=== PATIENT | female | born 1955 | race Caucasian/White ===

== ENCOUNTER 2023-03-06 14:55 | Outpatient (OUT) | payer MEDICARE, SELFPAY ==
--- NOTE | 2023-03-06 15:08 | MR_ITS ---
[place] [id number] Patient Name: JACOBO SALAZAR MRN: [id number] date: 1955 Sex: F Assigned Patient Location: MRI Current Patient Location: MRI Accession/Order Number: [id number] Exam Date: 03/06/2023 15:50 Report Date: 03/07/2023 06:26 At the request of: NAKUL QUIGLEY Procedure: MR shoulder RT wo con EXAMINATION: MR shoulder RT wo con HISTORY: Right shoulder tendinitis M77.8 COMPARISON: No relevant comparison available. TECHNIQUE: A variety of imaging planes and parameters were utilized for visualization of suspected pathology. Imaging was performed without contrast. FINDINGS: ROTATOR CUFF REGION CUFF TENDONS: Mild increased signal intensity in the supraspinatus tendon indicates tendon degeneration and/or tendinitis. No santo tear is seen. CUFF MUSCLES: No significant atrophy or tear. LONG BICEPS TENDON: No abnormal signal, attrition, or tear. LABRUM/BICEPS ANCHOR SUPERIOR: Small, with suspected small tear. ANTERIOR/INFERIOR: Small, but no visible tear. POSTERIOR: Small, but no visible tear. CAPSULE No visible capsular laxity or thickening. AC JOINT REGION AC JOINT: Moderate osteoarthropathy with mild-moderate narrowing of the underlying coracoacromial arch. AC LIGAMENTS: No appreciable tear. CC LIGAMENTS: No appreciable tear. ACROMION: Small undersurface osteophyte at its lateral margin. No significant downsloping. SUBACROMIAL BURSA: No significant effusion. HYALINE CARTILAGE: Marked thinning throughout with multiple areas of suspected complete loss of cartilage. OTHER BONES: Innumerable areas of cortical irregularity and subchondral cysts opening to the cortical surface. Mild bone remodeling of the humeral head and glenoid. Degenerative osteophytes anterior inferior articular margin of humeral head and glenoid. OTHER OBSERVATIONS: No joint effusion. IMPRESSION: 1. Advanced degenerative changes of the glenohumeral joint. 2. Moderate degenerative changes of the acromioclavicular joint. 3. Mild strain or chronic degeneration of the supraspinatus tendon. 4. Small labrum with suspected small superior labral tear. Electronically authenticated by: CHANNING COOK Date: 03/07/2023 06:26
--- NOTE | 2023-03-06 15:11 | XR_ITS ---
The [address] [address] Patient Name: JACOBO SALAZAR MRN: [id number] date: 1955 Sex: F Assigned Patient Location: MRI Current Patient Location: MRI Accession/Order Number: [id number] Exam Date: 03/06/2023 15:15 Report Date: 03/06/2023 16:05 At the request of: NAKUL QUIGLEY Procedure: XR shoulder RT min 2V PROCEDURE: XR shoulder RT min 2V HISTORY: Right shoulder tendinitis M77.8 ; fracture of right shoulder 18 months ago COMPARISON: None. FINDINGS: BONES:Narrowing of the glenohumeral joint with marked irregularity of the articular surfaces, numerous subchondral cysts, and moderate subchondral sclerosis. Large degenerative osteophyte projecting from inferior articular margin of humeral head. Narrowing of the acromial clavicular joint with undersurface osteophytes. SOFT TISSUES:Calcification cephalad to the glenohumeral joints may be within the rotator cuff and represent calcific tendinitis, or less could represent heterotopic bone formation from patient's prior injury. EFFUSION:None visible. OTHER: Negative. IMPRESSION: 1. Marked degenerative changes of the shoulder. 2. No appreciable acute abnormality. Electronically authenticated by: CHANNING COOK Date: 03/06/2023 16:05
== END 2023-03-06 14:56 ==
LOC: MRI 14:58
PROVIDERS: PCP Nurse Practitioner Primary Care; Visit Provider Nurse Practitioner Primary Care
DX: M77.8 Other enthesopathies, not elsewhere classified (principal); S46.811A Strain of other muscles, fascia and tendons at shoulder and upper arm level, right arm, initial encounter
CPT/HCPCS: 73030; 73221

== ENCOUNTER 2023-03-17 12:34 | Outpatient (RCR) | payer MEDICARE, SELFPAY | END 2023-04-25 13:14 | disposition home or self-care (01) | LOC: PT 12:34 | PROVIDERS: PCP Nurse Practitioner Primary Care; Visit Provider Nurse Practitioner Primary Care | DX: M77.8 Other enthesopathies, not elsewhere classified (principal) | CPT/HCPCS: 97110; 97140; 97161 ==

== ENCOUNTER 2023-04-11 09:49 | Outpatient (OUT) | payer MEDICARE, SELFPAY ==
--- NOTE | 2023-04-11 09:52 | MM_ITS ---
Patient: JACOBO SALAZAR Exam Date: 04/11/2023 : 1955 Gender:F Ordering : NAKUL QUIGLEY Admission #: [id number] Family : Order #: [id number] CLICK HERE TO VIEW EXAM RADIOLOGY REPORT PROCEDURE: MM TOMOSYNTHESIS SCREENING BI COMPARISON: MG MAMM SCREEN CHELSY W CAD, 03/10/2021. MG MAMM RT DIAG W CAD, 11/27/2017. MG MAMM SCREEN CHELSY W CAD, 11/01/2017. INDICATIONS: Screening Calculator Name NCI Breast Cancer Risk Assessment Tool 5 Year Breast Cancer Risk 1.60% Lifetime Breast Cancer Risk 6.20% Personal Breast Cancer No Personal Ovarian Cancer No Treatments None Family Cancers Aunt-maternal with breast cancer at age 50. LOCATION: [facility] BREAST COMPOSITION: Scattered areas fibroglandular density. FINDINGS: DIAGNOSTIC CATEGORY 2--BENIGN FINDING: RIGHT BREAST: No significant suspicious finding. Stable, chronic nodular asymmetry within the lower inner quadrant, mid breast. No significant change has occurred. LEFT BREAST: No significant suspicious finding. Stable surgical/biopsy changes and calcified granuloma. No significant change has occurred. RECOMMENDATIONS: ROUTINE MAMMOGRAM AND CLINICAL EVALUATION IN 12 MONTHS. PLEASE NOTE: A NORMAL MAMMOGRAM DOES NOT EXCLUDE THE POSSIBILITY OF BREAST CANCER. A CLINICALLY SUSPICIOUS PALPABLE LUMP SHOULD BE BIOPSIED. Dictated by: Lefty See M.D. on 04/11/2023 at 14:07 Approved by: Lefty See M.D. on 04/11/2023 at 14:11
== END 2023-04-11 09:50 | disposition home or self-care (01) ==
LOC: MAMMO 09:49
PROVIDERS: PCP Nurse Practitioner Primary Care; Visit Provider Nurse Practitioner Primary Care
DX: Z12.31 Encounter for screening mammogram for malignant neoplasm of breast (principal); Z80.3 Family history of malignant neoplasm of breast
CPT/HCPCS: 77063; 77067

== ENCOUNTER 2023-05-23 09:56 | Outpatient (OUT) | payer MEDICARE, SELFPAY ==
[2023-05-23 10:36] LABS: Estimated Average Glucose 137 mg/dL; Glycohemoglobin A1C 6.4 % (4.5-6.2)
[2023-05-23 10:38] LABS: Anion Gap 12.9; Carbon Dioxide 29.1 mmol/L (21.0-32.0); Chloride 100 mmol/L (98-107); Glucose 121 mg/dL (74-106); Sodium 138 mmol/L (136-145)
[2023-05-23 10:39] LABS: Alanine Aminotransferase 16 U/L (14-59); Albumin Globulin Ratio 0.9; Albumin Level 3.8 g/dL (3.4-5.0); Alkaline Phosphatase 85 U/L (46-116); Aspartate Amino Transferase 13 U/L (15-37); BUN Creatinine Ratio 17.3; Bilirubin Total 0.4 mg/dL (0.2-1.0); Calcium 9.8 mg/dL (8.5-10.1); Chol HDL Ratio 5.2; Cholesterol 268 mg/dL (<=200); Estimated GFR (African America >60 (>=60); Estimated GFR (Non-African Ame >60 (>=60); HDL Cholesterol 52 mg/dL (40-60); Total Protein 7.8 g/dL (6.4-8.2); Triglycerides 163 mg/dL (<=150); VLDL CHOLESTEROL 32.6 mg/dL
[2023-05-24 08:12] LABS: HCV Ab Non Reactive (Non Reactive)
== END 2023-05-23 09:57 | disposition home or self-care (01) ==
LOC: LAB 10:01
PROVIDERS: PCP Nurse Practitioner Primary Care; Visit Provider Nurse Practitioner Primary Care
DX: E11.9 Type 2 diabetes mellitus without complications (principal); E78.2 Mixed hyperlipidemia; R76.8 Other specified abnormal immunological findings in serum
CPT/HCPCS: 36415; 80053; 80061; 83036; 86803

== ENCOUNTER 2023-06-26 13:25 | Outpatient (OUT) | payer MEDICARE, SELFPAY ==
--- NOTE | 2023-06-26 14:12 | PM.CN ---
Consult Note: HPI Data of Consult Patient: new to practice Consult date: 06/26/23 Requesting Physician: Noble Reese MD Primary Care Provider: NAKUL QUIGLEY APRN-PRUDENCIO Consult Narrative Reason for consult: right shoulder, low back pain Narrative: Davian 68yof who presents for evaluation. Has had right shoulder and low back pain for years, but continues to worsen. Right shoulder MRI was reviewed, which is significant for advanced osteoarthritis. No recent imaging of low back available. Utilizes mobic, which provides some relief. Engaged in physical therapy that completed last month, with limited benefit. Denies adverse medication side effects or loss of bowel or bladder control. cc:: CC: Noble Reese MD Review of Systems ROS Status of ROS 10 or more systems reviewed and unremarkable except as noted in history and below Exam Narrative Exam Narrative: Psych-alert and oriented x 3. Attentive and appropriate, constitutionally normal, displays normal mood and affect per situation.? There are no obvious deficits in memory, reasoning, or intellect.? Skin-no obvious rashes, bruising, erythema noted to the patient's area of pain. Extremities- extremities are warm with minimal edema and palpable pulses. Shoulder- tenderness to palpation in right shoulder. Pain elicited with abduction, external rotation. Lumbar-no significant tenderness to palpation noted in the lumbar spine and paraspinal musculature.? Pain is elicited with extension, and lateral rotation of the lumbar spine. Range of motion is slightly diminished with these motions due to pain. Facet loading maneuvers are positive bilaterally and do appear to be concordant with the patient's normal complaints of pain.? Coordination remains intact.? Gait remains non-antalgic. Assessment and Plan Assessment and Plan (1) Primary osteoarthritis, right shoulder: (2) Lumbar spondylosis: Plan Davian 68yof who presents for evaluation. Failed conservative measures, as noted. Given worsening right shoulder pain and imaging, will have her scheduled for right shoulder injection in office. She is in agreement. In terms of low back pain, I will have her undergo physical therapy twice weekly for 4-6 weeks. Also will have her undergo xr of lumbar spine and sacrum. She is in agreement. Medications reviewed. Will have her discontinue mobic and trial lodine 400mg bid prn. Follow up after imaging complete.
== END 2023-06-26 13:26 | disposition home or self-care (01) ==
LOC: PM 13:28
PROVIDERS: PCP Nurse Practitioner Primary Care; Visit Provider Anesthesiology
DX: M47.816 Spondylosis without myelopathy or radiculopathy, lumbar region (principal); M19.011 Primary osteoarthritis, right shoulder
CPT/HCPCS: G0463

== ENCOUNTER 2023-07-07 12:40 | Outpatient (OUT) | payer MEDICARE, SELFPAY ==
--- NOTE | 2023-07-07 13:20 | XR_ITS ---
The [place] [id number] Patient Name: JACOBO SALAZAR MRN: [id number] date: 1955 Sex: F Assigned Patient Location: [facility] Current Patient Location: Accession/Order Number: [id number] Exam Date: 07/07/2023 13:00 Report Date: 07/08/2023 15:48 At the request of: ANDRIUS GIEDRAITIS Procedure: XR lumbar spine 6V w bending EXAM: XR sacrum coccyx min 2V, XR lumbar spine 6V w bending HISTORY: Lumbago COMPARISON: None. TECHNIQUE: 3 views of the sacrum and coccyx and 6 views of the lumbar spine. FINDINGS: Maintenance of the normal lumbar lordosis. Approximately 8 mm anterolisthesis of L4 and L5. Multilevel intervertebral disc space narrowing, endplate and severe facet arthropathy. Vertebral body heights are unremarkable. No discrete change of the listhesis with flexion and extension. No fracture, dislocation, subluxation or osseous lesion. Patient is status post right total hip replacement arthroplasty. The the visualized prosthesis exhibits no gross abnormality. Mild joint space narrowing and osteophytes of the left hip joint. The pubic symphysis and sacroiliac joints are unremarkable for patient's age. XR/XR lumbar spine 6V w bending IMPRESSION: Approximately 8 mm anterolisthesis of the L4 vertebral body on L5. This may be secondary to severe facet arthrosis. Electronically authenticated by: CRISTIANE NEWMAN Date: 07/08/2023 15:48
--- NOTE | 2023-07-07 13:20 | XR_ITS ---
The [place] [id number] Patient Name: JACOBO SALAZAR MRN: [id number] date: 1955 Sex: F Assigned Patient Location: [facility] Current Patient Location: Accession/Order Number: [id number] Exam Date: 07/07/2023 13:00 Report Date: 07/08/2023 15:48 At the request of: ANDRIUS GIEDRAITIS Procedure: XR sacrum coccyx min 2V EXAM: XR sacrum coccyx min 2V, XR lumbar spine 6V w bending HISTORY: Lumbago COMPARISON: None. TECHNIQUE: 3 views of the sacrum and coccyx and 6 views of the lumbar spine. FINDINGS: Maintenance of the normal lumbar lordosis. Approximately 8 mm anterolisthesis of L4 and L5. Multilevel intervertebral disc space narrowing, endplate and severe facet arthropathy. Vertebral body heights are unremarkable. No discrete change of the listhesis with flexion and extension. No fracture, dislocation, subluxation or osseous lesion. Patient is status post right total hip replacement arthroplasty. The the visualized prosthesis exhibits no gross abnormality. Mild joint space narrowing and osteophytes of the left hip joint. The pubic symphysis and sacroiliac joints are unremarkable for patient's age. XR/XR sacrum coccyx min 2V IMPRESSION: Approximately 8 mm anterolisthesis of the L4 vertebral body on L5. This may be secondary to severe facet arthrosis. Electronically authenticated by: CRISTIANE NEWMAN Date: 07/08/2023 15:48
== END 2023-07-07 12:41 | disposition home or self-care (01) ==
LOC: RAD 12:42
PROVIDERS: PCP Nurse Practitioner Primary Care; Visit Provider Anesthesiology
DX: M54.50 Low back pain, unspecified (principal)
CPT/HCPCS: 72114; 72220

== ENCOUNTER 2023-07-10 14:42 | Outpatient (OUT) | payer MEDICARE, SELFPAY ==
--- NOTE | 2023-07-10 15:24 | P.CN_ITS ---
Consult Note: HPI Data of Consult Patient: known to practice within the last 3 years Consult date: 07/10/23 Requesting Physician: Noble Reese MD Primary Care Provider: NAKUL QUIGLEY APRN-PRUDENCIO Consult Narrative Reason for consult: right shoulder pain, low back pain Narrative: 68yof who presents for assessment. persistence right shoulder and low back pain. recently underwent lumbar XR, significant for severe facet arthrosis and 8mm of L4 on L5 listhesis. continues in course of provider directed home exercise program, with limited benefit. utilizes lodine prn. denies adverse med side effects. cc:: CC: Noble Reese MD Review of Systems ROS Status of ROS 10 or more systems reviewed and unremarkable except as noted in history and below Meds Home Medications and Allergies Home Medications Medication Instructions Recorded Confirmed Type aspirin 81 mg tablet,delayed 81 mg PO DAILY 06/26/23 06/26/23 History release atorvastatin 40 mg tablet 80 mg PO DAILY 06/26/23 06/26/23 History dulaglutide 1.5 mg/0.5 mL 1.5 mg subcut QWEEK 06/26/23 06/26/23 History subcutaneous pen injector (Trulicity) etodolac 400 mg tablet (Lodine) 400 mg PO BID 06/26/23 06/26/23 History losartan 100 mg tablet 100 mg PO DAILY 06/26/23 06/26/23 History omega 2-zko-bti-fish oil 1,000 mg 1 cap PO DAILY 06/26/23 06/26/23 History (120 mg-180 mg) capsule (Fish Oil) oxybutynin chloride 15 mg 15 mg PO DAILY 06/26/23 06/26/23 History tablet,extended release 24 hr pantoprazole 40 mg tablet,delayed 40 mg PO DAILY 06/26/23 06/26/23 History release Allergies Allergy/AdvReac Type Severity Reaction Status Date / Time No Known Drug Allergies Allergy Verified 06/26/23 14:27 Exam Narrative Exam Narrative: Psych-alert and oriented x 3. Attentive and appropriate, constitutionally normal, displays normal mood and affect per situation.? There are no obvious deficits in memory, reasoning, or intellect.? Skin-no obvious rashes, bruising, erythema noted to the patient's area of pain. Extremities- extremities are warm with minimal edema and palpable pulses. Lumbar-no significant tenderness to palpation noted in the lumbar spine and paraspinal musculature.? Pain is elicited with extension, and lateral rotation of the lumbar spine. Range of motion is slightly diminished with these motions due to pain. Facet loading maneuvers are positive bilaterally and do appear to be concordant with the patient's normal complaints of pain.? Shoulder- right shoulder tender to palpation. Pain elicited with abduction, exte rnal rotation of right shoulder. Coordination remains intact.? Gait remains non-antalgic. Assessment and Plan Assessment and Plan (1) Lumbar spondylosis: (2) Primary osteoarthritis, right shoulder: (3) Anterolisthesis of lumbar spine: Plan 68yof who presents for assessment. failed conservative measures, as noted. given right shoulder pain, will proceed with right shoulder injection today. she is in agreement. in terms of her low back pain, given her significant imaging findings and degree of anterolisthesis, would like her to have lumbar MRI without contrast completed, as well as neurosurgical evaluation. she is in agreement. medications reviewed, no changes. follow up after imaging and evaluation. Procedure: Right shoulder injection Medications: Bupivacaine 0.25% 4cc, kenalog 40mg Diagnosis: Right shoulder osteoarthritis I explained the details of the procedure to the patient including the risks, benefits, and alternatives.? We had an informed discussion.? The patient verbalized understanding and signed the consent form.? All questions were answered appropriately.? A time-out was performed.? After obtaining a comfortable seated position, the skin overlying the right shoulder was prepped with alcohol 3 times.? The sulcus between the head of the humerus and the acromion was identified.? The needle was inserted in a sterile manner 2 cm inferior and medial to the posterolateral corner of the acromion and was directed anteriorly toward the coracoid process. The contents of the syringe were gently injected without any resistance into the joint space after negative aspiration for blood or other bodily fluids.? The needle was removed and pressure was applied at the injection site to decrease the incidence of ecchymosis and hematoma formation.? A sterile bandage was applied.
== END 2023-07-10 14:43 | disposition home or self-care (01) ==
LOC: PM 14:42
PROVIDERS: PCP Nurse Practitioner Primary Care; Visit Provider Anesthesiology
DX: M47.816 Spondylosis without myelopathy or radiculopathy, lumbar region (principal); M19.011 Primary osteoarthritis, right shoulder; M43.16 Spondylolisthesis, lumbar region
CPT/HCPCS: 20610

== ENCOUNTER 2023-08-14 13:20 | Outpatient (OUT) | payer MEDICARE, SELFPAY ==
--- NOTE | 2023-08-14 | MR_ITS ---
The [place] [id number] Patient Name: JACOBO SALAZAR MRN: [id number] date: 1955 Sex: F Assigned Patient Location: MRI Current Patient Location: MRI Accession/Order Number: [id number] Exam Date: 08/14/2023 13:32 Report Date: 08/14/2023 16:13 At the request of: BERNADINE GIEDRASTEWART Procedure: MR lumbar spine wo con MR lumbar spine wo con, 08/14/2023 1:32 PM EST INDICATION: lumbar listhesis COMPARISON: Prior x-ray of lumbar spine dated 07/07/2023 TECHNIQUE: Multiplanar, multisequential MRI images of lumbar spine were obtained without contrast. FINDINGS: For dictation purposes, the lowest complete disc space in the lumbar spine considered as L5-S1. Grade 1 anterolisthesis of L4 on L5. There is normal physiologic lumbar lordosis. The vertebral height is preserved. The conus medullaris is at the level of L1. No signal abnormality within the visualized spinal cord is noted. Level of T12-L1 is unremarkable. At the level of L1-L2, there are disc bulge with mild bilateral neuroforaminal narrowing and no canal stenosis. At the level of L2-L3, there are disc bulge with mild to moderate bilateral neuroforaminal narrowing and moderate canal stenosis. At the level of L3-4, there are disc bulge with superimposed left lateral annular fissure with mild bilateral neuroforaminal narrowing and mild canal stenosis. At the level of L4-5, there are grade 1 anterolisthesis uncovering disc with moderate right and mild left neuroforaminal narrowing and mild canal stenosis. At the level of L5-S1, there are disc bulge with superimposed left lateral disc protrusion with mild right and moderate left neuroforaminal narrowing and no canal stenosis. The left S1 nerve root is in close contact with the disc bulge in the lateral recess. The paraspinal muscles are unremarkable. MR/MR lumbar spine wo con IMPRESSION: Mild degenerative changes of lumbar spine in particular at L4-L5 and L5-S1. Electronically authenticated by: IRVING MINER Date: 08/14/2023 16:13
== END 2023-08-14 13:21 | disposition home or self-care (01) ==
LOC: MRI 13:20
PROVIDERS: PCP Nurse Practitioner Primary Care; Visit Provider Anesthesiology
DX: M43.16 Spondylolisthesis, lumbar region (principal); M51.36 Other intervertebral disc degeneration, lumbar region
CPT/HCPCS: 72148

== ENCOUNTER 2023-10-19 13:24 | Outpatient (OUT) | payer MEDICARE, SELFPAY ==
--- OUTSIDE RECORDS SUMMARY | 2023-10-19 13:28 | XMS_ITS | CCD ---
Author Name Unknown Address [address] [place] [address] Organization [facility] Care Team Providers Care Program Management Specialist Name Role Phone SHANIQUE WINTER Attending Unavailable SARA HODGES Primary Care Unavailable SHAMMO, GUILLAUME Primary Care Unavailable SHAMMO, GUILLAUME Admitting Unavailable SHAMMO, GUILLAUME Attending Unavailable SHAMMO, GUILLAUME Primary Care Unavailable SHAMMO, GUILLAUME Admitting Unavailable SHAMMO, GUILLAUME Attending Unavailable SHAMMO, GUILLAUME Primary Care Unavailable SHAMMO, GUILLAUME Admitting Unavailable SHAMMO, GUILLAUME Attending Unavailable SHAMMO, GUILLAUME Primary Care Unavailable SHAMMO, GUILLAUME Admitting Unavailable DO NOT USE SHAMMO, GUILLAUME Consulting Unavail able SHAMMO, GUILLAUME Attending Unavailable SHAMMO, GUILLAUME Primary Care Unavailable SHAMMO, GUILLAUME Admitting Unavailable SHAMMO, GUILLAUME Attending Unavailable SHAMMO, GUILLAUME Consulting Unavailable SHAMMO, GUILLAUME Primary Care Unavailable SHAMMO, GUILLAUME Admitting Unavailable SHAMMO, GUILLAUME Attending Unavailable Giedraitis , Andrius Marina Attending Unavailable Giedraitis , Andrius Vytfannie Attending Unavailable SHAMMO, GUILLAUME Primary Care Unavailable DAGOBERTO, NEHA E Attending Unavailable DAGOBERTO, NEHA E Admitting Unavailable SHAMMO, GUILLAUME Primary Care Unavailable SHAMMO, GUILLAUME Referring Unavailable SHAMMO, GUILLAUME Primary Care Unavailable Armin MCGHEE Attending Unavailable SHAMMO, GUILLAUME Primary Care Unavailable DAGOBERTO, NEHA E Attending Unavailable SHAMMO, GUILLAUME Primary Care Unavailable SHAMMO, GUILLAUME Referring Unavailable SHAMMO, GUILLAUME Primary Care Unavailable DAGOBERTO, NEHA E Attending Unavailable Allergies Allergy Classification Reported Allergen(s) Allergy Type Date of Onset Reaction(s) Facility (1 source) No Known Medication Allergies; Translations: [No Known Medication Allergies] Propensity to adverse reactions (disorder) [facility] Repository Problems Problem Classification Problem Date Documented Da te Episodic/Chronic Diabetes mellitus without complication (1 source) Type 2 diabetes mellitus without complications; Translations: [TYPE 2 DM WITHOUT COMPLICATIONS] Onset: 02-08-2023 Chronic Disorders of lipid metabolism (1 source) Pure hyperglyceridemia ; Translations: [PURE HYPERGLYCERIDEMIA ] Onset: 02-08-2023 Chronic Immunizations and screening for infectious disease (1 source) Encounter for screening for other viral diseases; Translations: [ENC SCREENING FOR OTH VIRAL DZ] Onset: 02-08-2023 Episodic Other nutritional; endocrine; and metabolic disorders (1 source) Body mass index (BMI) 35.0-35.9, adult; Translations: [BODY MASS INDEX BMI 35.0-35.9 ADULT] Onset: 02-08-2023 Chronic Other screening for suspected conditions (not mental disorders or infectious disease) (1 source) Encounter for screening for other suspected endocrine disorder; Translations: [ENC SCR OTH SUSPECT ENDOCRN DISORDR] Onset: 02-08-2023 Episodic Results Test Name Value Interpretation Reference Range Facility C Urineon 07-13-2023 Bacteria identified Cx Nom (U) Microbiology PROCEDURE: Urine Culture [R1] SOURCE: U CleanCatch BODY SITE: COLLECTED DATE/TIME: 07/11/2023 10:50 EDT RECEIVED DATE/TIME: 07/11/2023 19:40 EDT START DATE/TIME: 07/11/2023 19:40 EDT FREE TEXT SOURCE: NEHA ARENAS PA-C, PA-C, NEHA Hickman FINAL REPORTS Final Report [] Verified Date/Time: 07/13/2023 11:21 EDT >100,000 cfu/ml Klebsiella pneumoniae <10,000 cfu/ml Mixed skin contaminants SUSCEPTIBILITY RESULTS __ LEGEND: S=Susceptible, N/R=Not Reported, Blank=Data not available, or drug not advisable or tested, I=Intermediate, ESBL=Extended spectrum beta-lactamase, R=Resistant, TFG=Thymidine-dependen t strain, RYNE=Beta-lactamase positive, JAEL=mcg/m;(mg/L), S*=Predicted susceptible interp, R*=Predicted resistant interp Klepne Antibiotic JAEL Dilutn JAEL Interp Amikacin <=16 S Ampicillin 16 R* Ampicillin/ <=8/4 S Sulbactam Aztreonam <=4 S Cefazolin <=2 S Cefepime <=2 S Cefoxitin <=8 S Ceftazidime <=1 S Ceftazidime/ <=8 S Avibactam Ceftriaxone <=1 S Ciprofloxacin <=1 S Ertapenem <=0.5 S Gentamicin <=4 S Levofloxacin <=2 S Meropenem <=1 S Nitrofurantoin 64 I Piperacillin/ <=16 S Tazobactam Tetracycline <=4 S Tigecycline <=2 S Tobramycin <=4 S Trimethoprim/ <=2/38 S Sulfa Performing Locations R1: This test was performed at: [facility], [address] [place] [address], [id number] , , [facility] Comment on above: Performed By: #### [id number] #### [facility] Laboratory [address] [place] [address] Lab Reportson 07-12-2023 Lab Reports [id number]. 00TIFF [facility] Physician Referralon 023 Physician Referral [id number] 00 [id number] 0TIFF Normal [facility] Screenson 07-12-2023 Screens [id number]. 00TIFF Normal [facility] Patient Educationon 07-11-20 23 Patient Education Obstetrics and Gynecology Kegel Exercises Kegel exercises can help strengthen your pelvic floor muscles. The pelvic floor is a group of muscles that support your rectum, small intestine, and bladder. In females, pelvic floor muscles also help support the uterus. These muscles help you control the flow of urine and stool (feces). Kegel exercises are painless and simple. They do not require any equipment. Your provider may suggest Kegel exercises to: ? Improve bladder and bowel control. ? Improve sexual response. ? Improve weak pelvic floor muscles after surgery to remove the uterus (hysterectomy) or after , in females. ? Improve weak pelvic floor muscles after prostate gland removal or surgery, in males. Kegel exercises involve squeezing your pelvic floor muscles. These are the same muscles you squeeze when you try to stop the flow of urine or keep from passing gas. The exercises can be done while sitting, standing, or lying down, but it is best to vary your position. Ask your health care provider which exercises are safe for you. Do exercises exactly as told by your health care provider and adjust them as directed. Do not begin these exercises until told by your health care provider. Exercises How to do Kegel exercises: 1. Squeeze your pelvic floor muscles tight. You should feel a tight lift in your rectal area. If you are a female, you should also feel a tightness in your vaginal area. Keep your stomach, buttocks, and legs relaxed. 2. Hold the muscles tight for up to 10 seconds. 3. Breathe normally. 4. Relax your muscles for up to 10 seconds. 5. Repeat as told by your health care provider. Repeat this exercise daily as told by your health care provider. Continue to do this exercise for at least 4?6 weeks, or for as long as told by your health care provider. You may be referred to a physical therapist who can help you learn more about how to do Kegel exercises. Depending on your condition, your health care provider may recommend: ? Varying how long you squeeze your muscles. ? Doing several sets of exercises every day. ? Doing exercises for several weeks. ? Making Kegel exercises a part of your regular exercise routine. This information is not intended to replace advice given to you by your health care provider. Make sure you discuss any questions you have with your health care provider. Document Revised: 01/27/2022 Document Reviewed: 01/27/2022 [employer] Patient Education ? 2022 [employer] Normal [facility] HEPATITIS C AB CASCADE TO QU ANT PCR GENOon 02-06-2023 HCV AB Reactive Abnormal Non Reactive [facility] Comment on above: Performed By: #### H EPCASC #### [facility] [address] [address] [address] Jorge Carrasco HCV Genotype RTNI Normal [facility] Comment on above: Result Comment: Not indicated Performed By: #### H EPCASC #### [facility] [address] [address] [address] Jorge Carrasco HCV log10 Normal [facility] Comment on above: Performed By: #### H EPCASC #### [facility] [address] [address] [address] Jorge Carrasco Hep C Quantitation Not detected [facility] Comment on above: Performed By: #### H EPCASC #### [facility] [address] [address] [address] Jorge Carrasco Interpretation Comment Normal [facility] Comment on above: Result Comment: Posi tive HCV antibody screen without the presence of HCV RNA is consistent with a resolved past infection or a false positive HCV antibody. Consider repeat testing after one month. Performed By: #### H EPCASC #### [facility] [address] [address] [address] Jorge Carrasco Test Information: Comment Normal [facility] Comment on above: Result Comment: The quantitative range of this assay is 15 IU/mL to 100 million IU/mL. Performed By: #### H EPCASC #### [facility] [address] [place] [address] Dr. Jorge Carrasco CBC AUTO DIFFon 02-02-2023 BASO # 0.0 103/ul Normal 0.0-0.1 [facility] Comment on above: Performed By: #### C BC #### [facility] [address] [address] [address] Jorge Carrasco Basophils/100 WBC (Bld) 0.5 % Normal 0.2-2.0 [facility] Comment on above: Performed By: #### C BC #### [facility] [address] [place] [address] Dr. Jorge Carrasco EO # 0.1 103/ul Normal 0.0-0.7 [facility] Comment on above: Performed By: #### C BC #### [facility] [address] [place] [address] Dr. Jorge Carrasco Eosinophils/100 WBC (Bld) 3.2 % Normal 0.9-7.0 [facility] Comment on above: Performed By: #### C BC #### [facility] [address] [place] [address] Dr. Jorge Carrasco Erythrocyte distribution width (RBC) [Ratio] 14.0 % Normal 11.0-15.0 [facility] Comment on above: Performed By: #### C BC #### [facility] [address] [place] [address] Dr. Jorge Carrasco Hematocrit (Bld) [Volume fraction] 40.2 % Normal 36.0-48.0 [facility] Comment on above: Performed By: #### C BC #### [facility] [address] [place] [address] Dr. Jorge Carrasco Hemoglobin (Bld) [Mass/Vol] 13.3 g/dL Normal 12.0-16.0 [facility] Comment on above: Performed By: #### C BC #### [facility] [address] [place] [address] Dr. Jorge Carrasco IG # 0.01 10e3/ul Normal 0.00-0.03 [facility] Comment on above: Performed By: #### C BC #### [facility] [address] [place] [address] Dr. Jorge Carrasco IG % 0.3 % Normal 0.0-0.5 [facility] Comment on above: Performed By: #### C BC #### [facility] [address] [address] [address] Jorge Carrasco LYMPH # 1.0 103/ul Critically low 1.2-3.8 [facility] Comment on above: Performed By: #### C BC #### [facility] [address] [address] [address] Jorge Carrasco Lymphocytes/100 WBC (Bld) 27.4 % Normal 20.5-60.0 [facility] Comment on above: Performed By: #### C BC #### [facility] [address] [place] [address] Dr. Jorge Carrasco MANUAL DIFF REQ NO Normal [facility] Comment on above: Performed By: #### C BC #### [facility] [address] [place] [address] Dr. Jorge Carrasco MCH (RBC) [Entitic mass] 28.0 pg Normal 26.7-34.0 [facility] Comment on above: Performed By: #### C BC #### [facility] [address] [place] [address] Dr. Jorge Carrasco MCHC (RBC) [Mass/Vol] 33.1 g/dL Normal 29.9-35.2 [facility] Comment on above: Performed By: #### C BC #### [facility] [address] [place] [address] Dr. Jorge Carrasco MCV (RBC) [Entitic vol] 84.6 fL Normal 81.0-99.0 [facility] Comment on above: Performed By: #### C BC #### [facility] [address] [place] [address] Dr. Jorge Carrasco MONO # 0.2 103/ul Critically low 0.3-0.8 [facility] Comment on above: Performed By: #### C BC #### [facility] [address] [place] [address] Dr. Jorge Carrasco Monocytes/100 WBC (Bld) 5.1 % Normal 1.7-12.0 [facility] Comment on above: Performed By: #### C BC #### [facility] [address] [address] [address] Jorge Carrasco NEUT # 2.4 103/ul Normal 1.4-6.5 [facility] Comment on above: Performed By: #### C BC #### [facility] [address] [address] [address] Jorge Carrasco Neutrophils/100 WBC (Bld) 63.5 % Normal 43.0-75.0 [facility] Comment on above: Performed By: #### C BC #### [facility] [address] [address] [address] Jorge Carrasco Platelet mean volume (Bld) [Entitic vol] 10.8 fL Normal 9.5-13.5 [facility] Comment on above: Performed By: #### C BC #### [facility] [address] [place] [address] Dr. Jogre Carrasco PLT 263 103/ul Normal 150-450 [facility] Comment on above: Performed By: #### C BC #### [facility] [address] [place] [address] Dr. Jorge Carrasco RBC 4.75 106/ul Normal 4.20-5.40 [facility] Comment on above: Performed By: #### C BC #### [facility] [address] [address] [address] Jorge Carrasco WBC 3.7 103/ul Critically low 4.0-11.0 [facility] Comment on above: Performed By: #### C BC #### [facility] [address] [place] [address] Dr. Jorge Carrasco FREE T3on 02-02-2023 FREE T3 3.11 pg/mlL Normal 2.18-3.98 [facility] Comment on above: Performed By: #### L IPID, TSH, FT3, CMP #### [facility] [address] [address] [address] Jorge Carrasco GLYCOHEMOGLOBIN A1Con 2022 ADA RECOMMENDATION SEE BELOW Normal [facility] Comment on above: Result Comment: ADA RECOMMENDED LIMIT 4.0 - 6.0 ADA THERAPEUTIC TARGET < 7.0 ACTION SUGGESTED > 7.0 Performed By: #### A 1C #### [facility] [address] [address] [address] Jorge Carrasco Glucose [Mass/Vol] 189 mg/dL Normal [facility] Comment on above: Performed By: #### A 1C #### [facility] [address] [address] [address] Jorge Carrasco HbA1c (Bld) [Mass fraction] 8.2 % Critically high 4.5-6.2 [facility] Comment on above: Performed By: #### A 1C #### [facility] [address] [place] [address] Dr. Jorge Carrasco LIPID PROFILEon 02-02-2023 CHOL-HDL RATIO NORM SEE BELOW Normal [facility] Comment on above: Result Comment: 3.3 - 4.4 LOW RISK 4.4 - 7.1 AVERAGE RISK 7.1 - 11.0 MODERATE RISK >11.0 HIGH RISK Performed By: #### L IPID, TSH, FT3, CMP #### [facility] [address] [address] [address] Jorge Carrasco Cholesterol [Mass/Vol] 245 mg/dL Critically high <=200 [facility] Comment on above: Performed By: #### L IPID, TSH, FT3, CMP #### [facility] [address] [address] [address] Jorge Carrasco Cholesterol in HDL [Mass/Vol] 61 mg/dL Critically high 40-60 [facility] Comment on above: Performed By: #### L IPID, TSH, FT3, CMP #### [facility] [address] [address] [address] Jorge Carrasco Cholesterol in LDL [Mass/Vol] 156.2 mg/dL Normal [facility] Comment on above: Performed By: #### L IPID, TSH, FT3, CMP #### [facility] [address] [address] [address] Jorge Carrasco Cholesterol.total/Ch olesterol in HDL [Mass ratio] 4.0 {ratio} Normal [facility] Comment on above: Performed By: #### L IPID, TSH, FT3, CMP #### [facility] [address] [place] [address] Dr. Jorge Carrasco HDL NORMAL > or = 60 mg/dl - LO W CARDIOVASCULAR RISK <40 mg/dl - HIGH CARDIOVASCULAR RISK Normal [facility] Comment on above: Performed By: #### L IPID, TSH, FT3, CMP #### [facility] [address] [address] [address] Jorge Carrasco LDL CALC NORMAL SEE BELOW Normal [facility] Comment on above: Result Comment: <100 mg/dl OPTIMAL 100 - 129 mg/dl NEAR OR ABOVE OPTIMAL 130 - 159 mg/dl BORDERLINE HIGH 160 - 189 mg/dl HIGH >190 mg/dl VERY HIGH Performed By: #### L IPID, TSH, FT3, CMP #### [facility] [address] [place] [address] Dr. Jorge Carrasco Triglyceride [Mass/Vol] 139 mg/dL Normal <=150 [facility] Comment on above: Performed By: #### L IPID, TSH, FT3, CMP #### [facility] [address] [place] [address] Dr. Jorge Carrasco VLDL CALC 27.8 mg/dL Normal [facility] Comment on above: Performed By: #### L IPID, TSH, FT3, CMP #### [facility] [address] [place] [address] Dr. Jorge Carrasco MICROALBUMIN, RAND URon 05-0 mALB 1.5 mg/L Normal <=30.0 [facility] Comment on above: Performed By: #### M ALBR #### [facility] [address] [place] [address] Dr. Jorge Carrasco PROF 14(COMP METB)on 023 Albumin [Mass/Vol] 3.5 g/dL Normal 3.4-5.0 [facility] Comment on above: Performed By: #### L IPID, TSH, FT3, CMP #### [facility] [address] [place] [address] Dr. Jorge Carrasco Albumin/Globulin [Mass ratio] 0.7 {ratio} Normal [facility] Comment on above: Performed By: #### L IPID, TSH, FT3, CMP #### [facility] [address] [place] [address] Dr. Jorge Carrasco ALP [Catalytic activity/Vol] 127 U/L Critically high 46-116 [facility] Comment on above: Performed By: #### L IPID, TSH, FT3, CMP #### [facility] [address] [place] [address] Dr. Jorge Carrasco ALT [Catalytic activity/Vol] 24 U/L Normal 14-59 [facility] Comment on above: Performed By: #### L IPID, TSH, FT3, CMP #### [facility] [address] [place] [address] Dr. Jorge Carrasco Anion gap [Moles/Vol] 11.5 mmol/L Normal [facility] Comment on above: Performed By: #### L IPID, TSH, FT3, CMP #### [facility] [address] [place] [address] Dr. Jorge Carrasco AST [Catalytic activity/Vol] 16 U/L Normal 15-37 [facility] Comment on above: Performed By: #### L IPID, TSH, FT3, CMP #### [facility] [address] [place] [address] Dr. Jorge Carrasco Bilirubin [Mass/Vol] 0.3 mg/dL Normal 0.2-1.0 [facility] Comment on above: Performed By: #### L IPID, TSH, FT3, CMP #### [facility] [address] [place] [address] Dr. Jorge Carrasco Calcium [Mass/Vol] 9.8 mg/dL Normal 8.5-10.1 [facility] Comment on above: Performed By: #### L IPID, TSH, FT3, CMP #### [facility] [address] [place] [address] Dr. Jorge Carrasco Chloride [Moles/Vol] 99 mmol/L Normal 98-107 [facility] Comment on above: Performed By: #### L IPID, TSH, FT3, CMP #### [facility] [address] [place] [address] Dr. Jorge Carrasco CO2 [Moles/Vol] 29.4 mmol/L Normal 21.0-32.0 [facility] Comment on above: Performed By: #### L IPID, TSH, FT3, CMP #### [facility] [address] [place] [address] Dr. Jorge Carrasco Creatinine [Mass/Vol] 0.72 mg/dL Normal 0.55-1.02 [facility] Comment on above: Performed By: #### L IPID, TSH, FT3, CMP #### [facility] [address] [place] [address] Dr. Jorge Carrasco EGFR-AF HONDURAN >60 Normal >=60 [facility] Comment on above: Performed By: #### L IPID, TSH, FT3, CMP #### [facility] [address] [place] [address] Dr. Jorge Carrasco EGFR-NON AF HONDURAN >60 Normal >=60 [facility] Comment on above: Performed By: #### L IPID, TSH, FT3, CMP #### [facility] [address] [place] [address] Dr. Jorge Carrasco Globulin (S) [Mass/Vol] 4.9 g/dL Normal [facility] Comment on above: Performed By: #### L IPID, TSH, FT3, CMP #### [facility] [address] [place] [address] Dr. Jorge Carrasco Glucose [Mass/Vol] 185 mg/dL Critically high 74-106 [facility] Comment on above: Performed By: #### L IPID, TSH, FT3, CMP #### [facility] [address] [place] [address] Dr. Jorge Carrasco Potassium [Moles/Vol] 3.9 mmol/L Normal 3.5-5.1 [facility] Comment on above: Performed By: #### L IPID, TSH, FT3, CMP #### [facility] [address] [place] [address] Dr. Jorge Carrasco Protein [Mass/Vol] 8.4 g/dL Critically high 6.4-8.2 [facility] Comment on above: Performed By: #### L IPID, TSH, FT3, CMP #### [facility] [address] [place] [address] Dr. Jorge Carrasco Sodium [Moles/Vol] 136 mmol/L Normal 136-145 [facility] Comment on above: Performed By: #### L IPID, TSH, FT3, CMP #### [facility] [address] [place] [address] Dr. Jorge Carrasco Urea nitrogen [Mass/Vol] 17.0 mg/dL Normal 7.0-18.0 [facility] Comment on above: Performed By: #### L IPID, TSH, FT3, CMP #### [facility] [address] [place] [address] Dr. Jorge Carrasco Urea nitrogen/Creatinine [Mass ratio] 23.6 mg/mg Normal [facility] Comment on above: Performed By: #### L IPID, TSH, FT3, CMP #### [facility] [address] [place] [address] Dr. Jorge Carrasco TSHon 02-02-2023 TSH 3.092 uIU/mL Normal 0.358-3.740 [facility] Comment on above: Performed By: #### L IPID, TSH, FT3, CMP #### [facility] [address] [place] [address] Dr. Jorge Carrasco APTTon 03-31-2019 aPTT Coag (Bld) [Time] 23.1 s Low 23.2-34.4 [facility] Comment on above: Performed By: #### P T, BMPX, BNP, DIME, CDP, PTT, TROPI #### [facility] [address] [place] [address] [employer] Driver: Crispin Perez MD Basic Metab w/rfx MGon 03-31 (cont.) [facility] Comment on above: Result Comment: Aver age GFR for 60-69 years old: 85 mL/min/1.73sq m Chronic Kidney Disease: <60 mL/min/1.73sq m Kidney failure: <15 mL/min/1.73sq m eGFR calculated using average adult body mass. Additional eGFR calculator available at: http://www.[employer]/multiple_crcl_2012.htm Performed By: #### P T, BMPX, BNP, DIME, CDP, PTT, TROPI #### [facility] [address] [place] [address] [employer]: Crispin Perez MD Anion gap [Moles/Vol] 11 mmol/L Normal 9-17 [facility] Comment on above: Performed By: #### P T, BMPX, BNP, DIME, CDP, PTT, TROPI #### [facility] [address] [place] [address] [employer] Driver: Crispin Perez MD BUN/CRE Ratio 21 High 9-20 [facility] Comment on above: Performed By: #### P T, BMPX, BNP, DIME, CDP, PTT, TROPI #### [facility] [address] [place] [address] [employer] Driver: Crispin Perez MD Calcium [Mass/Vol] 9.1 mg/dL Normal 8.6-10.4 [facility] Comment on above: Performed By: #### P T, BMPX, BNP, DIME, CDP, PTT, TROPI #### [facility] [address] [place] [address] [employer] Driver: Crispin Perez MD Chloride [Moles/Vol] 103 mmol/L Normal 98-107 [facility] Comment on above: Performed By: #### P T, BMPX, BNP, DIME, CDP, PTT, TROPI #### [facility] [address] [place] [address] [employer]: Crispin Perez MD CO2 [Moles/Vol] 26 mmol/L Normal 20-31 [facility] Comment on above: Performed By: #### P T, BMPX, BNP, DIME, CDP, PTT, TROPI #### [facility] [address] [place] [address] [employer] Driver: Crispin Perez MD Creatinine [Mass/Vol] 0.67 mg/dL Normal 0.50-0.90 [facility] Comment on above: Performed By: #### P T, BMPX, BNP, DIME, CDP, PTT, TROPI #### [facility] [address] [place] [address] [employer] Driver: Crispin Perez MD GFR, Amer >60 Normal >60 [facility] Comment on above: Performed By: #### P T, BMPX, BNP, DIME, CDP, PTT, TROPI #### [facility] [address] [place] [address] [employer] Driver: Crispin Perez MD GFR,non Amer >60 Normal >60 [facility] Comment on above: Performed By: #### P T, BMPX, BNP, DIME, CDP, PTT, TROPI #### [facility] [address] [place] [address] [employer] Driver: Crispin Perez MD Glucose [Mass/Vol] 171 mg/dL High 70-99 [facility] Comment on above: Performed By: #### P T, BMPX, BNP, DIME, CDP, PTT, TROPI #### [facility] [address] [place] [address] [employer] Driver: Crispin Perez MD Potassium [Moles/Vol] 4.2 mmol/L Normal 3.7-5.3 [facility] Comment on above: Performed By: #### P T, BMPX, BNP, DIME, CDP, PTT, TROPI #### [facility] [address] [place] [id number] [employer] Driver: Crispin Perez MD Sodium [Moles/Vol] 140 mmol/L Normal 135-144 [facility] Comment on above: Performed By: #### P T, BMPX, BNP, DIME, CDP, PTT, TROPI #### [facility] [address] [place] [address] [employer] Driver: Crispin Perez MD Staging: Normal [facility] Comment on above: Result Comment: Stag e 1: Some kidney damage normal GFR Stage 2: Mild kidney damage GFR 60-89 Stage 3: Moderate kidney damage GFR 30-59 Stage 4: Severe kidney damage GFR 15-29 Stage 5: Severe kidney damage GFR <15 ESRD - chronic treatment by dialysis or transplant Performed By: #### P T, BMPX, BNP, DIME, CDP, PTT, TROPI #### [facility] [address] [place] [address] [employer] Driver: Crispin Perez MD Urea nitrogen [Mass/Vol] 14 mg/dL Normal 8-23 [facility] Comment on above: Performed By: #### P T, BMPX, BNP, DIME, CDP, PTT, TROPI #### [facility] [address] [place] [address] [employer] Driver: Crispin Perez MD Brain Natri. Peptideon 03-31 Natriuretic peptide B (Bld) [Mass/Vol] Pro-BNP Reference Range: Normal [facility] Comment on above: Result Comment: Rule Out: <300 Jansen Zone: Age <50 300-450 Age 50-75 300-900 Age >75 300-1800 Usually represents mild to moderate HF but other cardiopulmonary causes cannot be ruled out. Rule In: Age <50 >450 Age 50-75 >900 Age >75 >1800 Performed By: #### P T, BMPX, BNP, DIME, CDP, PTT, TROPI #### [facility] [address] [place] [address] [employer] Driver: Crispin Perez MD Natriuretic peptide B (Bld) [Mass/Vol] 158 pg/mL Normal <300 [facility] Comment on above: Result Comment: Pro- BNP results cannot be compared to BNP results. Performed By: #### P T, BMPX, BNP, DIME, CDP, PTT, TROPI #### [facility] [address] [place], [facility]83 [employer] Driver: Crispin Perez MD CBC with Diffon 03-31-2019 Abs. Basophil 0.03 k/uL Normal 0.00-0.20 [facility] Comment on above: Performed By: #### P T, BMPX, BNP, DIME, CDP, PTT, TROPI #### [address] [place], [place] [address] [employer] Driver: Crispin Perez MD Abs.Imm.Granulocyte <0.03 Normal 0.00-0.30 [facility] Comment on above: Performed By: #### P T, BMPX, BNP, DIME, CDP, PTT, TROPI #### [address] [place], [place] [address] [employer] Driver: Crispin Perez MD Abs.Neutrophil (Seg) 3.28 k/uL Normal 1.50-8.10 [facility] Comment on above: Performed By: #### P T, BMPX, BNP, DIME, CDP, PTT, TROPI #### [address] [place], [place] [address] [employer] Driver: Crispin Perez MD Basophils/100 WBC (Bld) 1 % Normal 0-2 [facility] Comment on above: Performed By: #### P T, BMPX, BNP, DIME, CDP, PTT, TROPI #### [address] [place], [facility]83 [employer] Driver: Crispin Perez MD Eosinophils (Bld) [#/Vol] 0.22 10*3/uL Normal 0.00-0.44 [facility] Comment on above: Performed By: #### P T, BMPX, BNP, DIME, CDP, PTT, TROPI #### [facility] [address] [place] [address] [employer] Driver: Crispin Perez MD Eosinophils/100 WBC (Bld) 4 % Normal 1-4 [facility] Comment on above: Performed By: #### P T, BMPX, BNP, DIME, CDP, PTT, TROPI #### [facility] [address] [place] [id number] [employer] Driver: Crispin Perez MD Erythrocyte distribution width (RBC) [Ratio] 14.4 % Normal 11.8-14.4 [facility] Comment on above: Performed By: #### P T, BMPX, BNP, DIME, CDP, PTT, TROPI #### [address] [place] [id number] [employer] Driver: Crispin Perez MD Hematocrit (Bld) [Volume fraction] 25.9 % Low 36.3-47.1 [facility] Comment on above: Performed By: #### P T, BMPX, BNP, DIME, CDP, PTT, TROPI #### [address] [place] [id number] [employer] Driver: Crispin Perez MD Hemoglobin (Bld) [Mass/Vol] 8.3 g/dL Low 11.9-15.1 [facility] Comment on above: Performed By: #### P T, BMPX, BNP, DIME, CDP, PTT, TROPI #### [address] [place], [facility] [employer] Driver: Crispin Perez MD Immature granulocytes (Bld) [#/Vol] 0 % Normal 0 [facility] Comment on above: Performed By: #### P T, BMPX, BNP, DIME, CDP, PTT, TROPI #### [address] [place] [address] [employer] Driver: Crispin Perez MD Lymphocytes (Bld) [#/Vol] 1.08 10*3/uL Low 1.10-3.70 [facility] Comment on above: Performed By: #### P T, BMPX, BNP, DIME, CDP, PTT, TROPI #### [facility] [address] [place] [address] [employer] Driver: Crispin Perez MD Lymphocytes/100 WBC (Bld) 22 % Low 24-43 [facility] Comment on above: Performed By: #### P T, BMPX, BNP, DIME, CDP, PTT, TROPI #### [facility] [address] [place] [address] [employer] Driver: Crispin Perez MD MCH (RBC) [Entitic mass] 28.7 pg Normal 25.2-33.5 [facility] Comment on above: Performed By: #### P T, BMPX, BNP, DIME, CDP, PTT, TROPI #### [facility] [address] [place] [address] [employer] Driver: Crispin Perez MD MCHC (RBC) [Mass/Vol] 32.0 g/dL Normal 28.4-34.8 [facility] Comment on above: Performed By: #### P T, BMPX, BNP, DIME, CDP, PTT, TROPI #### [facility] [address] [place], [facility]83 [employer] Driver: Crispin Perez MD MCV (RBC) [Entitic vol] 89.6 fL Normal 82.6-102.9 [facility] Comment on above: Performed By: #### P T, BMPX, BNP, DIME, CDP, PTT, TROPI #### [facility] [address] [place] [address] [employer] Driver: Crispin Perez MD Monocytes (Bld) [#/Vol] 0.39 10*3/uL Normal 0.10-1.20 [facility] Comment on above: Performed By: #### P T, BMPX, BNP, DIME, CDP, PTT, TROPI #### [facility] [address] [place], [facility]83 [employer] Driver: Crispin Perez MD Monocytes/100 WBC (Bld) 8 % Normal 3-12 [facility] Comment on above: Performed By: #### P T, BMPX, BNP, DIME, CDP, PTT, TROPI #### [facility] [address] [place], [facility] [employer] Driver: Crispin Perez MD Neutrophil (Seg) 65 % Normal 36-65 [facility] Comment on above: Performed By: #### P T, BMPX, BNP, DIME, CDP, PTT, TROPI #### [facility] [address] [place], [facility]83 [employer] Driver: Crispin Perez MD NRBC Automated 0.0 per 100 WBC Normal 0.0 [facility] Comment on above: Performed By: #### P T, BMPX, BNP, DIME, CDP, PTT, TROPI #### [facility] [address] [place], [facility]83 [employer] Driver: Crispin Perez MD Platelet mean volume (Bld) [Entitic vol] 11.1 fL Normal 8.1-13.5 [facility] Comment on above: Performed By: #### P T, BMPX, BNP, DIME, CDP, PTT, TROPI #### [facility] [address] [place], [facility] [employer] Driver: Crispin Perez MD Platelets (Bld) [#/Vol] 226 10*3/uL Normal 138-453 [facility] Comment on above: Performed By: #### P T, BMPX, BNP, DIME, CDP, PTT, TROPI #### [facility] [address] [place] [address] [employer] Driver: Crispin Perez MD RBC (Bld) [#/Vol] 2.89 10*6/uL Low 3.95-5.11 [facility] Comment on above: Performed By: #### P T, BMPX, BNP, DIME, CDP, PTT, TROPI #### [facility] [address] [place] [address] [employer] Driver: Crispin Perez MD WBC (Bld) [#/Vol] 5.0 10*3/uL Normal 3.5-11.3 [facility] Comment on above: Performed By: #### P T, BMPX, BNP, DIME, CDP, PTT, TROPI #### [address] [place], [place] [address] [employer] Driver: Crispin Perez MD Auto Diff Performed NOT REPORTED Normal [facility] Comment on above: Performed By: #### P T, BMPX, BNP, DIME, CDP, PTT, TROPI #### [address] [place], [place] [address] [employer] Driver: Crispin Perez MD Platelets (Bld) [#/Vol] NOT REPORTED Normal [facility] Comment on above: Performed By: #### P T, BMPX, BNP, DIME, CDP, PTT, TROPI #### [address] [place], [facility]83 [employer] Driver: Crispin Perez MD RBC morphology finding Nom (d) NOT REPORTED Normal [facility] Comment on above: Performed By: #### P T, BMPX, BNP, DIME, CDP, PTT, TROPI #### [address] [place], [facility]83 [employer] Driver: Crispin Perez MD WBC Morphology NOT REPORTED Normal [facility] Comment on above: Performed By: #### P T, BMPX, BNP, DIME, CDP, PTT, TROPI #### [address] [place] [address] [employer] Driver: Crispin Perez MD CT CHEST PULMONARY EMBOLISM W CONTRASTon 03-31-2019 CT CHEST PULMONARY EMBOLISM W CONTRAST EXAMINATION: CTA OF THE CHEST 03/31/2019 2:12 am TECHNIQUE: CTA of the chest was performed after the administration of intravenous contrast. Multiplanar reformatted images are provided for review. MIP images are provided for review. Dose modulation, iterative reconstruction, and/or weight based adjustment of the mA/kV was utilized to reduce the radiation dose to as low as reasonably achievable. COMPARISON: None. HISTORY: ORDERING SYSTEM PROVIDED HISTORY: pulmonary embolism Shortness of breath, leg swelling, elevated D-dimer. FINDINGS: Pulmonary Arteries: Pulmonary arteries are adequately opacified for evaluation. No evidence of intraluminal filling defect to suggest pulmonary embolism. Main pulmonary artery is normal in caliber. Mediastinum: No evidence of mediastinal lymphadenopathy. The heart and pericardium demonstrate no acute abnormality. There is no acute abnormality of the thoracic aorta. Lungs/pleura: The lungs are without acute process. No focal consolidation or pulmonary edema. No evidence of pleural effusion or pneumothorax. Upper Abdomen: Limited images of the upper abdomen are unremarkable. Soft Tissues/Bones: No acute bone or soft tissue abnormality. IMPRESSION: No evidence of pulmonary embolism or acute pulmonary abnormality. Incidental 3.6 cm left lobe thyroid nodule with coarse calcifications, follow-up nonemergent ultrasound recommended. Interpreted by: Armin Cruz MD Signed by: Armin Cruz MD 03/31/19 Final result Normal [facility] D-Dimer Teston 03-31-2019 D-Dimer Test 5.40 mg/L FEU High 0.19-0.50 [facility] Comment on above: Result Comment: Elevated levels of D dimer can be seen in any state of coagulation activation including DVT, PE, arterial thrombosis, DIC, inflamatory disease, trauma, malignancy, sepsis, infection, hematoma, liver disease, post surgical state, , atherosclerosis, old age. When combined with a low clinical probability, a D dimer value of <0.50 mg/L is considered negative for DVT and PE (negative predictive value of 98%). Performed By: #### P T, BMPX, BNP, DIME, CDP, PTT, TROPI #### [facility] [address] [place] [address] [employer] Driver: Crispin Perez MD PTon 03-31-2019 INR Coag (PPP) [Relative time] 1.0 {INR} Normal 0.9-1.2 [facility] Comment on above: Performed By: #### P T, BMPX, BNP, DIME, CDP, PTT, TROPI #### [facility] [address] [place], [facility]83 [employer] Driver: Crispin Perez MD PT Coag (PPP) [Time] 10.2 s Normal 9.7-12.2 [facility] Comment on above: Performed By: #### P T, BMPX, BNP, DIME, CDP, PTT, TROPI #### [facility] [address] [place], [facility]83 [employer] Driver: Crispin Perez MD Troponinon 03-31-2019 Troponin I.cardiac [Mass/Vol] Normal [facility] Comment on above: Result Comment: Refe rence Range: <0.03 Within reference range. 0.03-0.09 Possible myocardial damage. Repeat at appropriate intervals to rule out chronic elevation. >= 0.10 Indicative of myocardial damage. Patients with high levels of Biotin oral intake (i.e >5mg/day) may have falsely decreased Troponin T levels. Samples collected within 8 hours of biotin intake may require additional information for diagnosis. Performed By: #### T ROPI #### [facility] [address] [place], [place] [address] [employer] Driver: Cirspin Perez MD Troponin I.cardiac [Mass/Vol] ng/mL Normal <0.03 [facility] Comment on above: Result Comment: Trop onin T results cannot be compared to Troponin-I results. Performed By: #### T ROPI #### [facility] [address] [place] [id number] [employer] Driver: Crispin Perez MD Troponin I.cardiac [Mass/Vol] NOT REPORTED Normal 0-14 [facility] Comment on above: Performed By: #### T ROPI #### [facility] [address] [place], [place] [id number] [employer] Driver: Crispin Perez MD Troponin I.cardiac [Mass/Vol] Normal [facility] Comment on above: Result Comment: Refe rence Range: <0.03 Within reference range. 0.03-0.09 Possible myocardial damage. Repeat at appropriate intervals to rule out chronic elevation. >= 0.10 Indicative of myocardial damage. Patients with high levels of Biotin oral intake (i.e >5mg/day) may have falsely decreased Troponin T levels. Samples collected within 8 hours of biotin intake may require additional information for diagnosis. Performed By: #### P T, BMPX, BNP, DIME, CDP, PTT, TROPI #### [facility] [address] [place], [place] [id number] [employer] Driver: Crispin Perez MD Troponin I.cardiac [Mass/Vol] ng/mL Normal <0.03 [facility] Comment on above: Result Comment: Trop onin T results cannot be compared to Troponin-I results. Performed By: #### P T, BMPX, BNP, DIME, CDP, PTT, TROPI #### [facility] [address] [place] [address] [employer] Driver: Crispin Perez MD Troponin I.cardiac [Mass/Vol] NOT REPORTED Normal 0-14 [facility] Comment on above: Performed By: #### P T, BMPX, BNP, DIME, CDP, PTT, TROPI #### [facility] [address] [place] [address] [employer] Driver: Crispin Perez MD XR CHEST PORTABLEon 03-31-20 XR CHEST PORTABLE EXAMINATION: ONE XRAY VIEW OF THE CHEST 03/31/2019 1:22 am COMPARISON: None. HISTORY: ORDERING SYSTEM PROVIDED HISTORY: chest pain TECHNOLOGIST PROVIDED HISTORY: chest pain FINDINGS: The cardiomediastinal silhouette is mildly prominent in size and contour. Minor vascular congestion the lungs are clear. No pleural effusion or pneumothorax is present. IMPRESSION: No acute cardiopulmonary process Interpreted by: Monty Orozco MD Signed by: Monty Orozco MD 03/31/19 Final result Normal [facility] KNEE RIGHT 3 [facility] 9 KNEE RIGHT 3 [facility] Department of Radiology [address] [place] [id number] ======== Patient Name: JACOBO SALAZAR : 1955 Sex: F Age: Race: White Pt. Location: Patient Status: O Ordered Date: 02/07/2019 10:30:00 AM Completed Date: 02/07/2019 10:33 AM Requesting Provider: STEPHANIE GORDON Attending Provider: STEPHANIE GORDON Report Copy To: SHIN RODRIGUEZ Signs & Symptoms: M17.9 Osteoarthritis of knee, unspecified I10 History: [place] Comments: , , , Ordering Provider - STEPHANIE GORDON MD , Exam: KNEE RIGHT 3 [facility] ======== KNEE RIGHT 3 [facility] 02/07/2019 10:33 AM EDT SIGNS AND SYMPTOMS: M17.9 Osteoarthritis of knee, unspecified I10 TECHNOLOGIST COMMENTS: right knee pain s/p fall 4 months ago surgery TKA - 4 years ago QUESTION FOR THE RADIOLOGIST: , , , Ordering Provider - STEPHANIE GORDON MD , PROTOCOL: AP,Lateral and Tangential views were obtained. COMPARISON: June 09, 2016 FINDINGS: Soft tissues: Swelling especially along the infrapatellar fat pad Bones: Moderate osteoporosis Joints: Small effusion accompanying total knee arthroplasty with some minor periarticular ossifications in possibly some loose bodies IMPRESSION: Right total knee as above similar to prior Electronically signed by:Kamar Sanchez. Transcribed by: [email or web address], User Resident: Electronically Signed by: KAMAR SANCHEZ @ 02/07/2019 02:21 PM [facility] Comment on above: Order Comment: , , = ========= , Ordering Provider - STEPHANIE GORDON MD , Encounters Encounter Date Encounter Type Care Provider Facility Start: 10-24-2023 ambulatory NEHA Oates ty:[facility] Start: 07-11-2023 End: 07-12-2023 ambulatory GUILLAUME SHAMMO [place]: 07-10-2023 End: 07-11-2023 ambulatory Noble Reese MD Facility:[facility] Start: 06-26-2023 End: 06-27-2023 ambulatory Noble Reese MD Facility:[facility] Start: 03-01-2023 ambulatory GUILLAUME SHAMMO Facility:[facility] [place] Start: 02-15-2023 ambulatory GUILLAUME SHAMMO Facility:[facility] Start: 02-08-2023 Encounter for genera l adult medical examination without abnormal [facility]: 02-02-2023 End: 02-03-2023 ambulatory GUILLAUME SHAMMO Facility: Start: 02-02-2023 End: 02-03-2023 Encounter for general adult medical examination without abnormal findings GUILLAUME SHAMMO Facility:[facility] Start: 01-06-2023 ambulatory GUILLAUME SHAMMO Facility:[facility] Start: 12-29-2022 ambulatory GUILLAUME SHAMMO Facility:[facility] Start: 08-09-2022 ambulatory GUILLAUME SHAMMO Facility:[facility] [place] Start: 08-04-2022 ambulatory GUILLAUME SHAMMO Facility:[facility] [place] Start: 07-15-2022 ambulatory GUILLAUME SHAMMO Facility:[facility] Start: 07-01-2022 ambulatory GUILLAUME SHAMMO Facility:[facility] Start: 03-31-2019 Emergency department patient visit SHANIQUE [facility] Procedures Date Procedure Procedure Detail Performing Clinician Start: 03-31-2019 Ct thorax w/contrast material SHANIQUE WINTER Start: 03-31-2019 Radiologic exam ches t single view SHANIQUE WINTER Start: 03-31-2019 Assay of troponin quantitative SHANIQUE WINTER Start: 03-31-2019 Blood count complete auto&auto difrntl wbc SHANIQUE WINTER Start: 03-31-2019 BRAIN NATRIURETIC PEPTIDE SHANIQUE WINTER Start: 03-31-2019 Comprehensive metabolic panel SHANIQUE WINTER Start: 03-31-2019 Fibrin dgradj produc ts d-dimer quantitative SHANIQUE WINTER Start: 03-31-2019 Prothrombin time SHANIQUE WINTER Start: 03-31-2019 Thromboplastin time partial plasma/whole blood SHANIQUE WINTER Start: 03-31-2019 Ecg routine ecg w/le ast 12 lds w/i&r SHANIQUE WINTER Start: 03-31-2019 INSERT PERIPHERAL IV SC JUDD WINTER Start: 03-31-2019 NASAL CANNULA OXYGEN SC JUDD WINTER Start: 03-31-2019 TELEMETRY MONITORING SC JUDD OMY Payers Date Payer Category Payer Private Health Insurance 2018 Medicare [id number] 1957 Medicare [id number] 1957 Unknown [id number] 1955 Unknown [id number] 2.16.8 [id number] 1955 Unknown [id number] 2.16.84 [id number] 1955 Unknown [id number] 2.16.84 [id number] 1955 Unknown [id number] 2.16.84 [id number] 1955 Unknown [id number] 2.16.84 [id number] 1955 Unknown [id number] 2.16.84 [id number] 1955 Unknown [id number] 2.16.84 [id number] 1955 Unknown [id number] 2.16. [id number] 1955 Unknown [id number] 2.16. [id number] 1955 Unknown [id number] 2.16.8 [id number] 1955 Unknown [id number] 2.16.8 [id number] 1955 Unknown [id number] 2.16.8 [id number] Clinical Note 07-11-2023 Note Date & Type Note Facility 07-11-2023 Note HPI Staff Evaluation requested by Guillaume CHASE due to mixed incontinence. Pt is a new pt, never before seen in our office. Per referral papers pt has tried Oxybutynin ER 15mg QD in the past with no improvement. Dysuria: no Incomplete bladder emptying: no Hematuria: no Frequency: 1-2 hours Urgency: yes Nocturia: 3x's, Pt. states she can stop drinking fluid and early in the evening and still will get up. Stream: good stream Post void dripping: no Wearing pads/ Depends: Pt. will use 1-2 pads a day. Urge incontinence: yes Stress incontinence: yes Incontinence without Sensory Awareness: no Abdominal pain: lower abd pain occasionally Flank pain: lower back pain History of Present Illness staff HPI reviewed and agree. Review of Systems no fever, chills, malaise, myalgia. no rash/lesions. no chest pain, palpitations, or SOB. no abdominal pain, nausea, vomiting. no unilateral calf swelling, redness, pain Physical Exam General: nontoxic, NAD Mouth: moist mucosa Lungs: normal respiratory effort Cardio: regular rate, good distal perfusion Abdomen: nondistended, no suprapubic distention or tenderness, no CVA tenderness Neurologic: Grossly normal Skin: No rashes or suspicious lesions Assessment/Plan 1. Mixed incontinence (N39.46: Mixed incontinence) BBSQ 22 UUI >> ESTELLA Pt has tried Oxybutynin ER 15mg QD for several years. Worked initially but no longer. Pt states that she is experiencing frequency 1-2 hours, urgency, wakes up at night about 3x's, Pt. states she can stop drinking fluid and early in the evening and still will get up. Pt states that she uses 1-2 pads a day, medium pads, the pads end up soaked. Pt states that when she voids sometimes it's a lot, and sometimes it's a little bit. Pt states that she drinks about 12 oz of coffee in am, diet Pepsi 20oz throughout the day, and 12 oz coffee at dinner. Advised pt that all of the things she drinks throughout the day are bladder irritants. Advised pt to start switching to clear liquids without caffeine. Educated pt on bladder irritants. List given to pt today. 01/2023 - A1C 8.7 pt states repeat A1c in May was down in the 6's. Discussed relationship btwn DM control and urinary sx. No issues w constipation/diarrhea. Has spine issues/chronic back pain but denies numbness/tingling in legs or LE weakness. Is following w pain management currently. Discussed tx options for bothersome urinary sx including oral medications, Botox, SNM. Medication management includes anticholinergics and beta-3 agonists. Beta-3's (Myrbetriq/Gemtesa) are often preferable due to lower side effect profile, but most insurances won't cover without trying anticholinergics first. Therefore we will start with Vesicare/solifenacin. I explained the most common side effects are dry mouth, dry eyes, and constipation. We discussed OTC options to help with these side effects. Pt will stop medication and call office if side effects become intolerable. We did discuss that there is a documented potential side effect of mental status changes/confusion in the elderly, but that this risk is quite low. Pt and I agree that potential benefit outweigh risk at this time. If fails second anticholinergic, we can consider Mrybetriq. If fails Myrbetriq, we cannot get it covered, or we get it covered but it's a cost-prohibitive co-pay then we will consider next steps which could include cysto, urodynamics, Botox, SNM. Brief discussion today regarding Botox/SNM but did not go into elaborate detail, would address full risks/benefits/details of procedure prior to scheduling. -Dietary modifications -Start Vesicare 10mg daily 2. UTI symptoms (R39.9: Unspecified symptoms and signs involving the genitourinary system) Pt states that she sometimes had lower abdominal pressure, has cloudy urine on and off. has been a long time since her last UTI. denies frequent UTIs. UA today shows positive nitrates and small leuks. Pt denies any visible blood in her urine. -Will send UA for micro and culture. Will send abx if the cx comes back abnormal and will call pt with results. Follow up in 3 mos. All questions/concerns were discussed. Pt to call the office if she encounters any issues prior. Pt acknowledges understanding. Follow-up With When Contact Information NEHA ARENAS PA-C, URL In 3 months [address] [place] [address] Additional Instructions: Patient Education Thomas Penn I, Stephanie Cleary, personally scribed for Neha Arenas PA-C on 07/11/2023 11:02:55. . Documentation recorded by the scribklever Cleary accurately reflects the services(s) I performed and decisions made by me. Authenticated by Neha Arenas PA-C on 07/11/2023 11:32:30. Problem List/Past Medical History Ongoing Anxiety Diabetes GERD (gastroesophageal reflux disease) HTN (hypertension) Hypercholesterolemia Mixed i (more content not included)... [facility] [place] Comment on above: Result Comment: Elec tronically Signed By: NEHA ARENAS PA-C\.br\Date and Time Signed: 07/11/23 11:32 EDT\.br\Electronically Co-Signed By: Stephanie Cleary.br\Date and Time Co-Signed: 07/11/23 11:03 EDT Summary Purpose Family History No Family History Records FoundNo Family History Records FoundNo Family History Records FoundNo Family History Records FoundNo Family History Records Found Advance Directives No Advanced Directives Records FoundNo Advanced Directives Records FoundNo Advanced Directives Records FoundNo Advanced Directives Records FoundNo Advanced Directives Records Found Additional Source Comments INFORMATION SOURCE (unrecogn ized section and content) DATE CREATED AUTHOR 02/21/2019 [facility] DATE CREATED AUTHOR AUTHOR'S ORGANIZ ATION 04/04/[address] [facility] DATE CREATED AUTHOR AUTHOR'S ORGANIZ ATION 02/15/2023 [facility] DATE CREATED AUTHOR AUTHOR'S ORGANIZ ATION 07/12/[address] [facility] DATE CREATED AUTHOR AUTHOR'S ORGANIZ ATION 07/17/2023 [facility] FOR RECORDS PERTAINING TO PATIENTS WHO ARE OR HAVE BEEN ENROLLED IN A CHEMICAL DEPENDENCY/SUBSTANCEABUSE PROGRAM, SOME INFORMATION MAY BE OMITTED. This clinical summary was aggregated from multiple sources. Caution should be exercised in using it in the provision of clinical care. This summary normalizes information from multiple sources, and as a consequence, information in this document may materially change the coding, format and clinical context of patient data. In addition, data may be omitted in some cases. CLINICAL DECISIONS SHOULD BE BASED ON THE PRIMARY CLINICAL RECORDS. [facility] [employer] [facility]. provides no warranty or guarantee of the accuracy or completeness of information in this document.
--- NOTE | 2023-10-19 13:43 | P.CN_ITS ---
Consult Note: HPI Data of Consult Patient: known to practice within the last 3 years Consult date: 07/10/23 Requesting Physician: Janey Escobar NP Primary Care Provider: ADIEL MCGOWAN Consult Narrative Reason for consult: right shoulder pain, low back pain Narrative: 68yof who presents for assessment. persistence right shoulder and low back pain. recently underwent lumbar XR, significant for severe facet arthrosis and 8mm of L4 on L5 listhesis. continues in course of provider directed home exercise progr am, with limited benefit. utilizes lodine prn. denies adverse med side effects. MRI of lumbar spine recently completed which is consistent with lumbar facet arthropathy, lumbar degenerative disc disease, disc bulge, mild to moderate stenosis. Pain today in lumbar spine and right shoulder 9/10 without numbness tingling or weakness. Pain in mid low back intensified with activity, walking, and improved with sitting. cc:: CC: Janey Escobar NP Review of Systems ROS Status of ROS 10 or more systems reviewed and unremark able except as noted in history and below Musculoskeletal Reports: back pain Meds Home Medications and Allergies Home Medications Medication Instructions Recorded Confirmed Type aspirin 81 mg tablet,delayed 81 mg PO DAILY 06/26/23 06/26/23 History release atorvastatin 40 mg tablet 80 mg PO DAILY 06/26/23 06/26/23 History dulaglutide 1.5 mg/0.5 mL 1.5 mg subcut QWEEK 06/26/23 06/26/23 History subcutaneous pen injector (Trulicity) etodolac 400 mg tablet (Lodine) 400 mg PO BID 06/26/23 06/26/23 History losartan 100 mg tablet 100 mg PO DAILY 06/26/23 06/26/23 History omega 5-wbe-awh-fish oil 1,000 mg 1 cap PO DAILY 06/26/23 06/26/23 History (120 mg-180 mg) capsule (Fish Oil) oxybutynin chloride 15 mg 15 mg PO DAILY 06/26/23 06/26/23 History tablet,extended release 24 hr pantoprazole 40 mg tablet,delayed 40 mg PO DAILY 06/26/23 06/26/23 History release Allergies Allergy/AdvReac Type Severity Reaction Status Date / Time No Known Drug Allergies Allergy Verified 06/26/23 14:27 Exam Narrative Exam Narrative: Psych-alert and oriented x 3. Attentive and appropriate, constitutionally normal, displays normal mood and affect per situation.? There are no obvious deficits in memory, reasoning, or intellect.? Skin-no obvious rashes, bruising, erythema noted to the patient's area of pain. Extremities- extremities are warm with minimal edema and palpable pulses. Lumbar-no significant tenderness to palpation noted in the lumbar spine and paraspinal musculature.? Pain is elicited with extension, and lateral rotation of the lumbar spine. Range of motion is slightly diminished with these motions due to pain. Facet loading maneuvers are positive bilaterally and do appear to be concordant with the patient's normal complaints of pain.? Shoulder- right shoulder tender to palpation. Pain elicited with abduction, external rotation of right shoulder. Coordination remains intact.? Gait remains non-antalgic. Assessment and Plan Assessment and Plan (1) Lumbar spondylosis: Assessment and Plan: We discussed the risks and benefits of the procedure with the patient, and we are NOT planning on using sedation as outlined in the guidelines from Medicare unless there is a documented reason that sedation would be strongly recommended.?? ?The procedure will be completed with fluoroscopic guidance.? (2) Anterolisthesis of lumbar spine: (3) Primary osteoarthritis, right shoulder: (4) Lumbar stenosis with neurogenic claudication: Plan bilateral L4-5 L4-S1 facet medial branch block x2 working towards thermal RFA for chronic low back pain and lumbar facet arthropathy f/u with NS, was unable to be seen at last visit, for MRI findings and instability f/u 1 week after MBB
== END 2023-10-19 13:25 | disposition home or self-care (01) ==
PROVIDERS: PCP Nurse Practitioner Primary Care; Visit Provider Nurse Practitioner
DX: M47.816 Spondylosis without myelopathy or radiculopathy, lumbar region (principal); M19.011 Primary osteoarthritis, right shoulder; M48.062 Spinal stenosis, lumbar region with neurogenic claudication
CPT/HCPCS: G0463

== ENCOUNTER 2024-01-15 12:50 | Outpatient (OUT) | payer OTHER, SELFPAY ==
--- NOTE | 2024-01-15 16:14 | P.CN_ITS ---
Consult Note: HPI Data of Consult Patient: known to practice within the last 3 years Consult date: 01/15/24 Requesting Physician: Noble Reese MD Primary Care Provider: Guillaume Tapia NP Consult Narrative Reason for consult: low back, right shoulder pain Narrative: 68yof who presents for assessment. worsening low back pain and right shoulder pain. had previously had lumbar mbbs ordered, but did not complete due to insurance loss. continues in provider directed home exercise program for >6 weeks, with no benefit. uses lodine, but not helpful. denies adverse med side effects. cc:: CC: Noble Reese MD Review of Systems ROS Status of ROS 10 or more systems reviewed and unremark able except as noted in history and below Meds Home Medications and Allergies Home Medications ?Medication ?Instructions ?Recorded ?Confirmed ?Type aspirin 81 mg tablet,delayed 81 mg PO DAILY 06/26/23 06/26/23 History release atorvastatin 40 mg tablet 80 mg PO DAILY 06/26/23 06/26/23 History dulaglutide 1.5 mg/0.5 mL 1.5 mg subcut QWEEK 06/26/23 06/26/23 History subcutaneous pen injector (Trulicity) etodolac 400 mg tablet (Lodine) 400 mg PO BID 06/26/23 06/26/23 History losartan 100 mg tablet 100 mg PO DAILY 06/26/23 06/26/23 History omega 2-aza-dhn-fish oil 1,000 mg 1 cap PO DAILY 06/26/23 06/26/23 History (120 mg-180 mg) capsule (Fish Oil) oxybutynin chloride 15 mg 15 mg PO DAILY 06/26/23 06/26/23 History tablet,extended release 24 hr pantoprazole 40 mg tablet,delayed 40 mg PO DAILY 06/26/23 06/26/23 History release Allergies Allergy/AdvReac Type Severity Reaction Status Date / Time No Known Drug Allergies Allergy Verified 06/26/23 14:27 Exam Narrative Exam Narrative: Psych-alert and oriented x 3. Attentive and appropriate, constitutionally normal, displays normal mood and affect per situation.? There are no obvious deficits in memory, reasoning, or intellect.? Skin-no obvious rashes, bruising, erythema noted to the patient's area of pain. Extremities- extremities are warm with minimal edema and palpable pulses. Lumbar-no significant tenderness to palpation noted in the lumbar spine and paraspinal musculature.? Pain is elicited with extension, and lateral rotation of the lumbar spine. Range of motion is slightly diminished with these motions due to pain. Facet loading maneuvers are positive bilaterally and do appear to be concordant with the patient's normal complaints of pain.? Coordination remains intact.? Gait remains non-antalgic. Assessment and Plan Assessment and Plan (1) Lumbar spondylosis: (2) Primary osteoarthritis, right shoulder: Plan 68yof who presents for assessment. failed conservative measures, as noted. discussed that would be prudent to proceed with diagnostic bilateral l4-5, l5-s1 medial branch blocks under fluoro with intention of proceeding to rfa, since now has insurance. she is in agreement. in terms of right shoulder pain, will refer to dr. jang, as requested. meds reviewed, no changes. follow up after procedure.
== END 2024-01-15 12:51 | disposition home or self-care (01) ==
LOC: PM 12:50
PROVIDERS: PCP Nurse Practitioner Primary Care; Visit Provider Anesthesiology
DX: M47.816 Spondylosis without myelopathy or radiculopathy, lumbar region (principal); M19.011 Primary osteoarthritis, right shoulder
CPT/HCPCS: G0463

== ENCOUNTER 2024-02-05 06:05 | Day surgery (SDC) | payer OTHER, SELFPAY ==
--- OUTSIDE RECORDS SUMMARY | 2024-02-05 06:08 | XMS_ITS | CCD ---
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 Name Role Phone SHANIQUE WINTER Attending Unavailable [...] Unavailable SHAMMO, GUILLAUME Attending Unavailable SHAMMO, GUILLAUME MING Primary Care Physician SHAMMO, GUILLAUME Primary Care Unavailable SHAMMO, GUILLAUME Referring Unavailable DAGOBERTO, NEHA E Attending Unavailable DAGOBERTO, NEHA E Admitting Unavailable DAGOBERTO, NEHA E Attending Unavailable SHAMMO, GUILLAUME Primary Care Unavailable SHAMMO, GUILLAUME Primary Care Unavailable DAGOBERTO, NEHA E Attending Unavailable SHAMMO, GUILLAUME Primary Care Unavailable Orzech, Karrie X Attending Unavailable SHAMMO, GUILLAUME Primary Care Unavailable DAGOBERTO, NEHA E Attending Unavailable SHAMMO, GUILLAUME Primary Care Unavailable AMANDA DAY Attending Unavailable AMANDA DAY Referring Unavailable Hugh ESPINO, Noble Marina Attending Unavailable Hugh ESPINO, Andrius Salas Attending Unavailable Hugh ESPINO, Andrius Salas Attending Unavailable Allergies Allergy Classification Reported Allergen(s) Allergy Type Date of Onset Reaction(s) Facility (1 source) No Known Medication Allergies; Translations: [No Known Medication Allergies] Propensity to adverse reactions (disorder) [facility] Repository Medications Current Medications Medication Drug Class(es) Dates Sig (Normalized) Sig (Original) atorvastatin 40 mg oral tablet (3 sources) HMG-CoA Reductase Inhibitor Start: 07-27-2022 take 1 tablet by mouth once daily atorvastatin 40 mg Tab 40 mg = 1 tab(s), Oral, Daily, Refills(s) 0 Start Date: 07/27/22 Status: Ordered carvedilol 6.25 mg oral tablet (3 sources) alpha-Adrenergic Parisa, beta-Adrenergic Parisa Start: 07-27-2022 take 1 tablet by mouth twice daily carvedilol 6.25 mg Tab 6.25 mg = 1 tab(s), Oral, BID, Refills(s) 0 Start Date: 07/27/22 Status: Ordered ciprofloxacin 500 mg oral tablet (1 source) Quinolone Antimicrobial Start: 11-29-2023 Cipro 500 mg Tab See Instructions, Take 1 tab day prior to procedure and 1 tab day of procdure - afterwards, # 2 tab(s), Refills(s) 0, Pharmacy: [id number], 165, cm, 11/14/23 13:05:00 EST, Height/Length Dosing, 91, kg, 11/14/23 13:05:00 EST, Weight Dosing Start Date: 11/29/23 Status: Ordered 0.5 ML dulaglutide 6 MG/ML Auto-Injector [Trulicity] (3 sources) GLP-1 Receptor Agonist Start: 07-27-2022 inject 3 mg by subcutaneous injection every week Trulicity Pen 3 mg/0.5 mL subcutaneous solution 3 mg, SubCutaneous, qWeek, Refills(s) 0 Start Date: 07/27/22 Status: Ordered etodolac 400 mg oral tablet (3 sources) Nonsteroidal Anti-inflammatory Drug Start: 07-11-2023 etodolac 400 mg Tab 400 mg = 1 tab(s) Start Date: 07/11/23 Status: Ordered gabapentin 300 mg oral capsule (3 sources) Anti-epileptic Agent Start: 07-27-2022 take 1 capsule by mouth once daily gabapentin 300 mg Cap 300 mg = 1 cap(s), Oral, Daily, Refills(s) 0 Start Date: 07/27/22 Status: Ordered losartan potassium 100 mg oral tablet (3 sources) Angiotensin 2 Receptor Parisa Start: 07-11-2023 losartan 100 mg Tab 100 mg = 1 tab(s) Start Date: 07/11/23 Status: Ordered meloxicam 15 mg oral tablet (3 sources) Nonsteroidal Anti-inflammatory Drug Start: 07-27-2022 take 1 tablet by mouth once daily meloxicam 15 mg oral tablet 15 mg = 1 tab(s), Oral, Daily, Refills(s) 0 Start Date: 07/27/22 Status: Ordered metFORMIN hydrochloride 500 mg oral tablet (3 sources) Biguanide Start: 07-27-2022 take 1 tablet by mouth once daily metformin 500 mg oral tablet 500 mg = 1 tab(s), Oral, Daily, Refills(s) 0 Start Date: 07/27/22 Status: Ordered 24 hr mirabegron 25 mg extended release oral tablet (2 sources) beta3-Adrenergic Agonist Start: 11-14-2023 End: 03-13-2024 take 1 tablet by mouth once daily Myrbetriq 25 mg oral tablet, extended release 25 mg = 1 tab(s), Oral, Daily, X 30 day(s), # 30 tab(s), Refills(s) 3, Pharmacy: [id number], 165, cm, 11/14/23 13:05:00 EST, Height/Length Dosing, 91, kg, 11/14/23 13:05:00 EST, Weight Dosing Start Date: 11/14/23 Stop Date: 03/13/24 Status: Ordered pantoprazole 40 mg extended release oral tablet (3 sources) Proton Pump Inhibitor Start: 07-27-2022 take 1 tablet by mouth once daily pantoprazole 40 mg Oral EC Tab 40 mg = 1 tab(s), Oral, Daily, Refills(s) 0 Start Date: 07/27/22 Status: Ordered sertraline 100 mg oral tablet (3 sources) Serotonin Reuptake Inhibitor Start: 07-27-2022 Zoloft 100 mg Tab 150 mg = 1.5 tab(s), Oral, Daily, Refills(s) 0 Start Date: 07/27/22 Status: Ordered solifenacin succinate 10 mg oral tablet (1 source) Cholinergic Muscarinic Antagonist Start: 07-11-2023 take 1 tablet by mouth once daily Vesicare 10 mg Tab 10 mg = 1 tab(s), Oral, Daily, # 30 tab(s), Refills(s) 3, Pharmacy: [id number] Start Date: 07/11/23 Status: Ordered Problems Problem Classification Problem Date Documented Da te Episodic/Chronic Anxiety disorders (3 sources) Anxiety 07-27-2022 Chronic Diabetes mellitus without complication (4 sources) Type 2 diabetes mellitus without complications; Translations: [Diabetes mellitus] Onset: 3 07-27-2022 Chronic Disorders of lipid metabolism (4 sources) Pure hyperglyceridemia; Translations: [Hypercholesterolemia] Onset: 3 07-27-2022 Chronic Esophageal disorders (3 sources) Gastroesophageal reflux disease 07-27-2022 Chronic Essential hypertension (3 sources) Hypertensive disorder 07-27-2022 Chronic Genitourinary symptoms and ill-defined conditions (7 sources) Incontinence; Translations: [Urinary incontinence] Onset: 4 07-11-2023 Chronic Genitourinary symptoms and ill-defined conditions (3 sources) Urinary symptoms 07-11-2023 Episodic Immunizations and screening for infectious disease (1 source) Encounter for screening for other viral diseases; Translations: [ENC SCREENING FOR OTH VIRAL DZ] Onset: 3 Episodic Other gastrointestinal disorders (1 source) Incontinence of feces; Translations: [Full incontinence of feces] Onset: 4 Episodic Other nutritional; endocrine; and metabolic disorders (1 source) Body mass index (BMI) 35.0-35.9, adult; Translations: [BODY MASS INDEX BMI 35.0-35.9 ADULT] Onset: 3 Chronic Other screening for suspected conditions (not mental disorders or infectious disease) (1 source) Encounter for screening for other suspected endocrine disorder; Translations: [ENC SCR OTH SUSPECT ENDOCRN DISORDR] Onset: 3 Episodic Results Test Name Value Interpretation Reference Range Facility [facility] 11-15-2023 Screens [id number] 20 [id number] 0TIFF Normal [facility] Ambulatory Visit Summaryon 0 11-14-2023 Ambulatory Visit Summary JACOBO SALAZAR :1955 Visit Date:11/14/2023 Ambulatory Visit Instructions Your Diagnosis Mixed incontinence Bowel incontinence Your Care Team Attending Physician - MARCELA Taylor APRN, [place] [facility] Primary Care Physician - GUILLAUME QUIGLEY CNP This Is Your Medications List mirabegron (Myrbetriq 25 mg oral tablet, extended release) Contact prescribing physician if questions or concerns atorvastatin (atorvastatin 40 mg Tab) carvedilol (carvedilol 6.25 mg Tab) dulaglutide (Trulicity Pen 3 mg/0.5 mL subcutaneous solution) etodolac (etodolac 400 mg Tab) gabapentin (gabapentin 300 mg Cap) losartan (losartan 100 mg Tab) meloxicam (meloxicam 15 mg oral tablet) metformin (metformin 500 mg oral tablet) pantoprazole (pantoprazole 40 mg Oral EC Tab) sertraline (Zoloft 100 mg Tab) [Image Removed: STOP]Stop taking these medications solifenacin (Vesicare 10 mg Tab) Procedures Performed Arthroplasty of knee, Arthroscopy of hip, Biopsy of breast, Carpal tunnel release, Hysterectomy. Discharge Vitals Heart Rate (Peripheral) 65 Respiratory Rate 16 Blood Pressure 133/82 Height 165 cm Height 65 in Weight 91 kg Weight 200.2 lb BMI 33.43 What to do next Scheduled Follow-Up Appointments Monday. 2023 10:00 AM EDT With: NEHA ARENAS PA-C Where: [facility] Patient Educationon 11-14-19 24 Patient Education Obstetrics and Gynecology Kegel Exercises [...] provider. Document Revised: 01/27/2022 Document Reviewed: 01/27/2022 [employer] Patient Education ? 2022 [employer]. Urology Urinary Incontinence Urinary incontinence refers to a condition in which a person is unable to control where and when to pass urine. A person with this condition will urinate involuntarily. This means that the person urinates when he or she does not mean to. What are the causes? This condition may be caused by: ? Medicines. ? Infections. ? Constipation. ? Overactive bladder muscles. ? Weak bladder muscles. ? Weak pelvic floor muscles. These muscles provide support for the bladder, intestine, and, in women, the uterus. ? Enlarged prostate in men. The prostate is a gland near the bladder. When it gets too big, it can pinch the urethra. With the urethra blocked, the bladder can weaken and lose the ability to empty properly. ? Surgery. ? Emotional factors, such as anxiety, stress, or post-traumatic stress disorder (PTSD). ? Spinal cord injury, nerve injury, or other neurological conditions. ? Pelvic organ prolapse. This happens in women when organs move out of place and into the vagina. This movement can prevent the bladder and urethra from working properly. What increases the risk? The following factors may make you more likely to develop this condition: ? Age. The older you are, the higher the risk. ? Obesity. ? Being physically inactive. ? and childbirth. ? Menopause. ? Diseases that affect the nerves or spinal cord. ? Long-term, or chronic, coughing. This can increase pressure on the bladder and pelvic floor muscles. What are the signs or symptoms? Symptoms may vary depending on the type of urinary incontinence you have. They include: ? A sudden urge to urinate, and passing urine involuntarily before you can get to a bathroom (urge incontinence). ? Suddenly passing urine when doing activities that force urine to pass, such as coughing, laughing, exercising, or sneezing (stress incontinence). ? Needing to urinate often but urinating only a small amount, or constantly dribbling urine (overflow incontinence). ? Urinating because you cannot get to the bathroom in time due to a physical disability, such as arthritis or injury, or due to a communication or thinking problem, such as Alzheimer's disease (functional incontinence). How is this diagnosed? This condition may be diagnosed based on: ? Your medical history. ? A physical exam. ? Tests, such as: ? Urine tests. ? X-rays of your kidney and bladder (more content not included)... Normal [facility] Urology Office/Clinic Noteon 11-14-2023 Urology Office/Clinic Note Chief Complaint 4 month f/u to starting Vesicare HPI Staff 4m to starting Vesicare 10mg qd therapy. DX: Mixed Incontinence & UTI Sx PVR today is 49ml. Dysuria: no Incomplete bladder emptying: states she has difficulty emptying Hematuria: no Frequency: at least 1x an hour Urgency: yes rushes to the bathroom more multiple x a day Nocturia: 5x because of a desperate urge to void Stream: good steady Leaking: multiple times daily due to sudden urge Post void dripping: no Wearing pads/ Depends: wears pads and changes 3-4x daily Urge incontinence: multiple x a day due to sudden urge Stress incontinence: yes Incontinence without Sensory Awareness: wakes up wet sometimes and didn't know that she had done it Abdominal pain: lower right abdomen for the past week Flank pain: no Sexual complaints: no History of Present Illness I have reviewed and verified the staff HPI to be accurate for this encounter. Review of Systems PHQ Score Initial Depression Screen Score: 0 SCORE Physical Exam Vitals & Measurements HR: 65(Peripheral) RR: 16 BP: 133/82 HT: 65 in HT: 165 cm WT: 91 kg WT: 200.2 lb BMI: 33.43 General: Well developed, well nourished, in no acute distress. Genitourinary: Flank Pain: none. Bladder: nonpalpable. Assessment/Plan BBSQ 28 1. Mixed incontinence (N39.46: Mixed incontinence) UA today w/o signs of blood or infection. Denies gross hematuria or UTI since last OV. PVR 49 cc UUI >ESTELLA Reports q1hr frequency, nocturia x 5+, severe urgency. Incontinence multiple times per day, saturating 6-7 pads daily. Pt states that she drinks about 12 oz of coffee in am, diet Pepsi 20oz throughout the day, and 12 oz coffee at dinner. [1] Reiterated that she consumes a large amount of bladder irritants, which are contributing to her sxs. Increase intake of clear fluids w/o caffeine. Pt has been on oxybutynin in the past, which gradually became less effective for her. At prior OV, was started on vesicare 10 QD. Pt did not notice any significant improvement w/ medication. She ran out of medication about a week ago and had not noticed any worsening of sxs w/o it. Pt has now failed two anticholinergic medications. Discussed use of beta-3 agonists w/ low SE profile. Start Myrbetriq 25 mg QD, rx sent to [facility]. Did further discuss botox and SNM. Pt does express interest in botox. If Myrbetric is ineffective or cost prohibitive, can consider botox. Discussed w/ pt that it may be beneficial to do cysto/UDS prior to botox to assess bladder function. - f/u 3 mos for medication recheck. - pt to call sooner if Myrbetriq is too expensive. Ordered: mirabegron, 25 mg = 1 tab(s), Oral, Daily, X 30 day(s), # 30 tab(s), Refills(s) 3, Pharmacy: [id number], 165, cm, 11/14/23 13:05:00 EST, Height/Length Dosing, 91, kg, 11/14/23 13:05:00 EST, Weight Dosing 80577 Measure Post Void residual urine and/or bladder capacity by US- non-imaging Urnls Dip Stick Auto w/o Microscopy POC 01978 Urnls Dip Stick Auto w/o Microscopy POC 24155 2. Bowel incontinence (R15.9: Full incontinence of feces) Pt c/o bowel incontinence QD x 7 days w/ mild abdominal cramping. States that prior to this, only had BM 1-2 times weekly. Discussed relationship between bowel and bladder. Suspect that pt may have long standing constipation, given previous poor bowel output. Discussed management of regular soft BM daily w/ use of miralax. Follow-up No qualifying data available Patient Education Kegel Exercises Urinary Incontinence Problem List/Past Medical History Ongoing Anxiety Diabetes GERD (gastroesophageal reflux disease) HTN (hypertension) Hypercholesterolemia Mixed incontinence Urinary incontinence UTI symptoms Historical No qualifying data Procedure/Surgical History Arthroplasty of knee, Arthroscopy of hip, Biopsy of breast, Carpal tunnel release, Hysterectomy. Medications atorvastatin 40 mg Tab, 40 mg= 1 tab(s), Oral, Daily carvedilol 6.25 mg Tab, 6.25 mg= 1 tab(s), Oral, BID etodolac 400 mg Tab, 400 mg= 1 tab(s) gabapentin 300 mg Cap, 300 mg= 1 cap(s), Oral, Daily losartan 100 mg Tab, 100 mg= 1 tab(s) meloxicam 15 mg oral tablet, 15 mg= 1 tab(s), Oral, Daily metformin 500 mg oral tablet, 500 mg= 1 tab(s), Oral, Daily Myrbetriq 25 mg oral tablet, extended release, 25 mg= 1 tab(s), Oral, Daily, 3 refills pantoprazole 40 mg Oral EC Tab, 40 mg= 1 tab(s), Oral, Daily Trulicity Pen 3 mg/0.5 mL subcutaneous solution, 3 mg, SubCutaneous, qWeek Zoloft 100 mg Tab, 150 mg= 1.5 tab(s), Oral, Daily Allergies No Known Allergies No Known Medication Allergies Social History Alcohol - Denies Alcohol Use, 07/11/2023 Tobacco Never (less than 100 in lifetime) Tobacco Use:., 07/11/2023 Family History Congenital heart disease: Mother. Hyperlipidemia: Mother. Hypertension: Mother. Lab Results Ambulatory Point of Care Results Bilirubin Urine Dipstick: Neg (more content not included)... Normal [facility] Comment on above: Result Comment: Elec tronically Signed By: MARCELA Taylor APRN, [place] X\.br\Date and Time Signed: 11/14/23 15:56 EST C Urineon 07-13-2023 Bacteria identified Cx Nom (U) Microbiology PROCEDURE: Urine Culture [R1] SOURCE: [facility] BODY SITE: COLLECTED DATE/TIME: 07/11/2023 10:50 EDT [...] Locations R1: This test was performed at: [facility], [address] [place] [address], [id number] , , [facility] Comment on above: Performed By: #### 2 [id number] #### [facility] [address] [place] [address] Lab Reportson 07-12-2023 Lab Reports [id number]. 00TIFF [facility] Physician Referralon 023 Physician Referral [id number] 0TIFF [facility] Screenson 07-12-2023 Screens [id number]. 00TIFF [facility] Patient Educationon 07-11-20 23 Patient Education Obstetrics [...] provider. Document Revised: 01/27/2022 Document Reviewed: 01/27/2022 [employer] Patient Education ? 2022 [employer] Normal [facility] HEPATITIS C AB CASCADE TO QU ANT PCR GENOon 02-06-2023 HCV AB Reactive Abnormal Non Reactive [facility] Comment on above: Performed By: #### H EPCASC #### [facility] [address] [place] [address] Dr. Jorge Carrasco HCV Genotype RTNI Normal [facility] Comment on above: Result Comment: Not indicated Performed By: #### H EPCASC #### [facility] [address] [place] [address] Dr. Jorge Carrasco HCV log10 Normal [facility] Comment on above: Performed By: #### H EPCASC #### [facility] [address] [place] [address] Dr. Jorge Carrasco Hep C Quantitation Not detected Normal [facility] Comment on above: Performed By: #### H EPCASC #### [facility] [address] [place] [address] Dr. Jorge Carrasco Interpretation Comment Normal [facility] Comment on above: Result Comment: Posi tive HCV antibody screen without the presence of HCV RNA is consistent with a resolved past infection or a false positive HCV antibody. Consider repeat testing after one month. Performed By: #### H EPCASC #### [facility] [address] [place] [address] Dr. Jorge Carrasco Test Information: Comment Normal [facility] Comment on above: Result Comment: The quantitative range of this assay is 15 IU/mL to 100 million IU/mL. Performed By: #### H EPCASC #### [facility] [address] [place] [address] Dr. Jorge Carrasco CBC AUTO DIFFon 02-02-2023 BASO # 0.0 103/ul Normal 0.0-0.1 [facility] Comment on above: Performed By: #### C BC #### [facility] [address] [place] [address] Dr. Jorge Carrasco Basophils/100 WBC (Bld) 0.5 % Normal 0.2-2.0 [facility] Comment on above: Performed By: #### C BC #### [facility] [address] [place] [address] Dr. Jorge Carrasco EO # 0.1 103/ul Normal 0.0-0.7 [facility] Comment on above: Performed By: #### C BC #### [facility] [address] [place] [address] Dr. Jorge Carrasco Eosinophils/100 WBC (Bld) 3.2 % Normal 0.9-7.0 [facility] Comment on above: Performed By: #### C BC #### [facility] [address] [place] [address] Dr. Jorge Carrasco Erythrocyte distribution width (RBC) [Ratio] 14.0 % Normal 11.0-15.0 [facility] Comment on above: Performed By: #### C BC #### [facility] [address] [place] [address] Dr. Jorge Carrasco Hematocrit (Bld) [Volume fraction] 40.2 % Normal 36.0-48.0 [facility] Comment on above: Performed By: #### C BC #### [facility] [address] [place] [address] Dr. oJrge Carrasco Hemoglobin (Bld) [Mass/Vol] 13.3 g/dL Normal 12.0-16.0 [facility] Comment on above: Performed By: #### C BC #### [facility] [address] [place] [address] Dr. Jorge Carrasco IG # 0.01 10e3/ul Normal 0.00-0.03 [facility] Comment on above: Performed By: #### C BC #### [facility] [address] [place] [address] Dr. Jorge Carrasco IG % 0.3 % Normal 0.0-0.5 [facility] Comment on above: Performed By: #### C BC #### [facility] [address] [place] [address] Dr. Jorge Carrasco LYMPH # 1.0 103/ul Critically low 1.2-3.8 [facility] Comment on above: Performed By: #### C BC #### [facility] [address] [place] [address] Dr. Jorge Carrasco Lymphocytes/100 WBC (Bld) 27.4 % Normal 20.5-60.0 [facility] Comment on above: Performed By: #### C BC #### [facility] [address] [place] [address] Dr. Jorge Carrasco MANUAL DIFF REQ NO Normal [facility] Comment on above: Performed By: #### C BC #### [facility] [address] [place] [address] Dr. Jorge Carrasco MCH (RBC) [Entitic mass] 28.0 pg Normal 26.7-34.0 [facility] Comment on above: Performed By: #### C BC #### [facility] [address] [place] [address] Dr. Jorge Carrasco MCHC (RBC) [Mass/Vol] 33.1 g/dL Normal 29.9-35.2 [facility] Comment on above: Performed By: #### C BC #### [facility] [address] [place] [address] Dr. Jorge Carrasco MCV (RBC) [Entitic vol] 84.6 fL Normal 81.0-99.0 [facility] Comment on above: Performed By: #### C BC #### [facility] [address] [place] [address] Dr. Jorge Carrasco MONO # 0.2 103/ul Critically low 0.3-0.8 [facility] Comment on above: Performed By: #### C BC #### [facility] [address] [place] [address] Dr. Jorge Carrasco Monocytes/100 WBC (Bld) 5.1 % Normal 1.7-12.0 [facility] Comment on above: Performed By: #### C BC #### [facility] [address] [place] [address] Dr. Jorge Carrasco NEUT # 2.4 103/ul Normal 1.4-6.5 [facility] Comment on above: Performed By: #### C BC #### [facility] [address] [place] [address] Dr. Jorge Carrasco Neutrophils/100 WBC (Bld) 63.5 % Normal 43.0-75.0 [facility] Comment on above: Performed By: #### C BC #### [facility] [address] [place] [address] Dr. Jorge Carrasco Platelet mean volume (Bld) [Entitic vol] 10.8 fL Normal 9.5-13.5 [facility] Comment on above: Performed By: #### C BC #### [facility] [address] [address] [address] Jorge Carrasco PLT 263 103/ul Normal 150-450 [facility] Comment on above: Performed By: #### C BC #### [facility] [address] [place] [address] Dr. Jorge Carrasco RBC 4.75 106/ul Normal 4.20-5.40 [facility] Comment on above: Performed By: #### C BC #### [facility] [address] [place] [address] Dr. Jorge Carrasco WBC 3.7 103/ul Critically low 4.0-11.0 [facility] Comment on above: Performed By: #### C BC #### [facility] [address] [place] [address] Dr. Jorge Carrasco FREE T3on 02-02-2023 FREE T3 3.11 pg/mlL Normal 2.18-3.98 [facility] Comment on above: Performed By: #### L IPID, TSH, FT3, CMP #### [facility] [address] [place] [address] Dr. Jorge Carrasco GLYCOHEMOGLOBIN A1Con 2022 ADA RECOMMENDATION SEE BELOW Normal [facility] Comment on above: Result Comment: ADA RECOMMENDED LIMIT 4.0 - 6.0 ADA THERAPEUTIC TARGET < 7.0 ACTION SUGGESTED > 7.0 Performed By: #### A 1C #### [facility] [address] [place] [address] Dr. Jorge Carrasco Glucose [Mass/Vol] 189 mg/dL Normal [facility] Comment on above: Performed By: #### A 1C #### [facility] [address] [address] [address] Jorge Carrasco HbA1c (Bld) [Mass fraction] 8.2 % Critically high 4.5-6.2 [facility] Comment on above: Performed By: #### A 1C #### [facility] [address] [place] [address] Dr. Jorge Carrasco LIPID PROFILEon 02-02-2023 CHOL-HDL RATIO NORM SEE BELOW Normal [facility] Comment on above: Result Comment: 3.3 - 4.4 LOW RISK 4.4 - 7.1 AVERAGE RISK 7.1 - 11.0 MODERATE RISK >11.0 HIGH RISK Performed By: #### L IPID, TSH, FT3, CMP #### [facility] [address] [place] [address] Dr. Jorge Carrasco Cholesterol [Mass/Vol] 245 mg/dL Critically high <=200 [facility] Comment on above: Performed By: #### L IPID, TSH, FT3, CMP #### [facility] [address] [address] [address] Jorge Carrasco Cholesterol in HDL [Mass/Vol] 61 mg/dL Critically high 40-60 [facility] Comment on above: Performed By: #### L IPID, TSH, FT3, CMP #### [facility] [address] [place] [address] Dr. Jorge Carrasco Cholesterol in LDL [Mass/Vol] 156.2 mg/dL Normal [facility] Comment on above: Performed By: #### L IPID, TSH, FT3, CMP #### [facility] [address] [place] [address] Dr. Jorge Carrasco Cholesterol.total/Ch olesterol in HDL [Mass ratio] 4.0 {ratio} Normal [facility] Comment on above: Performed By: #### L IPID, TSH, FT3, CMP #### [facility] [address] [place] [address] Dr. Jorge Carrasco HDL NORMAL > or = 60 mg/dl - LO W CARDIOVASCULAR RISK <40 mg/dl - HIGH CARDIOVASCULAR RISK Normal [facility] Comment on above: Performed By: #### L IPID, TSH, FT3, CMP #### [facility] [address] [address] [address] Jorge Carrasco LDL CALC NORMAL SEE BELOW Normal [facility] Comment on above: Result Comment: <100 mg/dl OPTIMAL 100 - 129 mg/dl NEAR OR ABOVE OPTIMAL 130 - 159 mg/dl BORDERLINE HIGH 160 - 189 mg/dl HIGH >190 mg/dl VERY HIGH Performed By: #### L IPID, TSH, FT3, CMP #### [facility] [address] [address] [address] Jorge Carrasco Triglyceride [Mass/Vol] 139 mg/dL Normal <=150 [facility] Comment on above: Performed By: #### L IPID, TSH, FT3, CMP #### [facility] [address] [place] [address] Dr. Jorge Carrasco VLDL CALC 27.8 mg/dL Normal [facility] Comment on above: Performed By: #### L IPID, TSH, FT3, CMP #### [facility] [address] [place] [address] Dr. Jorge Carrasco MICROALBUMIN, RAND URon 050 mALB 1.5 mg/L Normal <=30.0 [facility] Comment on above: Performed By: #### M ALBR #### [facility] [address] [place] [address] Dr. Jorge Carrasco PROF 14(COMP METB)on 023 Albumin [Mass/Vol] 3.5 g/dL Normal 3.4-5.0 [facility] Comment on above: Performed By: #### L IPID, TSH, FT3, CMP #### [facility] [address] [address] [address] Jorge Carrasco Albumin/Globulin [Mass ratio] 0.7 {ratio} Normal [facility] Comment on above: Performed By: #### L IPID, TSH, FT3, CMP #### [facility] [address] [address] [address] Jorge Carrasco ALP [Catalytic activity/Vol] 127 U/L Critically high 46-116 [facility] Comment on above: Performed By: #### L IPID, TSH, FT3, CMP #### [facility] [address] [place] [address] Dr. Jorge Carrasco ALT [Catalytic activity/Vol] 24 U/L Normal 14-59 [facility] Comment on above: Performed By: #### L IPID, TSH, FT3, CMP #### [facility] [address] [place] [address] Dr. Jorge Carrasco Anion gap [Moles/Vol] 11.5 mmol/L Normal [facility] Comment on above: Performed By: #### L IPID, TSH, FT3, CMP #### [facility] [address] [place] [address] Dr. Jorge Carrasco AST [Catalytic activity/Vol] 16 U/L Normal 15-37 [facility] Comment on above: Performed By: #### L IPID, TSH, FT3, CMP #### [facility] [address] [place] [address] Dr. Jorge Carrasco Bilirubin [Mass/Vol] 0.3 mg/dL Normal 0.2-1.0 [facility] Comment on above: Performed By: #### L IPID, TSH, FT3, CMP #### [facility] [address] [place] [address] Dr. Jorge Carrasco Calcium [Mass/Vol] 9.8 mg/dL Normal 8.5-10.1 [facility] Comment on above: Performed By: #### L IPID, TSH, FT3, CMP #### [facility] [address] [place] [address] Dr. Jorge Carrasco Chloride [Moles/Vol] 99 mmol/L Normal 98-107 [facility] Comment on above: Performed By: #### L IPID, TSH, FT3, CMP #### [facility] [address] [place] [address] Dr. Jorge Carrasco CO2 [Moles/Vol] 29.4 mmol/L Normal 21.0-32.0 [facility] Comment on above: Performed By: #### L IPID, TSH, FT3, CMP #### [facility] [address] [address] [address] Jorge Carrasco Creatinine [Mass/Vol] 0.72 mg/dL Normal 0.55-1.02 [facility] Comment on above: Performed By: #### L IPID, TSH, FT3, CMP #### [facility] [address] [place] [address] Dr. Jorge Carrasco EGFR-AF SINGAPOREAN >60 Normal >=60 [facility] Comment on above: Performed By: #### L IPID, TSH, FT3, CMP #### [facility] [address] [place] [address] Dr. Jorge Carrasco EGFR-NON AF SINGAPOREAN >60 Normal >=60 [facility] Comment on above: Performed By: #### L IPID, TSH, FT3, CMP #### [facility] [address] [place] [address] Dr. Jorge Carrasco Globulin (S) [Mass/Vol] 4.9 g/dL Normal [facility] Comment on above: Performed By: #### L IPID, TSH, FT3, CMP #### [facility] [address] [place] [address] Dr. Jorge Carrasco Glucose [Mass/Vol] 185 mg/dL Critically high 74-106 [facility] Comment on above: Performed By: #### L IPID, TSH, FT3, CMP #### [facility] [address] [place] [address] Dr. Jorge Carrasco Potassium [Moles/Vol] 3.9 mmol/L Normal 3.5-5.1 [facility] Comment on above: Performed By: #### L IPID, TSH, FT3, CMP #### [facility] [address] [place] [address] Dr. Jorge Carrasco Protein [Mass/Vol] 8.4 g/dL Critically high 6.4-8.2 [facility] Comment on above: Performed By: #### L IPID, TSH, FT3, CMP #### [facility] [address] [place] [address] Dr. Jorge Carrasco Sodium [Moles/Vol] 136 mmol/L Normal 136-145 [facility] Comment on above: Performed By: #### L IPID, TSH, FT3, CMP #### [facility] [address] [address] [address] Jorge Carrasco Urea nitrogen [Mass/Vol] 17.0 mg/dL Normal 7.0-18.0 [facility] Comment on above: Performed By: #### L IPID, TSH, FT3, CMP #### [facility] [address] [address] [address] Jorge Carrasco Urea nitrogen/Creatinine [Mass ratio] 23.6 mg/mg Normal [facility] Comment on above: Performed By: #### L IPID, TSH, FT3, CMP #### [facility] [address] [place] [address] Dr. Jorge Carrasco TSHon 02-02-2023 TSH 3.092 uIU/mL Normal 0.358-3.740 [facility] Comment on above: Performed By: #### L IPID, TSH, FT3, CMP #### [facility] [address] [place] [address] Dr. Jorge Carrasco APTTon 03-31-2019 aPTT Coag (Bld) [Time] 23.1 s Low 23.2-34.4 [facility] Comment on above: Performed By: #### P T, BMPX, BNP, DIME, CDP, PTT, TROPI #### [facility] [address] [place] [address] [employer] Examiner: Crispin Perez MD Basic Metab w/rfx MGon 03-31 (cont.) Normal [facility] Comment on above: Result Comment: Aver age GFR for 60-69 years old: 85 mL/min/1.73sq m Chronic Kidney Disease: <60 mL/min/1.73sq m Kidney failure: <15 mL/min/1.73sq m eGFR calculated using average adult body mass. Additional eGFR calculator available at: http://[email or web address]/multiple_crcl_2012.htm Performed By: #### P T, BMPX, BNP, DIME, CDP, PTT, TROPI #### [facility] [address] [place] [address] [employer] Examiner: Crispin Perez MD Anion gap [Moles/Vol] 11 mmol/L Normal 9-17 [facility] Comment on above: Performed By: #### P T, BMPX, BNP, DIME, CDP, PTT, TROPI #### [facility] [address] [place] [address] [employer] Examiner: Crispin Perez MD BUN/CRE Ratio 21 High 9-20 [facility] Comment on above: Performed By: #### P T, BMPX, BNP, DIME, CDP, PTT, TROPI #### [facility] [address] [place] [address] [employer] Examiner: Crispin Perez MD Calcium [Mass/Vol] 9.1 mg/dL Normal 8.6-10.4 [facility] Comment on above: Performed By: #### P T, BMPX, BNP, DIME, CDP, PTT, TROPI #### [facility] [address] [place] [address] [employer] Examiner: Crispin Perez MD Chloride [Moles/Vol] 103 mmol/L Normal 98-107 [facility] Comment on above: Performed By: #### P T, BMPX, BNP, DIME, CDP, PTT, TROPI #### [facility] [address] [place] [address] [employer] Examiner: Crispin Perez MD CO2 [Moles/Vol] 26 mmol/L Normal 20-31 [facility] Comment on above: Performed By: #### P T, BMPX, BNP, DIME, CDP, PTT, TROPI #### [facility] [address] [place] [address] [employer] Examiner: Crispin Perez MD Creatinine [Mass/Vol] 0.67 mg/dL Normal 0.50-0.90 [facility] Comment on above: Performed By: #### P T, BMPX, BNP, DIME, CDP, PTT, TROPI #### [facility] [address] [place], [place] [id number] [employer] Examiner: Crispin Perez MD GFR, Amer >60 Normal >60 [facility] Comment on above: Performed By: #### P T, BMPX, BNP, DIME, CDP, PTT, TROPI #### [facility] [address] [place], [place] [id number] [employer] Examiner: Crispin Perez MD GFR,non Amer >60 Normal >60 [facility] Comment on above: Performed By: #### P T, BMPX, BNP, DIME, CDP, PTT, TROPI #### [facility] [address] [place], [place] [id number] [employer] Examiner: Crispin Perez MD Glucose [Mass/Vol] 171 mg/dL High 70-99 [facility] Comment on above: Performed By: #### P T, BMPX, BNP, DIME, CDP, PTT, TROPI #### [facility] [address] [place], [place] [id number] [employer] Examiner: Crispin Perez MD Potassium [Moles/Vol] 4.2 mmol/L Normal 3.7-5.3 [facility] Comment on above: Performed By: #### P T, BMPX, BNP, DIME, CDP, PTT, TROPI #### [facility] [address] [place] [address] [employer] Examiner: Crispin Perez MD Sodium [Moles/Vol] 140 mmol/L Normal 135-144 [facility] Comment on above: Performed By: #### P T, BMPX, BNP, DIME, CDP, PTT, TROPI #### [facility] [address] [place] [address] [employer] Examiner: Crispin Perez MD Staging: Normal [facility] Comment on above: Result Comment: Stag e 1: Some kidney damage normal GFR Stage 2: Mild kidney damage GFR 60-89 Stage 3: Moderate kidney damage GFR 30-59 Stage 4: Severe kidney damage GFR 15-29 Stage 5: Severe kidney damage GFR <15 ESRD - chronic treatment by dialysis or transplant Performed By: #### P T, BMPX, BNP, DIME, CDP, PTT, TROPI #### [facility] [address] [place] [address] [employer] Examiner: Crispin Perez MD Urea nitrogen [Mass/Vol] 14 mg/dL Normal 8-23 [facility] Comment on above: Performed By: #### P T, BMPX, BNP, DIME, CDP, PTT, TROPI #### [facility] [address] [place] [address] [employer] Examiner: Crispin Perez MD Brain Natri. Peptideon 03-31 Natriuretic peptide B (Bld) [Mass/Vol] Pro-BNP Reference Range: Normal [facility] Comment on above: Result Comment: Rule Out: <300 Jansen Zone: Age <50 300-450 Age 50-75 300-900 Age >75 300-1800 Usually represents mild to moderate HF but other cardiopulmonary causes cannot be ruled out. Rule In: Age <50 >450 Age 50-75 >900 Age >75 >1800 Performed By: #### P T, BMPX, BNP, DIME, CDP, PTT, TROPI #### [facility] [address] [place] [address] [employer] Examiner: Crispin Perez MD Natriuretic peptide B (Bld) [Mass/Vol] 158 pg/mL Normal <300 [facility] Comment on above: Result Comment: Pro- BNP results cannot be compared to BNP results. Performed By: #### P T, BMPX, BNP, DIME, CDP, PTT, TROPI #### [facility] [address] [place] [address] [employer] Examiner: Crispin Perez MD CBC with Diffon 03-31-2019 Abs. Basophil 0.03 k/uL Normal 0.00-0.20 [facility] Comment on above: Performed By: #### P T, BMPX, BNP, DIME, CDP, PTT, TROPI #### [facility] [address] [place], [place] [address] [employer] Examiner: Crispin Perez MD Abs.Imm.Granulocyte <0.03 Normal 0.00-0.30 [facility] Comment on above: Performed By: #### P T, BMPX, BNP, DIME, CDP, PTT, TROPI #### [facility] [address] [place], [facility] [employer] Examiner: Crispin Perez MD Abs.Neutrophil (Seg) 3.28 k/uL Normal 1.50-8.10 [facility] Comment on above: Performed By: #### P T, BMPX, BNP, DIME, CDP, PTT, TROPI #### [facility] [address] [place], [place] [address] [employer] Examiner: Crispin Perez MD Basophils/100 WBC (Bld) 1 % Normal 0-2 [facility] Comment on above: Performed By: #### P T, BMPX, BNP, DIME, CDP, PTT, TROPI #### [facility] [address] [place], [place] [address] [employer] Examiner: Crispin Perez MD Eosinophils (Bld) [#/Vol] 0.22 10*3/uL Normal 0.00-0.44 [facility] Comment on above: Performed By: #### P T, BMPX, BNP, DIME, CDP, PTT, TROPI #### [facility] [address] [place], [facility] [employer] Examiner: Crispin Perez MD Eosinophils/100 WBC (Bld) 4 % Normal 1-4 [facility] Comment on above: Performed By: #### P T, BMPX, BNP, DIME, CDP, PTT, TROPI #### [facility] [address] [place], [facility] [employer] Examiner: Crispin Perez MD Erythrocyte distribution width (RBC) [Ratio] 14.4 % Normal 11.8-14.4 [facility] Comment on above: Performed By: #### P T, BMPX, BNP, DIME, CDP, PTT, TROPI #### [facility] [address] [place] [id number] [employer] Examiner: Crispin Perez MD Hematocrit (Bld) [Volume fraction] 25.9 % Low 36.3-47.1 [facility] Comment on above: Performed By: #### P T, BMPX, BNP, DIME, CDP, PTT, TROPI #### [address] [place] [address] [employer] Examiner: Crispin Perez MD Hemoglobin (Bld) [Mass/Vol] 8.3 g/dL Low 11.9-15.1 [facility] Comment on above: Performed By: #### P T, BMPX, BNP, DIME, CDP, PTT, TROPI #### [address] [place] [address] [employer] Examiner: Crispin Perez MD Immature granulocytes (Bld) [#/Vol] 0 % Normal 0 [facility] Comment on above: Performed By: #### P T, BMPX, BNP, DIME, CDP, PTT, TROPI #### [address] [place], [facility] [employer] Examiner: Crispin Perez MD Lymphocytes (Bld) [#/Vol] 1.08 10*3/uL Low 1.10-3.70 [facility] Comment on above: Performed By: #### P T, BMPX, BNP, DIME, CDP, PTT, TROPI #### [address] [place], [facility] [employer] Examiner: Crispin Perez MD Lymphocytes/100 WBC (Bld) 22 % Low 24-43 [facility] Comment on above: Performed By: #### P T, BMPX, BNP, DIME, CDP, PTT, TROPI #### [facility] [address] [place] [address] [employer] Examiner: Crispin Perez MD MCH (RBC) [Entitic mass] 28.7 pg Normal 25.2-33.5 [facility] Comment on above: Performed By: #### P T, BMPX, BNP, DIME, CDP, PTT, TROPI #### [facility] [address] [place] [address] [employer] Examiner: Crispin Perez MD MCHC (RBC) [Mass/Vol] 32.0 g/dL Normal 28.4-34.8 [facility] Comment on above: Performed By: #### P T, BMPX, BNP, DIME, CDP, PTT, TROPI #### [facility] [address] [place], [facility] [employer] Examiner: Crispin Perez MD MCV (RBC) [Entitic vol] 89.6 fL Normal 82.6-102.9 [facility] Comment on above: Performed By: #### P T, BMPX, BNP, DIME, CDP, PTT, TROPI #### [facility] [address] [place], [facility] [employer] Examiner: Crispin Perez MD Monocytes (Bld) [#/Vol] 0.39 10*3/uL Normal 0.10-1.20 [facility] Comment on above: Performed By: #### P T, BMPX, BNP, DIME, CDP, PTT, TROPI #### [facility] [address] [place] [address] [employer] W[employer] Examiner: Crispin Perez MD Monocytes/100 WBC (Bld) 8 % Normal 3-12 [facility] Comment on above: Performed By: #### P T, BMPX, BNP, DIME, CDP, PTT, TROPI #### [facility] [address] [place] [address] [employer] W[employer] Examiner: Crispin Perez MD Neutrophil (Seg) 65 % Normal 36-65 [facility] Comment on above: Performed By: #### P T, BMPX, BNP, DIME, CDP, PTT, TROPI #### [facility] [address] [place], [place] [id number] [employer] Examiner: Crispin Perez MD NRBC Automated 0.0 per 100 WBC Normal 0.0 [facility] Comment on above: Performed By: #### P T, BMPX, BNP, DIME, CDP, PTT, TROPI #### [facility] [address] [place], [place] [id number] [employer] Examiner: Crispin Perez MD Platelet mean volume (Bld) [Entitic vol] 11.1 fL Normal 8.1-13.5 [facility] Comment on above: Performed By: #### P T, BMPX, BNP, DIME, CDP, PTT, TROPI #### [facility] [address] [place] [address] [employer] W[employer] Examiner: Crispin Perez MD Platelets (Bld) [#/Vol] 226 10*3/uL Normal 138-453 [facility] Comment on above: Performed By: #### P T, BMPX, BNP, DIME, CDP, PTT, TROPI #### [facility] [address] [place] [address] [employer] Examiner: Crispin Perez MD RBC (Bld) [#/Vol] 2.89 10*6/uL Low 3.95-5.11 [facility] Comment on above: Performed By: #### P T, BMPX, BNP, DIME, CDP, PTT, TROPI #### [facility] [address] [place] [address] [employer] Examiner: Crispin Perez MD WBC (Bld) [#/Vol] 5.0 10*3/uL Normal 3.5-11.3 [facility] Comment on above: Performed By: #### P T, BMPX, BNP, DIME, CDP, PTT, TROPI #### [facility] [address] [place], [place] [id number] [employer] Examiner: Crispin Perez MD Auto Diff Performed NOT REPORTED Normal [facility] Comment on above: Performed By: #### P T, BMPX, BNP, DIME, CDP, PTT, TROPI #### [facility] [address] [place], [place] [id number] [employer] Examiner: Crispin Perez MD Platelets (Bld) [#/Vol] NOT REPORTED Normal [facility] Comment on above: Performed By: #### P T, BMPX, BNP, DIME, CDP, PTT, TROPI #### [address] [place], [facility] [employer] Examiner: Crispin Perez MD RBC morphology finding Nom (d) NOT REPORTED Normal [facility] Comment on above: Performed By: #### P T, BMPX, BNP, DIME, CDP, PTT, TROPI #### [address] [place], [place] [id number] [employer] Examiner: Crispin Perez MD WBC Morphology NOT REPORTED Normal [facility] Comment on above: Performed By: #### P T, BMPX, BNP, DIME, CDP, PTT, TROPI #### [facility] [address] [place] [address] [employer] W[employer]pping Examiner: Crispin Perez MD CT CHEST PULMONARY EMBOLISM [...] Armin Cruz MD 03/31/19 Final result Normal [facility] D-Dimer Teston 03-31-2019 D-Dimer Test 5.40 mg/L FEU High 0.19-0.50 [facility] Comment on above: Result Comment: Elevated [...] BMPX, BNP, DIME, CDP, PTT, TROPI #### [facility] [address] [place] [address] [employer] Examiner: Crispin Perez MD PTon 03-31-2019 INR Coag (PPP) [Relative time] 1.0 {INR} Normal 0.9-1.2 [facility] Comment on above: Performed By: #### P T, BMPX, BNP, DIME, CDP, PTT, TROPI #### [facility] [address] [place] [address] [employer] Examiner: Crispin Perez MD PT Coag (PPP) [Time] 10.2 s Normal 9.7-12.2 [facility] Comment on above: Performed By: #### P T, BMPX, BNP, DIME, CDP, PTT, TROPI #### [facility] [address] [place] [id number] [employer] Examiner: Crispin Perez MD Troponinon 03-31-2019 Troponin I.cardiac [Mass/Vol] Normal [facility] Comment on above: Result Comment: Refe [...] diagnosis. Performed By: #### T ROPI #### [facility] [address] [place] [id number] [employer] Examiner: Crispin Perez MD Troponin I.cardiac [Mass/Vol] ng/mL Normal <0.03 [facility] Comment on above: Result Comment: Trop onin T results cannot be compared to Troponin-I results. Performed By: #### T ROPI #### [facility] [address] [place] [address] [employer] Examiner: Crispin Perez MD Troponin I.cardiac [Mass/Vol] NOT REPORTED Normal 0-14 [facility] Comment on above: Performed By: #### T ROPI #### [facility] [address] [place] [id number] [employer] Examiner: Crispin Perez MD Troponin I.cardiac [Mass/Vol] Normal [facility] Comment on above: Result Comment: Refe [...] BMPX, BNP, DIME, CDP, PTT, TROPI #### [facility] [address] [place] [address] [employer] Wrapping Examiner: Crispin Perez MD Troponin I.cardiac [Mass/Vol] ng/mL Normal <0.03 [facility] Comment on above: Result Comment: Trop onin T results cannot be compared to Troponin-I results. Performed By: #### P T, BMPX, BNP, DIME, CDP, PTT, TROPI #### [facility] [address] [place] [address] [employer] Wrapping Examiner: Crispin Perez MD Troponin I.cardiac [Mass/Vol] NOT REPORTED Normal 0-14 [facility] Comment on above: Performed By: #### P T, BMPX, BNP, DIME, CDP, PTT, TROPI #### [facility] [address] [place] [address] [employer] W[employer]pping Examiner: Crispin Perez MD XR CHEST PORTABLEon 03-31-20 [...] Monty Orozco MD 03/31/19 Final result Normal [facility] KNEE RIGHT 3 Son 9 KNEE RIGHT 3 S [facility] Department of Radiology [address] [place] [address] ======== Patient Name: JACOBO SALAZAR : 1955 Sex: F Age: Race: White Pt. Location: Patient Status: O Ordered Date: 02/07/2019 10:30:00 AM Completed Date: 02/07/2019 10:33 AM Requesting Provider: STEPHANIE GORDON Attending Provider: STEPHANIE GORDON Report Copy To: SHIN RODRIGUEZ Signs & Symptoms: M17.9 Osteoarthritis of knee, unspecified I10 History: [place] Comments: , , , Ordering Provider - STEPHANIE GORDON MD , Exam: KNEE RIGHT 3 S ======== KNEE RIGHT 3 VWS 02/07/2019 10:33 AM EDT SIGNS AND SYMPTOMS: [...] prior Electronically signed by:Kamar Sanchez. Transcribed by: [email or web address], User Resident: Electronically Signed by: KAMAR SANCHEZ @ 02/07/2019 02:21 PM Normal [facility] Comment on above: Order Comment: , , = ========= , Ordering Provider - STEPHANIE GORDON MD , Vital Signs Date Time Vital Sign Value Performing Clinician Faci [facility]ver 11-14-2023 12:41-0500 Blood Pressure Location Karrie Orzech [facility] 11-14-2023 12:41-0500 Diastolic blood pressure 82 mm[Hg] Karrie Orzech [facility] 11-14-2023 12:41-0500 Heart rate 65 /min Karrie Orzech [facility] 11-14-2023 12:41-0500 Respiratory rate 16 /min Karrie Orzech [facility] 11-14-2023 12:41-0500 Systolic blood pressure 133 mm[Hg] Karrie Orzech [facility] Encounters Encounter Date Encounter Type Care Provider Facility Start: 02-13-2024 ambulatory NEHA Oates ty:[facility] Start: 01-15-2024 End: 01-16-2024 ambulatory Noble Reese MD Facility:[facility] Start: 12-04-2023 End: 12-05-2023 ambulatory AMANDA DAY Not Available Start: 11-29-2023 End: 01-23-2024 Pre-admission assessment David CLEMENT [facility] Start: 11-14-2023 End: 11-15-2023 ambulatory Karrie X Orzech Facility:[facility] Start: 11-14-2023 End: 11-14-2023 Patient encounter procedure Karrie X Orzech [facility] Start: 10-24-2023 End: 10-25-2023 ambulatory NEHA ARENAS Facility:[facility] Start: 10-24-2023 End: 10-24-2023 Patient encounter procedure NEHA ARENAS [facility] Start: 07-11-2023 End: 07-12-2023 ambulatory NEHA DOERY Facility:[facility] Start: 07-10-2023 End: 07-11-2023 ambulatory Noble Reese MD Facility:[facility] Start: 06-26-2023 End: 06-27-2023 ambulatory Noble Reese MD Facility:[facility] Start: 03-01-2023 ambulatory GUILLAUME SHAMMO Facility:[facility] Start: 02-15-2023 ambulatory GUILLAUME SHAMMO Facility:[facility] Start: 02-08-2023 Encounter for genera l adult medical examination without abnormal findings GUILLAUME SHAMMO [facility] Start: 02-02-2023 End: 02-03-2023 ambulatory GUILLAUME SHAMMO Facility:[facility] Start: 02-02-2023 End: 02-03-2023 Encounter for general adult medical examination without abnormal findings GUILLAUME SHAMMO Facility:[facility] Start: 01-06-2023 ambulatory GUILLAUME SHAMMO Facility:[facility] Start: 12-29-2022 ambulatory GUILLAUME SHAMMO Facility:[facility] Start: 07-15-2022 ambulatory GUILLAUME SHAMMO Facility:[facility] Start: 07-01-2022 ambulatory GUILLAUME SHAMMO Facility:[facility] Start: 03-31-2019 Emergency department patient visit SHANIQUE WINTER [facility] Procedures Date Procedure Procedure Detail Performing Clinician Start: 03-31-2019 Ct thorax w/contrast material SHANIQUE WINTER Start: 03-31-2019 Radiologic exam ches t single view SHANIQUE WINTER Start: 03-31-2019 Assay of troponin quantitative SHANIQUE WINTER Start: 03-31-2019 Blood count complete auto&auto difrntl wbc SHANIQUE WINTER Start: 03-31-2019 BRAIN NATRIURETIC PEPTIDE SHANIQUE WINTER Start: 03-31-2019 Comprehensive metabo lic panel SHANIQUE WINTER Start: 03-31-2019 Fibrin dgradj produc ts d-dimer quantitative SHANIQUE WINTER Start: 03-31-2019 Prothrombin time SHANIQUE WINTER Start: 03-31-2019 Thromboplastin time partial plasma/whole blood SHANIQUE WINTER Start: 03-31-2019 Ecg routine ecg w/le ast 12 lds w/i&r SHANIQUE WINTER Start: 03-31-2019 INSERT PERIPHERAL IV SC JUDD WINTER Start: 03-31-2019 NASAL CANNULA OXYGEN SC JUDD WINTER Start: 03-31-2019 TELEMETRY MONITORING SC JUDD WINTER Arthroplasty of knee JENARELYFE R DAGOBERTO Arthroscopy of hip NEHA DAGOBERTO Biopsy of breast NEHA PE RRY Decompression of med bin nerve NEHA DAGOBERTO Hysterectomy NEHA DAGOBERTO Payers Date Payer Category Payer Unknown 2023 Medicare [id number] 2022 Private Health Insurance 2018 Medicare [id number] 1959 Medicare [id number] 1959 Unknown [id number] 1955 Unknown [id number] 2.16.8 [id number] 1955 Unknown [id number] 2.16.84 0.1.939710.3.579.2.593 1955 Unknown [id number] 2.16.84 0.1.760273.3.579.2.593 1955 Unknown [id number] 2.16.84 0.1.195178.3.579.2.593 1955 Unknown [id number] 2.16.84 0.1.253178.3.579.2.593 1955 Unknown [id number] 2.16.84 0.1.307346.3.579.2.593 1955 Unknown [id number] 2.16.84 0.1.907303.3.579.2.593 1955 Unknown [id number] 2.16.8 40.1.145615.3.579.2.727 1955 Unknown [id number] 2.16.8 40.1.726653.3.579.2.727 1955 Unknown [id number] 2.16.8 40.1.704160.3.579.2.727 1955 Unknown [id number] 2.16.8 40.1.038330.3.579.2.727 1955 Unknown [id number] 2.16.8 40.1.295720.3.579.2.727 1955 Unknown [id number] 2.16.84 0.1.951898.3.579.2.1259 1955 Unknown [id number] 2.16.84 0.1.403618.3.579.2.1259 1955 Unknown [id number] 2.16. 840.1.316948.3.579.2.196 1955 Unknown [id number] 2.16. 840.1.321412.3.579.2.196 1955 Unknown [id number] 2.16. 840.1.928357.3.579.2.196 Social History Date Type Detail Facility Start: 07-11-2023 Tobacco smoking status Never s moked tobacco (finding) [facility] Sex Assigned At Female [facility] Functional Status Date Assessment Result Facility 11-14-2023 Functional Status N/A [facility] Hospital Discharge instructions 11-14-2023 Note Date & Type Note Facility 11-14-2023 Hospital Discharg e instructions Patient Education 11/14/2023 15:56:13 Kegel Exercises Kegel Exercises Kegel exercises can help strengthen [...] Your provider may suggest Kegel exercises to: Improve bladder and bowel control. Improve sexual response. Improve weak pelvic floor muscles after surgery to remove the uterus (hysterectomy) or after , in females. Improve weak pelvic floor muscles after prostate [...] provider. Exercises How to do Kegel exercises: 1.Squeeze your pelvic floor muscles tight. You should feel a tight lift in your rectal area. If you are a female, you should also feel a tightness in your vaginal area. Keep your stomach, buttocks, and legs relaxed. 2.Hold the muscles tight for up to 10 seconds. 3.Breathe normally. 4.Relax your muscles for up to 10 seconds. 5.Repeat as told by your health care provider. Repeat this exercise daily as told by your health care provider. Continue to do this exercise for at least 4 6 weeks, or for as long as told by your health care provider. You may be referred to a physical therapist who can help you learn more about how to do Kegel exercises. Depending on your condition, your health care provider may recommend: Varying how long you squeeze your muscles. Doing several sets of exercises every day. Doing exercises for several weeks. Making Kegel exercises a part of your regular exercise routine. This information is not intended to replace advice given to you by your health care provider. Make sure you discuss any questions you have with your health care provider. Document Revised: 01/27/2022 Document Reviewed: 01/27/2022 [employer] Patient Education 2022 [employer]. 11/14/2023 15:56:08 Urinary Incontinence Urinary Incontinence Urinary incontinence refers to a condition in which a person is unable to control where and when to pass urine. A person with this condition will urinate involuntarily. This means that the person urinates when he or she does not mean to. What are the causes? This condition may be caused by: Medicines. Infections. Constipation. Overactive bladder muscles. Weak bladder muscles. Weak pelvic floor muscles. These muscles provide support for the bladder, intestine, and, in women, the uterus. Enlarged prostate in men. The prostate is a gland near the bladder. When it gets too big, it can pinch the urethra. With the urethra blocked, the bladder can weaken and lose the ability to empty properly. Surgery. Emotional factors, such as anxiety, stress, or post-traumatic stress disorder (PTSD). Spinal cord injury, nerve injury, or other neurological conditions. Pelvic organ prolapse. This happens in women when organs move out of place and into the vagina. This movement can prevent the bladder and urethra from working properly. What increases the risk? The following factors may make you more likely to develop this condition: Age. The older you are, the higher the risk. Obesity. Being physically inactive. and childbirth. Menopause. Diseases that affect the nerves or spinal cord. Long-term, or chronic, coughing. This can increase pressure on the bladder and pelvic floor muscles. What are the signs or symptoms? Symptoms may vary depending on the type of urinary incontinence you have. They include: A sudden urge to urinate, and passing urine involuntarily before you can get to a bathroom (urge incontinence). Suddenly passing urine when doing activities that force urine to pass, such as coughing, laughing, exercising, or sneezing (stress incontinence). Needing to urinate often but urinating only a small amount, or constantly dribbling urine (overflow incontinence). Urinating because you cannot get to the bathroom in time due to a physical disability, such as arthritis or injury, or due to a communication or thinking problem, such as Alzheimer's disease (functional incontinence). How is this diagnosed? This condition may be diagnosed based on: Your medical history. A physical exam. Tests, such as: ?Urine tests. ?X-rays of your kidney and bladder. ?Ultrasound. ?CT scan. ?Cystoscopy. In this procedure, a health care provider inserts a tube with a light and camera (cystoscope) through the urethra and into the bladder to check for problems. ?Urodynamic testing. These tests assess how well the bladder, urethra, and sphincter can store and release urine. There are different types of urodynamic tests, and they vary depending on what the test is measuring. To help diagnose your condition, your health care provider may recommend that you keep a log of when you urinate and how much you urinate. How is this treated? Treatment for this condition depends on the type of incontinence that you have and its cause. Treatment may include: Lifestyle changes, such as: ?Quitting smoking. ?Maintaining a healthy weight. ?Staying active. Try to get 150 minutes of moderate-intensity exercise every week. Ask your health care provider which activities are safe for you. ?Eating a healthy diet. ?Avoid high-fat foods, like fried foods. ?Avoid refined carbohydrates like white bread and white rice. ?Limit how much alcohol and caffeine you drink. ?Increase your fiber intake. Healthy sources of fiber include beans, whole grains, and fresh fruits and vegetables. Behavioral changes, such as: ?Pelvic floor muscle exercises. ?Bladder training, such as lengthening the amount of time between bathroom breaks, or using the bathroom at regular intervals. ?Using techniques to suppress bladder urges. This can include distraction techniques or controlled breathing exercises. Medicines, such as: ?Medicines to relax the bladder muscles and prevent bladder spasms. ?Medicines to help slow or prevent the growth of a man's prostate. ?Botox injections. These can help relax the bladder muscles. Treatments, such as: ?Using pulses of electricity to help change bladder reflexes (electrical nerve stimulation). ?For women, using a medical office scheduler to prevent urine leaks. This is a small, tampon-like, disposable device that is inserted into the urethra. ?Injecting collagen or carbon beads (bulking agents) into the urinary sphincter. These can help thicken tissue and close the bladder opening. ?Surgery. Follow these instructions at home: Lifestyle Limit alcohol and caffeine. These can fill your bladder quickly and irritate it. Keep yourself clean to help prevent odors and skin damage. Ask your health care provider about special skin creams and cleansers that can protect the skin from urine. Consider wearing pads or adult diapers. Make sure to change them regularly, and always change them right after experiencing incontinence. General instructions Take uefe-vox-cluxrtj and prescription medicines only as told by your health care provider. Use the bathroom about every 3 4 hours, even if you do not feel the need to urinate. Try to empty your bladder completely every time. After urinating, wait a minute. Then try to urinate again. Make sure you are in a relaxed position while urinating. If your incontinence is caused by nerve problems, keep a log of the medicines you take and the times you go to the bathroom. Keep all follow-up visits. This is important. Where to find more information National [place] of Diabetes and Digestive and Kidney Diseases: www.niddk.nih.gov [employer]: www.urologyhealth.org Contact a health care provider if: You have pain that gets worse. Your incontinence gets worse. Get help right away if: You have a fever or chills. You are unable to urinate. You have redness in your groin area or down your legs. Summary Urinary incontinence refers to a condition in which a person is unable to control where and when to pass urine. This condition may be caused by medicines, infection, weak bladder muscles, weak pelvic floor muscles, enlargement of the prostate (in men), or surgery. Factors such as older age, obesity, and childbirth, menopause, neurological diseases, and chronic coughing may increase your risk for developing this condition. Types of urinary incontinence include urge incontinence, stress incontinence, overflow incontinence, and functional incontinence. This condition is usually treated first with lifestyle and behavioral changes, such as quitting smoking, eating a healthier diet, and doing regular pelvic floor exercises. Other treatment options include medicines, bulking agents, medical devices, electrical nerve stimulation, or surgery. This information is not intended to replace advice given to you by your health care provider. Make sure you discuss any questions you have with your health care provider. Document Revised: 04/23/2021 Document Reviewed: 04/23/2021 [employer] Patient Education 2022 [employer]. [facility] Clinical Note 07-11-2023 Note Date & Type [...] NEHA ARENAS PA-C, URL In 3 months [address] [place] [address] Additional Instructions: Patient Education Thomas Penn I, Stephanie Cleary, personally scribed for Neha Arenas PA-C on 07/11/2023 11:02:55. . Documentation recorded by the jose luis Cleary accurately reflects the services(s) I performed and decisions made by me. Authenticated by Neha Arenas PA-C on 07/11/2023 11:32:30. Problem List/Past Medical History Ongoing Anxiety Diabetes GERD (gastroesophageal reflux disease) HTN (hypertension) Hypercholesterolemia Mixed i (more content not included)... [facility] Comment on above: Result Comment: Elec tronically Signed By: NEHA ARENAS PA-C\.br\Date and Time Signed: 07/11/23 11:32 EDT\.br\Electronically Co-Signed By: Stephanie Cleary\.br\Date and Time Co-Signed: 07/11/23 11:03 EDT Evaluation + Plan note Note Date & Type Note Facility Evaluation + Plan note No data available for this section [facility] Evaluation + Plan note Note Date & Type Note Facility Evaluation + Plan note Future Appointments Appointment Date:02/13/2024 10:00:00 AM Scheduled Provider:NEHA ARENAS PA-C Location:[facility] Appointment Type:URO Office Visit [facility] Hospital Discharge instructions Note Date & Type Note Facility Hospital Discharge instructions No data available for this section [facility] Progress note Note Date & Type Note Facility Progress note No data available for this section [facility] Summary Purpose Family History No Family History Records FoundNo Family History Records FoundNo Family History Records Found No data available for this section No data available for this section No Family History Records FoundNo Family History Records Found No data available for this section No Family History Records Found Advance Directives No Advanced Directives Records FoundNo Advanced Directives Records FoundNo Advanced Directives Records FoundNo Advanced Directives Records FoundNo Advanced Directives Records FoundNo Advanced Directives Records Found Additional Source Comments INFORMATION SOURCE (unrecogn ized section and content) DATE CREATED AUTHOR 02/21/2019 [facility] DATE CREATED AUTHOR AUTHOR'S ORGANIZ ATION 04/04/2019 [facility] DATE CREATED AUTHOR AUTHOR'S ORGANIZ ATION 02/15/2023 [facility] DATE CREATED AUTHOR AUTHOR'S ORGANIZ ATION 11/15/2023 Luis Felipe Davide [facility] DATE CREATED AUTHOR AUTHOR'S ORGANIZ ATION 12/09/2023 [facility] DATE CREATED AUTHOR AUTHOR'S ORGANIZ ATION 01/24/2024 [facility] Patient Care team informatio n (unrecognized section and content) Personnel Name: DANN FLANNERY GUILLAUMENAT LAI Address: Address: [address] [place] [address] Personnel Name: GUILLAUME QUIGLEY CNP MING Address: Address: [address] [place] [address] Personnel Name: GUILLAUME QUIGLEY CNP MING Address: Address: [address] [place] [address] FOR RECORDS PERTAINING TO PATIENTS WHO ARE [...] BE BASED ON THE PRIMARY CLINICAL RECORDS. [employer] provides no warranty or guarantee of the accuracy or completeness of information in this document.
[2024-02-05 07:06] LABS: Glucometer 96 mg/dL (74-106)
[2024-02-05 07:08] VITALS: BP 167/78; PULSE 77; TEMP 36.6; O2SAT 100
[2024-02-05 07:52] VITALS: BP 199/88; BP 201/97; PULSE 75; PULSE 81; O2SAT 96
--- NOTE | 2024-02-05 07:53 | W.PM.PROCNOT ---
Date of procedure: 02/05/24 Pre-op diagnosis: Lumbar spondylosis Post-op diagnosis: same as pre-op Procedure: Procedure: Bilateral L4-5, L5-S1 medial branch block Medications: Bupivacaine 0.25% 6cc The patient was seen and examined in the preoperative holding area.? An informed consent was obtained and placed on the chart.? The patient was brought to the medical procedure unit and placed in the prone position.? A timeout was completed verifying correct patient, procedure site, positioning, plan, and special equipment.? Using aseptic technique, the needle was placed at left L4. Under direct fluoroscopic visualization a Quincke-tipped spinal needle was advanced to the junction of the superior articulating process with the transverse process at the designated medial branch segment.? Preceded by negative aspiration, the above-mentioned injectate was placed in 1 mL aliquots.? The procedure was repeated at left L5, S1.? The needle was removed and insertion site was covered. The same procedure, at the same levels, was completed on the right side. The patient was taken to the postprocedural recovery area and monitored for an appropriate length of time before found suitable for discharge in the company of a responsible adult. Anesthesia: Local Surgeon: Noble Reese Pathology: none sent Condition: stable Disposition: no change
[2024-02-05] MEDS: BUPIVACAINE HCL 0.25% PF 25 MG/10 ML VIAL 8 ML INJ (07:54)
[2024-02-05] MEDS: LIDOCAINE HCL 2% 400 MG/20 ML MDV INJ (07:54)
== END 2024-02-05 07:59 | disposition home or self-care (01) ==
PROVIDERS: Visit Provider Anesthesiology
DX: M47.816 Spondylosis without myelopathy or radiculopathy, lumbar region (principal); Z79.85 Long-term (current) use of injectable non-insulin antidiabetic drugs
CPT/HCPCS: 36415; 64493; 64494; 82948

== ENCOUNTER 2024-02-15 13:47 | Outpatient (OUT) | payer OTHER, SELFPAY ==
--- NOTE | 2024-02-15 13:58 | P.CN_ITS ---
Consult Note: HPI Data of Consult Patient: known to practice within the last 3 years Consult date: 01/15/24 Requesting Physician: Janey Escobar NP Primary Care Provider: Non-Staff Physician, Consult Narrative Reason for consult: low back, right shoulder pain Narrative: 68yof who presents for assessment. worsening low back pain and right shoulder pain. had previously had lumbar mbbs ordered, but did not complete due to insurance loss. continues in provider directed home exercise program for >6 weeks, with no benefit. uses lodine, but not helpful. denies adverse med side effects. bilateral L4-5 L5-S1 mbb #1 with 100% improvement in pain and functional ability immediately following and hours after the procedure. cc:: CC: Janey Escobar NP Review of Systems ROS Status of ROS 10 or more systems reviewed and unremark able except as noted in history and below Musculoskeletal Reports: back pain Meds Home Medications and Allergies Home Medications ?Medication ?Instructions ?Recorded ?Confirmed ?Type aspirin 81 mg tablet,delayed 81 mg PO DAILY 06/26/23 02/05/24 History release atorvastatin 40 mg tablet 80 mg PO DAILY 06/26/23 02/05/24 History dulaglutide 1.5 mg/0.5 mL 1.5 mg subcut QWEEK 06/26/23 02/05/24 History subcutaneous pen injector (Trulicity) etodolac 400 mg tablet (Lodine) 400 mg PO BID 06/26/23 02/05/24 History losartan 100 mg tablet 100 mg PO DAILY 06/26/23 02/05/24 History omega 2-oty-wmp-fish oil 1,000 mg 1 cap PO DAILY 06/26/23 02/05/24 History (120 mg-180 mg) capsule (Fish Oil) oxybutynin chloride 15 mg 15 mg PO DAILY 06/26/23 02/05/24 History tablet,extended release 24 hr pantoprazole 40 mg tablet,delayed 40 mg PO DAILY 06/26/23 02/05/24 History release baclofen 10 mg tablet 10 mg PO BID 01/29/24 01/29/24 History Allergies Allergy/AdvReac Type Severity Reaction Status Date / Time No Known Drug Allergies Allergy Verified 02/05/24 07:09 Exam Narrative Exam Narrative: Psych-alert and oriented x 3. Attentive and appropriate, constitutionally normal, displays normal mood and affect per situation.? There are no obvious deficits in memory, reasoning, or intellect.? Skin-no obvious rashes, bruising, erythema noted to the patient's area of pain. Extremities- extremities are warm with minimal edema and palpable pulses. Lumbar-no significant tenderness to palpation noted in the lumbar spine and paraspinal musculature.? Pain is elicited with extension, and lateral rotation of the lumbar spine. Range of motion is slightly diminished with these motions due to pain. Facet loading maneuvers are positive bilaterally and do appear to be concordant with the patient's normal complaints of pain.? Coordination remains intact.? Gait remains non-antalgic. Constitutional Documenting provider has reviewed patient's vital signs: yes Common normals: no apparent distress, oriented x3, healthy appearing, alert and well nourished General appearance: cooperative HENMT Common normals: normocephalic, hearing grossly normal bilaterally and moist oral mucous membranes Head and scalp: normocephalic Eye Common normals: PERRL Pupil: PERRL Neck & C-Spine Common normals: full ROM General: normal visual inspection Chest Common normals: inspection of chest normal Respiratory Common normals: normal respiratory effort, no retractions and no use of accessory muscles Neuro Common normals: oriented x3, CN's II-XII intact bilaterally, moves all extremities, no focal motor deficits, no sensory deficits noted and deep tendon reflexes 2+ bilaterally Sensorium/orientation: alert Motor exam: strength 5/5 throughout and no movement abnormalities noted Psych Common normals: mental status grossly normal, thought process normal, cooperative, affect normal, speech normal and activity/motor behavior normal Speech: normal speech Thought process: normal thought process Results Additional Findings Additional findings: If on a controlled substance or opioids, I have checked an [place] report on this patient and there are no aberrancies noted in the prescribing history.??If on a controlled substance or opioid a drug screen was completed and reviewed within the last year, and if there has not been a drug screen completed we ordered one today to monitor higher risk, state monitored pain medication use. As part of providing excellent, safe, comprehensive care, the following was completed at our patient's visit: 1. A medication reconciliation and review to ensure accurate knowledge of current/active medications, including asking our patients to inform us about any thvm-fam-dqoznbr medications or herbal remedies/nutritional supplements/alter [place] remedies. 2. A review to specifically ensure our patients have had annual screening for screening for depression, screening for tobacco use, and screening for unhealthy alcohol use. For concerning screenings had a discussion with the patient, provided patient education, and recommended follow-up with primary care provider when appropriate. If patient noted with a risk of falling, they received education on strength, gait, and balance training to prevent future risk of falling. Assessment and Plan Assessment and Plan (1) Lumbar spondylosis: (2) Primary osteoarthritis, right shoulder: Plan 68yof who presents for assessment. failed conservative measures, as noted. discussed that would be prudent to proceed with diagnostic bilateral l4-5, l5-s1 medial branch blocks x2 under fluoro with intention of proceeding to rfa, since now has insurance. she is in agreement. in terms of right shoulder pain continue f/u with surgeon, planning for total shoulder replacement. meds reviewed, stop lodine start mobic 7.5mg BID PRN risks vs benefits reviewed. follow up after procedure.
== END 2024-02-15 13:48 | disposition home or self-care (01) ==
PROVIDERS: Visit Provider Nurse Practitioner
DX: M47.816 Spondylosis without myelopathy or radiculopathy, lumbar region (principal); M19.011 Primary osteoarthritis, right shoulder
CPT/HCPCS: G0463

== ENCOUNTER 2025-06-26 09:17 | Outpatient (OUT) | payer MEDICARE, SELFPAY ==
--- OUTSIDE RECORDS SUMMARY | 2024-02-05 06:40 | XMS_ITS ---
Author Organization [facility] Address [address] [place] [address] Care Team Providers Care Manager Building Name Role Phone Hugh ESPINO, Noble Primary Care Provider Ana Lefty Dai [facility] [phone] REASON FOR VISIT RIGHT SHOULDER PAIN Encounters Encounter Location Date Provider Diagnosis [facility] [address] [place] [address] [place] [address] 02/05/2024 Lefty Barnes Plan Of Treatment No Information Progress Notes * JACOBO SALAZAR KDOB: [birth year] (70 yo F)Acc No.[id number]:02/05/2024 Patient: JACOBO BAJWA Provider: Corey Barnes MD :1955 A ge:68 Y S ex:Female Date:02/05/2024 Address:[address] [place], [place] [id number] Pcp:Noble Reese MD Subjective: * Chief Complaints: * 1 . RIGHT SHOULDER PAIN. * Medical History: Objective: * Vitals: Assessment: Plan: * Treatment: Forms: * Images: * Electronic signature of Vern Barnes MD on 06/26/2025 at 09:21 AM EDT Sign off status: Pending * Provider: Corey Barnes MD Date: 02/05/2024 Generated for Mallory miller/Lio/eTransmitting on: 0 06/26/2025 09:21 AM EDT
--- OUTSIDE RECORDS SUMMARY | 2024-02-12 06:40 | XMS_ITS ---
Author Organization [facility] Address [address] [place] [address] Care Team Providers Care Breastfeeding Peer Counselor Name Role Phone Hugh ESPINO, Noble Primary Care Provider Ana Lefty Dai Unavailable [phone] REASON FOR VISIT RIGHT SHOULDER PAIN Social History Tobacco Use: Social History Observation Description Date Details (start date - stop date) Never Smoker NA - NA AUDIT-C (Standard) Question Answer Notes Did you have a drink containing alcohol in the p ast year? No Points 0 Interpretation Negative Tobacco Control (Standard) Question Answer Notes Tobacco use: Nonsmoker Problems Problem Type SNOMED Code ICD Code Onset Dates Problem Status W/U Status Risk Notes Problem [id number] Primary osteoarthritis of right shoulder (M19.011) Active confirmed Vital Signs Height 5'5 in 02/12/2024 Weight 210 lbs 02/12/2024 BMI 34.94 02/12/2024 Encounters Encounter Location Date Provider Diagnosis [address] [place] [address] 02/12/2024 Lefty Cameron Primary osteoarthrit is of right shoulder M19.011 Assessments Encounter Date Diagnosis (ICD Code) Assessment Notes Treatment Notes Treatment Clinical Notes Section Notes 02/12/2024 Primary osteoarthritis of right shoulder (ICD-10 - M19.011) 02/12/2024 Other For her right shoulder osteoarthritis she is interested in proceeding with a total shoulder arthroplasty. I referred her to Dr. Manjarrez. She will follow-up with me on an as-needed basis. Import medication Plan Of Treatment Treatment Notes Assessment Notes Other For her right shoulder osteoarthritis she is interested in proceeding with a total shoulder arthroplasty. I referred her to Dr. Manjarrez. She will follow-up with me on an as-needed basis. Import medication Next Appt Details Follow Up: REFER TO DR. ALEJO DESAI, Reason: Progress Notes * JACOBO SALAZAR KDOB: [birth year] (70 yo F)Acc No.[id number]:02/12/2024 Patient: JACOBO BAJWA Provider: Corey Barnes MD :1955 A ge:68 Y S ex:Female Date:02/12/2024 Address:[address] [place], [place] [id number] Pcp:Noble Reese MD Subjective: * Chief Complaints: * 1 . RIGHT SHOULDER PAIN. * [facility] Follow Up Information: Patient presents today for right shoulder pain. She reports symptoms started 2 years ago from a fall and fracture. Since that time she has been treated in pain management with steroid injections, anti-inflammatories and physical therapy without improvement in symptoms. * Medical History: M edical History Verified. * Family History: N o Family History documented.. * Social History: A CARLOS-C (Standard) D id you have a drink containing alcohol in the past year? N o,?Points 0 , I nterpretation N egative. T obacco Control (Standard) T obacco use: N onsmoker. * Medications: N one Objective: * Vitals: H t: 5'5 , Wt: 210 lbs, BMI:34.94. * Examination: [facility] examination: O n exam today she is in no obvious distress. Right shoulder has 90 degrees of active and passive forward flexion. She has good strength with resisted rotator cuff testing. X -ray Imaging Studies: X -rays of her right shoulder show severe osteoarthritis with subchondral cysts and large inferior mild osteophyte . M RI Imaging Studies: M RI scan shows severe arthritis without rotator cuff tears . Assessment: * Assessment: 1. P rimary osteoarthritis of right shoulder - M19.011 (Primary) Plan: * Treatment: * Follow Up: R OBEYER TO DR. MANJARREZ Forms: * Images: * Electronic signature of Vern Barnes MD on 06/26/2025 at 09:21 AM EDT Sign off status: Pending * Provider: Corey Barnes MD Date: 0 02/12/2024 Generated for Mallory miller/Lio/Bellaitting on: 0 06/26/2025 09:21 AM EDT History and Physical Notes * HPI (History of Present Illness) Category Sub-Category Detail Notes Category Not es General Follow Up Information Patient presents tod ay for right shoulder pain. She reports symptoms started 2 years ago from a fall and fracture. Since that time she has been treated in pain management with steroid injections, anti-inflammatories and physical therapy without improvement in symptoms. Examination Category Sub-Category Detail Notes Category Not es General examination On exam today she is in no obvious distress. Right shoulder has 90 degrees of active and passive forward flexion. She has good strength with resisted rotator cuff testing X-ray Imaging Studies X-rays of her right shoulder show severe osteoarthritis with subchondral cysts and large inferior mild osteophyte MRI Imaging Studies MRI scan shows severe arthritis without rotator cuff tears
--- OUTSIDE RECORDS SUMMARY | 2024-03-20 05:30 | XMS_ITS ---
Author Organization [facility] Address [address] [place] [address] Care Team Providers Care Automotive Refinish Technician Name Role Phone Hugh ESPINO, Noble Primary Care Provider Ana Lefty Dai Unavailable [phone] Armin Manjarrez Unavailable [phone] REASON FOR VISIT REFERRAL FROM [facility] - RIGHT SHOULDER OSTROARTHRITIS Encounters Encounter Location Date Provider Diagnosis [facility] [address] [place] [address] 03/20/2024 Armin Manjarrez Plan Of Treatment No Information Progress Notes * MARIAHMOLLY WALTERSCA KDOB: [birth year] (70 yo F)Acc No.[id number]:03/20/2024 Patient: JACOBO BAJWA Provider: Tracey Manjarrez DO :1955 A ge:68 Y S ex:Female Date:03/20/2024 Address:[address] [place], [place] [phone] Pcp:Noble Reese MD Subjective: * Chief Complaints: * 1 . REFERRAL FROM [facility] - RIGHT SHOULDER OSTROARTHRITIS. * Medical History: Objective: * Vitals: Assessment: Plan: * Treatment: Forms: * Images: * Electronic signature of Thang Manjarrez DO on 06/26/2025 at 09:19 AM EDT Sign off status: Pending * Provider: Tracey Manjarrez DO Date: 03/20/2024 Generated for Printi ng/Faxing/eTransmitting on: 0 06/26/2025 09:19 AM EDT
--- OUTSIDE RECORDS SUMMARY | 2024-06-19 09:00 | XMS_ITS ---
Author Organization [facility] Address [address] [place] [address] Care Team Providers Care Higher Education Administrator Name Role Phone Hugh ESPINO, Noble Primary Care Provider Lefty Castillo Unavailable [phone] Armin Manjarrez Unavailable [phone] REASON FOR VISIT RIGHT SHOULDER PAIN Encounters Encounter Location Date Provider Diagnosis [facility] [address] [place] [phone] 06/19/2024 Armin Manjarrez Plan Of Treatment No Information Progress Notes * MARIAHMOLLY WALTERSCA KDOB: [birth year] (70 yo F)Acc No.[id number]:06/19/2024 Patient: JACOBO BAJWA Provider: Tracey Manjarrez DO :1955 A ge:68 Y S ex:Female Date:06/19/2024 Address:[address] [place], [place] [phone] Pcp:Noble Reese MD Subjective: * Chief Complaints: * 1 . RIGHT SHOULDER PAIN. * Medical History: Objective: * Vitals: Assessment: Plan: * Treatment: Forms: * Images: * Electronic signature of Thang Manjarrez DO on 06/26/2025 at 09:20 AM EDT Sign off status: Pending * Provider: Tracey Manjarrez DO Date: 06/19/2024 Generated for Samanthai ng/Fagasperg/eTransmitting on: 06/26/2025 09:20 AM EDT
--- OUTSIDE RECORDS SUMMARY | 2024-07-03 09:30 | XMS_ITS ---
Author Organization [facility] Address [address] [place] [address] Care Team Providers Care Tire Tester Name Role Phone Hugh ESPINO, Noble Primary Care Provider Lefty Castillo Unavailable [phone] Armin Manjarrez Unavailable [phone] REASON FOR VISIT RIGHT SHOULDER PAIN Encounters Encounter Location Date Provider Diagnosis [facility] [address] [place] [phone] 07/03/2024 Armin Manjarrez Plan Of Treatment No Information Progress Notes * MARIAHMOLLY WALTERSCA KDOB: [birth year] (70 yo F)Acc No.[id number]:07/03/2024 Patient: JACOBO BAJWA Provider: Tracey Manjarrez DO :1955 A ge:69 Y S ex:Female Date:07/03/2024 Address:[address] [place], [place] [id number] Pcp:Noble Reese MD Subjective: * Chief Complaints: * 1 . RIGHT SHOULDER PAIN. * Medical History: Objective: * Vitals: Assessment: Plan: * Treatment: Forms: * Images: * Electronic signature of Thang Manjarrez DO on 06/26/2025 at 09:21 AM EDT Sign off status: Pending * Provider: Tracey Manjarrez DO Date: Generated for Samanthai ng/Fagasperg/eTransmitting on: 0 06/26/2025 09:21 AM EDT
--- OUTSIDE RECORDS SUMMARY | 2025-01-16 11:30 | XMS_ITS ---
Author Organization [facility] Address [address] [place], [place] [address] Care Team Providers Care Roller Pneumatic Name Role Phone Zoë Godinez Primary Care Provider [phone] REASON FOR VISIT 3 month DM2,HTN Medications Medication SIG (Take, Route, Frequency, Duration) Notes Start Date End Date Status Solifenacin Succinate 10 MG 1 tablet Ora l Once a day; Duration: 90 days Active oxyBUTYnin Chloride ER 15 MG 1 tablet Orally Twice a day; Duration: 90 days 05/25/2023 Active Atorvastatin Calcium 80 mg TAKE ONE TABL ET BY MOUTH DAILY AT 5PM 90 DAYS; Duration: 90 days Active Pantoprazole Sodium 40 MG 1 tablet Orall y Once a day; Duration: 90 days Active Meloxicam 7.5 MG 1 tablet Orally Once a day; Duration: 90 days Active Aspirin 81 MG 1 tablet Orally Once a day; Duration: 90 days 05/25/2023 Active Fish Oil [place]-3 1000 MG 1 capsule Orall y Once a day; Duration: 90 days 05/25/2023 Active Sertraline HCl 25 mg TAKE ONE TABLET BY MOUTH DAILY AT 9AM; Duration: 90 days Active Losartan Potassium-HCTZ 100-25 MG TAKE ONE TABLET BY MOUTH DAILY AT 9AM FOR 90 DAYS; Duration: 90 days Active Metoprolol Succinate ER 25 MG 1 tablet Orally twice daily; Duration: 90 days 10/15/2024 Active amLODIPine Besylate 10 mg TAKE ONE TABLE T BY MOUTH DAILY AT 9AM; Duration: 90 days Active metFORMIN HCl 850 MG 2 tablet with a dustin l Orally Twice a day; Duration: 90 days Active Social History Sex Assigned At : Social History Observation Description Sex Assigned At Female Encounters Encounter Location Date Provider Diagnosis Main [address] [place], [place] [id number] 01/16/2025 Zoë Godinez Plan Of Treatment No Information Progress Notes * Destiny WATKINSDOB: 7 (70 yo F)Acc No.[id number]:01/16/2025 Medical Note Patient: Destiny BAJWA Provider: Mika Godinez :1955 A ge:69 Y S ex:Female Date:01/16/2025 Address:[address] [place] [address] [id number] Subjective: * Chief Complaints: * 1 . 3 month DM2,HTN. * Medical History: * Medications: T aking Pantoprazole Sodium 40 MG Tablet Delayed Release 1 tablet Orally Once a day , Taking Meloxicam 7.5 MG Tablet 1 tablet Orally Once a day , Taking oxyBUTYnin Chloride ER 15 MG Tablet Extended Release 24 Hour 1 tablet Orally Twice a day , Taking Atorvastatin Calcium 80 mg Tablet TAKE ONE TABLET BY MOUTH DAILY AT 5PM 90 DAYS , Taking Solifenacin Succinate 10 MG Tablet 1 tablet Oral Once a day , Taking metFORMIN HCl 850 MG Tablet 2 tablet with a meal Orally Twice a day , Taking amLODIPine Besylate 10 mg Tablet TAKE ONE TABLET BY MOUTH DAILY AT 9AM , Taking Losartan Potassium-HCTZ 100-25 MG Tablet TAKE ONE TABLET BY MOUTH DAILY AT 9AM FOR 90 DAYS , Taking Sertraline HCl 25 mg Tablet TAKE ONE TABLET BY MOUTH DAILY AT 9AM , Taking Aspirin 81 MG Tablet Chewable 1 tablet Orally Once a day , Taking Fish Oil [place]-3 1000 MG Capsule 1 capsule Orally Once a day , Taking Metoprolol Succinate ER 25 MG Tablet Extended Release 24 Hour 1 tablet Orally twice daily Objective: * Vitals: Assessment: Plan: * Treatment: * Billing Information: * Visit Code: * Procedure Codes: * Electronic signature of MARCELA Jaimes sa on 06/26/2025 at 09:20 AM EDT Sign off status: Pending * Provider: Mika Godinez Date: 0 01/16/2025 Generated for Mallory miller/Lio/Jignesh on: 0 06/26/2025 09:20 AM EDT
--- OUTSIDE RECORDS SUMMARY | 2025-03-07 06:15 | XMS_ITS ---
Author Organization [facility] vices Address [address] [id number] Care Team Providers Care Hand Scudder Name Role Phone Zoë Godinez Primary Care Provider REASON FOR VISIT Cough Social History Sex Assigned At : Social History Observation Description Sex Assigned At Female Encounters Encounter Location Date Provider Diagnosis Main [address] [place] [id number] 03/07/2025 Zoë Godinez Plan Of Treatment No Information Progress Notes * MARIE DestinyDOB: (70 yo F)Acc No.[id number]:03/07/2025 Medical Note Patient: Destiny BAJWA Provider: Mika Godinez :1955 A ge:69 Y S ex:Female Date:03/07/2025 Address:[address] [place], [place] [id number] Subjective: * Chief Complaints: * 1 . Cough. * Medical History: Objective: * Vitals: Assessment: Plan: * Treatment: * Billing Information: * Visit Code: * Procedure Codes: * Electronic signature of MARCELA Jaimes sa on 06/26/2025 at 09:19 AM EDT Sign off status: Pending * Provider: Mika Godinez Date: 0 03/07/2025 Generated for Printi ng/Faxing/eTransmitting on: 0 06/26/2025 09:19 AM EDT
--- OUTSIDE RECORDS SUMMARY | 2025-04-21 11:45 | XMS_ITS ---
Author Organization [facility] vices Address [address] [place] [id number] Care Team Providers Care Seniour Insight Manager Name Role Phone Zoë Godinez Primary Care Provider REASON FOR VISIT HTN & DM2 Social History Sex Assigned At : Social History Observation Description Sex Assigned At Female Encounters Encounter Location Date Provider Diagnosis Main [address] [place] [id number] 04/21/2025 Zoë Godinez Plan Of Treatment No Information Progress Notes * JUNE DestinyDOB: (70 yo F)Acc No.[id number]:04/21/2025 Medical Note Patient: Destiny BAJWA Provider: Mika Godinez :1955 A ge:69 Y S ex:Female Date:04/21/2025 Address:[address] [place] [address] [facility]ST[facility]-[id number] Subjective: * Chief Complaints: * 1 . HTN & DM2. * Medical History: Objective: * Vitals: Assessment: Plan: * Treatment: * Billing Information: * Visit Code: * Procedure Codes: * Electronic signature of MARCELA Jaimes sa on 06/26/2025 at 09:20 AM EDT Sign off status: Pending * Provider: Mika Godinez Date: 0 04/21/2025 Generated for Printi ng/Faxing/eTransmitting on: 0 06/26/2025 09:20 AM EDT
--- OUTSIDE RECORDS SUMMARY | 2025-05-13 11:30 | XMS_ITS ---
Author Organization [facility] vices Address [address] [place], [place] [address] Care Team Providers Care Independent Contractor Name Role Phone Herbert Zoë Primary Care Provider REASON FOR VISIT HTN, DM2 Medications Medication SIG (Take, Route, Frequency, Duration) Notes Start Date End Date Status Meloxicam 7.5 MG 1 tablet Orally twic e daily; Duration: 90 days Active Carvedilol 25 MG 1 tablet with food O rally Twice a day; Duration: 30 days 04/07/2025 Active Valsartan-hydroCHLOROthiazi de 160-25 MG 1 tablet Orally Once a day; Duration: 30 days 04/07/2025 Active metFORMIN HCl 1000 MG 1 tablet with a me al Orally twice daily; Duration: 90 days 04/07/2025 Active Fish Oil [place]-3 1000 MG 1 capsule Orall y Once a day; Duration: 90 days 05/25/2023 Active Sertraline HCl 25 mg TAKE ONE TABLET BY MOUTH DAILY AT 9AM; Duration: 90 days Active Aspirin 81 MG 1 tablet Orally Once a day; Duration: 90 days 05/25/2023 Active Atorvastatin Calcium 80 mg TAKE ONE TABL ET BY MOUTH DAILY AT 5PM 90 DAYS; Duration: 90 days Active Solifenacin Succinate 10 MG 1 tablet Ora l Once a day; Duration: 90 days Active oxyBUTYnin Chloride ER 15 MG 1 tablet Orally Twice a day; Duration: 90 days 05/25/2023 Active Pantoprazole Sodium 40 MG 1 tablet Orall y Once a day; Duration: 90 days Active Social History Sex Assigned At : Social History Observation Description Sex Assigned At Female Encounters Encounter Location Date Provider Diagnosis Main [address] [place] [id number] 05/13/2025 Zoë Godinez Plan Of Treatment No Information Progress Notes * Destiny WATKINSDOB: (70 yo F)Acc No.[id number]:05/13/2025 Medical Note Patient: Destiny BAJWA Provider: Mika Godinez :1955 A ge:69 Y S ex:Female Date:05/13/2025 Address:[address] [place] [address], [facility], [id number] Subjective: * Chief Complaints: * 1 . HTN, DM2. * Medical History: * Medications: T aking [...] tablet Oral Once a day , Taking Sertraline HCl 25 mg Tablet TAKE ONE TABLET BY MOUTH DAILY AT 9AM , Taking Aspirin 81 MG Tablet Chewable 1 tablet Orally Once a day , Taking Fish Oil [place]-3 1000 MG Capsule 1 capsule Orally Once a day , Taking Valsartan- hydroCHLOROthiazide 160-25 MG Tablet 1 tablet Orally Once a day , Taking metFORMIN HCl 1000 MG Tablet 1 tablet with a meal Orally twice daily , Taking Meloxicam 7.5 MG Tablet 1 tablet Orally twice daily , Taking Carvedilol 25 MG Tablet 1 tablet with food Orally Twice a day , Medication List reviewed and reconciled with the patient Objective: * Vitals: Assessment: Plan: * Treatment: * Billing Information: * Visit Code: * Procedure Codes: * Electronic signature of MARCELA Jaimes sa on 06/26/2025 at 09:21 AM EDT Sign off status: Pending * Provider: Mika Godinez Date: 05/13/2025 Generated for Mallory miller/Lio/Jignesh on: 0 06/26/2025 09:21 AM EDT
--- NOTE | 2025-06-26 | XR_ITS ---
[place] [id number] Patient Name: JACOBO SALAZAR MRN: [id number] date: 1955 Sex: F Assigned Patient Location: [facility] Current Patient Location: [facility] Accession/Order Number: [id number] Exam Date: 06/26/2025 09:25 Report Date: 06/26/2025 10:11 At the request of: LYLE GALLARDO DO Procedure: XR shoulder RT min 2V RIGHT SHOULDER - - 4 views CLINICAL HISTORY: M25.511 PAIN IN RIGHT SHOULDER COMPARISON: None FINDINGS: Severe degenerative changes involving the glenohumeral joint without acute bony process. Mild degenerative changes AC joint. XR/XR shoulder RT min 2V IMPRESSION: SEVERE DEGENERATIVE CHANGES INVOLVING THE RIGHT SHOULDER WITHOUT ACUTE BONY PROCESS. Impression dictated by: Jabari White Jr., DMarielaOMariela 06/26/2025 10:11 AM Dictation Location: [place] [address] Electronically authenticated by: [id number] Y Date: 06/26/2025 10:11
--- OUTSIDE RECORDS SUMMARY | 2025-06-26 09:19 | XMS_ITS | Encounter Summary ---
Author Organization [employer] Address [id number] [address] [place] [address] Care Team Providers Care Warehouse Production Worker Name Role Phone Renetta Mullins ORDNANCE ENGINEER-PATIENT CARE TECHNICIAN Primary Care Provid er Reason for Visit * Reason Comments Med Refill Encounter Details Date Type Department Care Team (Late st Contact Info) Description 06/26/2020 Refill [facility] [address] [facility] [place] [address] [place] [address] Renetta Mullins ORDNANCE ENGINEER-PATIENT CARE TECHNICIAN [address] [place] [address] Uncontrolled type 2 diabetes mellitus without complication, without long-term current use of insulin ([facility]) Social History Tobacco Use Types Packs/Day Years Used Date Smoking Tobacco: Never Smokeless Tobacco: Never Alcohol Use Standard Drinks/Week Comments No 0 (1 standard drink = 0.6 oz pur e alcohol) PHQ-2 Answer Date Recorded PHQ-2 Score 0 12/02/2019 Childcare Answer Date Recorded Childcare Unknown 03/01/2019 Employment Answer Date Recorded Employment Unknown 03/01/2019 Comments No Sex and Gender Information Value Date Recorded Sex Assigned at Not on file Legal Sex Female 11:43 AM EDT Gender Identity Not on file Sexual Orientation Not on file COVID-19 Exposure Response Date Recorded In the last month, have you been in contact with someone who was confirmed or suspected to have Coronavirus / COVID-19? No / Unsure 06/03/2020 11:53 AM EDT documented as of this encounter Plan of Treatment Not on file documented as of this encounter Visit Diagnoses Diagnosis Uncontrolled type 2 diabetes mellitus without complication, without long-term current use of insulin documented in this encounter Additional Health Concerns Assessment Noted Time PHQ-9 Depression Total Score: 0 04/22/20 2:20 PM EDT A Body Mass Index follow-up plan has been documented for the patient 04/14/2020 8:33 AM EDT documented as of this encounter Care Teams Warehouse Production Worker Relationship Specialty Start Date End Date Renetta Mullins, TANNER-PATIENT CARE TECHNICIAN PCP - General Family Medicine 02/05/21 12/22/21 documented as of this encounter
--- OUTSIDE RECORDS SUMMARY | 2025-06-26 09:20 | XMS_ITS | Encounter Summary ---
Author Organization [facility] Address [id number] [address] [place] [address] Care Team Providers Care Manager Of Drilling Name Role Phone Renetta Mullins Primary Care Provid er Reason for Visit * Reason Onset Date Comments Med Refill 11/29/2018 Encounter Details Date Type Department Care Team (Late st Contact Info) Description 11/29/2018 Refill [facility] [address] [facility] [place] [address] Mickie Palmer MA Stress incontinence Social History Tobacco Use Types Packs/Day Years Used Date Smoking Tobacco: Never Smokeless Tobacco: Never Alcohol Use Standard Drinks/Week Comments No 0 (1 standard drink = 0.6 oz pur e alcohol) PHQ-2 Answer Date Recorded PHQ-2 Score 0 10/16/2018 Comments No Sex and Gender Information Value Date Recorded Sex Assigned at Not on file Legal Sex Female 11:43 AM EDT Gender Identity Not on file Sexual Orientation Not on file documented as of this encounter Plan of Treatment Not on file documented as of this encounter Visit Diagnoses Diagnosis Stress incontinence Female stress incontinence documented in this encounter Additional Health Concerns Assessment Noted Time PHQ-9 Depression Total Score: 0 10/16/19 19 4:00 PM EST documented as of this encounter Care Teams Manager Of Drilling Relationship Specialty Start Date End Date Renetta Mullins APRN-CNP PCP - General Family Medicine 02/05/21 12/22/21 documented as of this encounter
--- OUTSIDE RECORDS SUMMARY | 2025-06-26 09:20 | XMS_ITS | Encounter Summary ---
Author Organization [employer] Address [id number] [address] [place] [address] Care Team Providers Care Drill Sharpener Name Role Phone Renetta Mullins APRN-PRUDENCIO Primary Care Provid er Reason for Visit * Reason Comments Med Refill Encounter Details Date Type Department Care Team (Late st Contact Info) Description 06/21/2018 Refill [facility] [address] [place] [address] Renetta Mullins APRN-SURGICAL GARMENT INSPECTOR [address] [place] [address] Type 2 diabetes mellitus without complication, without long-term current use of insulin ([facility]) Social History Tobacco Use Types Packs/Day Years Used Date Smoking Tobacco: Never Smokeless Tobacco: Never Alcohol Use Standard Drinks/Week Comments No 0 (1 standard drink = 0.6 oz pur e alcohol) Comments No Sex and Gender Information Value Date Recorded Sex Assigned at Not on file Legal Sex Female 11:43 AM EDT Gender Identity Not on file Sexual Orientation Not on file documented as of this encounter Plan of Treatment Not on file documented as of this encounter Visit Diagnoses Diagnosis Type 2 diabetes mellitus without complication, without long-term current use of insulin ([facility]) documented in this encounter Additional Health Concerns Assessment Noted Time PHQ-9 Depression Total Score: 0 05/31/20 18 3:00 PM EDT documented as of this encounter Care Teams Drill Sharpener Relationship Specialty Start Date End Date Renetta Mullins APRN-CNP PCP - General Family Medicine 02/05/21 12/22/21 documented as of this encounter
--- OUTSIDE RECORDS SUMMARY | 2025-06-26 09:20 | XMS_ITS | Clinical Summary ---
Author Organization [facility] Address [address] [place] [address] Care Team Providers Care Rodeo Clown Name Role Phone Juan Daniel Kay Primary Care Provider [phone] Social History Tobacco Use Types Packs/Day Years Used Date Smoking Tobacco: Never Assessed Comments Unknown Sex and Gender Information Value Date Recorded Sex Assigned at Not on file Legal Sex Female 6:52 PM EST Gender Identity Not on file Sexual Orientation Not on file Last Filed Vital Signs Vital Sign Reading Time Taken Comments Blood Pressure 132/81 05/09/2011 8:59 AM EDT Pulse 85 05/09/2011 8:59 AM EDT Temperature - - Respiratory Rate - - Oxygen Saturation - - Inhaled Oxygen Concentration - - Weight 93.4 kg (205 lb 12.8 oz) 05/09/2011 8:59 AM EDT Height 165.1 cm (5' 5 ) 05/09/2011 8:59 AM EDT Body Mass Index 34.25 05/09/2011 8:59 AM EDT Plan of Treatment Health Maintenance Due Date Last Done Comments DEXA SCAN DISCUSSION 1957 TETANUS 1957 TDAP (ADULT) 1976 CERVICAL CANCER SCREENING DISCUSSION 1978 LIPID SCREENING 1997 MAMMOGRAM SCREENING DISCUSSION 1997 PNEUMOCOCCAL VACCINE SERIES (1 of 1 - PCV) 2007 ZOSTER (SHINGLES) VACCINE (1 of 2) 2007 COLORECTAL CANCER SCREENING DISCUSSION 05/10/2012 05/10/2011 COVID-19 VACCINE (2023-2 5 season) 2025 INFLUENZA VACCINE (#1) 2025 RSV VACCINE (1 - 1-dose 75+ series) 2032 HEPATITIS C VIRUS SCREENING Completed 05/09/2011 HEP B VACCINE Aged Out No longer toro beckford based on patient's age to complete this topic Procedures Procedure Name Priority Date/Time Associated Diagnosis Comments OCCULT BLOOD, STOOL Routine 05/10/2011 9 :57 AM EDT PRE TRANSPLANT PACKAGE Routine 05/09/2011 8:07 AM EDT from Last 3 Months or Most Recently Relevant to Health Maintenance Results * OCCULT BLOOD, STOOL (05/10/2011 9:57 AM EDT) OCCULT BLOOD, STOOL NEGATIVE NEG [facility] 05/10/2011 9:57 AM EDT 05/19/2011 9:57 AM EDT Israel Brunson MD BODY FLUIDS & STOOLS ORDERAB LES Final Result LAB, [facility] [address] [place] [address] * (ABNORMAL) PRE TRANSPLANT PACKAGE (05/09/2011 8:07 AM EDT) SODIUM 139 136 - 145 mmol/L [facility] Potassium 3.8 3.5 - 5.1 mmol/L [facility] CHLORIDE 102 98 - 107 mmol/L [facility] BUN 6 6.0 - 20.0 mg/dL [facility] CREATININE SERUM 0.61 0.60 - 1.10 mg/dL [facility] Glucose 118(H) 74 - 106 mg/dL [facility] BILIRUBIN, TOTAL 0.7 <1.5 mg/dL [facility] Albumin 3.9 3.4 - 4.8 g/dL [facility] PROTEIN, TOTAL 7.2 6.4 - 8.3 g/dL [facility] AST 19 5 - 34 U/L [facility] ALKALINE PHOSPHATASE 127(H) 38 - 126 U/L [facility] CALCIUM 10.1(H) 8.6 - 10.0 mg/dL [facility] OSMOLALITY (CALC) 290 275 - 295 mOsm/kg [facility] BUN/CREA RATIO 10 [facility] CARBON DIOXIDE (CO2) 26 21 - 31 mmol/L [facility], [facility] ALT 23 8 - 35 U/L [facility] ESTIMATED GFR, NON AMER >60 (mL/min/1.73 square meters) [facility] ESTIMATED GFR, >60 (mL/min/1.73 square meters) The estimated GFRs are based on the MDRD formula for assessment of stable or slowly declining kidney function in adults. Estimated GFR values are not accurate in: obese (BMI>34) or underweight (BMI<20) people, the very old or very young, races other than or -Lena n and people with acute illnesses, amputations or acute kidney failure. Estimated GFR should be interpreted in clinical context and an alternative method such as a timed urine collection for creatinine clearance used to verify questionable results. [facility] URIC ACID 4.5 2.3 - 6.6 mg/dL [facility] CHOLESTEROL 215(H) <200 mg/dL [facility] TRIGLYCERIDE 108 <150 mg/dL [facility] Comment: [<150 mg/dL: Desirable] [150-199 mg/dL: Borderline] [200-499 mg/dL: High] [>500 mg/dL: Very High] WBC (WHITE BLOOD COUNT) 4.3(L) 4.5 - 11.0 K/uL [facility] RBC 4.58 3.8 - 5.1 M/uL [facility] HEMOGLOBIN (HGB) 12.9 11.7 - 15.5 g/dL [facility] HEMATOCRIT (HCT) 38.5 35.0 - 45.0 % [facility] Mean Cell Volume 84.0 81.0 - 100.0 fL [facility] Mean Cell HGB Concentration 33.6 32 - 36 g/dL [facility] RBC Distribution 14.3 11.6 - 14.8 [facility] Segs + Bands Auto 65.0 40 - 70 % [facility] LYMPHOCYTES % 24.7 22.0 - 44.0 % [facility] MONOCYTES % 6.7 0 - 7.0 % [facility] EOSINOPHILS % 3.1 0 - 5.0 % [facility] BASOPHILS % 0.5 0 - 2 % [facility] GRANS, ABSOLUTE 2.8 1.8 - 7.7 K/uL [facility] LYMPHS, ABSOLUTE 1.1 1.0 - 4.8 K/uL [facility] MONOS, ABSOLUTE 0.3 0 - 0.8 K/uL [facility] EOS, ABSOLUTE 0.1 0 - 0.5 K/uL [facility] BASO, ABSOLUTE 0.0 0 - 0.2 K/uL [facility] PLATELET COUNT 269 150 - 400 K/uL [facility] Mean Platelet Volume 9.7 7.5 - 11.2 fL [facility] PT 14.2 12.4 - 14.6 sec [facility] INR 1.1 0.9 - 1.1 [facility] PTT 28 24 - 34 sec [facility] HIV-1/HIV-2 AB/p24 Antigen NONREACTIVE NRAT [facility], [facility] HEP B CORE AB,TOTAL(IGG+IGM ) NEGATIVE NEG [facility], [facility] Hepatitis B Core Antibody (IgM) NEGATIVE NEG LAB, [facility] Hep B Surf AG NEGATIVE NEG [facility], [facility] HEP C AB NEGATIVE NEG [facility] CMV Antibody IgG NEGATIVE NEG [facility] EBV Antibody to Viral Capsid Antigen IgG POSITIVE(A) NEG [facility] GGT 20 8 - 64 U/L [facility] LACTATE DEHYDROGENASE 181 100 - 190 U/L [facility] HEMOGLOBIN A1C 6.1(H) 4.7 - 5.8 % [facility] Estimated Average Glucose 128 [facility] Appearance, Urine Cloudy(A) CLEAR [facility] Specific [place], Urine 1.021 1.001 - 1.035 [facility] Glucose, Urine NEGATIVE NEG mg/dL [facility] BILIRUBIN, URINE NEGATIVE NEG [facility] Ketones, Urine NEGATIVE NEG [facility] Blood, Urine NEGATIVE NEG [facility] PH URINE 5.0 5.0 - 7.0 [facility] Urine Protein NEGATIVE NEG mg/dL [facility] Nitrites, Urine NEGATIVE NEG [facility] Leukocyte esterase, Urine Trace(A) NEG [facility] Color, Urine Dark Yellow YEL,DKYEL LAB, [facility] Urobilinogen, Urine 0.2 <2.0 EU/dL [facility] WBC, Urine Absent 0 - 5 /HPF [facility] RBC, Urine Absent 0 - 2 /HPF [facility], [facility] Bacteria, Urine Absent ABSENT [facility] Syphilis Ab, IgG NEGATIVE NEG [facility] Hep B Surf AB POSITIVE(A) NEG [facility] 05/09/2011 8:07 AM EDT 05/09/2011 11:49 AM EDT us Israel Brunson MD HEMATOLOGY ORDERABLES Final Result LAB, [facility] [address] [place] [address] from Last 3 Months or Most Recently Relevant to Health Maintenance Care Teams Rodeo Clown Relationship Specialty Start Date End Date Juan Daniel Kay DO PCP - General 05/09/11
--- OUTSIDE RECORDS SUMMARY | 2025-06-26 09:20 | XMS_ITS | Clinical Summary ---
Author Organization [facility] Healthcare Address [address] [facility] [place] [address] Care Team Providers Care Microstrategy Developer Name Role Phone Guillaume Tapia MD Unavailable Allergies No known active allergies Medications losartan (Cozaar) 100 MG tablet Take 100 mg by mouth in the morning. 3 Active metFORMIN (Glucophage) 500 MG tablet TAKE 1 TABLET BY MOUTH TWICE DAILY FOR 7 DAYS, on the day, TAKE 2 TABLETS BY MOUTH in the IN THE MORNING and ONE TABLET BY MOUTH AT NIGHT, on the day, TAKE 2 TABLETS in IN THE MORNING and TAKE 2 TABLETS IN THE EVENING Active Mounjaro 2.5 MG/0.5ML solution pen-injector INJECT 2.5 mg SUBCUTANEOUSLY ONCE A WEEK (MONDAY) 3 Active oxybutynin XL (Ditropan-XL) 10 MG 24 hr tablet Take 10 mg by mouth in the morning. Active Active Problems No known active problems Family History Medical History Relation Name Comments Lung cancer Father Breast cancer Mother's Sister Relation Name Status Comments Father Mother Mother's Sister 2 Social History Tobacco Use Types Packs/Day Years Used Date Smoking Tobacco: Never Smokeless Tobacco: Never Tobacco Cessation:Counseling Given: Not Answered Alcohol Use Standard Drinks/Week Comments Never 0 (1 standard drink = 0.6 oz pure alcohol) Caffeine intake: 2-3 cups per day coffee Comments Unknown Sex and Gender Information Value Date Recorded Sex Assigned at Not on file Legal Sex Female 9:31 PM EDT Gender Identity Not on file Sexual Orientation Not on file Last Filed Vital Signs Vital Sign Reading Time Taken Comments Blood Pressure 168/78 02/11/2019 12:00 PM EDT Pulse - - Temperature - - Respiratory Rate - - Oxygen Saturation - - Inhaled Oxygen Concentration - - Weight 93 kg (205 lb) 12/04/2023 2:36 PM EST Height 165.1 cm (5' 5 ) 12/04/2023 2:36 PM EST Body Mass Index 34.11 12/04/2023 2:36 PM EST Plan of Treatment Not on file Insurance [employer] Care Teams Microstrategy Developer Relationship Specialty [place] [address] [place] [phone] Referring Physician Internal Medicine 12/04/23
--- OUTSIDE RECORDS SUMMARY | 2025-06-26 09:20 | XMS_ITS | Encounter Summary ---
Author Organization [facility] Address [address] [facility] [place] [address] Care Team Providers Care Fruit Or Nut Farm Worker Name Role Phone Guillaume Tapia MD Unavailable Encounter Details Date Type Department Care Team (Late st Contact Info) Description 07/12/2024 Abstract [facility] [address] [place] [address] [facility] [address] [place] [address] Social History Tobacco Use Types Packs/Day Years Used Date Smoking Tobacco: Never Smokeless Tobacco: Never Alcohol Use Standard Drinks/Week Comments Never 0 [...] documented as of this encounter Visit Diagnoses Not on filedocumented in this encounter Care Teams Fruit Or Nut Farm Worker Relationship Specialty Start Date End Date Guillaume Tapia MD [address] [place] [address] Referring Physician Internal Medicine 12/04/23 documented as of this encounter
--- OUTSIDE RECORDS SUMMARY | 2025-06-26 09:21 | XMS_ITS | Encounter Summary ---
Author Organization [employer] Address [id number] [address] [place] [address] Care Team Providers Care Forest Manager Name Role Phone Renetta Mullins APRN-PRUDENCIO Primary Care Provid er Reason for Visit * Reason Comments Med Refill Encounter Details Date Type Department Care Team (Late st Contact Info) Description 07/14/2017 Refill [facility] [address] [place] [address] Renetta Mullins APRN-CHAIRMAN [address] [place] [address] Arthritis of left knee; Moderate episode of recurrent major depressive disorder (HCC) Social History Tobacco Use Types Packs/Day Years [...] as of this encounter Visit Diagnoses Diagnosis Arthritis of left knee Moderate episode of recurrent major depressive disorder (CMS-HCC) documented in this encounter Additional Health Concerns Assessment Noted Time PHQ-9 Depression Total Score: 3 05/17/20 17 2:00 PM EDT documented as of this encounter Care Teams Forest Manager Relationship Specialty Start Date End Date Renetta Mullins APRN-CNP PCP - General Family Medicine 02/05/21 12/22/21 documented as of this encounter
--- OUTSIDE RECORDS SUMMARY | 2025-06-26 09:21 | XMS_ITS | Encounter Summary ---
Author Organization [email or web address] Sys tem Address [id number] [address] [place] [address] Care Team Providers Care Strategic Client Executive Name Role Phone Renetta Mullins Primary Care Provid er Reason for Visit * Reason Onset Date Comments Med Refill 04/08/2019 Encounter Details Date Type Department Care Team (Late st Contact Info) Description 04/08/2019 Refill [facility] [address] [facility] [place] [address] Kelly Handy CMA Social History Tobacco Use Types Packs/Day Years Used Date Smoking Tobacco: Never Smokeless Tobacco: Never Alcohol Use Standard Drinks/Week Comments No 0 (1 standard drink = 0.6 oz pur e alcohol) PHQ-2 Answer Date Recorded PHQ-2 Score 0 10/16/2018 Childcare Answer Date Recorded Childcare Unknown 03/01/2019 [...] Diagnoses Not on filedocumented in this encounter Additional Health Concerns Assessment Noted Time PHQ-9 Depression Total Score: 0 03/19/20 19 1:00 PM EDT documented as of this encounter Care Teams Strategic Client Executive Relationship Specialty Start Date End Date Renetta Mullins APRN-CNP PCP - General Family Medicine 02/05/21 12/22/21 documented as of this encounter
--- OUTSIDE RECORDS SUMMARY | 2025-06-26 09:21 | XMS_ITS | Encounter Summary ---
Author Organization [facility] Address [address] [facility] [place] [address] Care Team Providers Care Audio Video Mechanic Name Role Phone Renetta Mullins APRN - PRUDENCIO Primary Care Prov ider Reason for Visit * Reason Comments Medication Refill Encounter Details Date Type Department Care Team (Late st Contact Info) Description 06/26/2020 Refill [facility] [address] [facility] [address] [place] [address] Cindy Ojeda DPM Medication Refill Social History Tobacco Use Types Packs/Day Years Used Date Smoking Tobacco: Never Smokeless Tobacco: Never Alcohol Use Standard Drinks/Week Comments Not Currently 0 (1 standard drink = 0.6 oz pur e alcohol) AUDIT-C Answer Date Recorded Frequency of Alcohol Consumption Never 03/31/2019 Average Number of Drinks Not on file 019 Frequency of Binge Drinking Not on file 03/04 Comments No Sex and Gender Information Value Date Recorded Sex Assigned at Not on file Legal Sex Female 9:12 AM EST Gender Identity Not on file Sexual Orientation Not on file documented as of this encounter Plan of Treatment Not on file documented as of this encounter Visit Diagnoses Not on filedocumented in this encounter Care Teams Audio Video Mechanic Relationship Specialty Start Date End Date Renetta Mullins APRN - CNP PCP - General 03/31/19 documented as of this encounter
--- OUTSIDE RECORDS SUMMARY | 2025-06-26 09:21 | XMS_ITS | Encounter Summary ---
Author Organization [employer] Address [id number] [address] [place] [address] Care Team Providers Care Dual Rate Dealer Name Role Phone Renetta Mullins APRN-PRUDENCIO Primary Care Provid er Reason for Visit * Reason Comments Med Refill Encounter Details Date Type Department Care Team (Late st Contact Info) Description 02/27/2018 Refill [facility] [address] [facility] [place] [address] Renetta Mullins APRN-BLACK BELT [address] [place] [address] Arthritis of left knee; Moderate episode of recurrent major depressive disorder (HCC); Essential hypertension Social History Tobacco Use Types Packs/Day Years [...] episode of recurrent major depressive disorder (CMS-HCC) Essential hypertension Unspecified essential hypertension documented in this encounter Additional Health Concerns Assessment Noted Time PHQ-9 Depression Total Score: 0 01/11/20 18 2:00 PM EDT documented as of this encounter Care Teams Dual Rate Dealer Relationship Specialty Start Date End Date Renetta Mullins APRN-BLACK BELT PCP - General Family Medicine 02/05/21 12/22/21 documented as of this encounter
--- OUTSIDE RECORDS SUMMARY | 2025-06-26 09:21 | XMS_ITS | Encounter Summary ---
Author Organization [employer] Address [facility]-[id number] [address] [place] [address] Care Team Providers Care Metal Tube Cutter Name Role Phone Renetta Mullins CENTER DIRECTOR-ELEVATOR REPAIR MECHANIC Primary Care Provid er Reason for Visit * Reason Onset Date Comments Atorvastatin 05/29/2020 Encounter Details Date Type Department Care Team (Late st Contact Info) Description 05/29/[address] [facility] [address] [place] [address] Josefina Patterson, ALEX Atorvastatin Social History Tobacco Use Types Packs/Day Years [...] or suspected to have Coronavirus / COVID-19? Unable to assess 05/20/2020 7:19 AM EDT documented as of this encounter Miscellaneous Notes * Telephone Encounter - Josefina Patterson RN - 05/29/2020 3:30 PM EDT Workmans comp will not pay for Lipitor-not related to her inury claim-call if questions Josefina Patterson RN 05/29/20 1532 documented in this encounter Plan of Treatment Not on file documented as of this encounter Visit Diagnoses Not on filedocumented in this encounter Additional Health Concerns Assessment Noted Time PHQ-9 Depression Total Score: 0 04/22/20 20 2:20 PM EDT A Body Mass Index follow-up plan has been documented for the patient 04/14/2020 8:33 AM EDT documented as of this encounter Care Teams Metal Tube Cutter Relationship Specialty Start Date End Date Renetta Mullins, CENTER DIRECTOR-ELEVATOR REPAIR MECHANIC PCP - General Family Medicine 02/05/21 12/22/21 documented as of this encounter
--- OUTSIDE RECORDS SUMMARY | 2025-06-26 09:21 | XMS_ITS | CCD ---
Author Organization [facility] Care Team Providers Care Dry Cell Assembly Supervisor Name Role Phone SHANIQUE WINTER Attending Unavailable [...] Unavailable SHAMMO, GUILLAUME MING Primary Care Physician Hugh ESPINO, Noble Marina Attending Unavailable Giedraitis , Andrius Salas Attending Unavailable Giedraitis , Andrius Salas Attending Unavailable Giedraitis , Andrius Salas Attending Unavailable SHAMMO, GUILLAUME Primary Care Unavailable SHAMMO, GUILLAUME Referring Unavailable ESTUARDO ARENAS Attending Unavailab padmaja DAGOBERTOESTUARDO NORIEGA Admitting Unavailab ESTUARDO Noyola Attending Unavailab le SHAMMO, GUILLAUME Primary Care Unavailable SHAMMO, GUILLAUME Primary Care Unavailable ESTUARDO ARENAS Attending Unavailab le SHAMMO, GUILLAUME Primary Care Unavailable Karrie Taylor Attending Unavailable SHAMMO, GUILLAUME Primary Care Unavailable ESTUARDO ARENAS Attending Unavailab le SHAMMO, GUILLAUME Primary Care Unavailable AMANDA DAY Attending Unavailable AMANDA DAY Referring Unavailable ANITA SAVAGE Attending Unavailable DANN GUILLAUME Referring Unavailable MARCELA HEATHER Referring Unavailable MARCELA HEATHER Referring Unavailable Neha Santos APRN Primary Care Provider Neha Santos APRN Attending Provider Allergies Allergy Classification Reported Allergen(s) Allergy Type Date of Onset Reaction(s) Facility (1 source) No Known Medication Allergies; Translations: [No Known Medication Allergies] Propensity to adverse reactions (disorder) [facility] Repository Medications Current Medications Medication Drug Class(es) Dates Sig (Normalized) Sig (Original) atorvastatin 80 mg oral tablet (5 sources) HMG-CoA Reductase Inhibitor Start: 12-13-2023 Atorvastatin 80 mg tablet Active 80 MG PO December 13, 2023 12:00am Complies with drug therapy Start: 07-27-2022 take 1 tablet by maikol th once daily atorvastatin 40 mg Tab 40 mg = 1 tab(s), Oral, Daily, Refills(s) 0 Start Date: 07/27/22 Status: Ordered carvedilol 25 mg oral tablet (6 sources) alpha-Adrenergic Parisa, beta-Adrenergic Parisa Start: 06-03-2025 End: 06-03-2025 take 1 tablet by mouth twice daily at mealtime Carvedilol 25 mg tablet Active 25 MG PO Twice daily 180 90 June 03, 2025 11:46am must administer with a meal/food Complies with drug therapy Start: 07-27-2022 take 1 tablet by maikol th twice daily carvedilol 6.25 mg Tab 6.25 mg = 1 tab(s), Oral, BID, Refills(s) 0 Start Date: 07/27/22 Status: Ordered ciprofloxacin 500 mg oral tablet (2 sources) Quinolone Antimicrobial Start: 11-29-2023 Cipro 500 mg Tab See Instructions, Take 1 tab day prior to procedure and 1 tab day of procdure - afterwards, # 2 tab(s), Refills(s) 0, Pharmacy: [id number], 165, cm, 11/14/23 13:05:00 EST, Height/Length Dosing, 91, kg, 11/14/23 13:05:00 EST, Weight Dosing Start Date: 11/29/23 Status: Ordered 0.5 ML dulaglutide 6 MG/ML Auto-Injector [Trulicity] (4 sources) GLP-1 Receptor Agonist Start: 07-27-2022 inject 3 mg by subcutaneous injection every week Trulicity Pen 3 mg/0.5 mL subcutaneous solution 3 mg, SubCutaneous, qWeek, Refills(s) 0 Start Date: 07/27/22 Status: Ordered etodolac 400 mg oral tablet (4 sources) Nonsteroidal Anti-inflammatory Drug Start: 07-11-2023 etodolac 400 mg Tab 400 mg = 1 tab(s) Start Date: 07/11/23 Status: Ordered gabapentin 300 mg oral capsule (4 sources) Anti-epileptic Agent Start: 07-27-2022 take 1 capsule by mouth once daily gabapentin 300 mg Cap 300 mg = 1 cap(s), Oral, Daily, Refills(s) 0 Start Date: 07/27/22 Status: Ordered hydroCHLOROthiazide 25 mg / valsartan 160 mg oral tablet (2 sources) Thiazide Diuretic, Angiotensin 2 Receptor Parisa Start: 06-03-2025 End: 06-03-2025 take 1 tablet by mouth once daily Valsartan-Hydroc hlorothiazide 160-25 mg tablet Active 1 TAB PO Daily June 03, 2025 11:30am Complies with drug therapy lidocaine 0.05 mg/mg medicated patch (2 sources) Antiarrhythmic, Amide Local Anesthetic Start: 12-13-2023 End: 06-03-2025 apply 1 dose topically once daily Lidocaine (Lidoderm) 5 % adhesive patch,medicated Active 1 PATCH TOPICAL Daily June 03, 2025 12:00am leave on most painful area for up to 12 hrs Complies with drug therapy losartan potassium 100 mg oral tablet (4 sources) Angiotensin 2 Receptor Parisa Start: 07-11-2023 losartan 100 mg Tab 100 mg = 1 tab(s) Start Date: 07/11/23 Status: Ordered meloxicam 7.5 mg oral tablet (6 sources) Nonsteroidal Anti-inflammatory Drug Start: 06-03-2025 End: 06-03-2025 take 1 tablet by mouth twice daily Meloxicam 7.5 mg tablet Active 7.5 MG PO Twice daily 180 June 03, 2025 11:47am Complies with drug therapy Start: 07-27-2022 take 1 tablet by maikol once daily meloxicam 15 mg oral tablet 15 mg = 1 tab(s), Oral, Daily, Refills(s) 0 Start Date: 07/27/22 Status: Ordered metFORMIN hydrochloride 500 mg oral tablet (7 sources) Biguanide Start: 06-03-2025 End: 06-03-2025 take 2 tablets by mouth twice daily Metformin 500 mg tablet Active 1000 MG PO Twice daily 360 June 03, 2025 11:45am Complies with drug therapy Start: 07-27-2022 End: 06-03-2025 Metformin 500 mg tablet Disc ontinued 500 MG PO December 13, 2023 12:00am June 03, 2025 11:08am 24 hr mirabegron 25 mg extended release oral tablet (3 sources) beta3-Adrenergic Agonist Start: 11-14-2023 End: 03-13-2024 take 1 tablet by mouth once daily Myrbetriq 25 mg oral tablet, extended release 25 mg = 1 tab(s), Oral, Daily, X 30 day(s), # 30 tab(s), Refills(s) 3, [facility]acy: [id number], 165, cm, 11/14/23 13:05:00 EST, Height/Length Dosing, 91, kg, 11/14/23 13:05:00 EST, Weight Dosing Start Date: 11/14/23 Stop Date: 03/13/24 Status: Ordered [place]-3 Fatty Acids-Fish Oil 300-1,000 mg capsule (1 source) Start: 12-13-2023 [place]-3 Fatty Acids-Fish Oil 300-1,000 mg capsule Active CAP PO December 13, 2023 12:00am Complies with drug therapy 24 hr oxybutynin chloride 15 mg extended release oral tablet (2 sources) Cholinergic Muscarinic Antagonist Start: 06-03-2025 End: 06-03-2025 take 1 tablet by mouth once daily Oxybutynin Chloride 15 mg tablet extended release 24hr Active 15 MG PO Daily 90 June 03, 2025 11:46am Complies with drug therapy pantoprazole 40 mg delayed release oral tablet (6 sources) Proton Pump Inhibitor Start: 12-13-2023 End: 06-03-2025 take 1 tablet by mouth once daily Pantoprazole 40 mg tablet,delayed release (DR/EC) Active 40 MG PO Daily 90 June 03, 2025 11:47am Complies with drug therapy Start: 07-27-2022 take 1 tablet by maikol th once daily pantoprazole 40 mg Oral EC Tab 40 mg = 1 tab(s), Oral, Daily, Refills(s) 0 Start Date: 07/27/22 Status: Ordered sertraline 100 mg oral tablet (4 sources) Serotonin Reuptake Inhibitor Start: 07-27-2022 Zoloft 100 mg Tab 15 0 mg = 1.5 tab(s), Oral, Daily, Refills(s) 0 Start Date: 07/27/22 Status: Ordered Completed/Discontinued Medications Medication Drug Class(es) Dates Sig (Normalized) Sig (Original) hydroCHLOROthiazide 25 mg / losartan potassium 100 mg oral tablet (1 source) Thiazide Diuretic, Angiotensin 2 Receptor Parisa Start: 12-13-2023 End: 06-03-2025 Losartan-Hydrochl orothiazide 100-25 mg tablet Discontinued 1 TAB PO December 13, 2023 12:00am June 03, 2025 11:05am solifenacin succinate 10 mg oral tablet (2 sources) Cholinergic Muscarinic Antagonist Start: 12-13-2023 End: 06-03-2025 Solifenacin 10 mg tablet Discontinued MG PO December 13, 2023 12:00am June 03, 2025 11:06am Start: 07-11-2023 take 1 tablet by maikol th once daily Vesicare 10 mg Tab 10 mg = 1 tab(s), Oral, Daily, # 30 tab(s), Refills(s) 3, [facility]acy: [id number] Start Date: 07/11/23 Status: Ordered Problems Problem Classification Problem Date Documented Da te Episodic/Chronic Anxiety disorders (4 sources) Anxiety 07-27-2022 Chronic Diabetes mellitus without complication (7 sources) Type 2 diabetes mellitus without complications; Translations: [Diabetes mellitus] Onset: 3 07-27-2022 Chronic Disorders of lipid metabolism (7 sources) Pure hyperglyceridemia; Translations: [Hypercholesterolemia] Onset: 3 07-27-2022 Chronic Esophageal disorders (6 sources) Gastroesophageal reflux disease; Translations: [Gastro-esophageal reflux disease without esophagitis] 07-27-2022 Chronic Essential hypertension (6 sources) Hypertensive disorder; Translations: [Essential (primary) hypertension] 07-27-2022 Chronic Genitourinary symptoms and ill-defined conditions (9 sources) Incontinence; Translations: [Urinary incontinence] Onset: 4 07-11-2023 Chronic Genitourinary symptoms and ill-defined conditions (4 sources) Urinary symptoms 07-11-2023 Episodic Immunizations and screening for infectious disease (1 source) Encounter for screening for other viral diseases; Translations: [ENC SCREENING FOR OTH VIRAL DZ] Onset: 3 Episodic Osteoarthritis (1 source) Osteoarthritis of joint of right shoulder region; Translations: [Primary osteoarthritis, right shoulder] 06-03-2025 Chronic Other acquired deformities (2 sources) Lumbar spondylolisthesis; Translations: [Spondylolisthesis, lumbar region] 06-03-2025 Episodic Other acquired deformities (1 source) Spondylolisthesis; Translations: [Spondylolisthesis, lumbosacral region] 12-13-2023 Episodic Other diseases of bladder and urethra (2 sources) Overactive bladder; Translations: [Overactive bladder] 06-03-2025 Chronic Other gastrointestinal disorders (1 source) Incontinence of feces; Translations: [Full incontinence of feces] Onset: 4 Episodic Other non-traumatic joint disorders (1 source) Pain in right shoulder; Translations: [Pain in right shoulder] Onset: 5 Episodic Other nutritional; endocrine; and metabolic disorders (1 source) Body mass index (BMI) 35.0-35.9, adult; Translations: [BODY MASS INDEX BMI 35.0-35.9 ADULT] Onset: 3 Chronic Other nutritional; endocrine; and metabolic disorders (2 sources) H/O: thyroid disorder; Translations: [Personal history of other endocrine, nutritional and metabolic disease] 06-03-2025 Episodic Other screening for suspected conditions (not mental disorders or infectious disease) (5 sources) Encounter for screening for other suspected endocrine disorder; Translations: [Patient encounter status] Onset: 3 06-03-2025 Episodic Residual codes; unclassified (2 sources) Postmenopausal state; Translations: [Asymptomatic menopausal state] 06-03-2025 Episodic Spondylosis; intervertebral disc disorders; other back problems (4 sources) Inflammation of sacroiliac joint; Translations: [Sacroiliitis, not elsewhere classified] 12-13-2023 Chronic Spondylosis; intervertebral disc disorders; other back problems (1 source) Spinal stenosis of lumbar region; Translations: [Spinal stenosis, lumbar region with neurogenic claudication] 12-13-2023 Episodic Unclassified (1 source) Low back pain, unspecified; Translations: [Low back pain, unspecified] Onset: Results Test Name Value Interpretation Reference Range Facility XR SHOULDER RT MIN 2 VWSon 0 04-22-2025 XR SHOULDER RT MIN 2 VWS XR SHOULDER RT MIN 2 VWS XR SHOULDER RT MIN 2 VWS HISTORY: Pain, joint, shoulder, right. COMPARISON: none IMPRESSION: Severe glenohumeral osteoarthrosis, remodeling of the joint space. Congruent chronic clavicular joint. Finalized by David Toribio MD on 04/22/2025 2:04 PM [address] [facility] XR SPINE LUMBAR 2 OR 3 VWSon 04-22-2025 XR SPINE LUMBAR 2 OR 3 VWS XR SPINE LUMBAR 2 OR 3 VWS EXAM: XR SPINE LUMBAR 2 OR 3 VWS INDICATION: Pain COMPARISON: None TECHNIQUE: 3 views of the lumbar spine FINDINGS/IMPRESSION: Grade 1 anterolisthesis L4 and L5. Degenerative disc disease most pronounced at L4-L5, L5-S1, and to a lesser extent L2-L3. No acute fractures. Posterior element degeneration most pronounced at L4-L5 and L5-S1. Finalized by Armin Silva on 04/22/2025 1:50 PM Normal [facility] Patient Letter FTon 2023 Patient Letter [facility] February 13, 2024 JACOBO WATKINS [address] [place] [id number] : 1955 Dear Jacobo , You missed your scheduled appointment on: February 13, 2024 with Neha Arenas PA-C. Please note our appointment slots fill quickly. When you fail to cancel or reschedule an appointment the office is unable to fill the appointment slot that was reserved for you. In the future, we ask that you call 24 hours in advance to cancel your appointment. Our current reminder system gives you the opportunity to cancel by responding to our reminder text, phone call or email. You can also call the office to reschedule during normal business hours or use our on-line scheduling portal at your convenience. Our goal is to provide convenient and quality care to all of our patients. We appreciate your consideration regarding any future cancellations. Sincerely, [facility] [address], [place] [address] [facility]enson 11-15-2023 Screens [id number] 20 [id number]#[id number] [facility] Ambulatory Visit Summaryon 0 11-14-2023 Ambulatory Visit Summary JACOBO WATKINS :1955 Visit Date:11/14/2023 Ambulatory Visit Instructions Your Diagnosis Mixed incontinence Bowel incontinence Your Care Team Attending Physician - MARCELA Taylor APRN, Karrie Zuluaga Primary Care Physician - GUILLAUME QUIGLEY CNP [...] What to do next Scheduled Follow-Up Appointments Monday 10:00 AM EDT With: NEHA ARENAS PA-C Where: [facility] Patient Educationon 11-14-19 24 Patient [...] provider. Document Revised: 01/27/2022 Document Reviewed: 01/27/2022 [employer] Patient Education ? 2022 [employer]. Urology Urinary Incontinence Urinary incontinence refers to [...] and bladder (more content not included)... Normal [facility] Urology Office/Clinic Noteon 11-14-2023 Urology Office/Clinic Note [...] day(s), # 30 tab(s), Refills(s) 3, [facility]: [facility], 165, cm, 11/14/23 13:05:00 EST, Height/Length Dosing, 91, kg, 11/14/23 13:05:00 EST, Weight Dosing 41798 Measure Post Void residual urine and/or bladder capacity by US- non-imaging Urnls Dip Stick Auto w/o Microscopy POC 99761 Urnls Dip Stick Auto w/o Microscopy POC 24814 2. Bowel incontinence (R15.9: Full incontinence of [...] Dipstick: Neg (more content not included)... Normal [facility] Comment on above: Result Comment: Elec tronically Signed By: MARCELA Taylor APRN, [place] X\.br\Date and Time Signed: 11/14/23 15:56 EST C Urineon 07-13-2023 Bacteria identified Cx Nom (U) Microbiology PROCEDURE: Urine Culture [R1] [facility]: COLLECTED DATE/TIME: 07/11/2023 10:50 EDT RECEIVED DATE/TIME: 07/11/2023 19:40 EDT START DATE/TIME: 07/11/2023 19:40 EDT FREE TEXT SOURCE: NEHA ARENAS PA-C, PA-C, JENNIFER E FINAL REPORTS Final Report [] Verified Date/Time: [...] Locations R1: This test was performed at: [facility] [place], [address] [place] [address], [id number] , , [facility] Comment on above: Performed By: #### [id number] #### [facility] [address] [place] [address] Physician Referralon 023 Physician Referral [phone] 00 [id number]#1.[address] [facility] 07-12-2023 Screens [id number]. 00TIFF Normal [facility] Patient Educationon 07-11-20 23 Patient Education Obstetrics [...] provider. Document Revised: 01/27/2022 Document Reviewed: 01/27/2022 [employer] Patient Education ? [address] [employer] [facility] HEPATITIS C AB CASCADE TO QU ANT PCR GENOon 02-06-2023 HCV AB Reactive Abnormal Non Reactive [facility] Comment on above: Performed By: #### H EPCASC #### [facility] [address] [place] [address] Dr. Jorge Carrasco HCV Genotype RTNI Normal [facility] Comment on above: Result Comment: Not indicated Performed By: #### H EPCASC #### [facility] [address] [address] [address] Jorge Carrasco HCV log10 Normal [facility] Comment on above: Performed By: #### H EPCASC #### [facility] [address] [address] [address] Jorge Carrasco Hep C Quantitation Not detected Normal [facility] Comment on above: Performed By: #### H EPCASC #### [facility] [address] [address] [address] Jorge Carrasco Interpretation Comment [facility] Comment on above: Result Comment: Posi tive HCV antibody screen without the presence of HCV RNA is consistent with a resolved past infection or a false positive HCV antibody. Consider repeat testing after one month. Performed By: #### H EPCASC #### [facility] [address] [address] [address] Jorge Carrasco Test Information: Comment Normal [facility] Comment on above: Result Comment: The quantitative range of this assay is 15 IU/mL to 100 million IU/mL. Performed By: #### H EPCASC #### [facility] [address] [address] [address] Jorge Carrasco CBC AUTO DIFFon 02-02-2023 BASO # 0.0 103/ul Normal 0.0-0.1 [facility] Comment on above: Performed By: #### C BC #### [facility] [address] [place] [address] Dr. Jorge Carrasco Basophils/100 WBC (Bld) 0.5 % Normal 0.2-2.0 [facility] Comment on above: Performed By: #### C BC #### [facility] [address] [place] [address] Dr. Jorge Carrasco EO # 0.1 103/ul Normal 0.0-0.7 [facility] Comment on above: Performed By: #### C BC #### [facility] [address] [place] [address] Dr. Jorge Carrasco Eosinophils/100 WBC (Bld) 3.2 % Normal 0.9-7.0 [facility] Comment on above: Performed By: #### C BC #### [facility] [address] [place] [address] Dr. Jorge Carrasco Erythrocyte distribution width (RBC) [Ratio] 14.0 % Normal 11.0-15.0 [facility] Comment on above: Performed By: #### C BC #### [facility] [address] [place] [address] Dr. Jorge Carrasco Hematocrit (Bld) [Volume fraction] 40.2 % Normal 36.0-48.0 [facility] Comment on above: Performed By: #### C BC #### [facility] [address] [place] [address] Dr. Jorge Carrasco Hemoglobin (Bld) [Mass/Vol] 13.3 g/dL Normal 12.0-16.0 [facility] Comment on above: Performed By: #### C BC #### [facility] [address] [place] [address] Dr. Jorge Carrasco IG # 0.01 10e3/ul Normal 0.00-0.03 [facility] Comment on above: Performed By: #### C BC #### [facility] [address] [place] [address] Dr. Jorge Carrasco IG % 0.3 % Normal 0.0-0.5 [facility] Comment on above: Performed By: #### C BC #### [facility] [address] [place] [address] Dr. Jorge Carrasco LYMPH # 1.0 103/ul Critically low 1.2-3.8 [facility] Comment on above: Performed By: #### C BC #### [facility] [address] [place] [address] Dr. Jorge Carrasco Lymphocytes/100 WBC (Bld) 27.4 % Normal 20.5-60.0 [facility] Comment on above: Performed By: #### C BC #### [facility] [address] [place] [address] Dr. Jorge Carrasco MANUAL DIFF REQ NO Normal [facility] Comment on above: Performed By: #### C BC #### [facility] [address] [place] [address] Dr. Jorge Carrasco MCH (RBC) [Entitic mass] 28.0 pg Normal 26.7-34.0 [facility] Comment on above: Performed By: #### C BC #### [facility] [address] [place] [address] Dr. Jorge Carrasco MCHC (RBC) [Mass/Vol] 33.1 g/dL Normal 29.9-35.2 [facility] Comment on above: Performed By: #### C BC #### [facility] [address] [place] [address] Dr. Jorge Carrasco MCV (RBC) [Entitic vol] 84.6 fL Normal 81.0-99.0 [facility] Comment on above: Performed By: #### C BC #### [facility] [address] [place] [address] Dr. Jorge Carrasco MONO # 0.2 103/ul Critically low 0.3-0.8 [facility] Comment on above: Performed By: #### C BC #### [facility] [address] [address] [address] Jorge Carrasco Monocytes/100 WBC (Bld) 5.1 % Normal 1.7-12.0 [facility] Comment on above: Performed By: #### C BC #### [facility] [address] [place] [address] Dr. Jorge Carrasco NEUT # 2.4 103/ul Normal 1.4-6.5 [facility] Comment on above: Performed By: #### C BC #### [facility] [address] [place] [address] Dr. Jorge Carrasco Neutrophils/100 WBC (Bld) 63.5 % Normal 43.0-75.0 [facility] Comment on above: Performed By: #### C BC #### [facility] [address] [place] [address] Dr. Jorge Carrasco Platelet mean volume (Bld) [Entitic vol] 10.8 fL Normal 9.5-13.5 [facility] Comment on above: Performed By: #### C BC #### [facility] [address] [place] [address] Dr. Jorge Carrasco PLT 263 103/ul Normal 150-450 [facility] Comment on above: Performed By: #### C BC #### [facility] [address] [place] [address] Dr. Jorge Carrasco RBC 4.75 106/ul Normal 4.20-5.40 [facility] Comment on above: Performed By: #### C BC #### [facility] [address] [place] [address] Dr. Jorge Carrasco WBC 3.7 103/ul Critically low 4.0-11.0 [facility] Comment on above: Performed By: #### C BC #### [facility] [address] [place] [address] Dr. Jorge Carrasco FREE T3on 02-02-2023 FREE T3 3.11 pg/mlL Normal 2.18-3.98 [facility] Comment on above: Performed By: #### L IPID, TSH, FT3, CMP #### [facility] [address] [address] [address] Jorge Carrasco GLYCOHEMOGLOBIN A1Con 2022 ADA RECOMMENDATION SEE BELOW Normal [facility] Comment on above: Result Comment: ADA RECOMMENDED LIMIT 4.0 - 6.0 ADA THERAPEUTIC TARGET < 7.0 ACTION SUGGESTED > 7.0 Performed By: #### A 1C #### [facility] [address] [address] [address] Jorge Carrasco Glucose [Mass/Vol] 189 mg/dL Normal [facility] Comment on above: Performed By: #### A 1C #### [facility] [address] [address] [address] Jorge Carrasco HbA1c (Bld) [Mass fraction] 8.2 % Critically high 4.5-6.2 [facility] Comment on above: Performed By: #### A 1C #### [facility] [address] [place] [address] Dr. Jorge Carrasco LIPID PROFILEon 02-02-2023 CHOL-HDL RATIO NORM SEE BELOW Normal [facility] Comment on above: Result Comment: 3.3 - 4.4 LOW RISK 4.4 - 7.1 AVERAGE RISK 7.1 - 11.0 MODERATE RISK >11.0 HIGH RISK Performed By: #### L IPID, TSH, FT3, CMP #### [facility] [address] [place] [address] Dr. Jorge Carrasco Cholesterol [Mass/Vol] 245 mg/dL Critically high <=200 [facility] Comment on above: Performed By: #### L IPID, TSH, FT3, CMP #### [facility] [address] [address] [address] Jorge Carrasco Cholesterol in HDL [Mass/Vol] 61 mg/dL Critically high 40-60 [facility] Comment on above: Performed By: #### L IPID, TSH, FT3, CMP #### [facility] [address] [address] [address] Jorge Carrasco Cholesterol in LDL [Mass/Vol] 156.2 mg/dL Normal [facility] Comment on above: Performed By: #### L IPID, TSH, FT3, CMP #### [facility] [address] [address] [address] Jorge Carrasco Cholesterol.total/Ch olesterol in HDL [Mass ratio] 4.0 {ratio} Normal [facility] Comment on above: Performed By: #### L IPID, TSH, FT3, CMP #### [facility] [address] [address] [address] Jorge Carrasco HDL NORMAL > or = 60 mg/dl - LO W CARDIOVASCULAR RISK <40 mg/dl - HIGH CARDIOVASCULAR RISK Normal [facility] Comment on above: Performed By: #### L IPID, TSH, FT3, CMP #### [facility] [address] [address] [address] Jorge Carrasco LDL CALC NORMAL SEE BELOW Normal [facility] Comment on above: Result Comment: <100 mg/dl OPTIMAL 100 - 129 mg/dl NEAR OR ABOVE OPTIMAL 130 - 159 mg/dl BORDERLINE HIGH 160 - 189 mg/dl HIGH >190 mg/dl VERY HIGH Performed By: #### L IPID, TSH, FT3, CMP #### [facility] [address] [address] [address] Jorge Carrasco Triglyceride [Mass/Vol] 139 mg/dL Normal <=150 [facility] Comment on above: Performed By: #### L IPID, TSH, FT3, CMP #### [facility] [address] [address] [address] Jorge Carrasco VLDL CALC 27.8 mg/dL Normal [facility] Comment on above: Performed By: #### L IPID, TSH, FT3, CMP #### [facility] [address] [address] [address] Jorge Carrasco MICROALBUMIN, RAND URon 050 mALB 1.5 mg/L Normal <=30.0 [facility] Comment on above: Performed By: #### M ALBR #### [facility] [address] [address] [address] Jorge Carrasco PROF 14(COMP METB)on 023 Albumin [Mass/Vol] 3.5 g/dL Normal 3.4-5.0 [facility] Comment on above: Performed By: #### L IPID, TSH, FT3, CMP #### [facility] [address] [place] [address] Dr. Jorge Carrasco Albumin/Globulin [Mass ratio] 0.7 {ratio} Normal [facility] Comment on above: Performed By: #### L IPID, TSH, FT3, CMP #### [facility] [address] [place] [address] Dr. Jorge Carrasco ALP [Catalytic activity/Vol] 127 U/L Critically high 46-116 [facility] Comment on above: Performed By: #### L IPID, TSH, FT3, CMP #### [facility] [address] [place] [address] Dr. Jorge Carrasco ALT [Catalytic activity/Vol] 24 U/L Normal 14-59 [facility] Comment on above: Performed By: #### L IPID, TSH, FT3, CMP #### [facility] [address] [place] [address] Dr. Jorge Carrasco Anion gap [Moles/Vol] 11.5 mmol/L Normal [facility] Comment on above: Performed By: #### L IPID, TSH, FT3, CMP #### [facility] [address] [place] [address] Dr. Jorge Carrasco AST [Catalytic activity/Vol] 16 U/L Normal 15-37 [facility] Comment on above: Performed By: #### L IPID, TSH, FT3, CMP #### [facility] [address] [place] [address] Dr. Jorge Carrasco Bilirubin [Mass/Vol] 0.3 mg/dL Normal 0.2-1.0 [facility] Comment on above: Performed By: #### L IPID, TSH, FT3, CMP #### [facility] [address] [place] [address] Dr. Jorge Carrasco Calcium [Mass/Vol] 9.8 mg/dL Normal 8.5-10.1 [facility] Comment on above: Performed By: #### L IPID, TSH, FT3, CMP #### [facility] [address] [place] [address] Dr. Jorge Carrasco Chloride [Moles/Vol] 99 mmol/L Normal 98-107 [facility] Comment on above: Performed By: #### L IPID, TSH, FT3, CMP #### [facility] [address] [place] [address] Dr. Jorge Carrasco CO2 [Moles/Vol] 29.4 mmol/L Normal 21.0-32.0 [facility] Comment on above: Performed By: #### L IPID, TSH, FT3, CMP #### [facility] [address] [place] [address] Dr. Jorge Carrasco Creatinine [Mass/Vol] 0.72 mg/dL Normal 0.55-1.02 [facility] Comment on above: Performed By: #### L IPID, TSH, FT3, CMP #### [facility] [address] [place] [address] Dr. Jorge Carrasco EGFR-AF SAO TOMEAN >60 Normal >=60 [facility] Comment on above: Performed By: #### L IPID, TSH, FT3, CMP #### [facility] [address] [place] [address] Dr. Jorge Carrasco EGFR-NON AF SAO TOMEAN >60 Normal >=60 [facility] Comment on above: Performed By: #### L IPID, TSH, FT3, CMP #### [facility] [address] [place] [address] Dr. Jorge Carrasco Globulin (S) [Mass/Vol] 4.9 g/dL Normal [facility] Comment on above: Performed By: #### L IPID, TSH, FT3, CMP #### [facility] [address] [place] [address] Dr. Jorge Carrasco Glucose [Mass/Vol] 185 mg/dL Critically high 74-106 [facility] Comment on above: Performed By: #### L IPID, TSH, FT3, CMP #### [facility] [address] [place] [address] Dr. Jorge Carrasco Potassium [Moles/Vol] 3.9 mmol/L Normal 3.5-5.1 [facility] Comment on above: Performed By: #### L IPID, TSH, FT3, CMP #### [facility] [address] [address] [address] Jorge Carrasco Protein [Mass/Vol] 8.4 g/dL Critically high 6.4-8.2 [facility] Comment on above: Performed By: #### L IPID, TSH, FT3, CMP #### [facility] [address] [place] [address] Dr. Jorge Carrasco Sodium [Moles/Vol] 136 mmol/L Normal 136-145 [facility] Comment on above: Performed By: #### L IPID, TSH, FT3, CMP #### [facility] [address] [place] [address] Dr. Jorge Carrasco Urea nitrogen [Mass/Vol] 17.0 mg/dL Normal 7.0-18.0 [facility] Comment on above: Performed By: #### L IPID, TSH, FT3, CMP #### [facility] [address] [place] [address] Dr. Jorge Carrasco Urea nitrogen/Creatinine [Mass ratio] 23.6 mg/mg Normal [facility] Comment on above: Performed By: #### L IPID, TSH, FT3, CMP #### [facility] [address] [place] [address] Dr. Jorge Carrasco TSHon 02-02-2023 TSH 3.092 uIU/mL Normal 0.358-3.740 [facility] Comment on above: Performed By: #### L IPID, TSH, FT3, CMP #### [facility] [address] [place] [address] Dr. Jorge Carrasco APTTon 03-31-2019 aPTT Coag (Bld) [Time] 23.1 s Low 23.2-34.4 [facility] Comment on above: Performed By: #### P T, BMPX, BNP, DIME, CDP, PTT, TROPI #### [facility] [address] [place] [address] Director Social: Crispin Perez MD Basic Metab w/rfx MGon 03-31 (cont.) Normal [facility] Comment on above: Result Comment: Aver age GFR for 60-69 years old: 85 mL/min/1.73sq m Chronic Kidney Disease: <60 mL/min/1.73sq m Kidney failure: <15 mL/min/1.73sq m eGFR calculated using average adult body mass. Additional eGFR calculator available at: http://www.[employer]/multiple_crcl_2012.htm Performed By: #### P T, BMPX, BNP, DIME, CDP, PTT, TROPI #### [facility] [address] [place] [address] Director Social: Crispin Perez MD Anion gap [Moles/Vol] 11 mmol/L Normal 9-17 [facility] Comment on above: Performed By: #### P T, BMPX, BNP, DIME, CDP, PTT, TROPI #### [facility] [address] [place] [address] Director Social: Crispin Perez MD BUN/CRE Ratio 21 High 9-20 [facility] Comment on above: Performed By: #### P T, BMPX, BNP, DIME, CDP, PTT, TROPI #### [facility] [address] [place] [address] Director Social: Crispin Perez MD Calcium [Mass/Vol] 9.1 mg/dL Normal 8.6-10.4 [facility] Comment on above: Performed By: #### P T, BMPX, BNP, DIME, CDP, PTT, TROPI #### [facility] [address] [place] [address] Director Social: Crispin Perez MD Chloride [Moles/Vol] 103 mmol/L Normal 98-107 [facility] Comment on above: Performed By: #### P T, BMPX, BNP, DIME, CDP, PTT, TROPI #### [facility] [address] [place] [address] Director Social: Crispin Perez MD CO2 [Moles/Vol] 26 mmol/L Normal 20-31 [facility] Comment on above: Performed By: #### P T, BMPX, BNP, DIME, CDP, PTT, TROPI #### [facility] [address] [place] [address] Director Social: Crispin Perez MD Creatinine [Mass/Vol] 0.67 mg/dL Normal 0.50-0.90 [facility] Comment on above: Performed By: #### P T, BMPX, BNP, DIME, CDP, PTT, TROPI #### [facility] [address] [place] [address] Director Social: Crispin Perez MD GFR, Amer >60 Normal >60 [facility] Comment on above: Performed By: #### P T, BMPX, BNP, DIME, CDP, PTT, TROPI #### [facility] [address] [place] [address] Director Social: Crispin Perez MD GFR,non Amer >60 Normal >60 [facility] Comment on above: Performed By: #### P T, BMPX, BNP, DIME, CDP, PTT, TROPI #### [facility] [address] [place] [address] Director Social: Crispin Perez MD Glucose [Mass/Vol] 171 mg/dL High 70-99 [facility] Comment on above: Performed By: #### P T, BMPX, BNP, DIME, CDP, PTT, TROPI #### [facility] [address] [place] [address] Director Social: Crispin Perez MD Potassium [Moles/Vol] 4.2 mmol/L Normal 3.7-5.3 [facility] Comment on above: Performed By: #### P T, BMPX, BNP, DIME, CDP, PTT, TROPI #### [facility] [address] [place] [address] Director Social: Crispin Perez MD Sodium [Moles/Vol] 140 mmol/L Normal 135-144 [facility] Comment on above: Performed By: #### P T, BMPX, BNP, DIME, CDP, PTT, TROPI #### [facility] [address] [place] [address] Director Social: Crispin Perez MD Staging: Normal [facility] Comment on above: Result Comment: Stag e 1: Some kidney damage normal GFR Stage 2: Mild kidney damage GFR 60-89 Stage 3: Moderate kidney damage GFR 30-59 Stage 4: Severe kidney damage GFR 15-29 Stage 5: Severe kidney damage GFR <15 ESRD - chronic treatment by dialysis or transplant Performed By: #### P T, BMPX, BNP, DIME, CDP, PTT, TROPI #### [facility] [address] [place] [address] Director Social: Crispin Perez MD Urea nitrogen [Mass/Vol] 14 mg/dL Normal 8-23 [facility] Comment on above: Performed By: #### P T, BMPX, BNP, DIME, CDP, PTT, TROPI #### [facility] [address] [place] [address] Director Social: Crispin Perez MD Brain Natri. Peptideon 03-31 Natriuretic peptide B (Bld) [Mass/Vol] Pro-BNP Reference Range: Normal [facility] Comment on above: Result Comment: Rule Out: <300 Jansen Zone: Age <50 300-450 Age 50-75 300-900 Age >75 300-1800 Usually represents mild to moderate HF but other cardiopulmonary causes cannot be ruled out. Rule In: Age <50 >450 Age 50-75 >900 Age >75 >1800 Performed By: #### P T, BMPX, BNP, DIME, CDP, PTT, TROPI #### [facility] [address] [place], [facility] Director Social: Crispin Perez MD Natriuretic peptide B (Bld) [Mass/Vol] 158 pg/mL Normal <300 [facility] Comment on above: Result Comment: Pro- BNP results cannot be compared to BNP results. Performed By: #### P T, BMPX, BNP, DIME, CDP, PTT, TROPI #### [facility] [address] [place], [facility] Director Social: Crispin Perez MD CBC with Diffon 03-31-2019 Abs. Basophil 0.03 k/uL Normal 0.00-0.20 [facility] Comment on above: Performed By: #### P T, BMPX, BNP, DIME, CDP, PTT, TROPI #### [address] [place], [facility] ( Director Social: Crispin Perez MD Abs.Imm.Granulocyte <0.03 Normal 0.00-0.30 [facility] Comment on above: Performed By: #### P T, BMPX, BNP, DIME, CDP, PTT, TROPI #### [facility] [address] [place], [facility] Director Social: Crispin Perez MD Abs.Neutrophil (Seg) 3.28 k/uL Normal 1.50-8.10 [facility] Comment on above: Performed By: #### P T, BMPX, BNP, DIME, CDP, PTT, TROPI #### [facility] [address] [place], [facility] Director Social: Crispin Perez MD Basophils/100 WBC (Bld) 1 % Normal 0-2 [facility] Comment on above: Performed By: #### P T, BMPX, BNP, DIME, CDP, PTT, TROPI #### [facility] [address] [place], [facility] Director Social: Crispin Perez MD Eosinophils (Bld) [#/Vol] 0.22 10*3/uL Normal 0.00-0.44 [facility] Comment on above: Performed By: #### P T, BMPX, BNP, DIME, CDP, PTT, TROPI #### [facility] [address] [place] [id number] Director Social: Crispin Perez MD Eosinophils/100 WBC (Bld) 4 % Normal 1-4 [facility] Comment on above: Performed By: #### P T, BMPX, BNP, DIME, CDP, PTT, TROPI #### [facility] [address] [place] [address] Director Social: Crispin Perez MD Erythrocyte distribution width (RBC) [Ratio] 14.4 % Normal 11.8-14.4 [facility] Comment on above: Performed By: #### P T, BMPX, BNP, DIME, CDP, PTT, TROPI #### [facility] [address] [place], [facility] Director Social: Crispin Perez MD Hematocrit (Bld) [Volume fraction] 25.9 % Low 36.3-47.1 [facility] Comment on above: Performed By: #### P T, BMPX, BNP, DIME, CDP, PTT, TROPI #### [facility] [address] [place] [address] Director Social: Crispin Perez MD Hemoglobin (Bld) [Mass/Vol] 8.3 g/dL Low 11.9-15.1 [facility] Comment on above: Performed By: #### P T, BMPX, BNP, DIME, CDP, PTT, TROPI #### [facility] [address] [place] [id number] Director Social: Crispin Perez MD Immature granulocytes (Bld) [#/Vol] 0 % Normal 0 [facility] Comment on above: Performed By: #### P T, BMPX, BNP, DIME, CDP, PTT, TROPI #### [facility] [address] [place] [address] Director Social: Crispin Perez MD Lymphocytes (Bld) [#/Vol] 1.08 10*3/uL Low 1.10-3.70 [facility] Comment on above: Performed By: #### P T, BMPX, BNP, DIME, CDP, PTT, TROPI #### [facility] [address] [place] [facility] Director Social: Crispin Perez MD Lymphocytes/100 WBC (Bld) 22 % Low 24-43 [facility] Comment on above: Performed By: #### P T, BMPX, BNP, DIME, CDP, PTT, TROPI #### [facility] [address] [place] [facility] Director Social: Crispin Perez MD MCH (RBC) [Entitic mass] 28.7 pg Normal 25.2-33.5 [facility] Comment on above: Performed By: #### P T, BMPX, BNP, DIME, CDP, PTT, TROPI #### [address] [place] [facility] Director Social: Crispin Perez MD MCHC (RBC) [Mass/Vol] 32.0 g/dL Normal 28.4-34.8 [facility] Comment on above: Performed By: #### P T, BMPX, BNP, DIME, CDP, PTT, TROPI #### [facility] [address] [place] [address] Director Social: Crispin Perez MD MCV (RBC) [Entitic vol] 89.6 fL Normal 82.6-102.9 [facility] Comment on above: Performed By: #### P T, BMPX, BNP, DIME, CDP, PTT, TROPI #### [facility] [address] [place] [address] Director Social: Crispin Perez MD Monocytes (Bld) [#/Vol] 0.39 10*3/uL Normal 0.10-1.20 [facility] Comment on above: Performed By: #### P T, BMPX, BNP, DIME, CDP, PTT, TROPI #### [facility] [address] [place] [address] Director Social: Crispin Perez MD Monocytes/100 WBC (Bld) 8 % Normal 3-12 [facility] Comment on above: Performed By: #### P T, BMPX, BNP, DIME, CDP, PTT, TROPI #### [facility] [address] [place] [address] Director Social: Crispin Perez MD Neutrophil (Seg) 65 % Normal 36-65 [facility] Comment on above: Performed By: #### P T, BMPX, BNP, DIME, CDP, PTT, TROPI #### [facility] [address] [place] [address] Director Social: Crispin Perez MD NRBC Automated 0.0 per 100 WBC Normal 0.0 [facility] Comment on above: Performed By: #### P T, BMPX, BNP, DIME, CDP, PTT, TROPI #### [facility] [address] [place] [address] Director Social: Crispin Perez MD Platelet mean volume (Bld) [Entitic vol] 11.1 fL Normal 8.1-13.5 [facility] Comment on above: Performed By: #### P T, BMPX, BNP, DIME, CDP, PTT, TROPI #### [facility] [address] [place] [address] Director Social: Crispin Perez MD Platelets (Bld) [#/Vol] 226 10*3/uL Normal 138-453 [facility] Comment on above: Performed By: #### P T, BMPX, BNP, DIME, CDP, PTT, TROPI #### [facility] [address] [place] [address] Director Social: Crispin Perez MD RBC (Bld) [#/Vol] 2.89 10*6/uL Low 3.95-5.11 [facility] Comment on above: Performed By: #### P T, BMPX, BNP, DIME, CDP, PTT, TROPI #### [facility] [address] [place], [facility] Director Social: Crispin Perez MD WBC (Bld) [#/Vol] 5.0 10*3/uL Normal 3.5-11.3 [facility] Comment on above: Performed By: #### P T, BMPX, BNP, DIME, CDP, PTT, TROPI #### [address] [place], [facility] Director Social: Crisipn Perez MD Auto Diff Performed NOT REPORTED Normal [facility] Comment on above: Performed By: #### P T, BMPX, BNP, DIME, CDP, PTT, TROPI #### [address] [place], [facility] Director Social: Crispin Perez MD Platelets (d) [#/Vol] NOT REPORTED Normal [facility] Comment on above: Performed By: #### P T, BMPX, BNP, DIME, CDP, PTT, TROPI #### [address] [place], [facility] Director Social: Crispin Perez MD RBC morphology finding Nom (Bld) NOT REPORTED Normal [facility] Comment on above: Performed By: #### P T, BMPX, BNP, DIME, CDP, PTT, TROPI #### [address] [place] [address] Director Social: Crispin Perez MD WBC Morphology NOT REPORTED Normal [facility] Comment on above: Performed By: #### P T, BMPX, BNP, DIME, CDP, PTT, TROPI #### [facility] [address] [place] [address] Director Social: Crispin Perez MD CT CHEST PULMONARY EMBOLISM [...] Cruz MD 03/31/19 Final result Normal [facility] D-Dimer Teston 03-31-2019 D-Dimer Test 5.40 mg/L FEU High 0.19-0.50 [facility] Comment on above: Result Comment: Elevated levels [...] BMPX, BNP, DIME, CDP, PTT, TROPI #### [facility] [address] [place] [address] Director Social: Crispin Perez MD PTon 03-31-2019 INR Coag (PPP) [Relative time] 1.0 {INR} Normal 0.9-1.2 [facility] Comment on above: Performed By: #### P T, BMPX, BNP, DIME, CDP, PTT, TROPI #### [facility] [address] [place] [address] Director Social: Crispin Perez MD PT Coag (PPP) [Time] 10.2 s Normal 9.7-12.2 [facility] Comment on above: Performed By: #### P T, BMPX, BNP, DIME, CDP, PTT, TROPI #### [facility] [address] [place], [facility] Director Social: Crispin Perez MD Troponinon 03-31-2019 Troponin I.cardiac [Mass/Vol] Normal [facility] Comment on above: Result Comment: Refe rence [...] diagnosis. Performed By: #### T ROPI #### [facility] [address] [place] [address] Director Social: Crispin Perez MD Troponin I.cardiac [Mass/Vol] ng/mL Normal <0.03 [facility] Comment on above: Result Comment: Trop onin T results cannot be compared to Troponin-I results. Performed By: #### T ROPI #### [facility] [address] [place] [address] Director Social: Crispin Perez MD Troponin I.cardiac [Mass/Vol] NOT REPORTED Normal 0-14 [facility] Comment on above: Performed By: #### T ROPI #### [facility] [address] [place] [address] Director Social: Crispin Perez MD Troponin I.cardiac [Mass/Vol] Normal [facility] Comment on above: Result Comment: Refe rence [...] BMPX, BNP, DIME, CDP, PTT, TROPI #### [facility] [address] [place] [id number] Director Social: Crispin Perez MD Troponin I.cardiac [Mass/Vol] ng/mL Normal <0.03 [facility] Comment on above: Result Comment: Trop onin T results cannot be compared to Troponin-I results. Performed By: #### P T, BMPX, BNP, DIME, CDP, PTT, TROPI #### [facility] [address] [place] [address] Director Social: Crispin Perez MD Troponin I.cardiac [Mass/Vol] NOT REPORTED Normal 0-14 [facility] Comment on above: Performed By: #### P T, BMPX, BNP, DIME, CDP, PTT, TROPI #### [facility] [address] [place] [address] Director Social: Crispin Perez MD XR CHEST PORTABLEon 03-31-20 19 XR CHEST PORTABLE EXAMINATION: ONE XRAY VIEW [...] Orozco MD 03/31/19 Final result Normal [facility] KNEE RIGHT 3 Son 9 KNEE RIGHT 3 S [facility] Department of Radiology [address] [place] [address] ======== Patient Name: JACOBO WATKINS : 1955 Sex: F Age: Race: White Pt. Location: Patient Status: O Ordered Date: 02/07/2019 10:30:00 AM Completed Date: 02/07/2019 10:33 AM Requesting Provider: STEPHANIE GORDON Attending Provider: STEPHANIE GORDON Report Copy To: SHIN RODRIGUEZ Signs & Symptoms: M17.9 Osteoarthritis of knee, unspecified I10 History: Jojo Comments: , , , Ordering Provider - STEPHANIE GORDON MD , Exam: KNEE RIGHT 3 [facility] ======== KNEE RIGHT 3 S 02/07/2019 10:33 AM EDT SIGNS AND SYMPTOMS: [...] prior Electronically signed by:Kamar Sanchez. Transcribed by: [id number], User Resident: Electronically Signed by: KAMAR SANCHEZ @ 02/07/2019 02:21 PM Normal [facility] Comment on above: Order Comment: , , = ========= , Ordering Provider - STEPHANIE GORDON MD , Vital Signs Date Time Vital Sign Value Performing Clinician Danyel pettit 06-03-2025 11:01-0400 Body height 157.48 cm Neha Santos APRN Work Phone: [facility] 06-03-2025 11:01-0400 Body mass index (BMI) [Ratio] 36.7 kg/m2 Neha Santos APRN Work Phone: [facility] 06-03-2025 11:01-0400 Body temperature 97.8 [degF] Neha Santos APRN Work Phone: [facility] 06-03-2025 11:01-0400 Body weight 91.17 kg Neha Santos APRN Work Phone: [facility] 06-03-2025 11:01-0400 Diastolic blood pressure 80 mm[Hg] Neah Santos APRN Work Phone: [facility] 06-03-2025 11:01-0400 Heart rate 73 /min Neha Santos APRN Work Phone: [facility] 06-03-2025 11:01-0400 SaO2% (BldA) [Mass fraction] 94 % Neha Santos APRN Work Phone: [facility] 06-03-2025 11:01-0400 Systolic blood pressure 160 mm[Hg] Neha Santos APRN Work Phone: [facility] 11-14-2023 12:41-0500 Blood Pressure Location Karrie Orzech [facility] 11-14-2023 12:41-0500 Diastolic blood pressure 82 mm[Hg] Karrie Orzech [facility] 11-14-2023 12:41-0500 Heart rate 65 /min Karrie Orzech [facility] 11-14-2023 12:41-0500 Respiratory rate 16 /min Karrie Orzech [facility] 11-14-2023 12:41-0500 Systolic blood pressure 133 mm[Hg] Karrie Orzech [facility] Encounters Encounter Date Encounter Type Care Provider Facility Start: 06-03-2025 End: 06-03-2025 ambulatory Neha Santos APRN Work Phone: [facility] Work Phone: Start: 06-03-2025 End: 06-03-2025 Patient encounter procedure Neha Santos APRN [facility] Work Phone: Start: 04-17-2025 End: 04-17-2025 ambulatory [facility] Start: 04-17-2024 End: 04-17-2024 ambulatory ANITA SAVAGE Not Available Start: 02-13-2024 End: 02-14-2024 ambulatory PA-C NHEA ARENAS Facility:[facility] Start: 02-13-2024 End: 02-13-2024 Patient encounter procedure NEHA ARENAS [facility] Start: 02-05-2024 End: 02-06-2024 ambulatory Noble Reese MD Facility:[facility] Start: 01-15-2024 End: 01-16-2024 ambulatory Noble Reese MD Facility:[facility] Start: 12-04-2023 End: 12-04-2023 ambulatory AMANDA DAY Not Available Start: 11-29-2023 End: 01-23-2024 Pre-admission assessment David CLEMENT [facility] Start: 11-14-2023 End: 11-15-2023 ambulatory Karrie X Orzech Facility:[facility] Start: 11-14-2023 End: 11-14-2023 Patient encounter procedure Karrie X Orzech [facility] Start: 10-24-2023 End: 10-25-2023 ambulatory PA-C NEHA ARENAS Facility:[facility] Start: 10-24-2023 End: 10-24-2023 Patient encounter procedure NEHA ARENAS [facility] Start: 07-11-2023 End: 07-12-2023 ambulatory PA-C NEHA ARENAS Facility:[facility] Start: 07-10-2023 End: 07-11-2023 ambulatory Noble Reese MD Facility:[facility] Start: 06-26-2023 End: 06-27-2023 ambulatory Noble Reese MD Facility:[facility] Start: 03-01-2023 ambulatory GUILLAUME SHAMMO Facility:[facility] Start: 02-15-2023 ambulatory GUILLAUME SHAMMO Facility:[facility] Start: 02-08-2023 Encounter for genera l adult medical examination without abnormal findings GUILLAUME SHAMMO [facility] Start: 02-02-2023 End: 02-03-2023 ambulatory GUILLAUME SHAMMO Facility:[facility] Start: 02-02-2023 End: 02-03-2023 Encounter for general adult medical examination without abnormal findings GUILLAUME SHAMMO Facility:[facility] Start: 01-06-2023 ambulatory GUILLAUME SHAMMO Facility:[facility] Start: 12-29-2022 ambulatory GUILLAUME SHAMMO Facility:[facility] Start: 07-15-2022 ambulatory GUILLAUME SHAMMO Facility:[facility] Start: 07-01-2022 ambulatory GUILLAUME SHAMMO Facility:[facility] Start: 03-31-2019 Emergency department patient visit SHANIQUE WINTER [facility] Procedures Date Procedure Procedure Detail Performing Clinician [...] RRY Decompression of med bin nerve NEHA ARENAS Hysterectomy NEHA ARENAS Plan of Treatment Date Care Activity Detail Author Comprehensive metabo lic 1999 panel - Serum or Plasma [facility] enter DXA Skeletal system. axial Views for bone density [facility] enter MG Breast - bilateral Screening [facility] US Thyroid gland [facility] Payers Date Payer Category Payer Medicare [id number] 2023 Unknown 2023 Medicare [id number] 2022 Private Health Insurance 2018 Medicare [id number] 1959 Medicare [id number] 1959 Unknown [id number] 1957 Unknown [id number] 2.16.840.1.591419.3.579. 2.173 1957 Unknown [id number] 2.16.840.1.173152.3.579. 2.593 1957 Unknown [id number] 2.16.840.1.706225.3.579. 2.593 1957 Unknown [id number] 2.16.840.1.125229.3.579. 2.593 1957 Unknown [id number] 2.16.840.1.428077.3.579. 2.593 1957 Unknown [id number] 2.16.840.1.995670.3.579. 2.593 1957 Unknown [id number] 2.16.840.1.571508.3.579. 2.593 1957 Unknown [id number] 2.16.840.1.983809.3.579. 2.196 1957 Unknown [id number] 2.16.840.1.374787.3.579. 2.196 1957 Unknown [id number] 2.16.840.1.868946.3.579. 2.196 1957 Unknown [id number] 2.16.840.1.325827.3.579. 2.196 1957 Unknown [id number] 2.16.840.1.508109.3.579. 2.727 1957 Unknown [id number] 2.16.840.1.022412.3.579. 2.727 1957 Unknown [id number] 2.16.840.1.024125.3.579. 2.727 1957 Unknown [id number] 2.16.840.1.503586.3.579. 2.727 1957 Unknown [id number] 2.16.840.1.881679.3.579. 2.727 1957 Unknown [id number] 2.16.840.1.587214.3.579. 2.1259 1957 Unknown [id number] 2.16.840.1.879259.3.579. 2.1259 1957 Unknown [id number] 2.16.840.1.735113.3.579. 2.1259 1957 Unknown [id number] 2.16.840.1.602765.3.579. 2.1286 1957 Unknown [id number] 2.16.840.1.481737.3.579. 2.1286 Private Health Insurance [facility] [id number] Unknown [facility] [id number] Social History Date Type Detail Facility Start: 07-11-2023 End: 06-03-2025 Tobacco smoking status Never smoked tobacco (finding) [facility] Sex Assigned At Female [facility] Sex Female (finding) [facility] Start: 1955 Sex Assigned At Female F [facility] Functional Status Date Assessment Result Facility 11-14-2023 Functional Status N/A [facility] Discharge instructions 11-14-2023 Note Date & [...] provider. Document Revised: 01/27/2022 Document Reviewed: 01/27/2022 Circle Patient Education 2022 [employer]. 11/14/2023 15:56:08 Urinary Incontinence Urinary Incontinence Urinary [...] nerve stimulation). ?For women, using a medical doctor to prevent urine leaks. This is a [...] right after experiencing incontinence. General instructions Take tijx-mvi-wwosisy and prescription medicines only as told by [...] important. Where to find more information National [place] of Diabetes and Digestive and Kidney Diseases: www.niddk.nih.gov Citizen Of [place] Urology Association: www.urologyhealth.org Contact a health care [...] provider. Document Revised: 04/23/2021 Document Reviewed: 04/23/2021 [employer] Patient Education 2022 [employer]. [facility] Clinical Note 07-11-2023 Note Date & [...] acknowledges understanding. Follow-up With When Contact Information DAGOBERTO PA-C, NEHA E, URL In 3 months [address] [place] [address] Additional Instructions: Patient Education Thomas Penn I, [...] Hypercholesterolemia Mixed i (more content not included)... [facility] Comment on above: Result Comment: Elec tronically Signed By: NEHA ARENAS PA-C\.br\Date and Time Signed: 07/11/23 11:32 EDT\.br\Electronically Co-Signed By: Stephanie Cleary\.br\Date and Time Co-Signed: 07/11/23 11:03 EDT Evaluation + Plan note Note Date & Type Note Facility Evaluation + Plan note No data available for this section [facility] Evaluation + Plan note Note Date & Type Note Facility Evaluation + Plan note Future Appointments Appointment Date:02/13/2024 10:00:00 AM Scheduled Provider:NEHA ARENAS PA-C Location:[facility] Appointment Type:URO Office Visit [facility] Evaluation note Note Date & Type Note Facility Evaluation note Diagnosis Onset Date Resolution Anterolisthesis of lumbar spine acute June 03 10:53am GERD (gastroesophageal reflux disease) acute June 03 10:53am High cholesterol acute Septembe r 2024 10:53am History of thyroid nodule acute June 03, 2025 10:53am Hypertension acute June 10:53am Lumbar spondylosis acute Septem 2024 10:53am Overactive bladder acute Septem 2024 10:53am Post-menopausal acute June 03, 2025 10:53am Sacroiliac inflammation acute S eptemb2024 10:53am Screening for osteoporosis acute June 03 10:53am Screening mammogram for breast cancer acute June 03 10:53am Type 2 diabetes mellitus acute June 03, 2025 10:53am [facility] Work Phone: Hospital Discharge instructions Note Date & Type Note Facility Hospital Discharge instructions No data available for this section [facility] Progress note Note Date & Type Note Facility Progress note No data available for this section [facility] Reason for referral (narrative) Note Date & Type Note Facility Reason for referral (narrative) No reason for referral information available [facility] Work Phone: Summary Purpose Family History Relationship Condition Age at Onset Recorded Date/T dimitris father Malignant neoplasm Unknown mother High blood cholesterol Unknown Heart disease Unknown Advance Directives Advance Directive Response Recorded Date/ Time Advance Directives No November 2:42pm Chief Complaint and Reason for Visit Chief Complaint Admit Date Establish care June 03, 2025 10:53am Reason for Visit Admit Date Anterolisthesis of lumbar spine Septembe r 2024 10:53am GERD (gastroesophageal reflux disease) S eper 2024 10:53am High cholesterol June 03, 2025 10:53am History of thyroid nodule June 03, 2025 10:53am Hypertension June 03, 2025 10:53am Lumbar spondylosis June 03, 2025 10:53am Overactive bladder June 03, 2025 10:53am Post-menopausal June 03, 2025 10:53am Sacroiliac inflammation June 03 10:53am Screening for osteoporosis June 10:53am Screening mammogram for breast cancer Se ptember 2024 10:53am Type 2 diabetes mellitus June 03, 2025 10:53am Additional Source Comments INFORMATION SOURCE (unrecogn ized section and content) DATE CREATED AUTHOR 02/21/2019 [facility] DATE CREATED AUTHOR AUTHOR'S ORGANIZ ATION 04/04/2019 [facility] DATE CREATED AUTHOR AUTHOR'S ORGANIZ ATION 02/15/2023 [facility] DATE CREATED AUTHOR AUTHOR'S ORGANIZ ATION 02/11/[address] [facility] DATE CREATED AUTHOR AUTHOR'S ORGANIZ ATION 02/14/2024 [facility] DATE CREATED AUTHOR AUTHOR'S ORGANIZ ATION 04/20/2024 [facility] DATE CREATED AUTHOR AUTHOR'S ORGANIZ ATION 04/24/2025 [facility] Patient Care team informatio n (unrecognized section and content) Team Status: Active Member Role Status Dates Neha Santos APRN WILD LIFE MANAGER-C Primary Care Provider Active Team Status: Inactive Member Role Status Dates Neha Santos APRN WILD LIFE MANAGER-C Primary Care Provider Active Start: June 032024 End: June 03, 2025 Neha Santos APRN WILD LIFE MANAGER-Maranda Attending Provider Active Start: June End: June 03, 2025 Goals (unrecognized section and content) Goals may be documented in a n alternate section FOR RECORDS PERTAINING TO PATIENTS WHO ARE [...] BE BASED ON THE PRIMARY CLINICAL RECORDS. [employer] [facility]. provides no warranty or guarantee of the accuracy or completeness of information in this document.
--- OUTSIDE RECORDS SUMMARY | 2025-06-26 09:21 | XMS_ITS | Clinical Summary ---
Author Organization [facility] Address [address], [address] [place] [address] Care Team Providers Care Bean Sorter Name Role Phone Renetta Mullins APRN - DOLPHIN TRAINER Primary Care Prov ider Allergies No known active allergies Medications aspirin 325 MG tablet Take 325 mg by mouth daily Active atorvastatin (LIPITOR) 40 MG tablet Take 40 mg by mouth daily Active carvedilol (COREG) 6.25 MG tablet Take 6.25 mg by mouth 2 times daily (with meals) Active ciclopirox (PENLAC) 8 % solution Apply topically nightly Apply topically nightly. Active glyBURIDE (DIABETA) 2.5 MG tablet Take 2.5 mg by mouth daily (with breakfast) Active ibuprofen (ADVIL;MOTRIN) 800 MG tablet Take 800 mg by mouth every 6 hours as needed for Pain Active ketoconazole (NIZORAL) 2 % cream Apply topically 2 times daily Apply topically daily. Active lisinopril (PRINIVIL;ZESTR IL) 20 MG tablet Take 20 mg by mouth daily Active meloxicam (MOBIC) 15 MG tablet Take 15 mg by mouth daily Active metFORMIN (GLUCOPHAGE) 500 MG tablet Take 500 mg by mouth 2 times daily (with meals) Active oxybutynin (DITROPAN-XL) 10 MG extended release tablet Take 10 mg by mouth daily Active oxybutynin (DITROPAN) 5 MG tablet Take 5 mg by mouth 3 times daily Active pantoprazole sodium (PROTONIX) 40 MG PACK packet Take 40 mg by mouth every morning (before breakfast) Active sertraline (ZOLOFT) 100 MG tablet Take 100 mg by mouth daily Active traMADol (ULTRAM) 50 MG tablet Take 50 mg by mouth every 6 hours as needed for Pain. Active Social History Tobacco Use Types Packs/Day Years [...] Sign Reading Time Taken Comments Blood Pressure 118/66 03/31/2019 12:05 AM EDT Pulse 90 03/31/2019 12:05 AM EDT Temperature 36.6 C (97.8 F) 03/31/2019 12:05 AM EDT Respiratory Rate 18 03/31/2019 12:05 AM EDT Oxygen Saturation 97% 03/31/2019 12:05 AM EDT Inhaled Oxygen Concentration - - Weight 99.8 kg (220 lb) 03/31/2019 5:13 AM EDT Height - - Body Mass Index - - Plan of Treatment Not on file Insurance MEDICARE Care Teams Bean Sorter Relationship Specialty Start Date End Date Renetta Mullins, TANNER - DOLPHIN TRAINER PCP - General 03/31/19
--- OUTSIDE RECORDS SUMMARY | 2025-06-26 09:21 | XMS_ITS | Encounter Summary ---
Author Organization [employer] Address [id number] [address] [place] [address] Care Team Providers Care City Superintendent Of Schools Name Role Phone Unavailable Primary Care Provider Unavailabl e Reason for Visit * Reason Comments Med Refill Encounter Details Date Type Department Care Team (Late st Contact Info) Description 09/28/2022 Refill [facility] [address] [place] [address] Kamar Fuentes, PA-C [address] [place] [address] Med Refill Social History Tobacco Use Types Packs/Day Years Used Date Smoking Tobacco: Never Smokeless Tobacco: Never Alcohol Use Standard Drinks/Week Comments No 0 (1 standard drink = 0.6 oz pur e alcohol) PHQ-2 Answer Date Recorded Total Score 2 07/20/2021 Childcare Answer Date Recorded Childcare Unknown 03/01/2019 Employment Answer Date Recorded Employment Unknown 03/01/2019 Purpose - Life Answer Date Recorded Purpose and direction in life Unknown Comments No Sex and Gender Information Value Date Recorded Sex Assigned at Not on file Legal Sex Female 11:43 AM EDT Gender Identity Not on file Sexual Orientation Not on file documented as of this encounter Miscellaneous Notes * Telephone Encounter - Shawna Perkins RN - 09/28/2022 3:47 PM EST Last ov 11/23/2020 documented in this encounter Plan of Treatment Not on file documented as of this encounter Visit Diagnoses Not on filedocumented in this encounter Additional Health Concerns Assessment Noted Time PHQ-9 Depression Total Score: 2 07/20/20 9:50 AM EDT A Body Mass Index follow-up plan has been documented for the patient 07/20/2021 9:41 PM EDT documented as of this encounter
--- OUTSIDE RECORDS SUMMARY | 2025-06-26 09:21 | XMS_ITS | Patient Health Record ---
Author Organization [facility] Address [address] [place] [address] Care Team Providers Care Sales Assistant Institutional Sales Name Role Phone Hugh ESPINO, Andshalini Primary Care Provider Lefty Castillo Unavailable [phone] Armin Manjarrez Unavailable [phone] Reason For Referral No Information Social History Tobacco Use: Social History Observation [...] Problem Status W/U Status Risk Notes Problem [id number] Primary osteoarthritis of right shoulder (M19.011) Active confirmed Plan Of Treatment No Information Insurance Providers Payer Name Payer Address Payer Phone Subscriber Number Group Number Insured Name Patient Relationship to Insured Coverage Start Date Coverage End Date Medicare [employer] by Gurpreet [employer] [address] [place] [address] [id number] JACOBO SALAAZR Self - patient is the insured
--- OUTSIDE RECORDS SUMMARY | 2025-06-26 09:21 | XMS_ITS | Encounter Summary ---
Author Organization [employer] Address [id number] [address] [place] [address] Care Team Providers Care Relay Operator Name Role Phone Renetta Mullins COMMUNITY PLANNER-CONFERENCE SERVICES DIRECTOR Primary Care Provid er Reason for Visit * Reason Comments Med Refill Encounter Details Date Type Department Care Team (Late st Contact Info) Description 04/27/2020 Refill [facility] [address] [facility] [address] [place] [address] Renetta Mullins COMMUNITY PLANNER-CONFERENCE SERVICES DIRECTOR [address] [place] [address] Arthritis, multiple joint involvement; Uncontrolled type 2 diabetes mellitus without complication, without long-term current use of insulin ([facility]) Social History Tobacco Use Types Packs/Day Years [...] have Coronavirus / COVID-19? No / Unsure 04/22/2020 2:06 PM EDT documented as of this encounter Plan of Treatment Not on file documented as of this encounter Visit Diagnoses Diagnosis Arthritis, multiple joint involvement Unspecified arthropathy, multiple sites Uncontrolled type 2 diabetes mellitus without complication, without long-term current use of insulin documented in this encounter Additional Health Concerns Assessment Noted Time PHQ-9 Depression Total Score: 0 04/22/20 20 2:20 PM EDT A Body Mass Index follow-up plan has been documented for the patient 04/14/2020 8:33 AM EDT documented as of this encounter Care Teams Relay Operator Relationship Specialty Start Date End Date Renetta Mullins, TANNER-CONFERENCE SERVICES DIRECTOR PCP - General Family Medicine 02/05/21 12/22/21 documented as of this encounter
--- OUTSIDE RECORDS SUMMARY | 2025-06-26 09:21 | XMS_ITS | Encounter Summary ---
Author Organization [employer] Address [facility] [id number] [address] [place] [address] Care Team Providers Care Retail Account Manager Name Role Phone Renetta Mullins Rakesh FUR LINER-BYPRODUCTS MAKER Primary Care Provid er Reason for Visit * Reason Onset Date Comments Reschd appt 05/31/2021 Encounter Details Date Type Department Care Team (Late st Contact Info) Description 05/31/2021 Telephone [facility] [address] [place] [address] Minna Al Reschd appt Social History Tobacco Use Types Packs/Day Years Used Date Smoking Tobacco: Never Smokeless Tobacco: Never Alcohol Use Standard Drinks/Week Comments No 0 (1 standard drink = 0.6 oz pur e alcohol) PHQ-2 Answer Date Recorded Total Score 9 04/02/2021 Childcare Answer Date Recorded Childcare Unknown 03/01/2019 [...] encounter Miscellaneous Notes * Telephone Encounter - Minna Al - 05/31/2021 1:44 PM EDT Patient's appointment with Dr. Moyer on 06/04/21 needs to be changed due to schedule change. If patient calls back, please reschedule to same day as a video visit if patient is set up with [employer]. Ifpatient prefers in clinic visit, please reschedule starting Monday June 14, 2021. documented in this encounter Plan of Treatment Not on file documented as of this encounter Visit Diagnoses Not on filedocumented in this encounter Additional Health Concerns Assessment Noted Time PHQ-9 Depression Total Score: 9 04/02/20 21 1:10 PM EDT A Body Mass Index follow-up plan has been documented for the patient 04/27/2021 11:29 PM EDT documented as of this encounter Care Teams Retail Account Manager Relationship Specialty Start Date End Date Renetta Mullins, FUR LINER-BYPRODUCTS MAKER PCP - General Family Medicine 02/05/21 12/22/21 documented as of this encounter
--- OUTSIDE RECORDS SUMMARY | 2025-06-26 09:21 | XMS_ITS | Clinical Summary ---
Author Organization [employer] tem Address [id number] [address] [place] [address] Care Team Providers Care Director Agricultural Services Name Role Phone Unavailable Primary Care Provider Unavailabl e Allergies No known active allergies Medications aspirin 81 mg chewable tabletIndications: Type 2 diabetes mellitus without complication, without long-term current use of insulin ([facility]) Chew 81 mg and swallow. Active dulaglutide 0.75 mg/0.5 mL pen injectorIndication s:Uncontrolled type 2 diabetes mellitus without complication, without long-term current use of insulin Inject 0.5 mL (0.75 mg total) under the skin every 7 days. 4 Syringe 0 Active lisinopriL (PRINIVIL,ZESTRIL) 30 mg tabletIndications: Essential hypertension Take 1 tablet (30 mg total) by mouth daily. 30 tablet 6 0 Active methocarbamoL (ROBAXIN) 500 mg tabletIndications: Chronic tension-type headache, intractable,Occipi tiffanie neuralgia of left side Take 1 tablet (500 mg total) by mouth 2 (two) times a day as needed for muscle spasms. 30 tablet 3 1 Active meloxicam (MOBIC) 15 mg tabletIndications: Arthritis, multiple joint involvement Take 1 tablet (15 mg total) by mouth daily. 90 tablet 1 1 Active metFORMIN XR (GLUCOPHAGE-XR) 500 mg 24 hr tabletIndications: Type 2 diabetes mellitus without complication, without long-term current use of insulin ([facility]) Take 2 tablets (1,000 mg total) by mouth 2 (two) times a day with meals. 360 tablet 1 1 Active oxybutynin XL (DITROPAN XL) 15 mg 24 hr tabletIndications: Stress incontinence Take 1 tablet (15 mg total) by mouth daily. 90 tablet 1 1 Active atorvastatin (LIPITOR) 40 mg tabletIndications: DM type 2 with diabetic mixed hyperlipidemia ([facility]) Take 1 tablet (40 mg total) by mouth daily. 90 tablet 1 1 Active pantoprazole (PROTONIX) 40 mg EC tabletIndications: GERD without esophagitis Take 1 tablet (40 mg total) by mouth every morning before breakfast. 90 tablet 1 1 Active blood-glucose meter kitIndications:DM type 2 with diabetic mixed hyperlipidemia (CMS-HCC) Check blood sugars daily and as needed 1 each 1 Active blood sugar diagnostic (glucose blood) stripIndications:D M type 2 with diabetic mixed hyperlipidemia ([facility]) Monitor blood sugar daily and as needed 50 strip 11 1 Active lancets 30 gauge miscIndications:DM type 2 with diabetic mixed hyperlipidemia (CMS-HCC) Inject 1 Lancet into the skin See Admin Instructions. Check blood sugars daily and as needed 50 each 11 1 Active gabapentin (NEURONTIN) 300 mg capsuleIndications :Chronic tension-type headache, intractable,Occipi tiffanie neuralgia of left side Take 1 capsule (300 mg total) by mouth 2 (two) times a day. 60 capsule 5 1 Active sertraline (ZOLOFT) 100 mg tabletIndications: Recurrent major depressive disorder, in full remission Take 1.5 tablets (150 mg total) by mouth daily. For depression 135 tablet 1 2 Active carvediloL (COREG) 6.25 mg tablet TAKE 1 TABLET BY MOUTH IN THE MORNING then TAKE 1 TABLET BY MOUTH BEFORE bedtime 60 tablet 2 Active Active Problems Problem Noted Date Diagnosed Date Gait instability 04/02/2021 Falls frequently 04/02/2021 Antalgic gait 04/02/2021 Lumbosacral spondylosis with radiculopathy 04/02 Central stenosis of spinal canal 04/02/2021 Diabetes mellitus 04/02/2021 Current mild episode of arelis r depressive disorder without prior episode 11/20/2020 Chronic right SI joint pain 07/22/2019 Spondylosis of lumbar region without myelopathy or radiculopathy 07/22/2019 Lumbar pain 07/22/2019 Status post THR (total hip replacement) 03/25/20 19 Primary osteoarthritis of right hip 03/18/2019 GERD without esophagitis 01/23/2019 History of Graves' disease 11/01/2018 Stress incontinence 07/31/2018 Arthritis, multiple joint involvement 07/31/2018 S/P nasal septoplasty 04/26/2018 Snoring 01/10/2018 Heart murmur 01/07/2018 Abnormal mammogram of right breast 01/07/2018 Post-menopausal 08/28/2017 Medicare annual wellness visit, subsequent 08/28 Need for immunization against influenza 08/28/20 17 Onychomycosis 08/28/2017 Xerosis of skin 08/28/2017 Mixed hyperlipidemia 05/17/2017 Insomnia 03/29/2017 Severe obesity (BMI 35.0-39.9) with comorbidity 03/29/2017 Hypertension Uncontrolled type 2 diabetes mellitus Depression Resolved Problems Problem Noted Date Diagnosed Date Resolved Date Acute cystitis without hematuria 07/31/2018 06/24/2019 Sinusitis 02/12/2018 05/31/2018 Deviated nasal septum 01/10/20182019 Precordial pain 11/30/2017 05/31/2018 Pure hypercholesterolemia 11/30/2017 Fungal dermatitis 11/15/2017 07/08/2020 Toe pain, left 08/28/2017 06/24/2019 Abnormal heart rate 08/28/2017 03/19/20 19 Impacted cerumen of both ears 05/17/2017 06/24/2019 Need for pneumococcal vaccine 03/29/2017 05/17/2017 Fatigue 03/29/2017 07/08/2020 Unresolved grief 03/29/2017 11/15/2017 Arthritis of left knee 03/29/201706/24 Encounters Date Type Department Care Team Description 04/17/2025 10:58 AM EDT - 04/17/2025 11:59 PM EDT Hospital Encounter [facility] [address] [place] [address] Pain, joint, shoulder, right Discharge Disposition: Home 04/17/2025 10:50 AM EDT - 04/17/2025 10:57 AM EDT Hospital Encounter [facility] - Radiology [address] [place] [address] Lumbar back pain Discharge Disposition: Home 04/17/2025 Travel 04/08/2025 Travel from Last 3 Months Immunizations Immunization Administration Dates Next Due DTaP 09/24/2010 Hepatitis B 11/02/2010,05/31/2010,04/28/2010 Influenza, Injectable, quadr ivalent (PF) 07/20/2021,07/14/2020,09/19/2019,07/24,08/28/2017 Pneumococcal Polysaccharide 03/29/2017 Family History Medical History Relation Name Comments No Known Problems Daughter 1 No Known Problems Daughter 2 Cancer Father LUNG Breast cancer Maternal Aunt 1 Breast cancer Maternal Aunt 2 Heart disease Mother Hyperlipidemia Mother Cancer Paternal Grandfather LUNG CA NCER Asthma Son Cerebral palsy Son ALEX disease Son Relation Name Status Comments Daughter 1 Alive Daughter 2 Alive Father Maternal Aunt 1 Maternal Aunt 2 Mother Paternal Grandfather Sister 1 Alive Sister 2 Alive Son Alive Social History Tobacco Use Types Packs/Day Years Used Date Smoking Tobacco: Never Smokeless Tobacco: Never Tobacco Cessation:Counseling Given: No Alcohol Use Standard Drinks/Week Comments No 0 [...] Sign Reading Time Taken Comments Blood Pressure 170/97 10/05/2021 5:58 PM EST Pulse 72 10/05/2021 5:56 PM EST Temperature 36.8 C (98.2 F) 10/05/2021 5:56 PM EST Respiratory Rate 18 10/05/2021 5:56 PM EST Oxygen Saturation 95% 10/05/2021 5:56 PM EST Inhaled Oxygen Concentration - - Weight 95.3 kg (210 lb) 10/05/2021 5:53 PM EST Height 165.1 cm (5' 5 ) 10/05/2021 5:53 PM EST Body Mass Index 34.95 10/05/2021 5:53 PM EST Plan of Treatment Health Maintenance Due Date Last Done Comments Statin Use: Diabetic 1957 Depression Screening 1969 Tobacco Screening 1969 Adult BMI Screening 1975 Colonoscopy 2002 Zoster (Shingles) Vaccine (1 of 2) 2007 Diabetic Ophthalmology Exam 07/09/2020 07/09/2019 DTaP,Tdap and Td Vaccines (2 - Tdap) 09/24/202009/02 Mammogram 03/10/2022 03/10/2021, 11/03, 11/01/2017 Diabetic Foot Exam 03/23/2022 03/23/2021 Fall Risk Screening 2022 Medical Devices Implanted Type [employer] Device Identifier Shelf Expiration Date Model / Serial / Lot Stm Fem 117mm 133d 16 Std Os - [id number] Implanted:Qty : 1 on 03/25/2019 by Shaggy Montano MD at [facility] Orthopedic Implant Right: Hip Will [employer] 08/10/2025 [id number] / / [id number] Linr Actb 36mm 24 Arcomxl - [id number] Implanted:Qty : 1 on 03/25/2019 by Shaggy Montano MD at [facility] Orthopedic Implant Right: Hip [employer] 08/30/2022 [id number] / / [id number] Cup Actb 54mm 24mm Mlhd Rnl 3 - [id number] Implanted:Qty : 1 on 03/25/2019 by Shaggy Montano MD at [facility] Other Implant Right: Hip [employer] 11/19/2028 [id number] / / [id number] Hd Fem 36mm 0mm Os Std Shl Act - [id number] Implanted:Qty : 1 on 03/25/2019 by Shaggy Montano MD at [facility] Other Implant Right: Hip [employer] 08/18/2028 [id number] / / [id number] Procedures Procedure Name Priority Date/Time Associated Diagnosis Comments XR SPINE LUMBAR 2 OR 3 VWS Routine 04/17/2025 11:34 AM EDT Lumbar back pain XR SHOULDER RT MIN 2 VWS Routine 04/17/2025 11:34 AM EDT Pain, joint, shoulder, right MAMM SCREENING BILATERAL W CAD Routine 03/10/2021 10:38 AM EDT Encounter for screening mammogram for malignant neoplasm of breast from Last 3 Months or Most Recently Relevant to Health Maintenance Results * X-ray spine lumbar 2 or 3 views (04/17/2025 11:34 AM EDT) Anatomical Region Laterality Modality MSK, Neuro, Spine, L-spine N/A Compu kyle Radiography 04/22/2025 1:43 PM EDT Narrative 04/22/2025 1:50 PM EDT EXAM: XR SPINE LUMBAR 2 OR 3 VWS INDICATION: Pain COMPARISON: None TECHNIQUE: 3 views of the lumbar spine FINDINGS/IMPRESSION: Grade 1 anterolisthesis L4 and L5. Degenerative disc disease most pronounced at L4-L5, L5-S1, and to a lesser extent L2-L3. No acute fractures. Posterior element degeneration most pronounced at L4-L5 and L5-S1. Finalized by Armin Silva on 04/22/2025 1:50 PM Procedure Note Armin Silva MD - 04/22/2025 EXAM: XR SPINE LUMBAR 2 OR 3 VWS INDICATION: Pain COMPARISON: None TECHNIQUE: 3 views of the lumbar spine FINDINGS/IMPRESSION: Grade 1 anterolisthesis L4 and L5. Degenerative disc disease mostpronounced at L4-L5, L5-S1, and to a lesser extent L2-L3. No acutefractures. Posterior element degeneration most pronounced at L4-L5 andL5-S1. Finalized by Armin Silva on 04/22/2025 1:50 PM Zoë Godinez TANK PUMPER-WICKER WORKER IMG DIAGNOSTIC IMAGING O RDERABLES Final Result * X-ray shoulder right minimum 2 views (04/17/2025 11:34 AM EDT) Anatomical Region Laterality Modality MSK, Upper Extremities, Shoulder Right Computed Radiography 04/22/2025 2:01 PM EDT Narrative 04/22/2025 2:04 PM EDT XR SHOULDER RT MIN 2 VWS HISTORY: Pain, joint, shoulder, right. COMPARISON: none IMPRESSION: Severe glenohumeral osteoarthrosis, remodeling of the joint space. Congruent chronic clavicular joint. Finalized by David Toribio MD on 04/22/2025 2:04 PM Procedure Note David Toribio MD - 04/22/2025 XR SHOULDER RT MIN 2 VWS HISTORY: Pain, joint, shoulder, right. COMPARISON: none IMPRESSION: Severe glenohumeral osteoarthrosis, remodeling of the joint space.Congruent chronic clavicular joint. Finalized by David Toribio MD on 04/22/2025 2:04 PM [facility] TANK PUMPER-WICKER WORKER IMG DIAGNOSTIC IMAGING O RDERABLES Final Result * Mammography screening bilateral with CAD (03/10/2021 10:38 AM EDT) Anatomical Region Laterality Modality Breast Bilateral Mammography Impressions 03/10/2021 3:01 PM EDT No mammographic evidence of malignancy. A 1 year screening mammogram is recommended. BI-RADS: 1 - Negative Narrative 03/10/2021 3:01 PM EDT PROCEDURE: Mammography screening bilateral with CAD and 3D digital tomosynthesis with C-view (synthetic 2D reconstruction with CAD) 03/10/21 CLINICAL HISTORY: Screening TECHNIQUE:Bilateral digital 2-D mammography and 3D digital tomosynthesis with C-view (synthetic 2D reconstruction with CAD) were performed. Current study was also evaluated with a Computer Aided Detection (CAD) system. COMPARISON: Compared to: 11/27/2017 Mammography diagnostic unilateral right with CAD and 11/01/2017 Mammography screening bilateral with CAD FINDINGS: Lifetime risk of breast cancer calculated by the National Cancer Verbank risk assessment model by Dionna: 7.43 %. The patient's risk assessment indicates that the patient is not at high risk for development of breast cancer. Patient information was entered into a MRS. The breasts have scattered areas of fibroglandular density. No suspicious masses, calcifications, or other findings. Renetta Mullins TANK PUMPER-WICKER WORKER IMG MAMMOGRAPHY TJ DAILEY Final Result from Last 3 Months or Most Recently Relevant to Health Maintenance Insurance [facility] MEDICARE AUTO INSURANCE Advance Directives * Full Code (Latest Code Status on File) Date Activated Date Inactivated Comments 03/25/2019 11:52 AM 03/26/2019 3:25 PM
--- OUTSIDE RECORDS SUMMARY | 2025-06-26 09:21 | XMS_ITS | Encounter Summary ---
Author Organization [employer] Address [id number] [address] [place] [address] Care Team Providers Care Therapist Phys Name Role Phone Renetta Mullins Primary Care Provid er Reason for Visit * Reason Comments Med Refill Encounter Details Date Type Department Care Team (Late st Contact Info) Description 05/03/2018 Refill [facility] [address] [facility] [place] [address] [place] [address] Renetta Mullins APRN-CNP [address] [place] [address] Essential hypertension Social History Tobacco Use Types [...] encounter Miscellaneous Notes * Telephone Encounter - ADIEL Dennis - 05/03/2018 9:41 PM EDT Patient was a no show. Verify she has near future appointment before I reorder with refills * Telephone Encounter - Mickie Palmer MA - 05/03/2018 9:41 PM EDT PT MADE APPT FOR , WOULD LIKE REFILL Mickie Palmer MA 05/14/18 0858 documented in this encounter Plan of Treatment Not on file documented as of this encounter Visit Diagnoses Diagnosis Essential hypertension Unspecified essential hypertension documented in this encounter Additional Health Concerns Assessment Noted Time PHQ-9 Depression Total Score: 0 01/11/20 18 2:00 PM EDT documented as of this encounter Care Teams Therapist Phys Relationship Specialty Start Date End Date Renetta Mullins, VENDING MACHINE FILLER-DEPLOYMENT MANAGER PCP - General Family Medicine 02/05/21 12/22/21 documented as of this encounter
--- OUTSIDE RECORDS SUMMARY | 2025-06-26 09:21 | XMS_ITS | Encounter Summary ---
Author Organization [employer] Address [id number] [address] [place] [address] Care Team Providers Care Network Security Officer Name Role Phone Renetta Mullins APRN-DROP WIRE ALIGNER Primary Care Provid er Reason for Visit * Reason Onset Date Comments Med Refill Med Refill 06/03/2020 Encounter Details Date Type Department Care Team (Late st Contact Info) Description 05/27/2020 Refill [facility] [address] [facility] [place] [address] [place] [address] Renetta Mullins APRN-DROP WIRE ALIGNER [address] [place] [address] Uncontrolled type 2 diabetes mellitus without complication, without long-term current use of insulin ([facility]); Recurrent major depressive disorder, in full remission ([facility]); Arthritis, multiple joint involvement Social History Tobacco Use Types Packs/Day Years [...] complication, without long-term current use of insulin Recurrent major depressive disorder, in full remission Arthritis, multiple joint involvement Unspecified arthropathy, multiple sites documented in this encounter Additional Health Concerns Assessment Noted Time PHQ-9 Depression Total Score: 0 04/22/20 20 2:20 PM EDT A Body Mass Index follow-up plan has been documented for the patient 04/14/2020 8:33 AM EDT documented as of this encounter Care Teams Network Security Officer Relationship Specialty Start Date End Date Renetta Mullins, COLLECTION SPECIALIST-DROP WIRE ALIGNER PCP - General Family Medicine 02/05/21 12/22/21 documented as of this encounter
--- OUTSIDE RECORDS SUMMARY | 2025-06-26 09:21 | XMS_ITS | Encounter Summary ---
Author Organization [employer] [facility] tem Address [id number] [address] [place] [address] Care Team Providers Care Garden Equipment Mechanic Name Role Phone Unavailable Primary Care Provider Unavailabl e Encounter Details Date Type Department Care Team (Late st Contact Info) Description 04/18/2022 Telephone [facility] [address] [place] [address] [address] Eva Goodman CMA Social History Tobacco Use Types Packs/Day [...] as of this encounter Visit Diagnoses Diagnosis DM type 2 with diabetic mixed hyperlipidemia ([facility]) GERD without esophagitis Esophageal reflux Stress incontinence Female stress incontinence documented in this encounter Additional Health Concerns Assessment Noted Time PHQ-9 Depression Total Score: 2 07/20/20 21 9:50 AM EDT A Body Mass Index follow-up plan has been documented for the patient 07/20/2021 9:41 PM EDT documented as of this encounter
--- OUTSIDE RECORDS SUMMARY | 2025-06-26 09:21 | XMS_ITS | Encounter Summary ---
Author Organization [facility] Address [address] [facility] [place] [address] Care Team Providers Care Civil Engineering Designer Name Role Phone Guillaume Tapia MD Unavailable Encounter Details Date Type Department Care Team (Late st Contact Info) Description 06/23/2023 [facility] [address] [place] [phone] Rito Pimentel, DPM [address] [place], [place] [id number] Social History Tobacco Use Types Packs/Day Years [...] on filedocumented in this encounter Care Teams Civil Engineering Designer Relationship Specialty Start Date End Date Guillaume Tapia MD [address] [facility] [place] [address] Referring Physician Internal Medicine 12/04/23 documented as of this encounter
--- OUTSIDE RECORDS SUMMARY | 2025-06-26 09:21 | XMS_ITS | Encounter Summary ---
Author Organization [employer] tem Address [id number] [address] [place] [address] Care Team Providers Care Loss Control Engineer Name Role Phone Renetta Mullins Rakesh HART-NUTRITION TECHNICIAN Primary Care Provid er Reason for Visit * Reason Onset Date Comments Med Refill 05/27/2020 Encounter Details Date Type Department Care Team (Late st Contact Info) Description 05/27/2020 [facility] [address] [place] [id number] Eva Funez RN Med Refill Social History Tobacco Use Types [...] Miscellaneous Notes * Telephone Encounter - ADIEL Gonzalez - 05/27/2020 2:32 PM EDT signed documented in this encounter Plan of Treatment Not on file documented as of this encounter Results * AST (06/03/2020 12:06 PM EDT) AST 16 0 - 41 U/L 06/03/2020 7:23 PM EDT [facility] Serum / Unknown 06/03/2020 1 2:06 PM EDT 06/03/2020 12:07 PM EDT Jessica CHUN LAB BLOOD ORDERABLES Final Result [facility] [address] [facility] [facility] [address] [place] [address] * ALT (06/03/2020 12:06 PM EDT) ALT 16 0 - 31 U/L 06/03/2020 7:23 PM EDT [facility] Serum / Unknown 06/03/2020 1 2:06 PM EDT 06/03/2020 12:07 PM EDT Jessica CHUN LAB BLOOD ORDERABLES Final Result Performing Organization Address City/[facility]/ZIP Co de Phone Number [facility] [address] [facility] [facility] [address] [place] [address] * Lipid profile (06/03/2020 12:06 PM EDT) Cholesterol 167 150 - 200 mg/dL 06/03/2020 7:23 PM EDT [facility] Triglycerides 148 27 - 150 mg/dL 06/03/2020 7:23 PM EDT [facility] HDL Cholesterol 47 >39 mg/dL 0 7:23 PM EDT [facility] Comment: HDL <40 mg/dL - High Risk HDL > or = 40mg/dL- Desirable HDL >60 mg/dL - Negative Risk VLDL 30 0 - 30 mg/dL 06/03/2020 7:23 PM EDT [facility] LDL (calc) 90 <130 mg/dL 06/03/2020 7:23 PM EDT [facility] Comment: LDL <100 mg/dL - Desirable LDL >160 mg/dL - High Risk Cholesterol:HDL Ratio 3.6 1.0 - 5.0 06/03/2020 7:23 PM EDT [facility] Serum / Unknown 06/03/2020 1 2:06 PM EDT 06/03/2020 12:07 PM EDT Jessica Whitehead APRN-NUTRITION TECHNICIAN LAB BLOOD ORDERABLES Final Result [facility] [address] [facility] [facility] [address] [place] [address] documented in this encounter Visit Diagnoses Diagnosis Mixed hyperlipidemia- Primary documented in this encounter Additional Health Concerns Assessment Noted Time PHQ-9 Depression Total Score: 0 04/22/20 20 2:20 PM EDT A Body Mass Index follow-up plan has been documented for the patient 04/14/2020 8:33 AM EDT documented as of this encounter Care Teams Loss Control Engineer Relationship Specialty Start Date End Date Renetta Mullins APRN-NUTRITION TECHNICIAN PCP - General Family Medicine 02/05/21 12/22/21 documented as of this encounter
--- OUTSIDE RECORDS SUMMARY | 2025-06-26 09:21 | XMS_ITS | Encounter Summary ---
Author Organization [employer] [facility] [employer] Address [facility] [place]-[id number] [address] [place] [address] Care Team Providers Care Pointer Helper Name Role Phone Renetta Mullins Rakesh ACCOUNTS PAYABLES CLERK-TRAVELING CRANE OPERATOR Primary Care Provid er Encounter Details Date Type Department Care Team (Late st Contact Info) Description 11/27/2017 Telephone [facility] Family Medicine [address] [place] [address] [place] [address] Mickie Palmer MA Social History Tobacco Use Types Packs/Day Years [...] documented as of this encounter Results * (ABNORMAL) Mammography diagnostic unilateral right with CAD (11/27/2017 11:26 AM EST) Anatomical Region Laterality Modality Breast Right Mammography 11/27/2017 12:3 3 PM EST Narrative 11/27/2017 12:38 PM EST Procedure: Diagnostic mammogram History: Poorly defined nodule in the lower inner aspect of the right breast seen on a screening mammogram dated 3817 Technique: Digital spot compression mammographic images of the right breast were obtained.. Computer-aided detection was utilized. In addition, sonographic evaluation of right breast were obtained before o'clock to the 5:00 position. Comparison: Comparison is made to a screening study dated 11/01/2017 Findings: Spot compression views show a poorly defined faint density in the lower inner aspect of the right breast. This does not appear as well demarcated as on the previous screening mammogram. Sonographic evaluation failed demonstrate any abnormalities. No cystic or solid nodules were seen. Breast Density: There are scattered areas of fibroglandular density. Impression: 1. A poorly defined density in the lower inner aspect of the right breast persists with spot compression views, but is not as well delineated as on the previous screening examination. Sonographic evaluation fails demonstrate any sonographic abnormalities. A repeat mammogram with possible ultrasound in 6 months is recommended. ACR Category: BIRADS 3 - Probably Benign. Finalized by Se Castillo MD on 11/27/2017 12:38 PM b 3 MAMM 6 MONTH Procedure Note Se Castillo MD - 11/27/2017 Procedure: Diagnostic mammogram History: Poorly defined nodule in the lower inner aspect of the rightbreast seen on a screening mammogram dated 3817 Technique: Digital spot compression mammographic images of the rightbreast were obtained.. Computer-aided detection was utilized. In addition, sonographic evaluation of right breast were obtained beforeo'clock to the 5:00 position. Comparison: Comparison is made to a screening study dated 11/01/2017 Findings: Spot compression views show a poorly defined faint density inthe lower inner aspect of the right breast. This does not appear as welldemarcated as on the previous screening mammogram. Sonographic evaluation failed demonstrate any abnormalities. No cystic orsolid nodules were seen. Breast Density: There are scattered areas of fibroglandular density. Impression: 1. A poorly defined density in the lower inner aspect of the right breastpersists with spot compression views, but is not as well delineated as onthe previous screening examination. Sonographic evaluation failsdemonstrate any sonographic abnormalities. A repeat mammogram withpossible ultrasound in 6 months is recommended. ACR Category: BIRADS 3 - Probably Benign. Finalized by Se Castillo MD on 11/27/2017 12:38 PM b 3 MAMM 6 MONTH us Renetta Mullins APRN-TRAVELING CRANE OPERATOR IMG MAMMOGRAPHY [facility] Final Result documented in this encounter Visit Diagnoses Diagnosis Abnormal mammogram- Primary Abnormal mammogram, unspecified Abnormal mammogram Abnormal mammogram, unspecified documented in this encounter Additional Health Concerns Assessment Noted Time PHQ-9 Depression Total Score: 0 11/15/19 18 4:00 PM EST documented as of this encounter Care Teams Pointer Helper Relationship Specialty Start Date End Date Renetta Mullins APRN-CNP PCP - General Family Medicine 02/05/21 12/22/21 documented as of this encounter
== END 2025-06-26 09:18 | disposition home or self-care (01) ==
LOC: RAD 09:17
PROVIDERS: PCP Nurse Practitioner Family; Visit Provider Physician Assistant
DX: M25.511 Pain in right shoulder (principal); M19.011 Primary osteoarthritis, right shoulder
CPT/HCPCS: 73030

== ENCOUNTER 2025-07-11 13:18 | Observation (INO) | payer MEDICARE, SELFPAY ==
[2025-07-11] VITALS (22 sets, daily range): BP systolic 126–206; BP diastolic 63–111; PULSE 77–112; TEMP 36.7–36.8; O2SAT 95–100; BMI 28.3; BMI 29.3
--- OUTSIDE RECORDS SUMMARY | 2025-07-11 13:32 | XMS_ITS | CCD ---
Author Organization [facility] Care Team Providers Care Neon Light Installer Name Role Phone SHANIQUE WINTER Attending Unavailable [...] GUILLAUME Referring Unavailable MARCELA HEATHER Referring Unavailable MARCELA, HEATHER Referring Unavailable Neha Santos APRN Primary Care Provider Neha Santos APRN Attending Provider [phone] Gavin Villarreal DO Attending Provider Allergies Allergy Classification Reported Allergen(s) Allergy Type Date of Onset Reaction(s) Facility (1 source) No Known Medication Allergies; Translations: [No Known Medication Allergies] Propensity to adverse reactions (disorder) [facility] Repository Medications Current Medications Medication Drug Class(es) Dates Sig (Normalized) Sig (Original) atorvastatin 80 mg oral tablet (7 sources) HMG-CoA Reductase Inhibitor Start: 12-13-2023 End: 2025 take 1 tablet by mouth once daily Atorvastatin 80 mg tablet Active 80 MG PO Daily 90 2025 10:56am Complies with drug therapy Start: 07-27-2022 take 1 tablet by maikol th once daily atorvastatin 40 mg Tab 40 mg = 1 tab(s), Oral, Daily, Refills(s) 0 Start Date: 07/27/22 Status: Ordered carvedilol 25 mg oral tablet (8 sources) alpha-Adrenergic Parisa, beta-Adrenergic Parisa Start: 06-03-2025 End: 06-03-2025 take 1 tablet by mouth twice daily at mealtime Carvedilol 25 mg tablet Active 25 MG PO Twice daily 180 June 03, 2025 11:46am must administer with [...] afterwards, # 2 tab(s), Refills(s) 0, Pharmacy: [facility] 165, cm, 11/14/23 13:05:00 EST, Height/Length Dosing, [...] mg / valsartan 160 mg oral tablet (4 sources) Thiazide Diuretic, Angiotensin 2 Receptor Parisa Start: 06-03-2025 End: 06-03-2025 take 1 tablet by mouth once daily Valsartan-Hydroc hlorothiazide 160-25 mg tablet Active 1 TAB PO Daily June 03, 2025 11:30am Complies with drug therapy lidocaine 0.05 mg/mg medicated patch (4 sources) Antiarrhythmic, Amide Local Anesthetic Start: 12-13-2023 [...] 1 tab(s) Start Date: 07/11/23 Status: Ordered metFORMIN hydrochloride 500 mg oral tablet (10 sources) Biguanide Start: 06-03-2025 End: 06-03-2025 take [...] day(s), # 30 tab(s), Refills(s) 3, Pharmacy: [facility], 165, cm, 11/14/23 13:05:00 EST, Height/Length Dosing, 91, kg, 11/14/23 13:05:00 EST, Weight Dosing Start Date: 11/14/23 Stop Date: 03/13/24 Status: Ordered naproxen 500 mg oral tablet (1 source) Nonsteroidal Anti-inflammatory Drug Start: 06-26-2025 take 1 tablet by mouth twice daily Naproxen 500 mg tablet Active 500 MG PO Twice daily 60 June 26, 2025 12:00am Complies with drug therapy Coleman-3 Fatty Acids-Fish Oil 300-1,000 mg capsule (2 sources) Start: 12-13-2023 Coleman-3 Fatty Acids-Fish Oil 300-1,000 mg capsule Active CAP PO December 13, 2023 12:00am Complies with drug therapy 24 hr oxybutynin chloride 15 mg extended release oral tablet (4 sources) Cholinergic Muscarinic Antagonist Start: 06-03-2025 End: 06-03-2025 take 1 tablet by mouth once daily Oxybutynin Chloride 15 mg tablet extended release 24hr Active 15 MG PO Daily June 03, 2025 11:46am Complies with drug therapy pantoprazole 40 mg delayed release oral tablet (8 sources) Proton Pump Inhibitor Start: 12-13-2023 End: [...] / losartan potassium 100 mg oral tablet (2 sources) Thiazide Diuretic, Angiotensin 2 Receptor Parisa Start: 12-13-2023 End: 06-03-2025 Losartan-Hydrochl orothiazide 100-25 mg tablet Discontinued 1 TAB PO December 13, 2023 12:00am June 03, 2025 11:05am meloxicam 7.5 mg oral tablet (8 sources) Nonsteroidal Anti-inflammatory Drug Start: 06-03-2025 End: 06-26-2025 take 1 tablet by mouth twice daily Meloxicam 7.5 mg tablet Discontinued 7.5 MG PO Twice daily 180 90 June 03, 2025 11:47am June 26, 2025 11:03am Start: 07-27-2022 take 1 tablet by maikol once daily meloxicam 15 mg oral tablet 15 mg = 1 tab(s), Oral, Daily, Refills(s) 0 Start Date: 07/27/22 Status: Ordered solifenacin succinate 10 mg oral tablet (3 sources) Cholinergic Muscarinic Antagonist Start: 12-13-2023 End: 06-03-2025 Solifenacin 10 mg tablet Discontinued MG PO December 13, 2023 12:00am June 03, 2025 11:06am Start: 07-11-2023 take 1 tablet by maikol once daily Vesicare 10 mg Tab 10 mg = 1 tab(s), Oral, Daily, # 30 tab(s), Refills(s) 3, Pharmacy: [facility] Start Date: 07/11/23 Status: Ordered Problems Problem Classification Problem Date Documented Da te Episodic/Chronic Anxiety disorders (4 sources) Anxiety 07-27-2022 Chronic Diabetes mellitus without complication (9 sources) Type 2 diabetes mellitus without complications; Translations: [Diabetes mellitus] Onset: 3 07-27-2022 Chronic Disorders of lipid metabolism (9 sources) Pure hyperglyceridemia; Translations: [Hypercholesterolemia] Onset: 3 07-27-2022 Chronic Esophageal disorders (8 sources) Gastroesophageal reflux disease; Translations: [Gastro-esophageal reflux disease without esophagitis] 07-27-2022 Chronic Essential hypertension (8 sources) Hypertensive disorder; Translations: [Essential (primary) hypertension] 07-27-2022 Chronic Genitourinary symptoms and ill-defined conditions (12 sources) Incontinence; Translations: [Urinary incontinence] Onset: 4 07-11-2023 Chronic Genitourinary symptoms and ill-defined conditions (4 sources) Urinary symptoms 07-11-2023 Episodic Immunizations and screening for infectious disease (1 source) Encounter for screening for other viral diseases; Translations: [ENC SCREENING FOR OTH VIRAL DZ] Onset: 3 Episodic Osteoarthritis (3 sources) Osteoarthritis of joint of right shoulder region; Translations: [Primary osteoarthritis, right shoulder] 06-03-2025 Chronic Other acquired deformities (4 sources) Lumbar spondylolisthesis; Translations: [Spondylolisthesis, lumbar region] 06-03-2025 Episodic Other acquired deformities (2 sources) Spondylolisthesis; Translations: [Spondylolisthesis, lumbosacral region] 12-13-2023 Episodic Other diseases of bladder and urethra (5 sources) Overactive bladder; Translations: [Overactive bladder] 06-03-2025 Chronic Other gastrointestinal disorders (1 source) Incontinence of feces; Translations: [Full incontinence of feces] Onset: 4 Episodic Other injuries and conditions due to external causes (2 sources) Injury of right shoulder; Translations: [Unspecified injury of right shoulder and upper arm, initial encounter] 06-03-2025 Episodic Other non-traumatic joint disorders (3 sources) Pain in right shoulder; Translations: [Right shoulder pain] Onset: 5 06-03-2025 Episodic Other nutritional; endocrine; and metabolic disorders (1 source) Body mass index (BMI) 35.0-35.9, adult; Translations: [BODY MASS INDEX BMI 35.0-35.9 ADULT] Onset: 3 Chronic Other nutritional; endocrine; and metabolic disorders (2 sources) Obesity; Translations: [Class 2 obesity with body mass index (BMI) of 36.0 to 36.9 in adult] 06-03-2025 Chronic Other nutritional; endocrine; and metabolic disorders (4 sources) H/O: thyroid disorder; Translations: [Personal history of other endocrine, nutritional and metabolic disease] 06-03-2025 Episodic Other screening for suspected conditions (not mental disorders or infectious disease) (11 sources) Encounter for screening for other suspected endocrine disorder; Translations: [Patient encounter status] Onset: 3 06-03-2025 Episodic Residual codes; unclassified (4 sources) Postmenopausal state; Translations: [Asymptomatic menopausal state] 06-03-2025 Episodic Spondylosis; intervertebral disc disorders; other back problems (8 sources) Inflammation of sacroiliac joint; Translations: [Sacroiliitis, not elsewhere classified] 12-13-2023 Chronic Spondylosis; intervertebral disc disorders; other back problems (2 sources) Spinal stenosis of lumbar region; Translations: [Spinal stenosis, lumbar region with neurogenic claudication] 12-13-2023 Episodic Unclassified (1 source) Low back pain, unspecified; Translations: [Low back pain, unspecified] Onset: 5 Unclassified (2 sources) Patient encounter status; Translations: [Z12.11 - Encounter for screening for malignant neoplasm of colon] Unclassified (1 source) M25.511 - Pain in right shoulder,S49.91XA - Unspecified injury of right shoulder and upper arm, initial encounter Unclassified (1 source) N32.81 - Overactive bladder,R32 - Unspecified urinary incontinence Results Test Name Value Interpretation Reference Range Facility HbA1c HPLC (Bld) [Mass fract ion]Ordered By: Neha Santos on 06-03-2025 HbA1c (Bld) [Mass fraction] 6.6 % [facility] XR SHOULDER RT MIN 2 VWSon 0 04-22-2025 XR SHOULDER RT MIN 2 VWS XR SHOULDER RT MIN 2 VWS XR SHOULDER RT MIN 2 VWS HISTORY: Pain, joint, shoulder, right. COMPARISON: none IMPRESSION: Severe glenohumeral osteoarthrosis, remodeling of the joint space. Congruent chronic clavicular joint. Finalized by David Toribio MD on 04/22/2025 2:04 PM Normal [facility] XR SPINE LUMBAR 2 OR 3 VWSon [...] Armin Silva on 04/22/2025 1:50 PM Normal [facility] Patient Letter FTon 2023 Patient Letter FT February 13, 2024 JACOBO WATKINS [address] [place] [id number] : 1955 Dear Jacobo , You missed [...] any future cancellations. Sincerely, [facility] [address], [place] [address] Normal [facility]enson 11-15-2023 Screens [id number] 20 [id number] 0TIFF Normal [facility] Ambulatory Visit Summaryon 0 11-14-2023 Ambulatory [...] NEHA ARENAS PA-C Where: [facility] Patient Educationon 11-14-19 Patient Education Obstetrics and Gynecology Kegel Exercises [...] provider. Document Revised: 01/27/2022 Document Reviewed: 01/27/2022 [employer] Patient Education ? 2022 [employer]. Urology Urinary Incontinence Urinary incontinence refers to [...] and bladder (more content not included)... Normal [facility] Urology Office/Clinic Noteon 11-14-2023 Urology Office/Clinic [...] day(s), # 30 tab(s), Refills(s) 3, Pharmacy: [facility], 165, cm, 11/14/23 13:05:00 EST, Height/Length Dosing, 91, kg, 11/14/23 13:05:00 EST, Weight Dosing 91342 Measure Post Void residual urine and/or bladder capacity by US- non-imaging Urnls Dip Stick Auto w/o Microscopy POC 94361 Urnls Dip Stick Auto w/o Microscopy POC 59754 2. Bowel incontinence (R15.9: Full incontinence of [...] Dipstick: Neg (more content not included)... Normal [facility] Comment on above: Result Comment: Elec tronically Signed By: MARCELA Taylor APRN, Karrie Zuluaga\.br\Date and Time Signed: 11/14/23 15:56 EST C [...] Locations R1: This test was performed at: [facility], [address] [place] [address], [facility]- , , [facility] Comment on above: Performed By: #### 2 [id number] #### [facility] [address] [place] [address] Physician Referralon 023 Physician Referral [id number] 00 [id number] 0TIFF [facility] 07-12-2023 Screens [id number] 03 [id number]. 00TIFF [facility] Patient Educationon 07-11-20 23 Patient Education Obstetrics [...] provider. Document Revised: 01/27/2022 Document Reviewed: 01/27/2022 [employer] Patient Education ? 2022 [employer] Normal [facility] HEPATITIS C AB CASCADE TO QU ANT PCR GENOon 02-06-2023 HCV AB Reactive Abnormal Non Reactive [facility] Comment on above: Performed By: #### H EPCASC #### [facility] [address] [place] [address] Dr. Jorge Carrasco HCV Genotype RTNI Normal [facility] Comment on above: Result Comment: Not indicated Performed By: #### H EPCASC #### [facility] [address] [address] [address] Jorge Carrasco HCV log10 Normal [facility] Comment on above: Performed By: #### H EPCASC #### [facility] [address] [place] [address] Dr. Jorge Carrasco Hep C Quantitation Not detected [facility] Comment on above: Performed By: #### H EPCASC #### [facility] [address] [place] [address] Dr. Jorge Carrasco Interpretation Comment Normal [facility] Comment on above: Result Comment: Posi tive HCV antibody screen without the presence of HCV RNA is consistent with a resolved past infection or a false positive HCV antibody. Consider repeat testing after one month. Performed By: #### H EPCASC #### [facility] [address] [place] [address] Dr. Jorge Carrasco Test Information: Comment Normal [facility] Comment on above: Result Comment: The quantitative range of this assay is 15 IU/mL to 100 million IU/mL. Performed By: #### H EPCASC #### [facility] [address] [place] [address] Dr. Jorge Carrasco CBC AUTO DIFFon 02-02-2023 BASO # 0.0 103/ul Normal 0.0-0.1 [facility] Comment on above: Performed By: #### C BC #### [facility] [address] [place] [address] Dr. Jorge Carrasco Basophils/100 WBC (Bld) 0.5 % Normal 0.2-2.0 [facility] Comment on above: Performed By: #### C BC #### [facility] [address] [place] [address] Dr. Jorge Carrasco EO # 0.1 103/ul Normal 0.0-0.7 [facility] Comment on above: Performed By: #### C BC #### [facility] [address] [place] [address] Dr. Jorge Carrasco Eosinophils/100 WBC (Bld) 3.2 % Normal 0.9-7.0 [facility] Comment on above: Performed By: #### C BC #### [facility] [address] [place] [address] Dr. Jorge Carrasco Erythrocyte distribution width (RBC) [Ratio] 14.0 % Normal 11.0-15.0 [facility] Comment on above: Performed By: #### C BC #### [facility] [address] [place] [address] Dr. Jorge Carrasco Hematocrit (Bld) [Volume fraction] 40.2 % Normal 36.0-48.0 [facility] Comment on above: Performed By: #### C BC #### [facility] [address] [place] [address] Dr. Jorge Carrasco Hemoglobin (Bld) [Mass/Vol] 13.3 g/dL Normal 12.0-16.0 [facility] Comment on above: Performed By: #### C BC #### [facility] [address] [place] [address] Dr. Jorge Carrasco IG # 0.01 10e3/ul Normal 0.00-0.03 [facility] Comment on above: Performed By: #### C BC #### [facility] [address] [place] [address] Dr. Jorge Carrasco IG % 0.3 % Normal 0.0-0.5 [facility] Comment on above: Performed By: #### C BC #### [facility] [address] [place] [address] Dr. Jorge Carrasco LYMPH # 1.0 103/ul Critically low 1.2-3.8 [facility] Comment on above: Performed By: #### C BC #### [facility] [address] [place] [address] Dr. Jorge Carrasco Lymphocytes/100 WBC (Bld) 27.4 % Normal 20.5-60.0 [facility] Comment on above: Performed By: #### C BC #### [facility] [address] [place] [address] Dr. Jorge Carrasco MANUAL DIFF REQ NO Normal [facility] Comment on above: Performed By: #### C BC #### [facility] [address] [place] [address] Dr. Jorge Carrasco MCH (RBC) [Entitic mass] 28.0 pg Normal 26.7-34.0 [facility] Comment on above: Performed By: #### C BC #### [facility] [address] [place] [address] Dr. Jorge Carrasco MCHC (RBC) [Mass/Vol] 33.1 g/dL Normal 29.9-35.2 [facility] Comment on above: Performed By: #### C BC #### [facility] [address] [place] [address] Dr. Jorge Carrasco MCV (RBC) [Entitic vol] 84.6 fL Normal 81.0-99.0 [facility] Comment on above: Performed By: #### C BC #### [facility] [address] [place] [address] Dr. Jorge Carrasco MONO # 0.2 103/ul Critically low 0.3-0.8 [facility] Comment on above: Performed By: #### C BC #### [facility] [address] [place] [address] Dr. Jorge Carrasco Monocytes/100 WBC (Bld) 5.1 % Normal 1.7-12.0 [facility] Comment on above: Performed By: #### C BC #### [facility] [address] [place] [address] Dr. Jorge Carrasco NEUT # 2.4 103/ul Normal 1.4-6.5 [facility] Comment on above: Performed By: #### C BC #### [facility] [address] [place] [address] Dr. Jorge Carrasco Neutrophils/100 WBC (Bld) 63.5 % Normal 43.0-75.0 [facility] Comment on above: Performed By: #### C BC #### [facility] [address] [address] [address] Jorge Carrasco Platelet mean volume (Bld) [Entitic vol] 10.8 fL Normal 9.5-13.5 [facility] Comment on above: Performed By: #### C BC #### [facility] [address] [address] [address] Jorge Carrasco PLT 263 103/ul Normal 150-450 [facility] Comment on above: Performed By: #### C BC #### [facility] [address] [address] [address] Jorge Carrasco RBC 4.75 106/ul Normal 4.20-5.40 [facility] Comment on above: Performed By: #### C BC #### [facility] [address] [address] [address] Jorge Carrasco WBC 3.7 103/ul Critically low 4.0-11.0 [facility] Comment on above: Performed By: #### C BC #### [facility] [address] [place] [address] Dr. Jorge Carrasco FREE T3on 02-02-2023 FREE T3 3.11 pg/mlL Normal 2.18-3.98 [facility] Comment on above: Performed By: #### L IPID, TSH, FT3, CMP #### [facility] [address] [address] [address] Jorge Carrasco GLYCOHEMOGLOBIN A1Con 2022 ADA RECOMMENDATION SEE BELOW Normal [facility] Comment on above: Result Comment: ADA RECOMMENDED LIMIT 4.0 - 6.0 ADA THERAPEUTIC TARGET < 7.0 ACTION SUGGESTED > 7.0 Performed By: #### A 1C #### [facility] [address] [address] [address] Jorge Carrasco Glucose [Mass/Vol] 189 mg/dL Normal [facility] Comment on above: Performed By: #### A 1C #### [facility] [address] [place] [address] Dr. Jorge Carrasco HbA1c (Bld) [Mass fraction] 8.2 % Critically high 4.5-6.2 [facility] Comment on above: Performed By: #### A 1C #### [facility] [address] [address] [address] Jorge Carrasco LIPID PROFILEon 02-02-2023 CHOL-HDL RATIO NORM SEE BELOW Normal [facility] Comment on above: Result Comment: 3.3 - 4.4 LOW RISK 4.4 - 7.1 AVERAGE RISK 7.1 - 11.0 MODERATE RISK >11.0 HIGH RISK Performed By: #### L IPID, TSH, FT3, CMP #### [facility] [address] [address] [address] Jorge Carrasco Cholesterol [Mass/Vol] 245 mg/dL Critically high <=200 [facility] Comment on above: Performed By: #### L IPID, TSH, FT3, CMP #### [facility] [address] [address] [address] Jorge Carrasco Cholesterol in HDL [Mass/Vol] 61 mg/dL Critically high 40-60 [facility] Comment on above: Performed By: #### L IPID, TSH, FT3, CMP #### [facility] [address] [address] [address] Jorge Carrasco Cholesterol in LDL [Mass/Vol] 156.2 mg/dL Normal [facility] Comment on above: Performed By: #### L IPID, TSH, FT3, CMP #### [facility] [address] [address] [address] Jorge Carrasco Cholesterol.total/Ch olesterol in HDL [Mass ratio] 4.0 {ratio} Normal [facility] Comment on above: Performed By: #### L IPID, TSH, FT3, CMP #### [facility] [address] [address] [address] Jorge Carrasco HDL NORMAL > or = 60 mg/dl - LO W CARDIOVASCULAR RISK <40 mg/dl - HIGH CARDIOVASCULAR RISK Normal [facility] Comment on above: Performed By: #### L IPID, TSH, FT3, CMP #### [facility] [address] [address] [address] Jorge Carrasco LDL CALC NORMAL SEE BELOW Normal [facility] Comment on above: Result Comment: <100 mg/dl OPTIMAL 100 - 129 mg/dl NEAR OR ABOVE OPTIMAL 130 - 159 mg/dl BORDERLINE HIGH 160 - 189 mg/dl HIGH >190 mg/dl VERY HIGH Performed By: #### L IPID, TSH, FT3, CMP #### [facility] [address] [address] [address] Jorge Carrasco Triglyceride [Mass/Vol] 139 mg/dL Normal <=150 [facility] Comment on above: Performed By: #### L IPID, TSH, FT3, CMP #### [facility] [address] [address] [address] Jorge Carrasco VLDL CALC 27.8 mg/dL Normal [facility] Comment on above: Performed By: #### L IPID, TSH, FT3, CMP #### [facility] [address] [place] [address] Dr. Jorge Carrasco MICROALBUMIN, RAND URon 050 mALB 1.5 mg/L Normal <=30.0 [facility] Comment on above: Performed By: #### M ALBR #### [facility] [address] [address] [address] Jorge Carrasco PROF 14(COMP METB)on 023 Albumin [Mass/Vol] 3.5 g/dL Normal 3.4-5.0 [facility] Comment on above: Performed By: #### L IPID, TSH, FT3, CMP #### [facility] [address] [address] [address] Jorge Carrasco Albumin/Globulin [Mass ratio] 0.7 {ratio} Normal [facility] Comment on above: Performed By: #### L IPID, TSH, FT3, CMP #### [facility] [address] [address] [address] Jorge Carrasco ALP [Catalytic activity/Vol] 127 U/L Critically high 46-116 [facility] Comment on above: Performed By: #### L IPID, TSH, FT3, CMP #### [facility] [address] [address] [address] Jorge Carrasco ALT [Catalytic activity/Vol] 24 U/L Normal 14-59 [facility] Comment on above: Performed By: #### L IPID, TSH, FT3, CMP #### [facility] [address] [address] [address] Jorge Carrasco Anion gap [Moles/Vol] 11.5 mmol/L Normal [facility] Comment on above: Performed By: #### L IPID, TSH, FT3, CMP #### [facility] [address] [place] [address] Dr. Jorge Carrasco AST [Catalytic activity/Vol] 16 U/L Normal 15-37 [facility] Comment on above: Performed By: #### L IPID, TSH, FT3, CMP #### [facility] [address] [address] [address] Jorge Carrasco Bilirubin [Mass/Vol] 0.3 mg/dL Normal 0.2-1.0 [facility] Comment on above: Performed By: #### L IPID, TSH, FT3, CMP #### [facility] [address] [place] [address] Dr. Jorge Carrasco Calcium [Mass/Vol] 9.8 mg/dL Normal 8.5-10.1 [facility] Comment on above: Performed By: #### L IPID, TSH, FT3, CMP #### [facility] [address] [place] [address] Dr. Jorge Carrasco Chloride [Moles/Vol] 99 mmol/L Normal 98-107 [facility] Comment on above: Performed By: #### L IPID, TSH, FT3, CMP #### [facility] [address] [address] [address] Jorge Carrasco CO2 [Moles/Vol] 29.4 mmol/L Normal 21.0-32.0 [facility] Comment on above: Performed By: #### L IPID, TSH, FT3, CMP #### [facility] [address] [address] [address] Jorge Carrasco Creatinine [Mass/Vol] 0.72 mg/dL Normal 0.55-1.02 [facility] Comment on above: Performed By: #### L IPID, TSH, FT3, CMP #### [facility] [address] [place] [address] Dr. Jorge Carrasco EGFR-AF DUTCH >60 Normal >=60 [facility] Comment on above: Performed By: #### L IPID, TSH, FT3, CMP #### [facility] [address] [place] [address] Dr. Jorge Carrasco EGFR-NON AF DUTCH >60 Normal >=60 [facility] Comment on above: Performed By: #### L IPID, TSH, FT3, CMP #### [facility] [address] [place] [address] Dr. Jorge Carrasco Globulin (S) [Mass/Vol] 4.9 g/dL Normal [facility] Comment on above: Performed By: #### L IPID, TSH, FT3, CMP #### [facility] [address] [place] [address] Dr. Jorge Carrasco Glucose [Mass/Vol] 185 mg/dL Critically high 74-106 [facility] Comment on above: Performed By: #### L IPID, TSH, FT3, CMP #### [facility] [address] [place] [address] Dr. Jorge Carrasco Potassium [Moles/Vol] 3.9 mmol/L Normal 3.5-5.1 [facility] Comment on above: Performed By: #### L IPID, TSH, FT3, CMP #### [facility] [address] [place] [address] Dr. Jorge Carrasco Protein [Mass/Vol] 8.4 g/dL Critically high 6.4-8.2 [facility] Comment on above: Performed By: #### L IPID, TSH, FT3, CMP #### [facility] [address] [place] [address] Dr. Jorge Carrasco Sodium [Moles/Vol] 136 mmol/L Normal 136-145 [facility] Comment on above: Performed By: #### L IPID, TSH, FT3, CMP #### [facility] [address] [place] [address] Dr. Jorge Carrasco Urea nitrogen [Mass/Vol] 17.0 mg/dL Normal 7.0-18.0 [facility] Comment on above: Performed By: #### L IPID, TSH, FT3, CMP #### [facility] [address] [place] [address] Dr. Jorge Carrasco Urea nitrogen/Creatinine [Mass ratio] 23.6 mg/mg Normal [facility] Comment on above: Performed By: #### L IPID, TSH, FT3, CMP #### [facility] [address] [place] [address] Dr. Jorge Carrasco TSHon 02-02-2023 TSH 3.092 uIU/mL Normal 0.358-3.740 [facility] Comment on above: Performed By: #### L IPID, TSH, FT3, CMP #### [facility] [address] [place] [address] Dr. Jorge Carrasco APTTon 03-31-2019 aPTT Coag (Bld) [Time] 23.1 s Low 23.2-34.4 [facility] Comment on above: Performed By: #### P T, BMPX, BNP, DIME, CDP, PTT, TROPI #### [facility] [address] [place] [address] Dr. [place], [facility]83 Auto Motor Mechanic: Crispin Perez MD Basic Metab w/rfx MGon 03-31 (cont.) Normal [facility] Comment on above: Result Comment: Aver age GFR for 60-69 years old: 85 mL/min/1.73sq m Chronic Kidney Disease: <60 mL/min/1.73sq m Kidney failure: <15 mL/min/1.73sq m eGFR calculated using average adult body mass. Additional eGFR calculator available at: http://[email or web address]/multiple_crcl_2012.htm Performed By: #### P T, BMPX, BNP, DIME, CDP, PTT, TROPI #### [facility] [address] [place] [address] Auto Motor Mechanic: Crispin Perez MD Anion gap [Moles/Vol] 11 mmol/L Normal 9-17 [facility] Comment on above: Performed By: #### P T, BMPX, BNP, DIME, CDP, PTT, TROPI #### [facility] [address] [place] [address] Auto Motor Mechanic: Crispin Peerz MD BUN/CRE Ratio 21 High 9-20 [facility] Comment on above: Performed By: #### P T, BMPX, BNP, DIME, CDP, PTT, TROPI #### [facility] [address] [place] [address] Auto Motor Mechanic: Crispin Perez MD Calcium [Mass/Vol] 9.1 mg/dL Normal 8.6-10.4 [facility] Comment on above: Performed By: #### P T, BMPX, BNP, DIME, CDP, PTT, TROPI #### [facility] [address] [place] [address] Auto Motor Mechanic: Crispin Perez MD Chloride [Moles/Vol] 103 mmol/L Normal 98-107 [facility] Comment on above: Performed By: #### P T, BMPX, BNP, DIME, CDP, PTT, TROPI #### [facility] [address] [place], [place] [id number] Auto Motor Mechanic: Crispin Perez MD CO2 [Moles/Vol] 26 mmol/L Normal 20-31 [facility] Comment on above: Performed By: #### P T, BMPX, BNP, DIME, CDP, PTT, TROPI #### [facility] [address] [place] [address] Auto Motor Mechanic: Crispin Perez MD Creatinine [Mass/Vol] 0.67 mg/dL Normal 0.50-0.90 [facility] Comment on above: Performed By: #### P T, BMPX, BNP, DIME, CDP, PTT, TROPI #### [facility] [address] [place], [place] [id number] Auto Motor Mechanic: Crispin Perez MD GFR, Amer >60 Normal >60 [facility] Comment on above: Performed By: #### P T, BMPX, BNP, DIME, CDP, PTT, TROPI #### [facility] [address] [place], [place] [id number] Auto Motor Mechanic: Crispin Perez MD GFR,non Amer >60 Normal >60 [facility] Comment on above: Performed By: #### P T, BMPX, BNP, DIME, CDP, PTT, TROPI #### [facility] [address] [place], [place] [id number] Auto Motor Mechanic: Crispin Perez MD Glucose [Mass/Vol] 171 mg/dL High 70-99 [facility] Comment on above: Performed By: #### P T, BMPX, BNP, DIME, CDP, PTT, TROPI #### [facility] [address] [place] [address] Auto Motor Mechanic: Crispin Perez MD Potassium [Moles/Vol] 4.2 mmol/L Normal 3.7-5.3 [facility] Comment on above: Performed By: #### P T, BMPX, BNP, DIME, CDP, PTT, TROPI #### [facility] [address] [place], [place] [phone] Auto Motor Mechanic: Crispin Perez MD Sodium [Moles/Vol] 140 mmol/L Normal 135-144 [facility] Comment on above: Performed By: #### P T, BMPX, BNP, DIME, CDP, PTT, TROPI #### [facility] [address] [place] [address] Auto Motor Mechanic: Crispin Perez MD Staging: Normal [facility] Comment on above: Result Comment: Stag e [...] [facility] [address] [place] [address] Auto Motor Mechanic: Crispin Perez MD Urea nitrogen [Mass/Vol] 14 mg/dL Normal 8-23 [facility] Comment on above: Performed By: #### P T, BMPX, BNP, DIME, CDP, PTT, TROPI #### [facility] [address] [place] [address] Auto Motor Mechanic: Crispin Perez MD Brain Natri. Peptideon 03-31 Natriuretic peptide B (Bld) [Mass/Vol] Pro-BNP Reference Range: Normal [facility] Comment on above: Result Comment: Rule Out: <300 Jansen Zone: Age <50 300-450 Age 50-75 300-900 Age >75 300-1800 Usually represents mild to moderate HF but other cardiopulmonary causes cannot be ruled out. Rule In: Age <50 >450 Age 50-75 >900 Age >75 >1800 Performed By: #### P T, BMPX, BNP, DIME, CDP, PTT, TROPI #### [facility] [address] [place] [address] Auto Motor Mechanic: Crispin Perez MD Natriuretic peptide B (Bld) [Mass/Vol] 158 pg/mL Normal <300 [facility] Comment on above: Result Comment: Pro- BNP results cannot be compared to BNP results. Performed By: #### P T, BMPX, BNP, DIME, CDP, PTT, TROPI #### [facility] [address] [place] [address] Auto Motor Mechanic: Crispin Perez MD CBC with Diffon 03-31-2019 Abs. Basophil 0.03 k/uL Normal 0.00-0.20 [facility] Comment on above: Performed By: #### P T, BMPX, BNP, DIME, CDP, PTT, TROPI #### [facility] [address] [place] [address] Auto Motor Mechanic: Crispin Perez MD Abs.Imm.Granulocyte <0.03 Normal 0.00-0.30 [facility] Comment on above: Performed By: #### P T, BMPX, BNP, DIME, CDP, PTT, TROPI #### [facility] [address] [place] [address] Auto Motor Mechanic: Crispin Perez MD Abs.Neutrophil (Seg) 3.28 k/uL Normal 1.50-8.10 [facility] Comment on above: Performed By: #### P T, BMPX, BNP, DIME, CDP, PTT, TROPI #### [address] [place] [address] Auto Motor Mechanic: Crispin Perez MD Basophils/100 WBC (Bld) 1 % Normal 0-2 [facility] Comment on above: Performed By: #### P T, BMPX, BNP, DIME, CDP, PTT, TROPI #### [address] [place] [address] Auto Motor Mechanic: Crispin Perez MD Eosinophils (Bld) [#/Vol] 0.22 10*3/uL Normal 0.00-0.44 [facility] Comment on above: Performed By: #### P T, BMPX, BNP, DIME, CDP, PTT, TROPI #### [address] [place], [place] [address] Auto Motor Mechanic: Crispin Perez MD Eosinophils/100 WBC (Bld) 4 % Normal 1-4 [facility] Comment on above: Performed By: #### P T, BMPX, BNP, DIME, CDP, PTT, TROPI #### [address] [place] [id number] Auto Motor Mechanic: Crispin Perez MD Erythrocyte distribution width (RBC) [Ratio] 14.4 % Normal 11.8-14.4 [facility] Comment on above: Performed By: #### P T, BMPX, BNP, DIME, CDP, PTT, TROPI #### [facility] [address] [place] [phone] Auto Motor Mechanic: Crispin Perez MD Hematocrit (Bld) [Volume fraction] 25.9 % Low 36.3-47.1 [facility] Comment on above: Performed By: #### P T, BMPX, BNP, DIME, CDP, PTT, TROPI #### [facility] [address] [place] [address] Auto Motor Mechanic: Crispin Perez MD Hemoglobin (Bld) [Mass/Vol] 8.3 g/dL Low 11.9-15.1 [facility] Comment on above: Performed By: #### P T, BMPX, BNP, DIME, CDP, PTT, TROPI #### [facility] [address] [place] [address] Dr. [place], [place] [address] Auto Motor Mechanic: Crispin Perez MD Immature granulocytes (Bld) [#/Vol] 0 % Normal 0 [facility] Comment on above: Performed By: #### P T, BMPX, BNP, DIME, CDP, PTT, TROPI #### [facility] [address] [place], [place] [address] Auto Motor Mechanic: Crispin Perez MD Lymphocytes (Bld) [#/Vol] 1.08 10*3/uL Low 1.10-3.70 [facility] Comment on above: Performed By: #### P T, BMPX, BNP, DIME, CDP, PTT, TROPI #### [facility] [address] [place] [phone] Auto Motor Mechanic: Crispin Perez MD Lymphocytes/100 WBC (Bld) 22 % Low 24-43 [facility] Comment on above: Performed By: #### P T, BMPX, BNP, DIME, CDP, PTT, TROPI #### [facility] [address] [place] [address] Auto Motor Mechanic: Crispin Perez MD MCH (RBC) [Entitic mass] 28.7 pg Normal 25.2-33.5 [facility] Comment on above: Performed By: #### P T, BMPX, BNP, DIME, CDP, PTT, TROPI #### [facility] [address] [place] [phone] Auto Motor Mechanic: Crispin Perez MD [facility] (RBC) [Mass/Vol] 32.0 g/dL Normal 28.4-34.8 [facility] Comment on above: Performed By: #### P T, BMPX, BNP, DIME, CDP, PTT, TROPI #### [address] [place] [facility]83 Auto Motor Mechanic: Crispin Perez MD MCV (RBC) [Entitic vol] 89.6 fL Normal 82.6-102.9 [facility] Comment on above: Performed By: #### P T, BMPX, BNP, DIME, CDP, PTT, TROPI #### [address] [place] [phone] Auto Motor Mechanic: Crispin Perez MD Monocytes (Bld) [#/Vol] 0.39 10*3/uL Normal 0.10-1.20 [facility] Comment on above: Performed By: #### P T, BMPX, BNP, DIME, CDP, PTT, TROPI #### [facility] [address] [place] [address] Auto Motor Mechanic: Crispin Perez MD Monocytes/100 WBC (Bld) 8 % Normal 3-12 [facility] Comment on above: Performed By: #### P T, BMPX, BNP, DIME, CDP, PTT, TROPI #### [facility] [address] [place], [place] [phone] Auto Motor Mechanic: Crispin Perez MD Neutrophil (Seg) 65 % Normal 36-65 [facility] Comment on above: Performed By: #### P T, BMPX, BNP, DIME, CDP, PTT, TROPI #### [facility] [address] [place] [address] Auto Motor Mechanic: Crispin Perez MD NRBC Automated 0.0 per 100 WBC Normal 0.0 [facility] Comment on above: Performed By: #### P T, BMPX, BNP, DIME, CDP, PTT, TROPI #### [facility] [address] [place] [address] Auto Motor Mechanic: Crispin Perez MD Platelet mean volume (Bld) [Entitic vol] 11.1 fL Normal 8.1-13.5 [facility] Comment on above: Performed By: #### P T, BMPX, BNP, DIME, CDP, PTT, TROPI #### [facility] [address] [place], [place] [id number] Auto Motor Mechanic: Crispin Perez MD Platelets (Bld) [#/Vol] 226 10*3/uL Normal 138-453 [facility] Comment on above: Performed By: #### P T, BMPX, BNP, DIME, CDP, PTT, TROPI #### [facility] [address] [place], [facility]83 Auto Motor Mechanic: Crispin Perez MD RBC (Bld) [#/Vol] 2.89 10*6/uL Low 3.95-5.11 [facility] Comment on above: Performed By: #### P T, BMPX, BNP, DIME, CDP, PTT, TROPI #### [facility] [address] [place] [address] Auto Motor Mechanic: Crispin Perez MD WBC (Bld) [#/Vol] 5.0 10*3/uL Normal 3.5-11.3 [facility] Comment on above: Performed By: #### P T, BMPX, BNP, DIME, CDP, PTT, TROPI #### [facility] [address] [place] [address] Auto Motor Mechanic: Crispin Perez MD Auto Diff Performed NOT REPORTED Normal [facility] Comment on above: Performed By: #### P T, BMPX, BNP, DIME, CDP, PTT, TROPI #### [address] [place] [address] Auto Motor Mechanic: Crispin Perez MD Platelets (Bld) [#/Vol] NOT REPORTED Normal [facility] Comment on above: Performed By: #### P T, BMPX, BNP, DIME, CDP, PTT, TROPI #### [address] [place] [address] Auto Motor Mechanic: Crispin Perez MD RBC morphology finding Nom (Bld) NOT REPORTED Normal [facility] Comment on above: Performed By: #### P T, BMPX, BNP, DIME, CDP, PTT, TROPI #### [address] [place] [phone] Auto Motor Mechanic: Crispin Perez MD WBC Morphology NOT REPORTED Normal [facility] Comment on above: Performed By: #### P T, BMPX, BNP, DIME, CDP, PTT, TROPI #### [address] [place] [phone] Auto Motor Mechanic: Crispin Perez MD CT CHEST PULMONARY EMBOLISM [...] Armin Cruz MD 03/31/19 Final result Normal [facility] D-Dimer Teston 03-31-2019 D-Dimer Test 5.40 mg/L FEU High 0.19-0.50 [facility] Comment on above: Result Comment: Elevated [...] [facility] [address] [place] [address] Auto Motor Mechanic: Crispin Perez MD PTon 03-31-2019 INR Coag (PPP) [Relative time] 1.0 {INR} Normal 0.9-1.2 [facility] Comment on above: Performed By: #### P T, BMPX, BNP, DIME, CDP, PTT, TROPI #### [facility] [address] [place] [address] Auto Motor Mechanic: Crispin Perez MD PT Coag (PPP) [Time] 10.2 s Normal 9.7-12.2 [facility] Comment on above: Performed By: #### P T, BMPX, BNP, DIME, CDP, PTT, TROPI #### [facility] [address] [place] [address] Auto Motor Mechanic: Crispin Perez MD Troponinon 03-31-2019 Troponin I.cardiac [Mass/Vol] Normal [facility] Comment on above: Result Comment: Refe rence [...] [facility] [address] [place] [phone] Auto Motor Mechanic: Crispin Perez MD Troponin I.cardiac [Mass/Vol] ng/mL Normal <0.03 [facility] Comment on above: Result Comment: Trop onin T results cannot be compared to Troponin-I results. Performed By: #### T ROPI #### [facility] [address] [place] [phone] Auto Motor Mechanic: Crispin Perez MD Troponin I.cardiac [Mass/Vol] NOT REPORTED Normal 0-14 [facility] Comment on above: Performed By: #### T ROPI #### [facility] [address] [place], [facility]83 Auto Motor Mechanic: Crispin Perez MD Troponin I.cardiac [Mass/Vol] Normal [facility] Comment on above: Result Comment: Refe rence [...] [facility] [address] [place] [address] Auto Motor Mechanic: Crispin Perez MD Troponin I.cardiac [Mass/Vol] ng/mL Normal <0.03 [facility] Comment on above: Result Comment: Trop onin T results cannot be compared to Troponin-I results. Performed By: #### P T, BMPX, BNP, DIME, CDP, PTT, TROPI #### [facility] [address] [place] [address] Auto Motor Mechanic: Crispin Perez MD Troponin I.cardiac [Mass/Vol] NOT REPORTED Normal 0-14 [facility] Comment on above: Performed By: #### P T, BMPX, BNP, DIME, CDP, PTT, TROPI #### [facility] [address] [place] [address] Auto Motor Mechanic: Crispin Perez MD XR CHEST PORTABLEon 03-31-20 [...] Monty Orozco MD 03/31/19 Final result Normal [facility] KNEE RIGHT 3 [facility] 9 KNEE RIGHT 3 [facility] Department of Radiology [address] [place] [address] ======== Patient Name: JACOBO WATKINS : 1955 Sex: F Age: Race: White Pt. Location: 84 Patient Status: O Ordered Date: 02/07/2019 10:30:00 AM Completed Date: 02/07/2019 10:33 AM Requesting Provider: STEPHANIE GORDON Attending Provider: STEPHANIE GORDON Report Copy To: SHIN RODRIGUEZ Signs & Symptoms: M17.9 Osteoarthritis of knee, unspecified I10 History: Jojo Comments: , , , Ordering Provider - STEPHANIE GORDON MD , Exam: KNEE RIGHT 3 VWS ======== KNEE RIGHT 3 VWS 02/07/2019 10:33 [...] prior Electronically signed by:Kamar Sanchez. Transcribed by: [email or web address], User Resident: Electronically Signed by: KAMAR SANCHEZ @ 02/07/2019 02:21 PM Normal [facility] Comment on above: Order Comment: , , = ========= , Ordering Provider - STEPHANIE GORDON MD , Vital Signs Date Time Vital Sign Value Performing Clinician Faci lity 06-03-2025 11:01-0400 Body height 157.48 cm Neha Goodmanbrett CIRCLE CUTTING SAW OPERATOR Work Phone: [facility] 06-03-2025 11:01-0400 Body mass index (BMI) [Ratio] 36.7 kg/m2 Neha Goodmanbrett CIRCLE CUTTING SAW OPERATOR Work Phone: [facility] 06-03-2025 11:01-0400 Body temperature 97.8 [degF] Neha Tom CIRCLE CUTTING SAW OPERATOR Work Phone: [facility] 06-03-2025 11:01-0400 Body weight 91.17 kg Neha Cidvaishali CIRCLE CUTTING SAW OPERATOR Work Phone: [facility] 06-03-2025 11:01-0400 Diastolic blood pressure 80 mm[Hg] Neha Tom CIRCLE CUTTING SAW OPERATOR Work Phone: [facility] 06-03-2025 11:01-0400 Heart rate 73 /min Neha Goodmanbrett CIRCLE CUTTING SAW OPERATOR Work Phone: [facility] 06-03-2025 11:01-0400 SaO2% (BldA) [Mass fraction] 94 % Neha Goodmanbrett CIRCLE CUTTING SAW OPERATOR Work Phone: [facility] 06-03-2025 11:01-0400 Systolic blood pressure 160 mm[Hg] Neha Tom CIRCLE CUTTING SAW OPERATOR Work Phone: [facility] 11-14-2023 12:41-0500 Blood Pressure Location Karrie Orzech [facility] 11-14-2023 12:41-0500 Diastolic blood pressure 82 mm[Hg] Karrie Orzech [facility] 11-14-2023 12:41-0500 Heart rate 65 /min Karrie Orzech [facility] 11-14-2023 12:41-0500 Respiratory rate 16 /min Karrie Taylor [facility] 11-14-2023 12:41-0500 Systolic blood pressure 133 mm[Hg] Karrie Taylor [facility] Encounters Encounter Date Encounter Type Care Provider Facility Start: 06-26-2025 End: 06-26-2025 ambulatory Neha Santos APRN [facility] Phone: [facility] Work Phone: Start: 06-26-2025 End: 06-26-2025 Patient encounter procedure Gavin Villarreal DO -[facility] Work Phone: Start: 06-03-2025 End: 06-03-2025 ambulatory Neha Santos APRN Work Phone: [facility] Work Phone: Start: 06-03-2025 End: 06-03-2025 Patient encounter procedure Neha Santos APRN [employer] SUPERVISOR -[facility] Work Phone: Start: 04-17-2025 End: 04-17-2025 ambulatory [facility] Start: 04-17-2024 End: 04-17-2024 ambulatory ANITA SAVAGE Not Available Start: 02-13-2024 End: 02-14-2024 ambulatory PA-Maranda ARENAS Facility:[facility] Start: 02-13-2024 End: 02-13-2024 Patient encounter procedure NEHA ARENAS [facility] Start: 02-05-2024 End: 02-06-2024 ambulatory Noble Reese MD Facility:[facility] Start: 01-15-2024 End: 01-16-2024 ambulatory Noble Reese MD Facility:[facility] Start: 12-04-2023 End: 12-04-2023 ambulatory AMANDA Rakesh DAY Not Available Start: 11-29-2023 End: 01-23-2024 Pre-admission assessment David Abdullahi CLEMENT [facility] Start: 11-14-2023 End: 11-15-2023 ambulatory Karrie X Orzech Facility:[facility] Start: 11-14-2023 End: 11-14-2023 Patient encounter procedure Karrie X Orzech [facility] Start: 10-24-2023 End: 10-25-2023 ambulatory PA-C NEHA ARENAS [facility] Start: 10-24-2023 End: 10-24-2023 Patient encounter procedure NEHA ARENAS [facility] Start: 07-11-2023 End: 07-12-2023 ambulatory PA-C NEHA ARENAS Facility:[facility] Start: 07-10-2023 End: 07-11-2023 ambulatory Noble Reese MD Facility:[facility] Start: 06-26-2023 End: 06-27-2023 ambulatory Noble Reese MD Facility:[facility] Start: 03-01-2023 ambulatory GUILLAUME SHAMMO Facility:[facility] Start: 02-15-2023 ambulatory GUILLAUME SHAMMO Facility:[facility] Start: 02-08-2023 Encounter for genera l adult medical examination without abnormal findings [facility] Start: 02-02-2023 End: 02-03-2023 ambulatory GUILLAUME SHAMMO Facility:[facility] Start: 02-02-2023 End: 02-03-2023 Encounter for general adult medical examination without abnormal findings GUILLAUME KNICKERBOCKER [facility] Facility[facility] Start: 01-06-2023 ambulatory GUILLAUME SHAMMO Facility:H 1 Start: 12-29-2022 ambulatory GUILLAUME SHAMMO Facility:H 1 Start: 07-15-2022 ambulatory GUILLAUME SHAMMO Facility:H 1 Start: 07-01-2022 ambulatory GUILLAUME SHAMMO Facility:H 1 Start: 03-31-2019 Emergency department patient visit SHANIQUE WINTER [facility] Procedures Date Procedure Procedure Detail Performing Clinician Start: 03-31-2019 Ct thorax w/contrast material SHANIQUE WINTER Start: 03-31-2019 Radiologic exam ches t single view SHANIQUE WINTER Start: 03-31-2019 Assay of troponin quantitative SHANQIUE WINTER Start: 03-31-2019 Blood count complete auto&auto difrntl wbc SHANIQUE WINTER Start: 03-31-2019 BRAIN NATRIURETIC PEPTIDE SHANIQUE WINTER Start: 03-31-2019 Comprehensive metabo lic panel SHANIQUE WINTER Start: 03-31-2019 Fibrin dgradj produc ts d-dimer quantitative SHANIQUE WINTER Start: 03-31-2019 Prothrombin time SHANIQUE WINTER Start: 03-31-2019 Thromboplastin time partial plasma/whole blood SHANIQUE WINTER Start: 03-31-2019 Ecg routine ecg w/le ast 12 lds w/i&r SHANQIUE WINTER Start: 03-31-2019 INSERT PERIPHERAL IV SC JUDD WINTER Start: 03-31-2019 NASAL CANNULA OXYGEN SC JUDD COUGHLINON Start: 03-31-2019 TELEMETRY MONITORING [place] JUDD WINTER Arthroplasty of knee LÓPEZFE R DAGOBERTO Arthroscopy of hip NEHA ARENAS Biopsy of breast NEHA PE RRY Decompression of med bin nerve NEHA ARENAS Hysterectomy NEHA ARENAS Plan of Treatment Date Care Activity Detail Author Start: 06-03-2025 Patient referral [facility] Work Phone: Comprehensive metabo lic 2000 panel - Serum or Plasma [facility] DXA Skeletal system. axial Views for bone density [facility] MG Breast - bilateral Screening [facility] Patient referral [facility] Work Phone: Thyroid gland [facility] XR Shoulder - right Views [facility] Payers Date Payer Category Payer Medicare [id number] 2023 Unknown 2023 Medicare [id number] 2022 Private Health Insurance 2018 Medicare [id number] 1959 Medicare [id number] 1959 Unknown [id number] 1957 Unknown [id number] 2.16.840.1.585648.3.579. 2.173 1957 Unknown [id number] 2.16.840.1.218688.3.579. 2.593 1957 Unknown [id number] 2.16.840.1.936328.3.579. 2.593 1957 Unknown [id number] 2.16.840.1.298801.3.579. 2.593 1957 Unknown [id number] 2.16.840.1.497995.3.579. 2.593 1957 Unknown [id number] 2.16.840.1.603391.3.579. 2.593 1957 Unknown [id number] 2.16.840.1.906619.3.579. 2.593 1957 Unknown [id number] 2.16.840.1.078286.3.579. 2.196 1957 Unknown [id number] 2.16.840.1.412961.3.579. 2.196 1957 Unknown [id number] 2.16.840.1.440717.3.579. 2.196 1957 Unknown [id number] 2.16.840.1.293496.3.579. 2.196 1957 Unknown [id number] 2.16.840.1.443269.3.579. 2.727 1957 Unknown [id number] 2.16.840.1.188034.3.579. 2.727 1957 Unknown [id number] 2.16.840.1.719410.3.579. 2.727 1957 Unknown [id number] 2.16.840.1.869178.3.579. 2.727 1957 Unknown [id number] 2.16.840.1.863457.3.579. 2.727 1957 Unknown [id number] 2.16.840.1.815460.3.579. 2.1259 1957 Unknown [id number] 2.16.840.1.756223.3.579. 2.1259 1957 Unknown [id number] 2.16.840.1.939061.3.579. 2.1259 1957 Unknown [id number] 2.16.840.1.642033.3.579. 2.1286 1957 Unknown [id number] 2.16.840.1.929660.3.579. 2.1286 Private Health Insurance [facility] [id number] Unknown [facility] [id number] Social History Date Type Detail Facility Start: 07-11-2023 End: 06-03-2025 Tobacco smoking status Never smoked tobacco (finding) [facility] Sex Assigned At Female [facility] Sex Female (finding) [facility] Start: 1955 Sex Assigned At Female F [facility] Functional Status Date Assessment Result Facility 11-14-2023 Functional Status N/A [facility] Evaluation note 09-02-2025 Note Date & Type Note Facility 06-03-2025 Evaluation note Diagnosis Onset Date Resolution Anterolisthesis of lumbar spine acute June 03 10:53am Class 2 obesity with body mass index (BMI) of 36.0 to 36.9 in adult acute June 03, 2025 10:53am GERD (gastroesophageal reflux disease) acute June 03 10:53am High cholesterol acute Septembe r 2024 10:53am History of thyroid nodule acute June 03, 2025 10:53am Hypertension acute June 10:53am Incontinence acute June 10:53am Injury of right shoulder acute June 03, 2025 10:53am Lumbar spondylosis acute 2024 10:53am Overactive bladder acute 2024 10:53am Post-menopausal acute June 03, 2025 10:53am Right shoulder pain acute June mber 2024 10:53am Sacroiliac inflammation acute S eptember 2024 10:53am Screening for colon cancer acute June 03 10:53am Screening for osteoporosis acute June 03 10:53am Screening mammogram for breast cancer June 03 10:53am Type 2 diabetes mellitus acute June 03, 2025 10:53am Primary osteoarthritis, right shoulder acute June 26, 2025 9:16am [facility] Work Phone: Hospital Discharge instructions 11-14-2023 Note Date & [...] provider. Document Revised: 01/27/2022 Document Reviewed: 01/27/2022 [employer] Patient Education 2022 [employer] 11/14/2023 15:56:08 Urinary Incontinence Urinary Incontinence Urinary [...] nerve stimulation). ?For women, using a medical accountant to prevent urine leaks. This is a [...] right after experiencing incontinence. General instructions Take kfvl-jug-kdkaoch and prescription medicines only as told by [...] important. Where to find more information [place] of Diabetes and Digestive and Kidney Diseases: www.niddk.nih.gov [place] [employer]: www.urologyhealth.org Contact a health care [...] provider. Document Revised: 04/23/2021 Document Reviewed: 04/23/2021 [employer] Patient Education 2022 [employer]. [facility] Clinical Note 07-11-2023 Note Date & [...] With When Contact Information NEHA ARENAS PA-C, TERRIL In 3 months [address] [place] [address] Additional Instructions: Patient Education Kegel Isamar I, Stephanie Cleary, personally scribed for Neha Arenas PA-C on 07/11/2023 11:02:55. . Documentation recorded by the scrjonnie Cleary accurately reflects the services(s) I performed and decisions made by me. Authenticated by Neha Arenas PA-C on 07/11/2023 11:32:30. Problem List/Past Medical History Ongoing Anxiety Diabetes GERD (gastroesophageal reflux disease) HTN (hypertension) Hypercholesterolemia Mixed i (more content not included)... [facility] Comment on above: Result Comment: Elec tronically Signed By: NEHA ARENSA PA-C\.br\Date and Time Signed: 07/11/23 11:32 EDT\.br\Electronically Co-Signed By: Stephanie Cleary.br\Date and Time Co-Signed: 07/11/23 11:03 EDT Evaluation + Plan note Note Date & Type Note Facility Evaluation + Plan note No data available for this section [facility] Evaluation + Plan note Note Date & Type Note Facility Evaluation + Plan note Future Appointments Appointment Date:02/13/2024 10:00:00 AM Scheduled Provider:NEHA ARENAS PA-C Location:[facility] Appointment Type:URO Office Visit [facility] Evaluation note Note Date & Type Note Facility Evaluation note Diagnosis Onset Date Resolution Anterolisthesis of lumbar spine acute June 03 10:53am GERD (gastroesophageal reflux disease) acute June 03 10:53am High cholesterol acute Junembe r 2024 10:53am History of thyroid nodule acute June 03, 2025 10:53am Hypertension acute June 10:53am Lumbar spondylosis acute 2024 10:53am Overactive bladder acute 2024 10:53am Post-menopausal acute June 03, 2025 10:53am Sacroiliac inflammation acute S eptember 2024 10:53am Screening for osteoporosis acute June 03 10:53am Screening mammogram for breast cancer acute June 03 10:53am Type 2 diabetes mellitus acute June 03, 2025 10:53am [facility] Work Phone: Hospital Discharge instructions Note Date & Type Note Facility Hospital Discharge instructions No data available for this section [facility] Progress note Note Date & Type Note Facility Progress note No data available for this section [facility] Reason for referral (narrative) Note Date & Type Note Facility Reason for referral (narrative) No reason for referral information available [facility] Work Phone: Summary Purpose Family History Relationship Condition Age at Onset Recorded Date/T idmitris father Malignant neoplasm Unknown mother High blood cholesterol Unknown Heart disease Unknown Advance Directives Advance Directive Response Recorded Date/ Time Advance Directives No November 2:42pm Chief Complaint and Reason for Visit Chief Complaint Admit Date Establish care June 03, 2025 10:53am Reason for Visit Admit Date Anterolisthesis of lumbar spine [facility] 2024 10:53am GERD (gastroesophageal reflux disease) S [facility]2024 10:53am High cholesterol June 03, 2025 10:53am History of thyroid nodule June 03, 2025 10:53am Hypertension June 03, 2025 10:53am Lumbar spondylosis June 03, 2025 10:53am Overactive bladder June 03, 2025 10:53am Post-menopausal June 03, 2025 10:53am Sacroiliac inflammation June 03 10:53am Screening for osteoporosis June 10:53am Screening mammogram for breast cancer Se pt2024 10:53am Type 2 diabetes mellitus June 03, 2025 10:53am Chief Complaint Admit Date Establish care June 03, 2025 10:53am TB CONSULT NEHA SANTOS RT SHOUL BOBBY PAIN June 26, 2025 9:16am Reason for Visit Admit Date Anterolisthesis of lumbar spine [facility] 2024 10:53am Class 2 obesity with body ma ss index (BMI) of 36.0 to 36.9 in adult June 03, 2025 10:53am GERD (gastroesophageal reflux disease) S [facility] 2024 10:53am High cholesterol June 03, 2025 10:53am History of thyroid nodule June 03, 2025 10:53am Hypertension June 03, 2025 10:53am Incontinence June 03, 2025 10:53am Injury of right shoulder June 03, 2025 10:53am Lumbar spondylosis June 03, 2025 10:53am Overactive bladder June 03, 2025 10:53am Post-menopausal June 03, 2025 10:53am Right shoulder pain June 03, 2025 10:53am Sacroiliac inflammation June 03 10:53am Screening for colon cancer June 10:53am Screening for osteoporosis June 10:53am Screening mammogram for breast cancer Se pt2024 10:53am Type 2 diabetes mellitus June 03, 2025 10:53am Primary osteoarthritis, right shoulder S eptember 2024 9:16am Additional Source Comments INFORMATION SOURCE (unrecogn ized section and content) DATE CREATED AUTHOR 02/21/2019 [facility] DATE CREATED AUTHOR AUTHOR'S ORGANIZ ATION 04/04/2019 [facility] DATE CREATED AUTHOR AUTHOR'S ORGANIZ ATION 02/15/2023 [facility] DATE CREATED AUTHOR AUTHOR'S ORGANIZ ATION 02/11/2024 [facility] DATE CREATED AUTHOR AUTHOR'S ORGANIZ ATION 02/14/[address] [facility] DATE CREATED AUTHOR AUTHOR'S ORGANIZ ATION 04/20/2024 [facility] DATE CREATED AUTHOR AUTHOR'S ORGANIZ ATION 04/24/2025 [facility] Patient Care team informatio n (unrecognized section and content) Team Status: Active Member Role Status Dates Neha Santos APRN MARKETING COMMUNICATIONS ASSOCIATE-C Primary Care Provider Active Team Status: Inactive Member Role Status Dates Neha Santos APRN MARKETING COMMUNICATIONS ASSOCIATE-C Primary Care Provider Active Start: June 032024 End: June 03, 2025 Neha Santos APRN MARKETING COMMUNICATIONS ASSOCIATE-Maranda Attending Provider Active Start: June End: June 03, 2025 Team Status: Inactive Member Role Status Dates Neha Santos APRN MARKETING COMMUNICATIONS ASSOCIATE-C Primary Care Provider Active Start: June 032024 End: June 26, 2025 Gavin Villarreal DO Attending Provider Active St art: June 26, 2025 End: June 26, 2025 Goals (unrecognized section and content) Goals [...] BE BASED ON THE PRIMARY CLINICAL RECORDS. [facility]. provides no warranty or guarantee of the accuracy or completeness of information in this document.
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
--- NOTE | 2025-07-11 13:48 | CT_ITS ---
The [place] [id number] Patient Name: JACOBO SALAZAR MRN: [id number] date: 1955 Sex: F Assigned Patient Location: ED.MAIN Current Patient Location: ED.MAIN Accession/Order Number: [id number] Exam Date: 07/11/2025 14:24 Report Date: 07/11/2025 15:12 At the request of: PEG SUAREZ Procedure: CT cervical spine wo con CT CERVICAL SPINE WITHOUT CONTRAST WITH 3D RECONSTRUCTIONS: CLINICAL HISTORY: Fall COMPARISON: None TECHNIQUE: Spiral axial unenhanced images were obtained through the cervical spine. Sagittal, coronal and 3D volume-rendered reconstructions were also reviewed. This CT exam was performed using one or more following dose reduction techniques: Automated exposure control, adjustment of the mA and/or kV according to patient size, or use of iterative reconstruction technique. FINDINGS: No fracture. Endplate and facet joint degenerative changes without significant disc height loss. No prevertebral soft tissue swelling. Visualized lung apices demonstrate no acute findings. CT/CT cervical spine wo con IMPRESSION: NO CERVICAL SPINE FRACTURE Impression dictated by: Jabari White Jr., D.O. 07/11/2025 3:12 PM Dictation Location: [place] [address] Electronically authenticated by: [id number] Y Date: 07/11/2025 15:12
--- NOTE | 2025-07-11 13:48 | ECG_ITS ---
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 Measurements Intervals [place] Rate: 84 P: -22512 HI: 150 QRS: 47 QRSD: 84 T: 191 QT: 334 QTc: 375 Interpretive Statements Normal sinus rhythm with ventricular premature complexes Nonspecific ST & [place] abnormality 9150 abnormal ECG No previous ECG available for comparison Electronically Signed On 07-11-2025 20:06:43 EDT by LUCY GARRETT M.D.
--- NOTE | 2025-07-11 13:48 | CT_ITS ---
The [place] [id number] Patient Name: JACOBO SALAZAR MRN: [id number] date: 1955 Sex: F Assigned Patient Location: ED.MAIN Current Patient Location: ED.MAIN Accession/Order Number: [id number] Exam Date: 07/11/2025 14:24 Report Date: 07/11/2025 15:11 At the request of: PEG SUAREZ Procedure: CT head/brain wo con CT BRAIN WITHOUT CONTRAST: CLINICAL HISTORY: Fall, dizziness COMPARISON: None TECHNIQUE: Contiguous axial unenhanced images were obtained through the brain. This CT exam was performed using one or more following dose reduction techniques: Automated exposure control, adjustment of the mA and/or kV according to patient size, or use of iterative reconstruction technique. FINDINGS: There is no evidence of midline shift, intra or extra-axial fluid collection, hemorrhage or CT evidence of stroke. Cortical atrophy with chronic microvascular ischemic changes. Lacunar infarcts involving the thalamus bilaterally. Posterior fossa appears unremarkable. Visualized intraorbital contents demonstrate no acute findings. Mild ethmoid and sphenoid sinus disease. The surrounding soft tissues are normal. CT/CT head/brain wo con IMPRESSION: NO ACUTE INTRACRANIAL ABNORMALITY. Impression dictated by: Jabari White Jr., D.O. 07/11/2025 3:11 PM Dictation Location: [place] [address] Electronically authenticated by: [id number] Y Date: 07/11/2025 15:11
--- NOTE | 2025-07-11 13:49 | XR_ITS ---
The [place] [address] Patient Name: JACOBO SALAZAR MRN: [id number] date: 1955 Sex: F Assigned Patient Location: ED.MAIN Current Patient Location: ED.MAIN Accession/Order Number: [id number] Exam Date: 07/11/2025 14:24 Report Date: 07/11/2025 15:14 At the request of: PEG SUAREZ Procedure: XR wrist RT min 3V RIGHT WRIST - 3 views CLINICAL HISTORY: Abrasions, Fall COMPARISON: None FINDINGS: No focal soft tissue abnormality. No acute bony process is seen. Chondrocalcinosis involving the TFCC. Moderate degenerative changes involving the carpus worst at the CMC joint of the thumb. XR/XR wrist RT min 3V IMPRESSION: DEGENERATIVE CHANGES WITHOUT ACUTE BONY PROCESS. Impression dictated by: Jabari White Jr., D.O. 07/11/2025 3:14 PM Dictation Location: [place] [address] Electronically authenticated by: [id number] Y Date: 07/11/2025 15:14
--- NOTE | 2025-07-11 13:49 | XR_ITS ---
The [place] [id number] Patient Name: JACOBO SALAZAR MRN: [id number] date: 1955 Sex: F Assigned Patient Location: ED.MAIN Current Patient Location: ED.MAIN Accession/Order Number: [id number] Exam Date: 07/11/2025 14:24 Report Date: 07/11/2025 15:14 At the request of: PEG SUAREZ Procedure: XR elbow LT min 3V LEFT ELBOW - 3 views CLINICAL HISTORY: Abrasions, Fall COMPARISON: None FINDINGS: Normal joint effusion or acute bony process. Olecranon spurring. XR/XR elbow LT min 3V IMPRESSION: NO ACUTE BONY PROCESS. Impression dictated by: Jabari White Jr., D.O. 07/11/2025 3:14 PM Dictation Location: [place] [address] Electronically authenticated by: [id number] Y Date: 07/11/2025 15:14
--- NOTE | 2025-07-11 13:49 | XR_ITS ---
The [place] [id number] Patient Name: JACOBO SALAZAR MRN: [id number] date: 1955 Sex: F Assigned Patient Location: ED.MAIN Current Patient Location: ED.MAIN Accession/Order Number: [id number] Exam Date: 07/11/2025 14:24 Report Date: 07/11/2025 15:13 At the request of: PEG SUAREZ Procedure: XR shoulder RT min 2V RIGHT SHOULDER - - 3 views CLINICAL HISTORY: Ecchymosis, Fall COMPARISON: Right shoulder 06/26/2025 FINDINGS: Bones are grossly demineralized. Severe degenerative changes involving the glenohumeral joint without acute bony process. Mild degenerative changes involving the AC joint. XR/XR shoulder RT min 2V IMPRESSION: SEVERE DEGENERATIVE CHANGES WITHOUT ACUTE BONY PROCESS. Impression dictated by: Jabari White Jr., DMarielaOMariela 07/11/2025 3:13 PM Dictation Location: [place] [address] Electronically authenticated by: [id number] Y Date: 07/11/2025 15:13
[2025-07-11 14:10] LABS: Hematocrit 40.1 % (36.0-48.0); Hemoglobin 13.6 g/dL (12.0-16.0); Mean Corpuscular HGB Conc 33.9 g/dL (29.9-35.2); Mean Corpuscular Hemoglobin 29.9 pg (26.7-34.0); Mean Corpuscular Volume 88.1 fL (81.0-99.0); Platelet Count 297 10^3/uL (150-450); Red Blood Count 4.55 10^6/uL (4.20-5.40); White Blood Count 6.6 10^3/uL (4.0-11.0)
[2025-07-11 14:11] LABS: Glucose Urine UA NEGATIVE (NEGATIVE)
--- NOTE | 2025-07-11 14:13 | PC.NURSE ---
Left elbow and left forearm
--- NOTE | 2025-07-11 14:17 | PHOTOS ---
Right 5th digit
[2025-07-11] MEDS: 0.9 % SODIUM CHLORIDE 1,000 ML 125 ML IV (14:20)
[2025-07-11 14:29] LABS: Cast Seen? NONE SEEN #/LPF (NONE SEEN); Crystals Seen? None Seen #/HPF (None Seen); Urine Culture Indicated YES-FRMC
[2025-07-11 14:42] LABS: Alanine Aminotransferase 39 U/L (14-59); Albumin Globulin Ratio 0.8; Albumin Level 3.4 g/dL (3.4-5.0); Alkaline Phosphatase 100 U/L (46-116); Anion Gap 14.6; Aspartate Amino Transferase 28 U/L (15-37); Blood Urea Nitrogen 37.0 mg/dL (7.0-18.0); Calcium 10.1 mg/dL (8.5-10.1); Carbon Dioxide 24.6 mmol/L (21.0-32.0); Chloride 106 mmol/L (98-107); Estimated GFR (African America >60 (>=60 mL/min/1.73m^2); Estimated GFR (Non-African Ame 53 (>=60 mL/min/1.73m^2); Globulin 4.4 g/dL; Glucose 183 mg/dL (74-106); Potassium 4.2 mmol/L (3.5-5.1); Sodium 141 mmol/L (136-145); Total Protein 7.8 g/dL (6.4-8.2)
[2025-07-11 14:52] LABS: Basophils Abs Manual 0.00 10^3/uL (0.00-0.10); Basophils Percent Manual 0.0 % (0.2-2.0); Eosinophils Absolute Manual 0.00 10^3/uL (0.00-0.70); Eosinophils Percent Manual 0.0 % (0.9-7.0); Lymphocytes Absolute Manual 0.52 10^3/uL (1.20-3.80); Lymphocytes Percent Manual 8.0 % (20.5-60.0); Monocytes Absolute Manual 0.26 10^3/uL (0.30-0.80); Monocytes Percent Manual 4.0 % (1.7-12.0); Segmented Neut Absolute Manual 5.80 10^3/uL (1.4-6.5); Segmented Neutrophils % Manual 88.0 (43.0-75.0)
[2025-07-11] MEDS: HYDRALAZINE HCL 20 MG/ML VIAL 10 MG IVP (15:58)
--- OUTSIDE RECORDS SUMMARY | 2025-07-11 17:08 | XMS_ITS | CCD ---
Author Organization [facility] Care Team Providers Care Electrophysiology Tech Name Role Phone SHANIQUE WINTER Attending Unavailable [...] Care Provider Neha Santos APRN Attending Provider [phone] Gavin Villarreal DO Attending Provider Allergies Allergy Classification Reported Allergen(s) Allergy Type Date of Onset Reaction(s) Facility (1 source) No Known Medication Allergies; Translations: [No Known Medication Allergies] Propensity to adverse reactions (disorder) [facility] Repository Medications Current Medications Medication Drug [...] afterwards, # 2 tab(s), Refills(s) 0, Pharmacy: [facility] 165, cm, 11/14/23 13:05:00 EST, Height/Length [...] day(s), # 30 tab(s), Refills(s) 3, Pharmacy: [facility], 165, cm, 11/14/23 13:05:00 EST, Height/Length Dosing, 91, kg, 11/14/23 13:05:00 EST, Weight Dosing Start Date: 11/14/23 Stop Date: 03/13/24 Status: Ordered naproxen 500 mg oral tablet (1 source) Nonsteroidal Anti-inflammatory Drug Start: 06-26-2025 take 1 tablet by mouth twice daily Naproxen 500 mg tablet Active 500 MG PO Twice daily 60 June 26, 2025 12:00am Complies with drug therapy [place]-3 Fatty Acids-Fish Oil 300-1,000 mg capsule (2 sources) Start: 12-13-2023 [place]-3 Fatty Acids-Fish Oil 300-1,000 mg capsule Active [...] Daily, # 30 tab(s), Refills(s) 3, Pharmacy: [facility] Start Date: 07/11/23 Status: Ordered Problems [...] 6.6 % [facility] XR SHOULDER RT MIN 2 VWSon 0 04-22-2025 XR SHOULDER RT MIN 2 VWS XR SHOULDER RT MIN 2 VWS XR SHOULDER RT MIN 2 VWS HISTORY: Pain, joint, shoulder, right. COMPARISON: none IMPRESSION: Severe glenohumeral osteoarthrosis, remodeling of the joint space. Congruent chronic clavicular joint. Finalized by David Toribio MD on 04/22/2025 2:04 PM Normal [facility] XR SPINE LUMBAR 2 OR 3 VWSon [...] Armin Silva on 04/22/2025 1:50 PM Normal [facility] Patient Letter FTon 2023 Patient Letter FT February 13, 2024 JACOBO WATKINS [address] [place] [id number] : 1955 Dear Jacobo , You missed [...] future cancellations. Sincerely, [facility] [address], [place] [address] Normal [facility] 11-15-2023 Screens [id number] 20 [id number] 0TIFF Normal [facility] Ambulatory Visit Summaryon 0 11-14-2023 Ambulatory Visit [...] NEHA ARENAS PA-C Where: [facility] Patient Educationon 11-14-19 Patient Education [...] provider. Document Revised: 01/27/2022 Document Reviewed: 01/27/2022 [employer] Patient Education ? 2022 [employer]. Urology Urinary Incontinence Urinary incontinence refers to [...] and bladder (more content not included)... Normal [facility] Urology Office/Clinic Noteon 11-14-2023 Urology Office/Clinic [...] day(s), # 30 tab(s), Refills(s) 3, Pharmacy: [facility], 165, cm, 11/14/23 13:05:00 EST, Height/Length Dosing, 91, kg, 11/14/23 13:05:00 EST, Weight Dosing 98577 Measure Post Void residual urine and/or bladder capacity by US- non-imaging Urnls Dip Stick Auto w/o Microscopy POC 13256 Urnls Dip Stick Auto w/o Microscopy POC 11046 2. Bowel incontinence (R15.9: Full incontinence of [...] Dipstick: Neg (more content not included)... Normal [facility] Comment on above: Result Comment: Elec [...] Locations R1: This test was performed at: [facility], [address] [place] [address], [facility]- , , [facility] Comment on above: Performed By: #### 2 [id number] #### [facility] [address] [place] [address] Physician Referralon 023 Physician Referral [id number] 00 [id number] [facility] 07-12-2023 Screens [id number] 03 [id number]. [id number] [facility] Patient Educationon 07-11-20 23 Patient Education [...] provider. Document Revised: 01/27/2022 Document Reviewed: 01/27/2022 [employer] Patient Education ? 2022 [employer] Normal [facility] HEPATITIS C AB CASCADE TO QU ANT PCR GENOon 02-06-2023 HCV AB Reactive Abnormal Non Reactive [facility] Comment on above: Performed By: #### H EPCASC #### [facility] [address] [place] [address] Dr. Jorge Carrasco HCV Genotype RTNI Normal [facility] Comment on above: Result Comment: Not indicated Performed By: #### H EPCASC #### [facility] [address] [address] [address] Jorge Carrasco HCV log10 Normal [facility] Comment on above: Performed By: #### H EPCASC #### [facility] [address] [place] [address] Dr. Jorge Carrasco Hep C Quantitation Not detected [facility] Comment on above: Performed By: #### H EPCASC #### [facility] [address] [place] [address] Dr. Jorge Carrasco Interpretation Comment Normal [facility] Comment on above: Result Comment: Posi tive HCV antibody screen without the presence of HCV RNA is consistent with a resolved past infection or a false positive HCV antibody. Consider repeat testing after one month. Performed By: #### H EPCASC #### [facility] [address] [place] [address] Dr. Jorge Carrasco Test Information: Comment Normal [facility] Comment on above: Result Comment: The quantitative range of this assay is 15 IU/mL to 100 million IU/mL. Performed By: #### H EPCASC #### [facility] [address] [place] [address] Dr. Jorge Carrasco CBC AUTO DIFFon 02-02-2023 BASO # 0.0 103/ul Normal 0.0-0.1 [facility] Comment on above: Performed By: #### C BC #### [facility] [address] [place] [address] Dr. Jorge Carrasco Basophils/100 WBC (Bld) 0.5 % Normal 0.2-2.0 [facility] Comment on above: Performed By: #### C BC #### [facility] [address] [place] [address] Dr. Jorge Carrasco EO # 0.1 103/ul Normal 0.0-0.7 [facility] Comment on above: Performed By: #### C BC #### [facility] [address] [place] [address] Dr. Jorge Carrasco Eosinophils/100 WBC (Bld) 3.2 % Normal 0.9-7.0 [facility] Comment on above: Performed By: #### C BC #### [facility] [address] [place] [address] Dr. Jorge Carrasco Erythrocyte distribution width (RBC) [Ratio] 14.0 % Normal 11.0-15.0 [facility] Comment on above: Performed By: #### C BC #### [facility] [address] [place] [address] Dr. Jorge Carrasco Hematocrit (Bld) [Volume fraction] 40.2 % Normal 36.0-48.0 [facility] Comment on above: Performed By: #### C BC #### [facility] [address] [place] [address] Dr. Jorge Carrasco Hemoglobin (Bld) [Mass/Vol] 13.3 g/dL Normal 12.0-16.0 [facility] Comment on above: Performed By: #### C BC #### [facility] [address] [place] [address] Dr. Jorge Carrasco IG # 0.01 10e3/ul Normal 0.00-0.03 [facility] Comment on above: Performed By: #### C BC #### [facility] [address] [place] [address] Dr. Jorge Carrasco IG % 0.3 % Normal 0.0-0.5 [facility] Comment on above: Performed By: #### C BC #### [facility] [address] [place] [address] Dr. Jorge Carrasco LYMPH # 1.0 103/ul Critically low 1.2-3.8 [facility] Comment on above: Performed By: #### C BC #### [facility] [address] [place] [address] Dr. Jorge Carrasco Lymphocytes/100 WBC (Bld) 27.4 % Normal 20.5-60.0 [facility] Comment on above: Performed By: #### C BC #### [facility] [address] [place] [address] Dr. Jorge Carrasco MANUAL DIFF REQ NO Normal [facility] Comment on above: Performed By: #### C BC #### [facility] [address] [place] [address] Dr. Jorge Carrasco MCH (RBC) [Entitic mass] 28.0 pg Normal 26.7-34.0 [facility] Comment on above: Performed By: #### C BC #### [facility] [address] [place] [address] Dr. Jorge Carrasco MCHC (RBC) [Mass/Vol] 33.1 g/dL Normal 29.9-35.2 [facility] Comment on above: Performed By: #### C BC #### [facility] [address] [place] [address] Dr. Jorge Carrasco MCV (RBC) [Entitic vol] 84.6 fL Normal 81.0-99.0 [facility] Comment on above: Performed By: #### C BC #### [facility] [address] [place] [address] Dr. Jorge Carrasco MONO # 0.2 103/ul Critically low 0.3-0.8 [facility] Comment on above: Performed By: #### C BC #### [facility] [address] [place] [address] Dr. Jorge Carrasco Monocytes/100 WBC (Bld) 5.1 % Normal 1.7-12.0 [facility] Comment on above: Performed By: #### C BC #### [facility] [address] [place] [address] Dr. Jorge Carrasco NEUT # 2.4 103/ul Normal 1.4-6.5 [facility] Comment on above: Performed By: #### C BC #### [facility] [address] [place] [address] Dr. Jorge Carrasco Neutrophils/100 WBC (Bld) 63.5 % Normal 43.0-75.0 [facility] Comment on above: Performed By: #### C BC #### [facility] [address] [address] [address] Jorge Carrasco Platelet mean volume (Bld) [Entitic vol] 10.8 fL Normal 9.5-13.5 [facility] Comment on above: Performed By: #### C BC #### [facility] [address] [address] [address] Jorge Carrasco PLT 263 103/ul Normal 150-450 [facility] Comment on above: Performed By: #### C BC #### [facility] [address] [address] [address] Jorge Carrasco RBC 4.75 106/ul Normal 4.20-5.40 [facility] Comment on above: Performed By: #### C BC #### [facility] [address] [address] [address] Jorge Carrasco WBC 3.7 103/ul Critically low 4.0-11.0 [facility] Comment on above: Performed By: #### C BC #### [facility] [address] [place] [address] Dr. Jorge Carrasco FREE T3on 02-02-2023 FREE T3 3.11 pg/mlL Normal 2.18-3.98 [facility] Comment on above: Performed By: #### L IPID, TSH, FT3, CMP #### [facility] [address] [address] [address] Jorge Carrasco GLYCOHEMOGLOBIN A1Con 2022 ADA RECOMMENDATION SEE BELOW Normal [facility] Comment on above: Result Comment: ADA RECOMMENDED LIMIT 4.0 - 6.0 ADA THERAPEUTIC TARGET < 7.0 ACTION SUGGESTED > 7.0 Performed By: #### A 1C #### [facility] [address] [address] [address] Jorge Carrasco Glucose [Mass/Vol] 189 mg/dL Normal [facility] Comment on above: Performed By: #### A 1C #### [facility] [address] [place] [address] Dr. Jorge Carrasco HbA1c (Bld) [Mass fraction] 8.2 % Critically high 4.5-6.2 [facility] Comment on above: Performed By: #### A 1C #### [facility] [address] [address] [address] Jorge Carrasco LIPID PROFILEon 02-02-2023 CHOL-HDL RATIO NORM SEE BELOW Normal [facility] Comment on above: Result Comment: 3.3 - 4.4 LOW RISK 4.4 - 7.1 AVERAGE RISK 7.1 - 11.0 MODERATE RISK >11.0 HIGH RISK Performed By: #### L IPID, TSH, FT3, CMP #### [facility] [address] [address] [address] Jorge Carrasco Cholesterol [Mass/Vol] 245 mg/dL Critically high <=200 [facility] Comment on above: Performed By: #### L IPID, TSH, FT3, CMP #### [facility] [address] [address] [address] Jorge Carrasco Cholesterol in HDL [Mass/Vol] 61 mg/dL Critically high 40-60 [facility] Comment on above: Performed By: #### L IPID, TSH, FT3, CMP #### [facility] [address] [address] [address] Jorge Carrasco Cholesterol in LDL [Mass/Vol] 156.2 mg/dL Normal [facility] Comment on above: Performed By: #### L IPID, TSH, FT3, CMP #### [facility] [address] [address] [address] Jorge Carrasco Cholesterol.total/Ch olesterol in HDL [Mass ratio] 4.0 {ratio} Normal [facility] Comment on above: Performed By: #### L IPID, TSH, FT3, CMP #### [facility] [address] [address] [address] Jorge Carrasco HDL NORMAL > or = 60 mg/dl - LO W CARDIOVASCULAR RISK <40 mg/dl - HIGH CARDIOVASCULAR RISK Normal [facility] Comment on above: Performed By: #### L IPID, TSH, FT3, CMP #### [facility] [address] [address] [address] Jorge Carrasco LDL CALC NORMAL SEE BELOW Normal [facility] Comment on above: Result Comment: <100 mg/dl OPTIMAL 100 - 129 mg/dl NEAR OR ABOVE OPTIMAL 130 - 159 mg/dl BORDERLINE HIGH 160 - 189 mg/dl HIGH >190 mg/dl VERY HIGH Performed By: #### L IPID, TSH, FT3, CMP #### [facility] [address] [address] [address] Jorge Carrasco Triglyceride [Mass/Vol] 139 mg/dL Normal <=150 [facility] Comment on above: Performed By: #### L IPID, TSH, FT3, CMP #### [facility] [address] [address] [address] Jorge Carrasco VLDL CALC 27.8 mg/dL Normal [facility] Comment on above: Performed By: #### L IPID, TSH, FT3, CMP #### [facility] [address] [place] [address] Dr. Jorge Carrasco MICROALBUMIN, RAND URon 050 mALB 1.5 mg/L Normal <=30.0 [facility] Comment on above: Performed By: #### M ALBR #### [facility] [address] [address] [address] Jorge Carrasco PROF 14(COMP METB)on 023 Albumin [Mass/Vol] 3.5 g/dL Normal 3.4-5.0 [facility] Comment on above: Performed By: #### L IPID, TSH, FT3, CMP #### [facility] [address] [address] [address] Jorge Carrasco Albumin/Globulin [Mass ratio] 0.7 {ratio} Normal [facility] Comment on above: Performed By: #### L IPID, TSH, FT3, CMP #### [facility] [address] [address] [address] Jorge Carrasco ALP [Catalytic activity/Vol] 127 U/L Critically high 46-116 [facility] Comment on above: Performed By: #### L IPID, TSH, FT3, CMP #### [facility] [address] [address] [address] Jorge Carrasco ALT [Catalytic activity/Vol] 24 U/L Normal 14-59 [facility] Comment on above: Performed By: #### L IPID, TSH, FT3, CMP #### [facility] [address] [address] [address] Jorge Carrasco Anion gap [Moles/Vol] 11.5 mmol/L Normal [facility] Comment on above: Performed By: #### L IPID, TSH, FT3, CMP #### [facility] [address] [place] [address] Dr. Jorge Carrasco AST [Catalytic activity/Vol] 16 U/L Normal 15-37 [facility] Comment on above: Performed By: #### L IPID, TSH, FT3, CMP #### [facility] [address] [address] [address] Jorge Carrasco Bilirubin [Mass/Vol] 0.3 mg/dL Normal 0.2-1.0 [facility] Comment on above: Performed By: #### L IPID, TSH, FT3, CMP #### [facility] [address] [place] [address] Dr. Jorge Carrasco Calcium [Mass/Vol] 9.8 mg/dL Normal 8.5-10.1 [facility] Comment on above: Performed By: #### L IPID, TSH, FT3, CMP #### [facility] [address] [place] [address] Dr. Jorge Carrasco Chloride [Moles/Vol] 99 mmol/L Normal 98-107 [facility] Comment on above: Performed By: #### L IPID, TSH, FT3, CMP #### [facility] [address] [address] [address] Jorge Carrasco CO2 [Moles/Vol] 29.4 mmol/L Normal 21.0-32.0 [facility] Comment on above: Performed By: #### L IPID, TSH, FT3, CMP #### [facility] [address] [address] [address] Jorge Carrasco Creatinine [Mass/Vol] 0.72 mg/dL Normal 0.55-1.02 [facility] Comment on above: Performed By: #### L IPID, TSH, FT3, CMP #### [facility] [address] [place] [address] Dr. Jorge Carrasco EGFR-AF CYMRAES >60 Normal >=60 [facility] Comment on above: Performed By: #### L IPID, TSH, FT3, CMP #### [facility] [address] [place] [address] Dr. Jorge Carrasco EGFR-NON AF CYMRAES >60 Normal >=60 [facility] Comment on above: Performed By: #### L IPID, TSH, FT3, CMP #### [facility] [address] [place] [address] Dr. Jorge Carrasco Globulin (S) [Mass/Vol] 4.9 g/dL Normal [facility] Comment on above: Performed By: #### L IPID, TSH, FT3, CMP #### [facility] [address] [place] [address] Dr. Jorge Carrasco Glucose [Mass/Vol] 185 mg/dL Critically high 74-106 [facility] Comment on above: Performed By: #### L IPID, TSH, FT3, CMP #### [facility] [address] [place] [address] Dr. Jorge Carrasco Potassium [Moles/Vol] 3.9 mmol/L Normal 3.5-5.1 [facility] Comment on above: Performed By: #### L IPID, TSH, FT3, CMP #### [facility] [address] [place] [address] Dr. Jorge Carrasco Protein [Mass/Vol] 8.4 g/dL Critically high 6.4-8.2 [facility] Comment on above: Performed By: #### L IPID, TSH, FT3, CMP #### [facility] [address] [place] [address] Dr. Jorge Carrasco Sodium [Moles/Vol] 136 mmol/L Normal 136-145 [facility] Comment on above: Performed By: #### L IPID, TSH, FT3, CMP #### [facility] [address] [place] [address] Dr. Jorge Carrasco Urea nitrogen [Mass/Vol] 17.0 mg/dL Normal 7.0-18.0 [facility] Comment on above: Performed By: #### L IPID, TSH, FT3, CMP #### [facility] [address] [place] [address] Dr. Jorge Carrasco Urea nitrogen/Creatinine [Mass ratio] 23.6 mg/mg Normal [facility] Comment on above: Performed By: #### L IPID, TSH, FT3, CMP #### [facility] [address] [place] [address] Dr. Jorge Carrasco TSHon 02-02-2023 TSH 3.092 uIU/mL Normal 0.358-3.740 [facility] Comment on above: Performed By: #### L IPID, TSH, FT3, CMP #### [facility] [address] [place] [address] Dr. Jorge Carrasco APTTon 03-31-2019 aPTT Coag (Bld) [Time] 23.1 s Low 23.2-34.[address] [facility] Comment on above: Performed By: #### P T, BMPX, BNP, DIME, CDP, PTT, TROPI #### [facility] [address] [place] [address] Dr. [place], [facility] [employer]per: Crispin Perez MD Basic Metab w/rfx MGon 03-31 (cont.) Normal [facility] Comment on above: Result Comment: Aver age GFR for 60-69 years old: 85 mL/min/1.73sq m Chronic Kidney Disease: <60 mL/min/1.73sq m Kidney failure: <15 mL/min/1.73sq m eGFR calculated using average adult body mass. Additional eGFR calculator available at: http://www.[employer]StyleShare/multiple_crcl_2012.htm Performed By: #### P T, BMPX, BNP, DIME, CDP, PTT, TROPI #### [facility] [address] [place] [address] [employer]: Crispin Perez MD Anion gap [Moles/Vol] 11 mmol/L Normal 9-[address] [facility] Comment on above: Performed By: #### P T, BMPX, BNP, DIME, CDP, PTT, TROPI #### [facility] [address] [place] [address] [employer]: Crispin Perez MD BUN/CRE Ratio 21 High 9-20 [facility] Comment on above: Performed By: #### P T, BMPX, BNP, DIME, CDP, PTT, TROPI #### [facility] [address] [place] [address] [employer]: Crispin Perez MD Calcium [Mass/Vol] 9.1 mg/dL Normal 8.6-10.[address] [facility] Comment on above: Performed By: #### P T, BMPX, BNP, DIME, CDP, PTT, TROPI #### [facility] [address] [place] [address] [employer]: Crispin Perez MD Chloride [Moles/Vol] 103 mmol/L Normal 98-107 [facility] Comment on above: Performed By: #### P T, BMPX, BNP, DIME, CDP, PTT, TROPI #### [facility] [address] [place], [place] [address] [employer]: Crispin Perez MD CO2 [Moles/Vol] 26 mmol/L Normal 20-31 [facility] Comment on above: Performed By: #### P T, BMPX, BNP, DIME, CDP, PTT, TROPI #### [facility] [address] [place] [address] [employer]: Crispin Perez MD Creatinine [Mass/Vol] 0.67 mg/dL Normal 0.50-0.[address] [facility] Comment on above: Performed By: #### P T, BMPX, BNP, DIME, CDP, PTT, TROPI #### [facility] [address] [place], [place] [id number] [employer]: Crispin Perez MD GFR, Amer >60 Normal >60 [facility] Comment on above: Performed By: #### P T, BMPX, BNP, DIME, CDP, PTT, TROPI #### [facility] [address] [place], [place] [id number] [employer]: Crispin Perez MD GFR,non Amer >60 Normal >60 [facility] Comment on above: Performed By: #### P T, BMPX, BNP, DIME, CDP, PTT, TROPI #### [facility] [address] [place], [place] [id number] [employer]: Crispin Perez MD Glucose [Mass/Vol] 171 mg/dL High 70-[address] [facility] Comment on above: Performed By: #### P T, BMPX, BNP, DIME, CDP, PTT, TROPI #### [facility] [address] [place] [address] [employer]: Crispin Perez MD Potassium [Moles/Vol] 4.2 mmol/L Normal 3.7-5.[address] [facility] Comment on above: Performed By: #### P T, BMPX, BNP, DIME, CDP, PTT, TROPI #### [facility] [address] [place], [place] [id number] [employer]: Crispin Perez MD Sodium [Moles/Vol] 140 mmol/L Normal 135-[address] [facility] Comment on above: Performed By: #### P T, BMPX, BNP, DIME, CDP, PTT, TROPI #### [facility] [address] [place] [address] [employer]: Crispin Perez MD Staging: Normal [facility] Comment on above: Result Comment: Stag e 1: Some kidney damage normal GFR Stage 2: Mild kidney damage GFR 60-89 Stage 3: Moderate kidney damage GFR 30-59 Stage 4: Severe kidney damage GFR 15-29 Stage 5: Severe kidney damage GFR <15 ESRD - chronic treatment by dialysis or transplant Performed By: #### P T, BMPX, BNP, DIME, CDP, PTT, TROPI #### [facility] [address] [place] [address] [employer]per: Crispin Perez MD Urea nitrogen [Mass/Vol] 14 mg/dL Normal 8-[address] [facility] Comment on above: Performed By: #### P T, BMPX, BNP, DIME, CDP, PTT, TROPI #### [facility] [address] [place] [address] Window [employer]per: Crispin Perez MD Brain Natri. Peptideon 03-31 Natriuretic peptide B (Bld) [Mass/Vol] Pro-BNP Reference Range: Normal [facility] Comment on above: Result Comment: Rule Out: <300 Jansen Zone: Age <50 300-450 Age 50-75 300-900 Age >75 300-1800 Usually represents mild to moderate HF but other cardiopulmonary causes cannot be ruled out. Rule In: Age <50 >450 Age 50-75 >900 Age >75 >1800 Performed By: #### P T, BMPX, BNP, DIME, CDP, PTT, TROPI #### [facility] [facility] [address] [place] [address] Window Draper: Crispin Perez MD Natriuretic peptide B (Bld) [Mass/Vol] 158 pg/mL Normal <[address] [facility] Comment on above: Result Comment: Pro- BNP results cannot be compared to BNP results. Performed By: #### P T, BMPX, BNP, DIME, CDP, PTT, TROPI #### [facility] [address] [place] [address] Window Draper: Crispin Perez MD CBC with Diffon 03-31-2019 Abs. Basophil 0.03 k/uL Normal 0.00-0.20 [facility] Comment on above: Performed By: #### P T, BMPX, BNP, DIME, CDP, PTT, TROPI #### [facility] [address] [place] [address] Window Draper: Crispin Perez MD Abs.Imm.Granulocyte <0.03 Normal 0.00-0.[address] [facility] Comment on above: Performed By: #### P T, BMPX, BNP, DIME, CDP, PTT, TROPI #### [facility] [address] [place] [address] Window Draper: Crispin Perez MD Abs.Neutrophil (Seg) 3.28 k/uL Normal 1.50-8.10 [facility] Comment on above: Performed By: #### P T, BMPX, BNP, DIME, CDP, PTT, TROPI #### [address] [place] [address] Window Draper: Crispin Perez MD Basophils/100 WBC (Bld) 1 % Normal 0-[address] [facility] Comment on above: Performed By: #### P T, BMPX, BNP, DIME, CDP, PTT, TROPI #### [address] [place] [address] Window Draper: Crispin Perez MD Eosinophils (Bld) [#/Vol] 0.22 10*3/uL Normal 0.00-0.[address] [facility] Comment on above: Performed By: #### P T, BMPX, BNP, DIME, CDP, PTT, TROPI #### [address] [place], [place] [address] Window Draper: Crispin Perez MD Eosinophils/100 WBC (Bld) 4 % Normal 1-[address] [facility] Comment on above: Performed By: #### P T, BMPX, BNP, DIME, CDP, PTT, TROPI #### [address] [place] [id number] Window Draper: Crispin Preez MD Erythrocyte distribution width (RBC) [Ratio] 14.4 % Normal 11.8-14.[address] [facility] Comment on above: Performed By: #### P T, BMPX, BNP, DIME, CDP, PTT, TROPI #### [facility] [address] [place] [id number] Window Draper: Crispin Perez MD Hematocrit (Bld) [Volume fraction] 25.9 % Low 36.3-47.[address] [facility] Comment on above: Performed By: #### P T, BMPX, BNP, DIME, CDP, PTT, TROPI #### [facility] [address] [place] [address] Window Draper: Crispin Perez MD Hemoglobin (Bld) [Mass/Vol] 8.3 g/dL Low 11.9-15.[address] [facility] Comment on above: Performed By: #### P T, BMPX, BNP, DIME, CDP, PTT, TROPI #### [facility] [address] [place] [address] Dr. [place], [place] [address] Window Draper: Crispin Perez MD Immature granulocytes (Bld) [#/Vol] 0 % Normal [address] [facility] Comment on above: Performed By: #### P T, BMPX, BNP, DIME, CDP, PTT, TROPI #### [facility] [address] [place], [place] [address] Window Draper: Crispin Perez MD Lymphocytes (Bld) [#/Vol] 1.08 10*3/uL Low 1.10-3.[address] [facility] Comment on above: Performed By: #### P T, BMPX, BNP, DIME, CDP, PTT, TROPI #### [facility] [address] [place] [id number] Window Draper: Crispin Perez MD Lymphocytes/100 WBC (Bld) 22 % Low 24-[address] [facility] Comment on above: Performed By: #### P T, BMPX, BNP, DIME, CDP, PTT, TROPI #### [facility] [address] [place] [address] Window Draper: Crispin Perez MD MCH (RBC) [Entitic mass] 28.7 pg Normal 25.2-33.[address] [facility] Comment on above: Performed By: #### P T, BMPX, BNP, DIME, CDP, PTT, TROPI #### [facility] [address] [place] [id number] Window Draper: Crispin Perez MD [facility] (RBC) [Mass/Vol] 32.0 g/dL Normal 28.4-34.[address] [facility] Comment on above: Performed By: #### P T, BMPX, BNP, DIME, CDP, PTT, TROPI #### [address] [place] [facility]83 Window Draper: Crispin Perez MD MCV (RBC) [Entitic vol] 89.6 fL Normal 82.6-102.[address] [facility] Comment on above: Performed By: #### P T, BMPX, BNP, DIME, CDP, PTT, TROPI #### [address] [place] [id number] Window Draper: Crispin Perez MD Monocytes (Bld) [#/Vol] 0.39 10*3/uL Normal 0.10-1.[address] [facility] Comment on above: Performed By: #### P T, BMPX, BNP, DIME, CDP, PTT, TROPI #### [facility] [address] [place] [address] Window Draper: Crispin Perez MD Monocytes/100 WBC (Bld) 8 % Normal 3-[address] [facility] Comment on above: Performed By: #### P T, BMPX, BNP, DIME, CDP, PTT, TROPI #### [facility] [address] [place], [place] [id number] Window Draper: Crispin Perez MD Neutrophil (Seg) 65 % Normal 36-65 [facility] Comment on above: Performed By: #### P T, BMPX, BNP, DIME, CDP, PTT, TROPI #### [facility] [address] [place] [address] Window Draper: Crispin Perez MD NRBC Automated 0.0 per 100 WBC Normal 0.[address] [facility] Comment on above: Performed By: #### P T, BMPX, BNP, DIME, CDP, PTT, TROPI #### [facility] [address] [place] [address] Window Draper: Crispin Perez MD Platelet mean volume (Bld) [Entitic vol] 11.1 fL Normal 8.1-13.[address] [facility] Comment on above: Performed By: #### P T, BMPX, BNP, DIME, CDP, PTT, TROPI #### [facility] [address] [place], [place] [id number] Window Draper: Crispin Perez MD Platelets (Bld) [#/Vol] 226 10*3/uL Normal 138-[address] [facility] Comment on above: Performed By: #### P T, BMPX, BNP, DIME, CDP, PTT, TROPI #### [facility] [address] [place], [facility]83 Window Draper: Crispin Perez MD RBC (Bld) [#/Vol] 2.89 10*6/uL Low 3.95-5.[address] [facility] Comment on above: Performed By: #### P T, BMPX, BNP, DIME, CDP, PTT, TROPI #### [facility] [address] [place] [address] Window Draper: Crispin Perez MD WBC (Bld) [#/Vol] 5.0 10*3/uL Normal 3.5-11.[address] [facility] Comment on above: Performed By: #### P T, BMPX, BNP, DIME, CDP, PTT, TROPI #### [facility] [address] [place] [address] Window Draper: Crispin Perez MD Auto Diff Performed NOT REPORTED Normal [facility] Comment on above: Performed By: #### P T, BMPX, BNP, DIME, CDP, PTT, TROPI #### [address] [place] [address] Window Draper: Crispin Perez MD Platelets (Bld) [#/Vol] NOT REPORTED Normal [facility] Comment on above: Performed By: #### P T, BMPX, BNP, DIME, CDP, PTT, TROPI #### [address] [place] [address] Window Draper: Crispin Perez MD RBC morphology finding Nom (Bld) NOT REPORTED Normal [facility] Comment on above: Performed By: #### P T, BMPX, BNP, DIME, CDP, PTT, TROPI #### [address] [place] [id number] Window Draper: Crispin Perez MD WBC Morphology NOT REPORTED Normal [facility] Comment on above: Performed By: #### P T, BMPX, BNP, DIME, CDP, PTT, TROPI #### [address] [place] [id number] Window Draper: Crispin Perez MD CT CHEST PULMONARY EMBOLISM [...] Armin Cruz MD 03/31/19 Final result Normal [facility] D-Dimer Teston 03-31-2019 D-Dimer Test 5.40 mg/L FEU High 0.19-0.50 [facility] Comment on above: Result Comment: Elevated levels [...] BMPX, BNP, DIME, CDP, PTT, TROPI #### [facility] [address] [place] [address] Window Draper: Crispin Perez MD PTon 03-31-2019 INR Coag (PPP) [Relative time] 1.0 {INR} Normal 0.9-1.[address] [facility] Comment on above: Performed By: #### P T, BMPX, BNP, DIME, CDP, PTT, TROPI #### [facility] [address] [place] [address] Window Draper: Crispin Perez MD PT Coag (PPP) [Time] 10.2 s Normal 9.7-12.2 [facility] Comment on above: Performed By: #### P T, BMPX, BNP, DIME, CDP, PTT, TROPI #### [facility] [address] [place] [address] Window Draper: Crispin Perez MD Troponinon 03-31-2019 Troponin I.cardiac [Mass/Vol] Normal [facility] Comment on above: Result Comment: [...] diagnosis. Performed By: #### T ROPI #### [facility] [address] [place] [id number] Window Draper: Crispin Perez MD Troponin I.cardiac [Mass/Vol] ng/mL Normal <0.[address] [facility] Comment on above: Result Comment: Trop onin T results cannot be compared to Troponin-I results. Performed By: #### T ROPI #### [facility] [address] [place] [id number] Window Draper: Crispin Perez MD Troponin I.cardiac [Mass/Vol] NOT REPORTED Normal 0-[address] [facility] Comment on above: Performed By: #### T ROPI #### [facility] [address] [place], [facility]83 Window Draper: Crispin Perez MD Troponin I.cardiac [Mass/Vol] Normal [facility] Comment on above: Result Comment: [...] BMPX, BNP, DIME, CDP, PTT, TROPI #### [facility] [address] [place] [address] Window Draper: Crispin Perez MD Troponin I.cardiac [Mass/Vol] ng/mL Normal <0.[address] [facility] Comment on above: Result Comment: Trop onin T results cannot be compared to Troponin-I results. Performed By: #### P T, BMPX, BNP, DIME, CDP, PTT, TROPI #### [facility] [address] [place] [address] Window Draper: Crispin Perez MD Troponin I.cardiac [Mass/Vol] NOT REPORTED Normal 0-[address] [facility] Comment on above: Performed By: #### P T, BMPX, BNP, DIME, CDP, PTT, TROPI #### [facility] [address] [place] [address] Window Draper: Crispin Perez MD XR CHEST PORTABLEon 03-31-20 [...] Monty Orozco MD 03/31/19 Final result Normal [facility] KNEE RIGHT [address] [facility] 9 KNEE RIGHT 3 [facility] Department of Radiology [address] [place] [address] ======== Patient Name: JACOBO WATKINS : 1955 Sex: F Age: Race: White Pt. Location: 84 Patient Status: O Ordered Date: 02/07/2019 10:30:00 AM Completed Date: 02/07/2019 10:33 AM Requesting Provider: STEPHANEI GORDON Attending Provider: STEPHANIE GORDON Report Copy [...] prior Electronically signed by:Kamar Sanchez. Transcribed by: [email or web address], User Resident: Electronically Signed by: KAMAR SANCHEZ @ 02/07/2019 02:21 PM Normal [facility] Comment on above: Order Comment: , , = ========= , Ordering Provider - STEPHANIE GORDON MD , Vital Signs Date Time Vital Sign Value Performing Clinician Faci lity 06-03-2025 11:01-0400 Body height 157.48 cm Neha Goodmanbrett STRIP CUTTER Work Phone: [facility] 06-03-2025 11:01-0400 Body mass index (BMI) [Ratio] 36.7 kg/m2 Neha Goodmanbrett STRIP CUTTER Work Phone: [facility] 06-03-2025 11:01-0400 Body temperature 97.8 [degF] Neha Tom STRIP CUTTER Work Phone: [facility] 06-03-2025 11:01-0400 Body weight 91.17 kg Neha Cidvaishali STRIP CUTTER Work Phone: [facility] 06-03-2025 11:01-0400 Diastolic blood pressure 80 mm[Hg] Neah Tom STRIP CUTTER Work Phone: [facility] 06-03-2025 11:01-0400 Heart rate 73 /min Neha Goodmanbrett STRIP CUTTER Work Phone: [facility] 06-03-2025 11:01-0400 SaO2% (BldA) [Mass fraction] 94 % Neha Goodmanbrett STRIP CUTTER Work Phone: [facility] 06-03-2025 11:01-0400 Systolic blood pressure 160 mm[Hg] Neha Tom STRIP CUTTER Work Phone: [facility] 11-14-2023 12:41-0500 Blood Pressure Location Karrie Orzech [facility] 11-14-2023 12:41-0500 Diastolic blood pressure 82 mm[Hg] Karrie Orzech [facility] 11-14-2023 12:41-0500 Heart rate 65 /min Karrie Orzech [facility] 11-14-2023 12:41-0500 Respiratory rate 16 /min Karrie Taylor [facility] 11-14-2023 12:41-0500 Systolic blood pressure 133 mm[Hg] Karrie Taylor [facility] Encounters Encounter Date Encounter Type Care Provider Facility Start: 06-26-2025 End: 06-26-2025 ambulatory Neha Santos APRN Work Phone: [facility] Work Phone: Start: 06-26-2025 End: 06-26-2025 Patient encounter procedure Gavin Villarreal DO [facility] [place] Work Phone: Start: 06-03-2025 End: 06-03-2025 ambulatory Neha Santos APRN Work Phone: [facility] Work Phone: Start: 06-03-2025 End: 06-03-2025 Patient encounter procedure Neha Santos APRN EASEMENT MAN -[facility] Work Phone: Start: 04-17-2025 End: 04-17-2025 ambulatory [facility] Start: 04-17-2024 End: 04-17-2024 ambulatory ANITA SAVAGE Not Available Start: 02-13-2024 End: 02-14-2024 ambulatory PA-Maranda ARENAS Facility:[facility] Start: 02-13-2024 End: 02-13-2024 Patient encounter procedure NEHA ARENAS [facility] Start: 02-05-2024 End: 02-06-2024 ambulatory Noble Reese MD Facility:[facility] Start: 01-15-2024 End: 01-16-2024 ambulatory Noble Reese MD Facility:[facility] Start: 12-04-2023 End: 12-04-2023 ambulatory AMANDA Rakesh DAY Not Available Start: 11-29-2023 End: 01-23-2024 Pre-admission assessment David Abdullahi CLEMENT [facility] Start: 11-14-2023 End: 11-15-2023 ambulatory Karrie X Orzech Facility:[facility] Start: 11-14-2023 End: 11-14-2023 Patient encounter procedure Karrie X Orzech [facility] Start: 10-24-2023 End: 10-25-2023 ambulatory PA-C NEHA ARENAS [facility] Start: 10-24-2023 End: 10-24-2023 Patient encounter procedure NEHA ARENAS [facility] Start: 07-11-2023 End: 07-12-2023 ambulatory PA-C NEHA ARENAS Facility[facility] Start: 07-10-2023 End: 07-11-2023 ambulatory Noble Reese MD Facility:[facility] Start: 06-26-2023 End: 06-27-2023 ambulatory Noble Reese MD Facility:[facility] Start: 03-01-2023 ambulatory GUILLAUME SHAMMO Facility:[facility] [place] Start: 02-15-2023 ambulatory GUILLAUME SHAMMO Facility:[facility] Start: 02-08-2023 Encounter for genera l adult medical examination without abnormal findings [facility] Start: 02-02-2023 End: 02-03-2023 ambulatory GUILLAUME SHAMMO Facility:[facility] Start: 02-02-2023 End: 02-03-2023 Encounter for general adult medical examination without abnormal findings [facility] Facility:[facility] Start: 01-06-2023 ambulatory GUILLAUME SHAMMO Facility:[facility] Start: 12-29-2022 ambulatory GUILLAUME SHAMMO Facility:[facility] Start: 07-15-2022 ambulatory GUILLAUME SHAMMO Facility:[facility] Start: 07-01-2022 ambulatory GUILLAUME SHAMMO Facility:[facility] Start: 03-31-2019 Emergency department patient visit SHANIQUE WINTER [facility] Procedures Date Procedure Procedure Detail [...] SC JUDD COUGHLINON Start: 03-31-2019 TELEMETRY MONITORING AR JUDD WINTER Arthroplasty of knee LÓPEZFE R DAGOBERTO Arthroscopy of hip NEHA ARENAS Biopsy of breast NEHA PE RRY Decompression of med bin nerve NEHA ARENAS Hysterectomy NEHA ARENAS Plan of Treatment Date Care Activity Detail Author Start: 06-03-2025 Patient referral [facility] Work Phone: Comprehensive metabo lic 2000 panel - Serum or Plasma [facility] DXA Skeletal system. axial Views for bone density [facility] MG Breast - bilateral Screening [facility] Patient referral [facility] Work Phone: Thyroid gland [facility] XR Shoulder - right Views [facility] Payers Date Payer Category Payer Medicare [id number] 2023 Unknown 2023 Medicare [id number] 2022 Private Health Insurance 2018 Medicare [id number] 1959 Medicare [id number] 1959 Unknown [id number] 1955 Unknown [id number] 2.16.840.1.345591.3.579. 2.173 1955 Unknown [id number] 2.16.840.1.478832.3.579. 2.593 1955 Unknown [id number] 2.16.840.1.374983.3.579. 2.593 1955 Unknown [id number] 2.16.840.1.183118.3.579. 2.593 1955 Unknown [id number] 2.16.840.1.741521.3.579. 2.593 1955 Unknown [id number] 2.16.840.1.569307.3.579. 2.593 1955 Unknown [id number] 2.16.840.1.270328.3.579. 2.593 1955 Unknown [id number] 2.16.840.1.522550.3.579. 2.196 1955 Unknown [id number] 2.16.840.1.622788.3.579. 2.196 1955 Unknown [id number] 2.16.840.1.518973.3.579. 2.196 1955 Unknown [id number] 2.16.840.1.962290.3.579. 2.196 1955 Unknown [id number] 2.16.840.1.479059.3.579. 2.727 1955 Unknown [id number] 2.16.840.1.746163.3.579. 2.727 1957 Unknown [id number] 2.16.840.1.385941.3.579. 2.727 1955 Unknown [id number] 2.16.840.1.248446.3.579. 2.727 1957 Unknown [id number] 2.16.840.1.886722.3.579. 2.727 1957 Unknown [id number] 2.16.840.1.814028.3.579. 2.1259 1957 Unknown [id number] 2.16.840.1.940461.3.579. 2.1259 1957 Unknown [id number] 2.16.840.1.857433.3.579. 2.1259 1955 Unknown [id number] 2.16.840.1.273738.3.579. 2.1286 1955 Unknown [id number] 2.16.840.1.159099.3.579. 2.1286 Private Health Insurance [facility] [id number] Unknown [facility] [id number] Social History Date Type Detail Facility Start: 07-11-2023 End: 06-03-2025 Tobacco smoking status Never smoked tobacco (finding) [facility] Sex Assigned At Female [facility] Sex Female (finding) [facility] Start: 1955 Sex Assigned At Female F [facility] Functional Status Date Assessment Result Facility 11-14-2023 Functional Status N/A [facility] Evaluation note 09-02-2025 Note Date & [...] right shoulder acute June 26, 2025 9:16am [facility] Work Phone: Hospital Discharge instructions 11-14-2023 Note [...] provider. Document Revised: 01/27/2022 Document Reviewed: 01/27/2022 [employer] Patient Education 2022 [employer] 11/14/2023 15:56:08 Urinary Incontinence Urinary Incontinence [...] (electrical nerve stimulation). ?For women, using a product manager medical device to prevent urine leaks. This is a [...] right after experiencing incontinence. General instructions Take iwjj-tbj-ywuyszk and prescription medicines only as told by [...] important. Where to find more information National [employer] of Diabetes and Digestive and Kidney Diseases: www.niddk.nih.gov [employer]: www.urologyhealth.org Contact a health care [...] provider. Document Revised: 04/23/2021 Document Reviewed: 04/23/2021 [employer] Patient Education 2022 [email or web address] [facility] Clinical Note 07-11-2023 Note Date & [...] NEHA ARENAS PA-C, TERRIL In 3 months [address] [place] [address] Additional Instructions: Patient Education Kegel Isamar I, [...] Hypercholesterolemia Mixed i (more content not included)... [facility] Comment on above: Result Comment: Elec tronically Signed By: NEHA ARENAS PA-C\.br\Date and Time Signed: 07/11/23 11:32 EDT\.br\Electronically Co-Signed By: Stephanie Cleary.br\Date and Time Co-Signed: 07/11/23 11:03 EDT Evaluation + Plan note Note Date & Type Note Facility Evaluation + Plan note No data available for this section [facility] Evaluation + Plan note Note Date & Type Note Facility Evaluation + Plan note Future Appointments Appointment Date:02/13/2024 10:00:00 AM Scheduled Provider:NEHA ARENAS PA-C Location:[facility] Appointment Type:URO Office Visit [facility] Evaluation note Note Date & Type [...] diabetes mellitus acute June 03, 2025 10:53am [facility] Work Phone: Hospital Discharge instructions Note Date & Type Note Facility Hospital Discharge instructions No data available for this section [facility] Progress note Note Date & Type Note Facility Progress note No data available for this section [facility] Reason for referral (narrative) Note Date & Type Note Facility Reason for referral (narrative) No reason for referral information available [facility] Work Phone: Summary Purpose Family History Relationship [...] Visit Admit Date Anterolisthesis of lumbar spine [facility] 2024 10:53am GERD (gastroesophageal reflux disease) [facility]2024 10:53am High cholesterol June 03, 2025 10:53am [...] Visit Admit Date Anterolisthesis of lumbar spine [facility] 2024 10:53am Class 2 obesity with body ma ss index (BMI) of 36.0 to 36.9 in adult June 03, 2025 10:53am GERD (gastroesophageal reflux disease) S [facility] 2024 10:53am High cholesterol June [...] section and content) DATE CREATED AUTHOR 02/21/2019 [facility] DATE CREATED AUTHOR AUTHOR'S ORGANIZ ATION 04/04/2019 [facility] DATE CREATED AUTHOR AUTHOR'S ORGANIZ ATION 02/15/2023 [facility] DATE CREATED AUTHOR AUTHOR'S ORGANIZ ATION 02/11/2024 [facility] DATE CREATED AUTHOR AUTHOR'S ORGANIZ ATION 02/14/2024 [facility] DATE CREATED AUTHOR AUTHOR'S ORGANIZ ATION 04/20/2024 [facility] DATE CREATED AUTHOR AUTHOR'S ORGANIZ ATION 04/24/2025 [facility] Patient Care team informatio n (unrecognized section and content) Team Status: Active Member Role Status Dates Neha Santos APRN SOAP CHIPPER-C Primary Care Provider Active Team Status: Inactive Member Role Status Dates Neha Santos APRN SOAP CHIPPER-C Primary Care Provider Active Start: June 032024 End: June 03, 2025 Neha Santos APRN SOAP CHIPPER-Maranda Attending Provider Active Start: June End: June 03, 2025 Team Status: Inactive Member Role Status Dates Neha Santos APRN SOAP CHIPPER-C Primary Care Provider Active Start: June 032024 [...] BE BASED ON THE PRIMARY CLINICAL RECORDS. [employer] [facility]. provides no warranty or guarantee of the accuracy or completeness of information in this document.
[2025-07-11] MEDS: AMLODIPINE BESYLATE 5 MG TABLET PO (17:35)
[2025-07-11] MEDS: INSULIN ASPART 300 UNIT/3 ML PEN SUBQ (21:23)
[2025-07-12] VITALS: BP 154/76; PULSE 87; TEMP 36.4; O2SAT 97
[2025-07-12 04:00] VITALS: BP 183/83; PULSE 89; TEMP 36.4; O2SAT 97
[2025-07-12 06:26] LABS: Hematocrit 37.3 % (36.0-48.0); Hemoglobin 12.5 g/dL (12.0-16.0); Mean Corpuscular HGB Conc 33.5 g/dL (29.9-35.2); Mean Corpuscular Hemoglobin 30.3 pg (26.7-34.0); Mean Corpuscular Volume 90.3 fL (81.0-99.0); Platelet Count 272 10^3/uL (150-450); Red Blood Count 4.13 10^6/uL (4.20-5.40); White Blood Count 7.8 10^3/uL (4.0-11.0)
[2025-07-12 06:47] LABS: Alanine Aminotransferase 28 U/L (14-59); Albumin Globulin Ratio 0.8; Albumin Level 3.1 g/dL (3.4-5.0); Alkaline Phosphatase 86 U/L (46-116); Anion Gap 14.5; Aspartate Amino Transferase 25 U/L (15-37); Blood Urea Nitrogen 40.0 mg/dL (7.0-18.0); Calcium 9.6 mg/dL (8.5-10.1); Carbon Dioxide 25.2 mmol/L (21.0-32.0); Chloride 109 mmol/L (98-107); Estimated GFR (African America >60 (>=60 mL/min/1.73m^2); Estimated GFR (Non-African Ame >60 (>=60 mL/min/1.73m^2); Globulin 4.0 g/dL; Glucose 146 mg/dL (74-106); Potassium 3.7 mmol/L (3.5-5.1); Sodium 145 mmol/L (136-145); Thyroid Stimulating Hormone 0.824 uIU/mL (0.358-3.740); Total Protein 7.1 g/dL (6.4-8.2)
[2025-07-12 08:00] VITALS: BP 173/84; PULSE 88; TEMP 36.7; O2SAT 95
[2025-07-12] MEDS: LOSARTAN POTASSIUM 50 MG TABLET PO ×2 (08:34→21:12)
[2025-07-12] MEDS: SERTRALINE HCL 50 MG TABLET 25 MG PO (08:34)
[2025-07-12] MEDS: CARVEDILOL 12.5 MG TABLET PO ×2 (08:34→21:13)
[2025-07-12] MEDS: OXYBUTYNIN CHLORIDE 5 MG TAB XL 15 MG PO (08:34)
[2025-07-12] MEDS: CEFUROXIME AXETIL 250 MG TABLET 500 MG PO ×2 (08:34→21:13)
[2025-07-12] MEDS: AMLODIPINE BESYLATE 5 MG TABLET 10 MG PO (08:34)
[2025-07-12] MEDS: PANTOPRAZOLE SODIUM 40 MG TABLET.DR PO (08:35)
[2025-07-12] MEDS: INSULIN ASPART 300 UNIT/3 ML PEN SUBQ ×2 (08:35→11:46)
[2025-07-12] MEDS: METFORMIN HCL 500 MG TABLET PO ×2 (08:35→16:18)
[2025-07-12] MEDS: ASPIRIN 81 MG TABLET.DR PO (08:35)
[2025-07-12] MEDS: ERGOCALCIFEROL (VITAMIN D2) 1,250 MCG/50,000 UNITS CAPSULE 1250 MCG PO (09:28)
--- NOTE | 2025-07-12 11:13 | MR_ITS ---
The [address] [address] Patient Name: JACOBO SALAZAR MRN: [id number] date: 1955 Sex: F Assigned Patient Location: MS Current Patient Location: MS Accession/Order Number: [id number] Exam Date: 07/12/2025 10:45 Report Date: 07/14/2025 13:46 At the request of: VICKY HORNE MD Procedure: MR head/brain wo con EXAMINATION: MRI OF THE BRAIN WITHOUT CONTRAST CLINICAL HISTORY: Ataxia, weakness COMPARISON: CT head 07/08/2025 TECHNIQUE: Multiecho, multiplanar imaging of the brain was performed without contrast FINDINGS: No restricted diffusion. Generalized involutional changes identified with slight discordance of the degree of ventricular megaly with degree of sulcal prominence.. Moderate periventricular subcortical T2 identified suggest of chronic small vessel ischemic disease. [id number] pontine T2 signal scattered areas of chronic lacunar strokes involving both thalami and bilateral frontal centrum semiovale. No findings of cisternal effacement or basal cistern effacement. Mamillary pontine distance 8 mm. Mild paranasal sinus thickening. MR/MR head/brain wo con IMPRESSION: Moderate microvascular changes with similar appearance of the ventriculomegaly. No evidence of acute intracranial process by MRI. Impression dictated by: Monty Orozco M.D. 07/14/2025 1:46 PM Dictation Location: [place] [address] Electronically authenticated by: [id number] Y Date: 07/14/2025 13:46
--- NOTE | 2025-07-12 11:16 | PM.HP ---
HPI H&P: HPI History of Present Illness Chief complaint: FALL, UTI, AMAN, HYPERTENSIVE EMERGENCY Narrative: Mrs. Watkins is a 70-year-old female who was brought to the emergency room for evaluation after patient fell down and could not stand up. Trauma workup completed in the emergency room without evidence of acute injury. Upon further questioning, patient reported that she has been weak for at least 8 to 12 months. Getting weaker over time. Falling down. The frequency of falls is increasing over the last few months. Patient does have a walker at home. She lives alone. Patient was found to have multiple bruising and ecchymosis. Please refer to photo section for visual understanding of scattered in the bilateral bruising, abrasions and skin changes are noted on her upper and lower extremities as well as her sacral and the buttock area. Patient denies any bowel or bladder retention or continence. Patient reported that her arms are stronger only her legs are weak and buckle up. She has shoulder pain which limits her ability to lift up her arm. No fever or chills. No abdominal pain. No chest pain. Opioid HPI Opioid Management Most Recent Pain and Opioid Data: Last Pain Scale 0 07/11/25, 18:27 Last Pain Assessment 07/11/25, 17:20 Last ORT Total Score 0 07/11/25, 17:20 Last ORT Risk Category Low Risk 07/11/25, 17:20 [facility] Medical History (Updated 07/12/25 @ 11:21 by Zach Tristan MD) Arthritis ?M19.90 - Unspecified osteoarthritis, unspecified site (ICD-10) Diabetes ?E11.9 - Type 2 diabetes mellitus without complications (ICD-10) HTN (hypertension) ?I10 - Essential (primary) hypertension (ICD-10) Surgical History (Updated 02/23/24 @ 09:45 by Tamie Archer RN) History of thumb surgery ?Z98.890 - Other specified postprocedural states (ICD-10) History of carpal tunnel release ?Z98.890 - Other specified postprocedural states (ICD-10) History of breast biopsy ?Z98.890 - Other specified postprocedural states (ICD-10) History of hysterectomy ?Z90.710 - Acquired absence of both cervix and uterus (ICD-10) History of total hip replacement ?Z96.649 - Presence of unspecified artificial hip joint (ICD-10) History of knee replacement ?Z96.659 - Presence of unspecified artificial knee joint (ICD-10) Family History (Updated 07/11/25 @ 17:54 by Lindy Arauz) Mother Family history of CHF (congestive heart failure) Family history of hypertension Family history of myocardial infarction Father Family history of cancer Grandmother Family history of hypertension Social History (Updated 07/11/25 @ 17:57 by Lindy Arauz) Within the past year, how often did you have a drink containing alcohol: never Within the past year, how often did you have six or more drinks on one occasion: never Score interpretation: A score less than 3 is consistent with normal alcohol consumption. 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 Known occupational exposures/hazards: No Highest level of school completed/degree received: high school graduate Do you want help with school or training: No Are you now , , , , never or living with a partner: In a typical week, how many times do you talk on the telephone with family, friends, or neighbors: 3 or more times per week How often do you get together with friends or relatives: 3 or more times per week How often do you attend anglican or christianity services: never Do you belong to any clubs or organizations such as anglican groups unions, fraternal or athletic groups, or school groups: no Total score: 1 Score interpretation: A score of less than or equal to 1 indicates the most socially isolated. Little interest or pleasure in doing things: several days Feeling down, depressed, or hopeless: several days Feel stressed/tense/nervous/anxious/difficulty sleeping: not at all Due to disability, difficulty making decisions: No Do you think of yourself as: straight/heterosexual Gender Identity: female Meds Home Medications and Allergies Home Medications ?Medication ?Instructions ?Recorded ?Confirmed ?Type aspirin 81 mg tablet,delayed 81 mg PO DAILY 06/26/23 07/11/25 History release omega 8-vuf-twr-fish oil 1,000 mg 1 cap PO DAILY 06/26/23 07/11/25 History (120 mg-180 mg) capsule (Fish Oil) oxybutynin chloride 15 mg 15 mg PO DAILY 06/26/23 07/11/25 History tablet,extended release 24 hr pantoprazole 40 mg tablet,delayed 40 mg PO DAILY 06/26/23 07/11/25 History release baclofen 10 mg tablet 10 mg PO BID 01/29/24 01/29/24 History meloxicam 7.5 mg tablet 7.5 mg PO BID #60 tabs 05/06/24 Rx amlodipine 10 mg tablet 10 mg PO DAILY 07/11/25 History atorvastatin 80 mg tablet 80 mg PO DAILY 07/11/25 07/11/25 History carvedilol 25 mg tablet 25 mg PO BID 07/11/25 07/11/25 History metformin 500 mg tablet 1,000 mg PO BID 07/11/25 07/11/25 History naproxen 500 mg tablet 500 mg PO BID 07/11/25 History sertraline 25 mg tablet 25 mg PO DAILY 07/11/25 07/11/25 History valsartan 160 1 tab PO DAILY 07/11/25 07/11/25 History mg-hydrochlorothiazide 25 mg tablet Allergies Allergy/AdvReac Type Severity Reaction Status Date / Time No Known Drug Allergies Allergy Verified 07/11/25 13:47 Exam Narrative Exam Narrative: [pt is awake and alert. oriented to place, time and person, constructing an affair. HEENT: [place] conjunctiva and NL buccal mucosa, bitemporal muscle wasting. Scattered skin abrasions involving her upper and lower extremities. Nails are yellowish, cracked, thickened and elongated. Extensive area of erythema, bruising and discomfort in the sacral buttock area. Please refer to picture taken by nursing staff Neck: Supple, no tenderness Endocrine: No Thyromegaly. Vascular: No JVD or carotid bruit. Lymphatic: No cervical lymphadenopathy. Chest: CTA no DTP. Heart RRR, no extra sound or murmur. Abd: Soft, no tenderness, no rebound and no rigidity. Increase abd girth therefore clinically I could not exclude the possibility of intra abd mass or organomegaly. LE: No cyanosis or clubbing, no varices or edema. Upper and lower extremities muscle wasting and atrophy. Neuro: A A O. Nl speech, comprehension and attention. Nl and symetrical motor and tone examination through out. []] Constitutional Vital Signs, click to edit/add: Last Vital Signs Temp 98.1 F 07/12/25 08:00 Pulse 88 07/12/25 08:00 Resp 16 07/12/25 08:00 BP 173/84 H 07/12/25 08:00 Pulse Ox 95 07/12/25 08:00 O2 Del Method Room Air 07/12/25 08:00 Results Labs Labs: Short CBC 07/11/25 07/12/25 Range/Units 14:00 06:02 WBC 6.6 7.8 (4.0-11.0) 10^3/uL Hgb 13.6 12.5 (12.0-16.0) g/dL Hct 40.1 37.3 (36.0-48.0) % Plt Count 297 272 (150-450) 10^3/uL BMP 07/11/25 07/12/25 14:00 06:02 Sodium 141 145 Potassium 4.2 3.7 Chloride 106 109 H Carbon Dioxide 24.6 25.2 BUN 37.0 H 40.0 H Creatinine 1.03 H 0.92 Glucose 183 H 146 H Calcium 10.1 9.6 Liver Function 07/11/25 07/12/25 Range/Units 14:00 06:02 Total Bilirubin 0.4 0.4 (0.2-1.0) mg/dL AST 28 25 (15-37) U/L ALT 39 28 (14-59) U/L Alkaline Phosphatase 100 86 (46-116) U/L Albumin 3.4 3.1 L (3.4-5.0) g/dL Urine 07/11/25 Range/Units 14:02 Urine Color Dk. yellow (YELLOW) Urine Clarity Clear (CLEAR) Urine pH 5.5 (5.0-9.0) Ur Specific [place] >=1.030 A (1.005-1.025) Urine Protein >=300 A (NEG/TRACE) mg/dL Urine Glucose (UA) Negative (NEGATIVE) mg/dL Assessment and Plan Assessment and Plan (1) Weakness: Plan Progressive bilateral lower extremities weakness over the last 8 to 12 months associated with falls and inability for patient to stand up. Progressive and non acute. Broad differential diagnosis including but not limited to progressive microvascular disease, neurodegenerative disorder, brain occupying lesion, hydrocephalus, demyelination, lumbar canal stenosis, peripheral neuropathy, ALS CDIP, myopathy, cerebellar dysfunction, posterior column degeneration secondary to B12 deficiency, other type neuromuscular disorder. Patient reported that she has chronic back pain for which she sees pain management. Requested MRI of the brain as well as MRI of the lumbar area. If brain and lumbar MRI are unrevealing then I would recommend MRI of the cervical and thoracic. Patient may need to have EMG and NCV. May need to follow-up with neuromuscular neurologist. Meanwhile continue aspirin. Increase dose to 325 mg daily PT OT eval and treatment. Further needed diagnostic and therapeutic intervention will be determined based on the MRI of the lumbar and brain that will not be done before Monday. UTI Urine culture is pending. Start the patient on cefuroxime twice a day. Multiple skin abrasions as described above and shown on pictures taken. Most prominent in the sacral and buttock area. Requested wound care. Requested x-ray of the pelvis sacrum rule out fracture there. Hypertension, poor control. Resume some of her preadmission home medications. Titrate to keep systolic between 140 and 160. Significant vitamin D deficiency. Vitamin D level is 10.1 Start patient on vitamin D supplementation. Cachexia, muscle wasting, failure to thrive, moderate protein calorie malnutrition Start the patient on oral protein supplementation Additional weight loss in the cachexia workup would need to be completed. This may include but not limited to age-appropriate cancer screening such as breast exam, mammogram, rectal exam, EGD and other set to be handled by PCP. Diabetes. A1c 6 Start patient on metformin. Accu-Chek AC and at bedtime. Unkept Situation, self-neglect, not enough help available at home Requested social work consultation to investigate home safety, support and needs. Patient may need short-term skilled care for now and based on her home safety and support she may need long-term residential [facility] living. Chronic, subacute medical conditions not listed above, abnormal labs and imaging. These would need to be addressed. Could be addressed later on or in the outpatient setting by PCP collaboration with other needed outpatient providers when time and condition are appropriate.
--- NOTE | 2025-07-12 11:31 | XR_ITS ---
[address] [address] Patient Name: JACOBO SALAZAR MRN: [id number] date: 1955 Sex: F Assigned Patient Location: MS Current Patient Location: MS Accession/Order Number: [id number] Exam Date: 07/12/2025 13:20 Report Date: 07/12/2025 15:47 At the request of: VICKY HORNE MD Procedure: XR pelvis min 3V 3 views of the pelvis INDICATION: Fall/sacral pain COMPARISON: sacral x-rays 07/07/2023 FINDINGS: Prior right total knee arthroplasty. Moderate degenerative changes left hip. No diastases of the sacroiliac joints or the pubic symphysis. Questionable lucency right sacral alae could raise possibility for insufficiency fracture. XR/XR pelvis min 3V IMPRESSION: Questionable lucency right sacrum, unclear if this is artifact. Question this could suggest nondisplaced insufficiency type fracture. Impression dictated by: Monty Orozco M.D. 07/12/2025 3:47 PM Dictation Location: [place] [address] Electronically authenticated by: [id number] Y Date: 07/12/2025 15:47
[2025-07-12] MEDS: ENOXAPARIN SODIUM 40 MG/0.4 ML SYRINGE SUBQ (11:46)
[2025-07-12 12:00] VITALS: BP 143/69; PULSE 57; TEMP 36.3; O2SAT 92
[2025-07-12 15:46] LABS: Creatine Kinase 138 U/L (26-192); Magnesium 1.7 mg/dL (1.8-2.4)
[2025-07-12 15:53] VITALS: BP 123/71; PULSE 83; TEMP 36.3; O2SAT 96
[2025-07-12 20:00] VITALS: BP 138/71; PULSE 98; TEMP 36.3; O2SAT 98
[2025-07-12] MEDS: ATORVASTATIN CALCIUM 40 MG TABLET 80 MG PO (21:13)
[2025-07-13 03:57] VITALS: BP 148/75; PULSE 67; TEMP 36.3; O2SAT 98
[2025-07-13] MEDS: PANTOPRAZOLE SODIUM 40 MG TABLET.DR PO (06:50)
[2025-07-13 07:07] LABS: Vitamin B12 269 pg/mL (232-1245)
[2025-07-13] MEDS: INSULIN ASPART 300 UNIT/3 ML PEN SUBQ ×2 (08:05→12:12)
[2025-07-13 08:11] VITALS: BP 164/95; PULSE 63; TEMP 36.8; O2SAT 98
[2025-07-13] MEDS: SERTRALINE HCL 50 MG TABLET 25 MG PO (09:08)
[2025-07-13] MEDS: CARVEDILOL 12.5 MG TABLET PO ×2 (09:08→21:15)
[2025-07-13] MEDS: ASPIRIN 325 MG TABLET.DR PO (09:08)
[2025-07-13] MEDS: AMLODIPINE BESYLATE 5 MG TABLET 10 MG PO (09:08)
--- NOTE | 2025-07-13 09:08 | PM.PN ---
Progress Note: Subjective Subjective Interval history: Patient is feeling better today. No focal motor deficit. No headaches. No neck pain. Chronic lower back pain. No chest pain or abdominal pain. Exam Narrative Exam Narrative: [pt is awake and alert. oriented to place, time and person, cachectic and frail HEENT: [place] conjunctiva and NL buccal mucosa, bitemporal muscle wasting. Scattered skin abrasions involving her upper and lower extremities. Nails are yellowish, cracked, thickened and elongated. Extensive area of erythema, bruising and discomfort in the sacral buttock area. Please refer to picture taken by nursing staff Neck: Supple, no tenderness Endocrine: No Thyromegaly. Vascular: No JVD or carotid bruit. Lymphatic: No cervical lymphadenopathy. Chest: CTA no DTP. Heart RRR, no extra sound or murmur. Abd: Soft, no tenderness, no rebound and no rigidity. Increase abd girth therefore clinically I could not exclude the possibility of intra abd mass or organomegaly. LE: No cyanosis or clubbing, no varices or edema. Upper and lower extremities muscle wasting and atrophy. Neuro: A A O. Nl speech, comprehension and attention. Nl and symetrical motor and tone examination through out. []] Constitutional Vital Signs, click to edit/add: Last Vital Signs Temp 98.2 F 07/13/25 08:11 Pulse 63 07/13/25 08:11 Resp 18 07/13/25 08:11 BP 164/95 H 07/13/25 08:11 Pulse Ox 98 07/13/25 08:11 O2 Del Method Room Air 07/13/25 08:11 Progress Note: Objective Labs Labs: Cardiac Enzymes 07/12/25 Range/Units 06:02 Total Creatine Kinase 138 (26-192) U/L Progress Note: A&P Assessment and Plan (1) Weakness: Plan Progressive bilateral lower extremities weakness over the last 8 to 12 months associated with falls and inability for patient to stand up. Progressive and non acute. Broad differential diagnosis including but not limited to progressive microvascular disease, neurodegenerative disorder, brain occupying lesion, hydrocephalus, demyelination, lumbar canal stenosis, peripheral neuropathy, ALS CDIP, myopathy, cerebellar dysfunction, posterior column degeneration secondary to B12 deficiency, other type neuromuscular disorder. Patient reported that she has chronic back pain for which she sees pain management. Requested MRI of the brain as well as MRI of the lumbar area. If brain and lumbar MRI are unrevealing then I would recommend MRI of the cervical and thoracic. Patient may need to have EMG and NCV. May need to follow-up with neuromuscular neurologist. Requested the B12 to rule out B12 deficiency and probable spinal or posterior column degeneration. B12 came back low. I would start patient on B12 supplementation. Meanwhile continue aspirin. Increase dose to 325 mg daily PT OT eval and treatment. Further needed diagnostic and therapeutic intervention will be determined based on the MRI of the lumbar and brain that will not be done before Monday. UTI Urine culture is pending. Start the patient on cefuroxime twice a day. Frequent falls Multiple skin abrasions as described above and shown on pictures taken. Most prominent in the sacral and buttock area. Sacral fracture seen on x-ray. Continue wound care. Hypertension, poor control. Resume some of her preadmission home medications. Titrate to keep systolic between 140 and 160. Significant vitamin D deficiency. Vitamin D level is 10.1 Start patient on vitamin D supplementation. Suspect osteoporosis or osteopenia Recommend DEXA scan to be done. Could be done in the outpatient setting. If osteopenia or osteoporosis are confirmed patient may benefit from bisphosphonate treatment. B12 deficiency B12 supplementation. Hypomagnesemia Magnesium IV 2 g. Cachexia, muscle wasting, failure to thrive, moderate protein calorie malnutrition Start the patient on oral protein supplementation Additional weight loss in the cachexia workup would need to be completed. This may include but not limited to age-appropriate cancer screening such as breast exam, mammogram, rectal exam, EGD and other set to be handled by PCP. Diabetes. A1c 6.6 Start patient on metformin. Accu-Chek AC and at bedtime. I added Amaryl 2 mg daily. I do not think that patient would be compliant with insulin. Unkept Situation, self-neglect, not enough help available at home Requested social work consultation to investigate home safety, support and needs. Patient may need short-term skilled care for now and based on her home safety and support she may need long-term residential senior care living. Chronic, subacute medical conditions not listed above, abnormal labs and imaging. These would need to be addressed. Could be addressed later on or in the outpatient setting by PCP collaboration with other needed outpatient providers when time and condition are appropriate.
[2025-07-13] MEDS: ENOXAPARIN SODIUM 40 MG/0.4 ML SYRINGE SUBQ (09:09)
[2025-07-13] MEDS: OXYBUTYNIN CHLORIDE 5 MG TAB XL 15 MG PO (09:09)
[2025-07-13] MEDS: METFORMIN HCL 500 MG TABLET PO ×2 (09:09→17:27)
[2025-07-13] MEDS: CEFUROXIME AXETIL 250 MG TABLET 500 MG PO ×2 (09:09→21:15)
[2025-07-13] MEDS: LOSARTAN POTASSIUM 50 MG TABLET PO ×2 (09:09→21:15)
[2025-07-13] MEDS: MAGNESIUM SULFATE IN WATER 2 GM/50 ML PREMIX IV (09:10)
[2025-07-13] MEDS: CYANOCOBALAMIN 1,000 MCG/ML VIAL 1000 MCG IM (09:10)
[2025-07-13] MEDS: GLIMEPIRIDE 2 MG TABLET PO (09:26)
[2025-07-13 12:58] VITALS: BP 100/63; PULSE 71; TEMP 36.5; O2SAT 93
[2025-07-13 16:23] VITALS: BP 119/66; PULSE 76; TEMP 36.4; O2SAT 96
[2025-07-13 19:48] VITALS: BP 127/71; PULSE 77; TEMP 36.6; O2SAT 96
[2025-07-13] MEDS: ATORVASTATIN CALCIUM 40 MG TABLET 80 MG PO (21:15)
[2025-07-13 23:45] VITALS: BP 156/74; PULSE 69; TEMP 37.1; O2SAT 94
[2025-07-14 03:21] VITALS: BP 150/78; PULSE 66; TEMP 36.8; O2SAT 96
[2025-07-14] MEDS: PANTOPRAZOLE SODIUM 40 MG TABLET.DR PO (05:31)
[2025-07-14 07:11] VITALS: BP 141/69; PULSE 74; TEMP 36.7; O2SAT 95
--- NOTE | 2025-07-14 08:45 | W.PM.WC ---
Wound Consult Note Assessment and Plan (1) Weakness: Plan Consult: Sacral ulcer Patient seen today in her hospital bed. Patient awake and alert. She reports she has been falling at home and that is why she has a sore on my backside . She states she was seeing a girl in my apartment, but everyone said she wasn't there and I was seeing things . I asked patient how long she has had the sore for and she said it just happened and that's why I'm here . Patient with an unstageable pressure injury to her left upper buttock/sacral area that is 100% black, adherent eschar. No surrounding erythema. No drainage. She does have dark pink, excoriated skin noted to her buttocks and is wearing incontinence garment. See wound assessment for details on sacral pressure injury. Patient also noted to have her right 5th toenail that appears to have been traumatically removed. Toenail is absent and nailbed is dry/scabbed. All other toenails are thick, elongated and discolored. Patient gave verbal consent to trim and file nails. Patient tolerated well. Recommendations: Thin layer triad paste to bilateral buttocks/sacral including left upper buttocks pressure injury daily Continue air mattress overlay Continue air seat cushion Reposition frequently Call [phone] with any questions/concerns Chung Wade RN, CWON Wound Assessment Patient Status Premedicated Prior to Dressing Change: No Wound Left Upper Buttock: Wound Type: Pressure Injury (present on admission) Is This a Chronic Wound: No Wound Staging: Unstageable Length: 5.3 Width: 2.7 Depth: 0 Wound Bed Appearance: Eschar Percentage of Eschar (Black): 100 Wound Margins Description: Well Defined Surrounding Tissue Appearance: [place] (dark pink, excoriated (moisture associated dermatitis)) Surrounding Tissue Temperature: warm (WNL) Drainage Amount: None Primary Dressing: triad wound paste - thin layer
[2025-07-14] MEDS: ENOXAPARIN SODIUM 40 MG/0.4 ML SYRINGE SUBQ (08:48)
[2025-07-14] MEDS: SERTRALINE HCL 50 MG TABLET 25 MG PO (08:49)
[2025-07-14] MEDS: METFORMIN HCL 500 MG TABLET PO ×2 (08:49→16:51)
[2025-07-14] MEDS: GLIMEPIRIDE 2 MG TABLET PO (08:49)
[2025-07-14] MEDS: CARVEDILOL 12.5 MG TABLET PO ×2 (08:49→21:15)
[2025-07-14] MEDS: CEFUROXIME AXETIL 250 MG TABLET 500 MG PO ×2 (08:49→21:15)
[2025-07-14] MEDS: OXYBUTYNIN CHLORIDE 5 MG TAB XL 15 MG PO (08:50)
[2025-07-14] MEDS: AMLODIPINE BESYLATE 5 MG TABLET 10 MG PO (08:50)
[2025-07-14] MEDS: ASPIRIN 325 MG TABLET.DR PO (08:50)
[2025-07-14] MEDS: LOSARTAN POTASSIUM 50 MG TABLET PO ×2 (08:50→21:15)
[2025-07-14] MEDS: CYANOCOBALAMIN 1,000 MCG/ML VIAL 1000 MCG IM (08:55)
--- NOTE | 2025-07-14 09:40 | CM.NOTE ---
Rounds made with Dr. Wolf, discussed with pt plan of care. PT on OT will evaluate pt again today for discharge planning. Pt is not opposed to skilled therapy at discharge if needed.
--- NOTE | 2025-07-14 12:46 | SWNOTE1 ---
SW met with pt to discuss dc needs. Pt does live at home alone. Pt does have a daughter, but voiced her daughter has kids and she is busy. Pt does have a walker at home and canes. Pt did voice she has not been feeling well for the past 6 days. She admits to being weaker. SW asked pt if she still drives? Pt voiced she does not and that her daughter picks up groceries for her at Risk Ident. SW and pt spoke about recommendations of skilled. 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 SW let her know it would be short term to started. She would get therapy and see how strong she gets. Pt asked how long she would be there. SW explained it would depend on her insurance and how well she did with therapy. Pt is in agreement. SW provided her with list from Medicare.gov with star ratings. Pt would like to go to [facility] in [place]. SW to send referral. Referral sent to [facility]. Referral included face sheet, ED note, H&P, provider notes, case management report, wound consult, nursing notes, diagnostic imaging, med list, and PT/OT notes. Pt is a precert.
[2025-07-14 12:57] VITALS: BMI 29.3
--- NOTE | 2025-07-14 13:36 | SWNOTE1 ---
Medicare Outpatient Observation Notice reviewed and discussed with patient. Pt. verbalized understanding and signed the form. Original given to patient and copy placed in patient?s chart.
--- NOTE | 2025-07-14 13:45 | SWNOTE1 ---
ILIANA received an email back from Mitra at [facility] and they have reviewed and are able to accept. ILIANA advised they can start precert. Precert started 07/14/25.
--- NOTE | 2025-07-14 13:57 | PM.PN ---
Progress Note: Subjective Subjective Interval history: Patient is feeling better today. No obvious new focal motor deficit. No headaches. No neck pain. Chronic lower back pain. No chest pain or abdominal pain. she is out of bed to chair today. PT/OT following. Underwent MRIs today. Exam Narrative Exam Narrative: pt is awake and alert. oriented to place, time and person, cachectic and frail HEENT: [place] conjunctiva and NL buccal mucosa, bitemporal muscle wasting. Scattered skin abrasions involving her upper and lower extremities. Nails are yellowish, cracked, thickened and elongated. Extensive area of erythema, bruising and discomfort in the sacral buttock area. Please refer to picture taken by nursing staff Neck: Supple, no tenderness Endocrine: No Thyromegaly. Vascular: No JVD or carotid bruit. Lymphatic: No cervical lymphadenopathy. Chest: CTA no DTP. Heart RRR, no extra sound or murmur. Abd: Soft, no tenderness, no rebound and no rigidity. Increase abd girth therefore clinically I could not exclude the possibility of intra abd mass or organomegaly. LE: No cyanosis or clubbing, no varices or edema. Neuro: A A O x 3. normal speech, comprehension and attention. Nl and symetrical motor and tone examination through out. Constitutional Vital Signs, click to edit/add: Last Vital Signs Temp 98.1 F 07/14/25 07:11 Pulse 74 07/14/25 07:11 Resp 20 07/14/25 07:11 BP 141/69 07/14/25 07:11 Pulse Ox 95 07/14/25 07:11 O2 Del Method Room Air 07/14/25 07:11 Progress Note: A&P Assessment and Plan (1) Weakness: Plan Progressive bilateral lower extremities weakness over the last 8 to 12 months associated with falls and inability for patient to stand up. Progressive and non acute. Broad differential diagnosis including but not limited to progressive microvascular disease, neurodegenerative disorder, brain occupying lesion, hydrocephalus, demyelination, lumbar canal stenosis, peripheral neuropathy, ALS CDIP, myopathy, cerebellar dysfunction, posterior column degeneration secondary to B12 deficiency, other type neuromuscular disorder. Patient reported that she has chronic back pain for which she sees pain management. MRI brain and lumbar spine ordered. Patient may need to have EMG and NCV. May need to follow-up with neuromuscular neurologist. patient on B12 supplementation. continue aspirin. PT OT eval and treatment. recs for SNF. UTI due to E.coli. Urine culture finalized and reviewed. Start the patient on cefuroxime twice a day. Frequent falls Multiple skin abrasions as described above and shown on pictures taken. Most prominent in the sacral and buttock area. Sacral fracture seen on x-ray. Continue wound care. Hypertension, better controlled Continue current regimen Significant vitamin D deficiency. Vitamin D level is 10.1 Start patient on vitamin D supplementation. Suspect osteoporosis or osteopenia Recommend DEXA scan to be done. Could be done in the outpatient setting. If osteopenia or osteoporosis are confirmed patient may benefit from bisphosphonate treatment. B12 deficiency B12 supplementation. Hypomagnesemia Magnesium IV 2 g given here Cachexia, muscle wasting, failure to thrive, moderate protein calorie malnutrition patient on oral protein supplementation Additional weight loss in the cachexia workup would need to be completed. This may include but not limited to age-appropriate cancer screening such as breast exam, mammogram, rectal exam, EGD and other set to be handled by PCP. Diabetes. A1c 6.6 Start patient on metformin. Accu-Chek AC and at bedtime. Amaryl 2 mg daily was added Unkept Situation, self-neglect, not enough help available at home Requested social work consultation to investigate home safety, support and needs. Patient may need short-term skilled care for now and based on her home safety and support she may need long-term residential senior living living. Chronic, subacute medical conditions not listed above, abnormal labs and imaging. These would need to be addressed. Could be addressed later on or in the outpatient setting by PCP collaboration with other needed outpatient providers when time and condition are appropriate. PT/OT evaluated pt, she walked about 25 ft. CM following for disposition, plan is SNF, will need PreCert.
--- NOTE | 2025-07-14 14:59 | DIETREC ---
Recommend 1800 kcal CCD diet d/t dx DM and HgbA1c 6.6H.
[2025-07-14 15:15] VITALS: BP 147/65; PULSE 65; TEMP 36.6; O2SAT 20
--- NOTE | 2025-07-14 15:42 | SWNOTE1 ---
SW called pt's daughter, Kacy, and updated her in regards to discharge plans. SW let her know SNF was recommended to build her strength back up. SW let her know [facility] in [place] started precert today and SW will update her once the insurance approves or denies. Kacy voiced understanding and had no further questions.
[2025-07-14 19:28] VITALS: BP 149/71; PULSE 72; TEMP 36.6; O2SAT 95
[2025-07-14] MEDS: ATORVASTATIN CALCIUM 40 MG TABLET 80 MG PO (21:15)
[2025-07-14] MEDS: INSULIN ASPART 300 UNIT/3 ML PEN SUBQ (21:16)
[2025-07-14 22:55] VITALS: BP 134/72; PULSE 69; TEMP 36.8; O2SAT 96
[2025-07-15 03:47] VITALS: BP 151/89; PULSE 71; TEMP 36.9; O2SAT 96
[2025-07-15] MEDS: PANTOPRAZOLE SODIUM 40 MG TABLET.DR PO (05:34)
[2025-07-15 05:45] LABS: Hematocrit 31.3 % (36.0-48.0); Hemoglobin 10.8 g/dL (12.0-16.0); Mean Corpuscular HGB Conc 34.5 g/dL (29.9-35.2); Mean Corpuscular Hemoglobin 30.7 pg (26.7-34.0); Mean Corpuscular Volume 88.9 fL (81.0-99.0); Platelet Count 202 10^3/uL (150-450); Red Blood Count 3.52 10^6/uL (4.20-5.40); White Blood Count 4.6 10^3/uL (4.0-11.0)
[2025-07-15 06:03] LABS: Anion Gap 12.2; Blood Urea Nitrogen 27.0 mg/dL (7.0-18.0); Calcium 9.1 mg/dL (8.5-10.1); Carbon Dioxide 23.5 mmol/L (21.0-32.0); Chloride 107 mmol/L (98-107); Estimated GFR (African America >60 (>=60 mL/min/1.73m^2); Estimated GFR (Non-African Ame >60 (>=60 mL/min/1.73m^2); Glucose 126 mg/dL (74-106); Potassium 4.7 mmol/L (3.5-5.1); Sodium 138 mmol/L (136-145)
[2025-07-15 07:37] VITALS: BP 140/81; PULSE 76; TEMP 36.7; O2SAT 95
[2025-07-15] MEDS: ENOXAPARIN SODIUM 40 MG/0.4 ML SYRINGE SUBQ (08:12)
[2025-07-15] MEDS: GLIMEPIRIDE 2 MG TABLET PO (08:13)
[2025-07-15] MEDS: AMLODIPINE BESYLATE 5 MG TABLET 10 MG PO (08:13)
[2025-07-15] MEDS: OXYBUTYNIN CHLORIDE 5 MG TAB XL 15 MG PO (08:13)
[2025-07-15] MEDS: SERTRALINE HCL 50 MG TABLET 25 MG PO (08:13)
[2025-07-15] MEDS: CARVEDILOL 12.5 MG TABLET PO (08:13)
[2025-07-15] MEDS: CEFUROXIME AXETIL 250 MG TABLET 500 MG PO (08:13)
[2025-07-15] MEDS: LOSARTAN POTASSIUM 50 MG TABLET PO (08:14)
[2025-07-15] MEDS: METFORMIN HCL 500 MG TABLET PO (08:14)
[2025-07-15] MEDS: ASPIRIN 81 MG TABLET.DR PO (08:14)
--- NOTE | 2025-07-15 09:00 | CM.NOTE ---
Rounds made with Dr. Wolf pt will discharge to skilled facility today ([facility]).
[2025-07-15] MEDS: INSULIN ASPART 300 UNIT/3 ML PEN SUBQ (11:01)
--- NOTE | 2025-07-15 11:31 | P.DS_ITS ---
DS: Providers Provider Date of admission: 07/11/25 16:59 Primary care physician: DAYRON SHAFFER Attending physician on admission: Zach Tristan Consults: 07/11/25 15:34 Occupational Therapy Eval and Treat Routine Reason for consultation: weakness Physical Therapy Eval and Treat Routine Reason for consultation: weakness 07/12/25 11:31 Consult to Wound Care Routine Consulting Provider: Chung Wade Reason for consultation: Wound care 07/12/25 11:33 Consult to [employer] Routine Reason for consult:: Other Other reason:: Assess home safety & support. Plse provide recommendation Attending physician on discharge: BEATRIZ SETHI DS: Diagnosis Discharge Diagnosis (1) Weakness: Plan Progressive bilateral lower extremities weakness over the last 8 to 12 months associated with falls and inability for patient to stand up. Progressive and non acute. UTI due to E.coli. Frequent falls Multiple skin abrasions as described above and shown on pictures taken. Most prominent in the sacral and buttock area. Significant vitamin D deficiency. Vitamin D level is 10.1 B12 deficiency Cachexia, muscle wasting, failure to thrive, moderate protein calorie malnutrition DS: Summary Hospital Course Hospital Course: Mrs. Watkins is a 70-year-old female who was brought to the emergency room for evaluation after patient fell down and could not stand up. Initial workup completed in the emergency room without evidence of acute injury. Upon further questioning, patient reported that she has been weak for at least 8 to 12 months. Getting weaker over time. Falling down. The frequency of falls is increasing over the last few months. Patient does have a walker at home. She lives alone. Patient was found to have multiple bruising and ecchymosis. Please refer to photo section for visual understanding of scattered in the bilateral bruising, abrasions and skin changes are noted on her upper and lower extremities as well as her sacral and the buttock area. Patient denies any bowel or bladder retention or continence. Patient reported that her arms are stronger only her legs are weak and buckle up. She has shoulder pain which limi ts her ability to lift up her arm. No fever or chills. No abdominal pain. No chest pain. During hospital course, patient was found to have acute UTI which has been treatment with IV AB then transitioned to oral based on final urine culture. MRI brain was ordered and done with no acute pathology. CT head and CT cervical spine with no acute pathology. Patient could not tolerate further testing with MRI spine. I do not appreciate any new focal neurological deficit. her sensation is intact b/l. strength is equal b/l in upper and LE. Patient reported that she has chronic back pain for which she sees pain management. Patient may need to have EMG and NCV. May need to follow-up with neuromuscular neurologist. Found to have vit D and vit b12 deficiencies and started on supplements. Suspect ost eoporosis or osteopenia. Recommend DEXA scan to be done. Could be done in the outpatient setting. If osteopenia or osteoporosis are confirmed patient may benefit from bisphosphonate treatment. Additional weight loss in the cachexia workup would need to be completed. This may include but not limited to age- appropriate cancer screening such as breast exam, mammogram, rectal exam, EGD and other set to be handled by PCP. PT/OT consulted and recommended SNF. Pt in agreement with this plan. Precert has been approved. Patient is stable for discharge at this time with current plan and outpatient follow up as directed. Discussed with pt at bedside, all questions answered, She is in agreement and comfortable with discharge plan at this time. Time Spent with Patient Time attestation: Total time spent providing and/or coordinating discharge services: Time spent: greater than 30 minutes Exam Narrative Exam Narrative: pt is awake and alert. oriented to place, time and person, cachectic and frail HEENT: [place] conjunctiva and NL buccal mucosa, bitemporal muscle wasting. Scattered skin abrasions involving her upper and lower extremities. Nails are yellowish, cracked, thickened and elongated. Extensive area of erythema, bruising and discomfort in the sacral buttock area. Please refer to picture taken by nursing staff Neck: Supple, no tenderness Vascular: No JVD or carotid bruit. Lymphatic: No cervical lymphadenopathy. Chest: CTA no DTP. Heart RRR Abd: Soft, no tenderness, no rebound and no rigidity. Increase abd girth therefore clinically I could not exclude the possibility of intra abd mass or organomegaly. LE: No cyanosis or clubbing, no varices or edema. Neuro: A A O x 3. normal speech, comprehension and attention. Nl and symetrical motor and tone examination through out. no obvious new focal deficits. Constitutional Vital Signs, click to edit/add: Last Vital Signs Temp 98.1 F 07/15/25 07:37 Pulse 76 07/15/25 07:37 Resp 20 07/15/25 07:37 BP 140/81 07/15/25 07:37 Pulse Ox 95 07/15/25 07:37 O2 Del Method Room Air 07/15/25 07:37 DS: Data Data Completed and Pending Labs on day of discharge: Labs from last 24 hours 07/15/25 07/15/25 07/14/25 10:59 05:10 19:23 WBC 4.6 RBC 3.52 L Hgb 10.8 L Hct 31.3 L MCV 88.9 MCH 30.7 MCHC 34.5 RDW 13.3 Plt Count 202 MPV 11.1 Sodium 138 Potassium 4.7 Chloride 107 Carbon Dioxide 23.5 Anion Gap 12.2 BUN 27.0 H Creatinine 0.77 Est GFR ( Amer) >60 Est GFR (Non-Af Amer) >60 BUN/Creatinine Ratio 35.1 Glucose 126 H Calcium 9.1 POC Glucose 278 H 166 H 07/14/25 07/14/25 16:31 11:31 WBC RBC Hgb Hct MCV MCH MCHC RDW Plt Count MPV Sodium Potassium Chloride Carbon Dioxide Anion Gap BUN Creatinine Est GFR ( Amer) Est GFR (Non-Af Amer) BUN/Creatinine Ratio Glucose Calcium POC Glucose 148 H 98 Discharge Plan Discharge Disposition: Xfer SNF Condition: Good Plan of Treatment: -Continue antibiotics for 3 more days Cefuroxime 250 mg twice daily. Discharge Medications: New losartan 50 mg Tablet 50 mg PO BID Qty: 0 0RF metformin 500 mg Tablet 500 mg PO BIDWM Qty: 0 0RF cefuroxime axetil 250 mg Tablet 500 mg PO BID 3 Days Qty: 0 0RF carvedilol 12.5 mg Tablet 12.5 mg PO BID Qty: 0 0RF glimepiride 2 mg Tablet 2 mg PO QD Qty: 0 0RF cyanocobalamin (vitamin B-12) 1,000 mcg/mL Solution 1,000 mcg IM Q30D Qty: 0 0RF ergocalciferol (vitamin D2) 1,250 mcg (50,000 unit) Capsule 1,250 mcg PO QWEEK Qty: 0 0RF Continued oxybutynin chloride 15 mg tablet extended release 24hr 15 mg PO DAILY pantoprazole 40 mg tablet,delayed release (DR/EC) 40 mg PO DAILY aspirin 81 mg tablet,delayed release (DR/EC) 81 mg PO DAILY omega [id number]-[id number]-fish oil [Fish Oil] 1,000 mg (120 mg-180 mg) capsule 1 cap PO DAILY amlodipine 10 mg tablet 10 mg PO DAILY sertraline 25 mg tablet 25 mg PO DAILY atorvastatin 80 mg tablet 80 mg PO DAILY Changed meloxicam 7.5 mg tablet 7.5 mg PO DAILY PRN (Reason: pain) Qty: 0 0RF Discontinued baclofen 10 mg tablet 10 mg PO BID carvedilol 25 mg tablet 25 mg PO BID valsartan-hydrochlorothiazide 160-25 mg tablet 1 tab PO DAILY metformin 500 mg tablet 1,000 mg PO BID naproxen 500 mg tablet 500 mg PO BID Print Language: Cameroonian Forms: Portal Instructions
--- NOTE | 2025-07-15 11:39 | CM.NOTE ---
[facility] will be picking up the patient and transporting her to [place] between [id number] today
--- NOTE | 2025-07-15 11:47 | CM.NOTE ---
CRP, Discharge Summary, and Med List will be faxed to [facility] once the discharge is finalized.
--- NOTE | 2025-07-15 12:53 | CM.NOTE ---
Faxed discharge summary, CRF, med list and face sheet to [facility]. Called pt's daughter to update on discharge time.
--- NOTE | 2025-07-15 13:30 | CM.NOTE ---
Online HENS completed and notified [facility].
--- NOTE | 2025-07-15 13:42 | PC.NURSE ---
Report called to [place] [facility] [place]. Informed will be leaving around 2:30-3:00 per [facility]. Will send mattress overlay with pt
--- NOTE | 2025-07-15 13:58 | CM.NOTE ---
Updated pt that her daughter will bring clothes to her at [facility] around 5:30. Assisted pt with getting dressed and into wheelchair for transport.
--- NOTE | 2025-07-16 10:56 | SWNOTE1 ---
ILIANA had a message to call Mariela Mariano from [facility] for a follow up with discharge plans for this pt. Report had been made that was screened out due to pt being admitted to hospital. ILIANA spoke to service secretary at [facility] and she stated she spoke to Mariela Mariano and this would need to a referral made to intake. ILIANA expressed that at this time, ILIANA did not make a report to [facility] and someone had called a report in, but it was not SW. She voiced understanding and will let Ms. Quintana know. At this time no further needs.
== END 2025-07-15 14:00 ==
LOC: ER 14:48 → MS 17:05
PROVIDERS: Physician Assistant; Admitting Provider Internal Medicine; Emergency Provider Emergency Medicine; PCP Nurse Practitioner Family; Visit Provider Internal Medicine
DX: N39.0 Urinary tract infection, site not specified (principal); R53.1 Weakness; S30.810A Abrasion of lower back and pelvis, initial encounter; S50.812A Abrasion of left forearm, initial encounter; S50.811A Abrasion of right forearm, initial encounter; S60.811A Abrasion of right wrist, initial encounter; S50.312A Abrasion of left elbow, initial encounter; Z91.81 History of falling; I16.1 Hypertensive emergency; E55.9 Vitamin D deficiency, unspecified; R64 Cachexia; M62.50 Muscle wasting and atrophy, not elsewhere classified, unspecified site; E44.0 Moderate protein-calorie malnutrition; E11.9 Type 2 diabetes mellitus without complications; Z79.84 Long term (current) use of oral hypoglycemic drugs; R46.0 Very low level of personal hygiene; G89.29 Other chronic pain; E53.8 Deficiency of other specified B group vitamins; L60.2 Onychogryphosis; L89.320 Pressure ulcer of left buttock, unstageable; M54.50 Low back pain, unspecified; B96.20 Unspecified Escherichia coli [E. coli] as the cause of diseases classified elsewhere; W19.XXXA Unspecified fall, initial encounter; Z68.29 Body mass index [BMI] 29.0-29.9, adult; Z96.651 Presence of right artificial knee joint; S32.10XA Unspecified fracture of sacrum, initial encounter for closed fracture; R42 Dizziness and giddiness
CPT/HCPCS: 36415; 70450; 70551; 72125; 72190; 73030; 73080; 73110; 76376; 80048; 80053; 81001; 82306; 82550; 82607; 82948; 83036; 83735; 84100; 84443; 84484; 85007; 85027; 87086; 87088; 87186; 93005; 96361; 96365; 96367; 96372; 96375; 97162; 97165; 97530; 97535; 99285; G0378; J0360; J0696; J1650; J3420; J3475